=== PATIENT | female | born 1960 | race African-American/Black ===

== ENCOUNTER → 2016-12-12 | Outpatient (CLI) | payer OTHER ==
--- NOTE | 2016-12-13 07:58 | MR ---
EXAMINATION TYPE: MR lumbar spine wo con DATE OF EXAM: 12/12/2016 COMPARISON: MRI lumbar spine November 08, 2015 HISTORY: LBP x several years, no trauma/surgery per patient. Lumbago per order. TECHNIQUE: Multiplanar, multisequence imaging of the lumbar spine is performed without IV contrast. FINDINGS: We'll use same counting system as was performed on prior exam. Sagittal images of the lumba r spine show vertebral body heights to remain satisfactory. There is persistent grade 1 retrolisthesi s of L5 on L6 measured 4 mm from posterior vertebral body margin on sagittal image 8. There is disc d esiccation L4-L5 level. There is disc desiccation with mild to moderate disc space narrowing and vacu um disc phenomenon L5-L6 level. This is suspected some progression versus prior exam. The interverteb ral discs otherwise redemonstrate normal heights and hydration. Small posterior disc herniations L4-L 5 and L5 L6 level are redemonstrated sagittal images. The conus medullaris remains normal in position and signal ending at superior L1 vertebral body level. The bone marrow signal intensity is within n ormal limits. No significant spurring is seen. Axial images beginning at L1-L2 level which is felt within normal limits. Axial images at L2-L3 and L 3-L4 levels are felt to remain within normal limits. Axial images at the L4-L5 level show spondylolisthesis and moderate facet arthropathy bilaterally. Th ere is minimal effacement of anterior thecal sac as there is additional broad-based posterior disc pr otrusion on axial image 17. There is moderate to severe right and mild left sided anterior inferior n eural foraminal narrowing redemonstrated. Axial images at the L5- L6 level show moderate left greater than right facet degenerative changes. Th ere is central disc extrusion redemonstrated minimally effacing anterior thecal sac. There is mild le ft greater than right neural foraminal narrowing at this level redemonstrated. Axial images at L6-S1 level are felt to remain within normal limits. Paraspinal muscle bulk is maintained. IMPRESSION: Persistent grade 1 retrolisthesis of L5 on L6 felt stable. Some progression in degenerati ve findings on sagittal images L5- L6 level is felt present. Multilevel degenerative changes in mid t o lower lumbar spine as detailed above appear not significantly changed on axial images.
== END | disposition home or self-care (01) ==
LOC: RADMRIMAIN 15:04
PROVIDERS: ATTEND Psychiatry & Neurology Neurology
DX: M43.16 Spondylolisthesis, lumbar region (principal); M47.816 Spondylosis without myelopathy or radiculopathy, lumbar region
CPT/HCPCS: 72148

== ENCOUNTER → 2017-01-29 | Outpatient (CLI) | payer OTHER ==
--- NOTE | 2017-01-30 09:00 | MM ---
Reason for exam: screening (asymptomatic). Last mammogram was performed 5 years ago. History: Family history of breast cancer in paternal aunt. Physical Findings: A clinical breast exam by your physician is recommended on an annual basis and results should be correlated with mammographic findings. MG Screening Mammo w CAD Bilateral CC and MLO view(s) were taken. Prior study comparison: February 10, 2012, mammogram, performed at [facility]. There are scattered fibroglandular densities. There is chronic nodularity in the right breast, stable. No significant changes when compared with prior studies. ASSESSMENT: Benign, BI-RAD 2 RECOMMENDATION: Routine screening mammogram of both breasts in 1 year.
== END | disposition home or self-care (01) ==
LOC: RADMAMWWP 09:09
PROVIDERS: ATTEND Family Medicine
DX: Z12.31 Encounter for screening mammogram for malignant neoplasm of breast (principal)

== ENCOUNTER → 2017-04-04 | Outpatient (CLI) | payer OTHER ==
--- NOTE | 2017-04-04 14:09 | FL ---
EXAMINATION TYPE: FL barium swallow DATE OF EXAM: 04/04/2017 COMPARISON: NONE HISTORY: Gastroesophageal reflux, dysphasia TECHNIQUE: A single contrast UGI study is performed. FINDINGS: Esophagus dilates to normal caliber has normal contour to the gastroesophageal junction. Ga stroesophageal junction opens to normal caliber. Some secondary and tertiary contractions were briefl y visualized during this exam. Findings can be compatible with presbyesophagus. There is incomplete s tripping of the esophageal bolus the horizontal drinking position. Gastroesophageal reflux was presen t during the exam. 1.2 minutes of fluoroscopy time was provided. 20 images are obtained. IMPRESSIONS: 1. Gastroesophageal reflux. 2. No hiatal hernia identified. 3. Presbyesophagus
== END ==
LOC: RADFLWHC 08:36
PROVIDERS: ATTEND Surgery
DX: K21.9 Gastro-esophageal reflux disease without esophagitis (principal); K22.8 Other specified diseases of esophagus
CPT/HCPCS: 74220

== ENCOUNTER 2017-04-10 06:39 | Day surgery (SDC) | payer OTHER ==
[~2017-04-10 06:39] MED LIST: LACTATED RINGERS 1,000 ML IV SCH
[2017-04-10 07:06] VITALS: TEMP 98.1
[2017-04-10] MEDS ORDERED: LACTATED RINGERS 1,000 ML IV ONE ×2 (07:16)
[2017-04-10 07:18] LABS: Glucose,Whole Blood 98 mg/dL (75-99)
[2017-04-10] MEDS ORDERED: PROPOFOL 10 MG/ML 20 ML VIAL IV ONE (07:45)
[2017-04-10] MEDS ORDERED: MIDAZOLAM 2 MG/2 ML VIAL ONE (07:45)
[2017-04-10] MEDS ORDERED: fentaNYL (PF) 50 MCG/ML 2 ML AMP ONE (07:45)
--- NOTE | 2017-04-10 07:56 | P.GSHP ---
History of Present Illness H&P Date: 04/10/17 Chief Complaint: GERD, dysphagia This is a 56-year-old female who's had complaints of some epigastric pain and GERD and dysphagia. Her recent esophagram shows no evidence of hiatal hernia. She does have evidence of presbyesophagus and reflux on esophagram. She was a presents today EGD. Past Medical History Past Medical History: Asthma, COPD, Diabetes Mellitus, GERD/Reflux, Hyperlipidemia, Hypertension, Osteoarthritis (OA) Additional Past Medical History / Comment(s): Other HX: IDDM. CAROTID STENOSIS. Chronic low back pain, bilateral knees with arthritis, frequent constipation, bronchitis, migraines History of Any Multi-Drug Resistant Organisms: None Reported Past Surgical History: Hernia Repair, Hysterectomy, Orthopedic Surgery, Tubal Ligation Additional Past Surgical History / Comment(s): 08/04/15 laparoscopic fredy fundoplasty. Other surgeries: LASER FOR GLAUCOMA, TUBAL , RT ING HERNIA, LT ROTATOR CUFF REPAIR, ARTHROSCOPY SAUL KNEES, HX OF ENDOVASCULAR STENT ASSISTED COIL EMBOLIZATION OF LEFT INTERNAL CAROTID ARTERY ANEURYSM (FEB 2014). (ANGIOGRAM 08/23/14 TO CHECK STENT.) hiatal hernia repair Past Anesthesia/Blood Transfusion Reactions: Motion Sickness Past Psychological History: Anxiety, Depression Smoking Status: Current every day smoker Past Alcohol Use History: None Reported Additional Past Alcohol Use History / Comment(s): SMOKES ABOUT 8 CIG A DAY, SINCE 15 YRS. QUIT DRINKING ALCOHOL 9 YRS AGO. Past Drug Use History: None Reported Additional Drug Use History / Comment(s): STATES HX OF CRACK, MARIJUANA AND COCAINE USE, QUIT 9 YRS AGO. - Past Family History Father Family Medical History: No Reported History Medications and Allergies Home Medications Medication Instructions Recorded Confirmed Type Aspirin EC [Ecotrin] 325 mg PO DAILY 08/26/14 04/09/17 History Atorvastatin [Lipitor] 80 mg PO HS 08/26/14 04/09/17 History Cyclobenzaprine [Flexeril] 10 mg PO TID PRN 08/26/14 04/09/17 History FLUoxetine HCL [PROzac] 40 mg PO QAM 08/26/14 04/09/17 History HYDROcodone/APAP 10-325MG [[place] 1 tab PO Q6H PRN 08/26/14 04/09/17 History 10] Albuterol Inhaler [Ventolin Hfa 2 puff INHALATION RT-BID PRN 09/01/14 04/09/17 History Inhaler] Albuterol Nebulized [Ventolin 2.5 mg INHALATION RT-QID 09/01/14 04/09/17 History Nebulized] Lisinopril [Zestril] 5 mg PO QAM 04/12/15 04/09/17 History Butalb/APAP/Caff 50-325-40Mg 1 tab PO Q8HR PRN 07/28/15 04/09/17 History [Fioricet 50-325-40] Fenofibrate 160 mg PO QAM 07/28/15 04/09/17 History Gabapentin [Neurontin] 600 mg PO TID 07/28/15 04/09/17 History Insulin Glulisine [Apidra] 13 unit SQ TID-W/MEALS 07/28/15 04/09/17 History Verapamil HCl [Verapamil ER] 120 mg PO QAM 07/28/15 04/09/17 History traMADol HCl [Ultram] 50 mg PO TID PRN 07/28/15 04/09/17 History Albiglutide [Tanzeum] 50 unit SQ SA 04/09/17 04/09/17 History Ergocalciferol (Vitamin D2) 50,000 unit PO Q30D 04/09/17 04/09/17 History [Vitamin D2] Ibuprofen [Motrin] 800 mg PO Q8H PRN 04/09/17 04/09/17 History Insulin Glargine [Lantus] 100 unit SQ HS 04/09/17 04/09/17 History Isosorbide Mononitrate [Isosorbide 30 g PO QAM 04/09/17 04/09/17 History Mononitrate ER] Latanoprost [Xalatan 0.005%] 1 drop BOTH EYES 04/09/17 04/09/17 History Nitroglycerin Sl Tabs [Nitrostat] 1 tab PO DIRECTED PRN 04/09/17 04/09/17 History Pioglitazone [Actos] 15 mg PO QAM 04/09/17 04/09/17 History Verapamil [Isoptin] 40 mg PO QAM 04/09/17 04/09/17 History diphenhydrAMINE [Benadryl] 50 mg PO QID PRN 04/09/17 04/09/17 History metFORMIN HCL [Glucophage] 500 mg PO PC-SUPPER 04/09/17 04/09/17 History Allergies Allergy/AdvReac Type Severity Reaction Status Date / Time No Known Allergies Allergy Verified 04/09/17 08:14 Surgical - Exam Vital Signs Temp Pulse Resp BP Pulse Ox 98.1 F 92 20 140/79 93 L 04/10/17 07:02 04/10/17 07:02 04/10/17 07:02 04/10/17 07:02 04/10/17 07:02 - General well developed, no distress - Eyes PERRL - ENT normal pinna - Neck no masses - Respiratory normal expansion - Cardiovascular Rhythm: regular - Abdomen Abdomen: soft, non tender Assessment and Plan Plan: GERD, dysphagia. We'll perform EGD.
--- NOTE | 2017-04-10 08:05 | P.OP ---
Date of Procedure: 04/10/17 Preoperative Diagnosis: GERD Dysphagia Postoperative Diagnosis: Mild antral gastritis No evidence of hiatal hernia No evidence of esophagitis No evidence of GE stricture Procedure(s) Performed: EGD with balloon dilatation Anesthesia: MAC Surgeon: Manjit Hester Pathology: other (Antral) Condition: stable Disposition: PACU Description of Procedure: Patient's placed on the endoscopy table in the lateral position. She received IV sedation. The gastroscope placed oropharynx passed in the esophagus and stomach. Scope was then placed through the pylorus. The first and second portion of the duodenum appeared normal. The scope was then brought back the antrum. This area appeared minimally inflamed. A biopsies performed. The scope was unretroflexed and remainder of some appeared normal. There is no evidence of hiatal hernia. The GE junction was at 40 cms. The patient's symptoms of dysphagia a 20 mm balloon was placed across the GE junction there was no evidence of a stricture. The distal esophagus. Normal. The proximal esophagus normal. Scope was withdrawn for patient.
[2017-04-10 08:19] LABS: Glucose,Whole Blood 87 mg/dL (75-99)
[2017-04-10 08:28] VITALS: BP 108/69; PULSE 86; RESP 20
== END 2017-04-10 08:53 | disposition home or self-care (01) ==
LOC: ORWHC2ENDO 06:39
PROVIDERS: ATTEND Surgery
DX: K21.9 Gastro-esophageal reflux disease without esophagitis (principal); R13.10 Dysphagia, unspecified; K29.50 Unspecified chronic gastritis without bleeding; J44.9 Chronic obstructive pulmonary disease, unspecified; I65.29 Occlusion and stenosis of unspecified carotid artery; E11.42 Type 2 diabetes mellitus with diabetic polyneuropathy; Z79.4 Long term (current) use of insulin; Z79.84 Long term (current) use of oral hypoglycemic drugs; I10 Essential (primary) hypertension; F17.210 Nicotine dependence, cigarettes, uncomplicated; E78.5 Hyperlipidemia, unspecified; G89.29 Other chronic pain; M54.5 Low back pain; M19.90 Unspecified osteoarthritis, unspecified site; F32.9 Major depressive disorder, single episode, unspecified; F41.9 Anxiety disorder, unspecified; Z79.82 Long term (current) use of aspirin; Z79.899 Other long term (current) drug therapy
CPT/HCPCS: 88305; 88342; 43239; 43249; J2250; J3010; J2704; C1726

== ENCOUNTER → 2017-04-17 | Outpatient (CLI) | payer OTHER ==
[2017-04-17 09:56] LABS: Blood Urea Nitrogen 25 mg/dL (7-17); Non-African American GFR(MDRD) >60 (>60 ml/min/1.73 sqM)
--- NOTE | 2017-04-17 11:30 | CT ---
EXAMINATION TYPE: CT abdomen pelvis w con DATE OF EXAM: 04/17/2017 COMPARISON: CT abdomen pelvis dated 11/21/2014 HISTORY: Abnormal radiologic findings CT DLP: 970.30 mGycm Automated exposure control for dose reduction was used. TECHNIQUE: Helical acquisition of images from the lung bases through the pelvis have been completed. CONTRAST: Performed with Oral Contrast and with IV Contrast, patient injected with 100 ml mL of Omnipaque 300. FINDINGS: Surgical clips are present at the upper stomach, gastroesophageal junction. LUNG BASES: No significant abnormality is appreciated. Minimal dependent atelectatic changes are pres ent at the lung bases. AORTA: Atheromatous changes are present, no evident aneurysm. LIVER/GB: The liver shows low attenuation possibly due to fatty perforation, liver is enlarged. Gallb ladder is contracted. PANCREAS: No significant abnormality is seen. SPLEEN: No significant abnormality is seen. ADRENALS: No significant abnormality is seen. KIDNEYS: No significant abnormality is seen. REPRODUCTIVE ORGANS: Uterus is absent. No evident ovarian mass, ovaries not seen. BOWEL: Multiple areas of metallic density are present which may represent retained barium within sca ttered diverticula as well as appendix, streak artifact could limit sensitivity. There is no evident bowel obstruction. FREE AIR: No Free Air visible. ASCITES: None visible. PELVIC ADENOPATHY: None visualized. RETROPERITONEAL ADENOPATHY: No Retroperitoneal Adenopathy visible. URINARY BLADDER: No significant abnormality is seen. OSSEOUS STRUCTURES: Stable, degenerative disc changes are noted in the lumbar spine, disc herniation is noted at L4-5. Scattered metallic densities are present within the proximal right lower extremity, correlate for his tory of penetrating trauma. IMPRESSION: PROBABLE FATTY INFILTRATION OF THE LIVER. POSTOP CHANGES. Correlate for history of trauma to the righ t lower extremity. Diverticulosis. Disc herniation L4-5
== END | disposition home or self-care (01) ==
LOC: RADCTMAIN 09:07
PROVIDERS: ATTEND Psychiatry & Neurology Neurology
DX: K57.90 Diverticulosis of intestine, part unspecified, without perforation or abscess without bleeding (principal); R19.00 Intra-abdominal and pelvic swelling, mass and lump, unspecified site; Z98.890 Other specified postprocedural states
CPT/HCPCS: 82565; 84520; 74177; 36415; Q9967

== ENCOUNTER → 2018-04-09 | Outpatient (CLI) | payer OTHER ==
--- NOTE | 2018-04-09 14:29 | CT ---
EXAMINATION TYPE: CT angio head neck DATE OF EXAM: 04/09/2018 HISTORY: headache COMPARISON: None CT DLP: 1337 mGycm. Automated Exposure Control for Dose Reduction was Utilized. TECHNIQUE: CTA scan of the neck is performed with IV Contrast, patient injected with 65mL mL of Isov ue 370, axial images are obtained, coronal and sagittal reformatted images are reviewed. Three-D jeff nstructed images are created on an independent workstation and reviewed. FINDINGS: Carotid/Vascular Structures: Internal carotid arteries appear unremarkable. Common carotid arteries b ifurcate into internal and external carotid arteries appears normal. Minimal atheromatous plaquing is at the right carotid bifurcation. No stenosis is evident within either carotid structure. CTA [place]: Vertebral arteries appear codominant. Distal vertebral arteries may have some n arrowing. The basilar artery appears unremarkable No posterior communicating arteries are are identified. The left internal carotid artery bifurcates normally into A1 and M1 segments. A2 segments appear norm al. Right internal carotid artery bifurcates into A1 and M1 segments. Middle cerebral artery branches appear normal. There is limitation of the right A1 segment on the Three-D reconstructed images which appears normal on the 2-D MIPS imaging. Other: Lung apices within the [id number] are unremarkable. Noncontrast imaging is performed throug h the brain. A left [place] aneurysm clip is present. No abnormal hyperdensity is present to suggest an acute intracranial hemorrhage. No mass lesion is evident. No acute infarcts are evident. Ventricles and sulci are appropriate for the patient age. Paranasal sinuses and mastoid air cells within the [id number] are clear. IMPRESSION: No significant abnormality is seen in bilateral carotid bifurcations and [place] s.
== END | disposition home or self-care (01) ==
LOC: RADCTMAIN 10:39
PROVIDERS: ATTEND Psychiatry & Neurology Neurology
DX: M54.2 Cervicalgia (principal); R51 Headache
CPT/HCPCS: 70496; 70498; Q9967

== ENCOUNTER 2018-12-16 08:22 | Day surgery (SDC) | payer OTHER ==
[2018-12-14 16:25] VITALS: BMI 27.4
[2018-12-16 08:58] VITALS: TEMP 97.4
[2018-12-16 08:58] LABS: Glucose,Whole Blood 97 mg/dL (75-99)
[2018-12-16] MEDS ORDERED: GLYCOPYRROLATE 0.2 MG/ML 2 ML VIAL ONE (09:53)
[2018-12-16] MEDS ORDERED: LIDOCAINE 1% INJ 10MG/ML (20 ML MDV) ONE (09:53)
[2018-12-16] MEDS ORDERED: PROPOFOL 10 MG/ML 20 ML VIAL IV ONE (09:53)
--- NOTE | 2018-12-16 09:58 | P.GSHP ---
History of Present Illness H&P Date: 12/16/18 Chief Complaint: Dysphagia, constipation This is a 58-year-old female who presents today for EGD and colonoscopy. Patient's had complaints of dysphagia and constipation. Past Medical History Past Medical History: Asthma, COPD, Diabetes Mellitus, GERD/Reflux, Hyperlipidemia, Hypertension, Osteoarthritis (OA) Additional Past Medical History / Comment(s): Other HX: CAROTID STENOSIS. Chronic low back pain, bilateral knees with arthritis, frequent constipation, bronchitis, migraines, HEAD ANEURYSM History of Any Multi-Drug Resistant Organisms: None Reported Past Surgical History: Hernia Repair, Hysterectomy, Orthopedic Surgery, Tubal Ligation Additional Past Surgical History / Comment(s): 08/04/15 laparoscopic fredy fundoplasty. Other surgeries: LASER FOR GLAUCOMA, TUBAL - LAPAROTOMY , RT ING HERNIA, LT ROTATOR CUFF REPAIR, ARTHROSCOPY SAUL KNEES, HX OF ENDOVASCULAR STENT ASSISTED COIL EMBOLIZATION OF LEFT INTERNAL CAROTID ARTERY ANEURYSM (FEB 2014). (ANGIOGRAM 08/23/14 TO CHECK STENT.) hiatal hernia repair",HEAD ANEURYSM REPAIR " Past Anesthesia/Blood Transfusion Reactions: Motion Sickness Smoking Status: Current every day smoker - Past Family History Father Family Medical History: No Reported History Medications and Allergies Home Medications Medication Instructions Recorded Confirmed Type Aspirin EC [Ecotrin] 325 mg PO DAILY 08/26/14 12/14/18 History Atorvastatin [Lipitor] 80 mg PO HS 08/26/14 12/14/18 History Cyclobenzaprine [Flexeril] 10 mg PO TID PRN 08/26/14 12/14/18 History FLUoxetine HCL [PROzac] 40 mg PO QAM 08/26/14 12/14/18 History HYDROcodone/APAP 10-325MG [[place] 1 tab PO Q6H PRN 08/26/14 12/14/18 History 10] Albuterol Inhaler [Ventolin Hfa 2 puff INHALATION RT-BID PRN 09/01/14 12/14/18 History Inhaler] Albuterol Nebulized [Ventolin 2.5 mg INHALATION RT-QID PRN 09/01/14 12/14/18 History Nebulized] Lisinopril [Zestril] 5 mg PO QAM 04/12/15 12/14/18 History Butalb/APAP/Caff 50-325-40Mg 1 tab PO Q8HR PRN 07/28/15 12/14/18 History [Fioricet 50-325-40] Fenofibrate 160 mg PO QAM 07/28/15 12/14/18 History Gabapentin [Neurontin] 600 mg PO TID 07/28/15 12/14/18 History Insulin Glulisine [Apidra] 13 unit SQ TID-W/MEALS 07/28/15 12/14/18 History traMADol HCl [Ultram] 50 mg PO TID PRN 07/28/15 12/14/18 History Ergocalciferol (Vitamin D2) 50,000 unit PO WE 04/09/17 12/14/18 History [Vitamin D2] Isosorbide Mononitrate [Isosorbide 30 mg PO QAM 04/09/17 12/14/18 History Mononitrate ER] Latanoprost [Xalatan 0.005%] 1 drop BOTH EYES HS 04/09/17 12/14/18 History Nitroglycerin Sl Tabs [Nitrostat] 1 tab PO DIRECTED PRN 04/09/17 12/14/18 History Pioglitazone [Actos] 15 mg PO QAM 04/09/17 12/14/18 History Verapamil [Isoptin] 40 mg PO BID 04/09/17 12/14/18 History diphenhydrAMINE [Benadryl] 50 mg PO QID PRN 04/09/17 12/14/18 History metFORMIN HCL [Glucophage] 500 mg PO PC-SUPPER 04/09/17 12/14/18 History Insulin Glargine,Hum.rec.anlog 120 unit SQ HS 12/14/18 12/14/18 History [Basaglar Kwikpen U-100] Liraglutide [Victoza 3-Myron] 1.2 mg SQ DAILY 12/14/18 12/14/18 History Allergies Allergy/AdvReac Type Severity Reaction Status Date / Time No Known Allergies Allergy Verified 12/16/18 08:48 Surgical - Exam Vital Signs Temp Pulse Resp BP Pulse Ox 97.4 F L 83 17 106/84 97 12/16/18 08:58 12/16/18 08:58 12/16/18 08:58 12/16/18 08:58 12/16/18 08:58 - General well developed, well nourished, no distress - Eyes PERRL - ENT normal pinna - Neck no masses - Respiratory normal expansion - Cardiovascular Rhythm: regular - Abdomen Abdomen: soft, non tender Assessment and Plan Assessment: Dysphagia. We'll perform EGD. Constipation. We'll perform colonoscopy.
--- NOTE | 2018-12-16 10:22 | P.OP ---
Date of Procedure: 12/16/18 Preoperative Diagnosis: Dysphagia Constipation Postoperative Diagnosis: Antral gastritis Diverticulosis Hemorrhoids Procedure(s) Performed: EGD Colonoscopy Anesthesia: MAC Surgeon: Manjit Hester Pathology: other (Antrum) Condition: stable Disposition: PACU Description of Procedure: The patient's placed on the endoscopy table in the lateral position. She received IV sedation. The gastroscope was placed oropharynx and passed the esophagus and into the stomach. Scope was then placed through the pylorus. The first and second portion of the duodenum appeared normal. Scope was then brought back the antrum this appeared mildly inflamed. A biopsies performed. The scope was then retroflexed and the remainder of the stomach appeared normal. There was no significant hiatal hernia. The GE junction was at 40 cm. The distal esophagus appeared normal. The proximal esophagus appeared normal. Scope was withdrawn for patient. Next digital rectal exam was performed which revealed a few internal and external hemorrhoids. The flexible colonoscope was then placed patient anus passed throughout the entire colon. The ileocecal valve was visualized. The cecum, ascending and transverse colon appeared normal. In the descending; there is extensive diverticular changes. The scope was then brought back the rectum and this appeared normal. Scope withdrawn for patient.
[2018-12-16 10:35] VITALS: RESP 16
[2018-12-16 10:43] VITALS: BP 108/72; PULSE 90
== END 2018-12-16 11:07 | disposition home or self-care (01) ==
LOC: ORWHC2ENDO 08:22
PROVIDERS: ATTEND Surgery
DX: K29.50 Unspecified chronic gastritis without bleeding (principal); K64.8 Other hemorrhoids; K64.4 Residual hemorrhoidal skin tags; K57.30 Diverticulosis of large intestine without perforation or abscess without bleeding; I10 Essential (primary) hypertension; G89.29 Other chronic pain; F17.200 Nicotine dependence, unspecified, uncomplicated; E11.9 Type 2 diabetes mellitus without complications; E78.5 Hyperlipidemia, unspecified; J44.9 Chronic obstructive pulmonary disease, unspecified; K21.9 Gastro-esophageal reflux disease without esophagitis; K59.00 Constipation, unspecified; R13.10 Dysphagia, unspecified; Z79.4 Long term (current) use of insulin; Z79.82 Long term (current) use of aspirin; Z79.891 Long term (current) use of opiate analgesic; Z79.899 Other long term (current) drug therapy
CPT/HCPCS: 88305; 45378; 43239; J2001; J2704

== ENCOUNTER → 2018-12-22 | Outpatient (CLI) | payer OTHER ==
[2018-12-22 16:50] LABS: HCT 39.2 % (34.0-46.0); HGB 12.8 gm/dL (11.4-16.0); MCHC 32.8 g/dL (31.0-37.0); MCV 94.7 fL (80.0-100.0); Mean Platelet Volume 8.2; Platelet Count 345 k/uL (150-450); RBC 4.14 m/uL (3.80-5.40); RDW 14.3 % (11.5-15.5); WBC 11.4 k/uL (3.8-10.6)
[2018-12-22 16:54] LABS: Potassium 4.7 mmol/L (3.5-5.1)
== END | disposition home or self-care (01) ==
LOC: LABPAT 16:24
PROVIDERS: ATTEND Surgery
DX: Z01.812 Encounter for preprocedural laboratory examination (principal); K57.32 Diverticulitis of large intestine without perforation or abscess without bleeding
CPT/HCPCS: 80051; 85027; 86850; 86900; 86901

== ENCOUNTER → 2018-12-29 | Outpatient (CLI) | payer OTHER ==
[2018-12-29 12:30] LABS: African American GFR (CKD) >90 (>60 ml/min/1.73 sqM); Blood Urea Nitrogen 16 mg/dL (7-17)
== END | disposition home or self-care (01) ==
LOC: LABPAT 10:47
PROVIDERS: ATTEND Surgery
DX: Z01.818 Encounter for other preprocedural examination (principal); I10 Essential (primary) hypertension; Z79.4 Long term (current) use of insulin; E10.9 Type 1 diabetes mellitus without complications; Z79.899 Other long term (current) drug therapy; Z01.812 Encounter for preprocedural laboratory examination
CPT/HCPCS: 36415; 82565; 84520; 93005

== ENCOUNTER 2018-12-31 06:59 | Inpatient (IN) | payer OTHER ==
[2018-12-22 16:50] LABS: HCT 39.2 % (34.0-46.0); HGB 12.8 gm/dL (11.4-16.0); MCHC 32.8 g/dL (31.0-37.0); MCV 94.7 fL (80.0-100.0); Mean Platelet Volume 8.2; Platelet Count 345 k/uL (150-450); RBC 4.14 m/uL (3.80-5.40); RDW 14.3 % (11.5-15.5); WBC 11.4 k/uL (3.8-10.6)
[2018-12-22 16:54] LABS: Potassium 4.7 mmol/L (3.5-5.1)
[2018-12-28 09:27] VITALS: BMI 27.4
[~2018-12-31 06:59] MED LIST changes: +HEPARIN SODIUM,PORCINE 5,000 UNIT/ML 1 ML VIAL SQ ONE; -LACTATED RINGERS 1,000 ML IV SCH; +ceFAZolin IN SWFI 2 GM/20 ML SYRINGE IVP ONE; +metroNIDAZOLE-NS PMX 500 MG in SALINE 1 100ML.BAG IVPB ONE
[2018-12-31 08:19] LABS: Glucose,Whole Blood 239 mg/dL (75-99)
[2018-12-31] MEDS ORDERED: LIDOCAINE 1% 20 ML VIAL (10MG/ML) FOR IV START SQ ONE (08:20)
[2018-12-31] MEDS ORDERED: LACTATED RINGERS 1,000 ML IV ONE ×2 (08:30→10:30)
[2018-12-31] MEDS ORDERED: ONDANSETRON 4 MG/2 ML VIAL IVP ONE (08:34)
[2018-12-31] MEDS ORDERED: DEXAMETHASONE SOD PHOSPHATE 10 MG/ML 1 ML VIAL IV ONE (08:34)
[2018-12-31] MEDS ORDERED: MIDAZOLAM (PF) 2 MG/2 ML VIAL IV ONE (08:35)
[2018-12-31] MEDS ORDERED: fentaNYL (PF) 50 MCG/ML 2 ML AMP IV ONE (08:35)
--- NOTE | 2018-12-31 08:52 | P.GSHP ---
History of Present Illness H&P Date: 12/31/18 Chief Complaint: Diverticulitis This is a 58-year-old female who's had chronic issues with diverticulitis. Patient presents today for low anterior resection. Patient understands risks of surgery including possible colostomy. Past Medical History Past Medical History: Asthma, COPD, Diabetes Mellitus, GERD/Reflux, Hyperlipidemia, Hypertension, Osteoarthritis (OA) Additional Past Medical History / Comment(s): diverticulitis, Other HX: CAROTID STENOSIS. Chronic low back pain, bilateral knees with arthritis, frequent constipation, bronchitis, migraines, HEAD ANEURYSM History of Any Multi-Drug Resistant Organisms: None Reported Past Surgical History: Hernia Repair, Hysterectomy, Orthopedic Surgery, Tubal Ligation Additional Past Surgical History / Comment(s): 08/04/15 laparoscopic fredy fundoplasty. Other surgeries: LASER FOR GLAUCOMA, TUBAL - LAPAROTOMY , RT ING HERNIA, LT ROTATOR CUFF REPAIR, ARTHROSCOPY SAUL KNEES, HX OF ENDOVASCULAR STENT ASSISTED COIL EMBOLIZATION OF LEFT INTERNAL CAROTID ARTERY ANEURYSM (FEB 2014). (ANGIOGRAM 08/23/14 TO CHECK STENT.) hiatal hernia repair",HEAD ANEURYSM REPAIR " Past Anesthesia/Blood Transfusion Reactions: Motion Sickness Smoking Status: Current every day smoker - Past Family History Father Family Medical History: No Reported History Medications and Allergies Home Medications Medication Instructions Recorded Confirmed Type Aspirin EC [Ecotrin] 325 mg PO DAILY 08/26/14 12/28/18 History Atorvastatin [Lipitor] 80 mg PO HS 08/26/14 12/31/18 History Cyclobenzaprine [Flexeril] 10 mg PO TID PRN 08/26/14 12/31/18 History FLUoxetine HCL [PROzac] 40 mg PO QAM 08/26/14 12/31/18 History HYDROcodone/APAP 10-325MG [[place] 1 tab PO Q6H PRN 08/26/14 12/31/18 History 10] Albuterol Inhaler [Ventolin Hfa 2 puff INHALATION RT-BID PRN 09/01/14 12/31/18 History Inhaler] Albuterol Nebulized [Ventolin 2.5 mg INHALATION RT-QID PRN 09/01/14 12/31/18 History Nebulized] Lisinopril [Zestril] 5 mg PO QAM 04/12/15 12/31/18 History Butalb/APAP/Caff 50-325-40Mg 1 tab PO Q8HR PRN 07/28/15 12/31/18 History [Fioricet 50-325-40] Fenofibrate 160 mg PO QAM 07/28/15 12/31/18 History Gabapentin [Neurontin] 600 mg PO TID 07/28/15 12/31/18 History Insulin Glulisine [Apidra] 13 unit SQ TID-W/MEALS 07/28/15 12/31/18 History traMADol HCl [Ultram] 50 mg PO TID PRN 07/28/15 12/31/18 History Ergocalciferol (Vitamin D2) 50,000 unit PO WE 04/09/17 12/31/18 History [Vitamin D2] Isosorbide Mononitrate [Isosorbide 30 mg PO QAM 04/09/17 12/31/18 History Mononitrate ER] Latanoprost [Xalatan 0.005%] 1 drop BOTH EYES HS 04/09/17 12/31/18 History Nitroglycerin Sl Tabs [Nitrostat] 1 tab PO DIRECTED PRN 04/09/17 12/31/18 History Pioglitazone [Actos] 15 mg PO QAM 04/09/17 12/31/18 History Verapamil [Isoptin] 40 mg PO BID 04/09/17 12/31/18 History diphenhydrAMINE [Benadryl] 50 mg PO QID PRN 04/09/17 12/31/18 History metFORMIN HCL [Glucophage] 500 mg PO PC-SUPPER 04/09/17 12/31/18 History Insulin Glargine,Hum.rec.anlog 120 unit SQ HS 12/14/18 12/31/18 History [Basaglar Kwikpen U-100] Liraglutide [Victoza 3-Myron] 1.2 mg SQ DAILY 12/14/18 12/31/18 History Allergies Allergy/AdvReac Type Severity Reaction Status Date / Time No Known Allergies Allergy Verified 12/31/18 08:07 Surgical - Exam Vital Signs Temp Pulse Resp BP Pulse Ox 97.2 F L 97 16 130/66 93 L 12/31/18 08:11 12/31/18 08:11 12/31/18 08:11 12/31/18 08:11 12/31/18 08:11 - General well developed, well nourished, no distress - Eyes PERRL - ENT normal pinna - Neck no masses - Respiratory normal expansion - Cardiovascular Rhythm: regular - Abdomen Abdomen: soft, non tender Results - Labs 12/22/18 16:30 12/31/18 08:15 Abnormal Lab Results - Last 24 Hours (Table) 12/31/18 Range/Units 08:11 POC Glucose (mg/dL) 239 H (75-99) mg/dL Diabetes panel 12/31/18 Range/Units 08:15 Potassium 3.9 (3.5-5.1) mmol/L Pituitary panel 12/31/18 Range/Units 08:15 Potassium 3.9 (3.5-5.1) mmol/L Adrenal panel 12/31/18 Range/Units 08:15 Potassium 3.9 (3.5-5.1) mmol/L Assessment and Plan Assessment: Diverticulitis We'll perform low anterior section
[2018-12-31] MEDS ORDERED: MELOXICAM 7.5 MG TAB PO ONE (08:59)
[2018-12-31] MEDS ORDERED: ACETAMINOPHEN TAB 500 MG TAB PO ONE (08:59)
[2018-12-31] MEDS ORDERED: ALVIMOPAN 12 MG CAPSULE PO ONE (08:59)
[2018-12-31] MEDS ORDERED: NALOXONE 0.4 MG/ML 1 ML VIAL IV PRN (09:10)
[2018-12-31] MEDS ORDERED: ROPIVACAINE 400 MG, HYDROMORPHONE (PF) 3.75 MG in SODIUM CHLORIDE 0.9% 170 ML EPIDURAL PRN (09:10)
[2018-12-31 10:19] LABS: Glucose,Whole Blood 177 mg/dL (75-99)
--- NOTE | 2018-12-31 11:45 | P.OP ---
Date of Procedure: 12/31/18 Preoperative Diagnosis: Diverticulitis Postoperative Diagnosis: Diverticulitis Adhesions Incidental appendectomy Procedure(s) Performed: Lysis of adhesions Low anterior section Takedown of splenic flexure Partial omentectomy Appendectomy Anesthesia: BRYAN Surgeon: Manjit Hester Estimated Blood Loss (ml): 25 Pathology: other (Appendix, left colon, sigmoid colon, omentum) Condition: stable Disposition: PACU Description of Procedure: DESCRIPTION OF PROCEDURE: The patient was placed on the operating table in the supine position. Patient received a general anesthesia. Patient was then placed in the dorsal lithotomy position. The patients abdomen was prepped and draped in the usual sterile fashion. Through a low midline incision, the abdomen was entered. There is extensive adhesions to the anterior abdominal wall. The the quadrant retractor was placed in the wound. The stomach appeared normal. The small bowel appeared normal. The liver appeared normal. The right colon and transverse colon appeared normal. On the left colon, there was an extensive diverticulosis noted. The sigmoid colon was then mobilized by dividing the white line of Toldt with electrocautery. The splenic flexure was mobilized using blunt and sharp dissection and electrocautery. Next, a enterotomy was made in the colon just distal to the transection line. The anvil for the 29 mm EEA stapler was placed into the distal transverse colon. The enterotomy is closed with 3-0 GI silk suture. And then the colon was transected with the GI stapler. The colonic mesentery was then divided using the Enseal device. The dissection was taken down to the level proximal rectum. The rectum was then transected with the contour stapler. The spike for the anvil was then driven through the staple line. The spike was removed and the anvil. And then the EEA stapler was placed the patient's rectum. The spike was returned to the stapler. The anvil was then connected to the stapler, the stapler is then closed and then fired. Stapler was removed. There is 2 intact tissue rings found. A leak test performed by insufflating air via a rigid sigmoidoscope in the patient's rectum. There is no evidence of extravasation. At this point the abdomen was irrigated no bleeding seen. The omentum was examined. There appeared to be some ischemic omentum and this was transected with the Enseal device. The appendix was visualized. The appendix mesentery was divided with the incentivized. And then using the GI stapler the appendix was divided and sent to pathology. The abdomen. No bleeding seen. The fascia was closed with clean instruments. The fascia was closed with 0 PDS suture. Skin was closed christal. Patient top she'll well and sent to recovery in stable condition.
[2018-12-31] MEDS ORDERED: NITROGLYCERIN SL TABS 0.4 MG TAB SUBLINGUAL PRN (12:51)
[2018-12-31] MEDS ORDERED: ALBUTEROL INHALER 60 PUFF/8 GM INHALER INHALATION PRN (12:51)
[2018-12-31] MEDS ORDERED: CYCLOBENZAPRINE 10 MG TAB PO PRN (12:51)
[2018-12-31] MEDS: VERAPAMIL 40 MG TAB PO SCH ×2 (13:51→20:39)
[2018-12-31] MEDS: D5-0.45% NACL WITH KCL 20MEQ/L 1,000 ML IV SCH ×2 (13:52→20:40)
[2018-12-31] MEDS ORDERED: NALBUPHINE 10 MG/ML (1 ML AMP) IV PRN (14:25)
[2018-12-31 15:29] LABS: Basophils % (A) 0 %; Eosinophils % (A) 0 %; HCT 34.6 % (34.0-46.0); HGB 11.2 gm/dL (11.4-16.0); Lymphocytes # (A) 1.6 k/uL (1.0-4.8); Lymphocytes % (A) 15 %; MCH 31.3 pg (25.0-35.0); MCHC 32.2 g/dL (31.0-37.0); Mean Platelet Volume 8.9; Monocytes # (A) 0.5 k/uL (0-1.0); Monocytes % (A) 5 %; Neutrophils # (A) 8.5 k/uL (1.3-7.7); Neutrophils % (A) 80 %; Platelet Count 330 k/uL (150-450); RBC 3.57 m/uL (3.80-5.40); WBC 10.7 k/uL (3.8-10.6)
[2018-12-31 15:42] LABS: African American GFR (CKD) >90 (>60 ml/min/1.73 sqM); Anion Gap 9 mmol/L; Blood Urea Nitrogen 12 mg/dL (7-17); Calcium 8.7 mg/dL (8.4-10.2); Carbon Dioxide 23 mmol/L (22-30); Chloride 105 mmol/L (98-107); Glucose 204 mg/dL (74-99); Potassium 4.5 mmol/L (3.5-5.1); Sodium 137 mmol/L (137-145)
[2018-12-31] MEDS: HEPARIN SODIUM,PORCINE 5,000 UNIT/ML 1 ML VIAL SQ SCH (16:27)
[2018-12-31] MEDS: GABAPENTIN 300 MG CAP PO SCH ×2 (16:27→20:39)
[2018-12-31] MEDS: diphenhydrAMINE 50 MG/ML 1 ML VIAL IVP PRN ×2 (17:18→22:18)
[2018-12-31 20:01] LABS: Glucose,Whole Blood 187 mg/dL (75-99)
[2018-12-31] MEDS: ATORVASTATIN 80 MG TAB PO SCH (20:39)
[2018-12-31] MEDS: LATANOPROST 0.005% OPHTH DROPS 2.5 ML BTL BOTH EYES SCH (20:40)
[2018-12-31] MEDS: INSULIN DETEMIR (LEVEMIR) 100 UNIT/ML SYR SQ SCH (20:40)
--- NOTE | 2018-12-31 23:45 | P.CONS ---
History of Present Illness - Reason for Consult Consult date: 12/31/18 Medical management Requesting physician: Manjit Hester - Chief Complaint Abdominal surgery - History of Present Illness Consultation: This is a 58-year-old patient of Dr. Mckeon. Chronic stable medical conditions include COPD, diabetes, GERD, hypertension, hyperlipidemia, osteoarthritis. Patient has chronic pain including low back pain in knees. Patient has had pink symptoms from her diverticulitis. Patient underwent today surgery to include lysis of adhesions, no anterior resection, takedown of splenic flexure and partial omentectomy and appendectomy. Postprocedure patient scored a spinal. A bit drowsy but able to answer questions. Significant other by the bedside. No nausea vomiting. No chest pain. Breathing is stable. Review of systems: GEN.: Tired EYES: None HEENT: None NECK: None RESPIRATORY: Some wheezing occasionally CARDIOVASCULAR: None GASTROINTESTINAL: Abdominal pain GENITOURINARY: None MUSCULOSKELETAL: Pain in multiple joints LYMPHATICS: None HEMATOLOGICAL: None PSYCHIATRY: Anxious NEUROLOGICAL: None Family history: Reviewed, noncontributory presentation Physical examination: VITAL SIGNS: 97.6, 86, 20, 77/51, 95% on 5 L GENERAL: Average built, laying in bed, tired but arousable. EYES: Pupils equal. Conjunctiva normal. HEENT: External appearance of nose and ears normal, oral cavity grossly normal. NECK: JVD not raised; masses not palpable. HEART: First and second heart sounds are normal; no edema. LUNGS: Respiratory rate normal; decreased breath sounds. ABDOMEN: Soft, tender, liver spleen not palpable, no masses palpable. LYMPHATICS: No lymph nodes palpable in the axilla and neck. PSYCH: Lethargic tired but arousable and able to answer questionsl. NEUROLOGICAL: Cranial nerves grossly intact; no facial asymmetry, power and sensation grossly intact. Investigations: White count 10.7, hemoglobin 11.2, potassium 4.5, BUN 12, creatinine 0.62 Accu-Cheks noted Assessment: Status post lysis of adhesions, low anterior resection, takedown of splenic flexure, partial omentectomy, appendectomy for chronic diverticulitis -COPD in a current smoker -Chronic nicotine dependence patient cigarette smoker -Diabetes mellitus type II chronically on insulin -GERD -Hyperlipidemia -Essential hypertension -Primary osteoarthritis -Chronic low back pain and arthritis of the joints -Anxiety depression not otherwise specified Plan: Home medications will be resumed. Insulin will be resumed at 100 units. Accu-Cheks will be followed. Schedule short-acting insulin will be held. IV fluids. Patient has a spinal pain pump. Care was discussed with the patient. We'll use incentive spirometer. Has Venodyne boots for DVT prophylaxis. Add nicotine patch. Thank you Dr. Karli Mckoy Past Medical History Past Medical History: Asthma, COPD, Diabetes Mellitus, GERD/Reflux, Hyper lipidemia, Hypertension, Osteoarthritis (OA) Additional Past Medical History / Comment(s): diverticulitis, Other HX: CAROTID STENOSIS. Chronic low back pain, bilateral knees with arthritis, frequent constipation, bronchitis, migraines, HEAD ANEURYSM History of Any Multi-Drug Resistant Organisms: None Reported Past Surgical History: Hernia Repair, Hysterectomy, Orthopedic Surgery, Tubal Ligation Additional Past Surgical History / Comment(s): 08/04/15 laparoscopic fredy fundoplasty. Other surgeries: LASER FOR GLAUCOMA, TUBAL - LAPAROTOMY , RT ING HERNIA, LT ROTATOR CUFF REPAIR, ARTHROSCOPY SAUL KNEES, HX OF ENDOVASCULAR STENT ASSISTED COIL EMBOLIZATION OF LEFT INTERNAL CAROTID ARTERY ANEURYSM (FEB 2014). (ANGIOGRAM 08/23/14 TO CHECK STENT.) hiatal hernia repair",HEAD ANEURYSM REPAIR " Past Anesthesia/Blood Transfusion Reactions: Motion Sickness Past Psychological History: Anxiety, Depression Additional Psychological History / Comment(s): Pt has 2 children who live with her. One is age 14 and the other is 25yrs old. Pt has a lady who comes in and helps her bath, take her medications and does housework. Pt walks with a cane. Pt has had falls which she relates to her bad back and knee problems. She can drive but does not drive much. She has a glucometer. Smoking Status: Current every day smoker Past Alcohol Use History: None Reported Additional Past Alcohol Use History / Comment(s): SMOKES ABOUT 8 CIG A DAY -1 PPD, SINCE AGE 15 YRS. QUIT DRINKING ALCOHOL 2005 Past Drug Use History: None Reported Additional Drug Use History / Comment(s): STATES HX OF CRACK, MARIJUANA AND COCAINE USE, QUIT 2015 - Past Family History Father Family Medical History: No Reported History Medications and Allergies Home Medications Medication Instructions Recorded Confirmed Type Aspirin EC [Ecotrin] 325 mg PO DAILY 08/26/14 12/31/18 History Atorvastatin [Lipitor] 80 mg PO HS 08/26/14 12/31/18 History Cyclobenzaprine [Flexeril] 10 mg PO TID PRN 08/26/14 12/31/18 History FLUoxetine HCL [PROzac] 40 mg PO QAM 08/26/14 12/31/18 History HYDROcodone/APAP 10-325MG [[place] 1 tab PO Q6H PRN 08/26/14 12/31/18 History 10] Albuterol Inhaler [Ventolin Hfa 2 puff INHALATION RT-BID PRN 09/01/14 12/31/18 History Inhaler] Albuterol Nebulized [Ventolin 2.5 mg INHALATION RT-QID PRN 09/01/14 12/31/18 History Nebulized] Lisinopril [Zestril] 5 mg PO QAM 04/12/15 12/31/18 History Butalb/APAP/Caff 50-325-40Mg 1 tab PO Q8HR PRN 07/28/15 12/31/18 History [Fioricet 50-325-40] Fenofibrate 160 mg PO QAM 07/28/15 12/31/18 History Gabapentin [Neurontin] 600 mg PO TID 07/28/15 12/31/18 History Insulin Glulisine [Apidra] 13 unit SQ TID-W/MEALS 07/28/15 12/31/18 History traMADol HCl [Ultram] 50 mg PO TID PRN 07/28/15 12/31/18 History Ergocalciferol (Vitamin D2) 50,000 unit PO WE 04/09/17 12/31/18 History [Vitamin D2] Isosorbide Mononitrate [Isosorbide 30 mg PO QAM 04/09/17 12/31/18 History Mononitrate ER] Latanoprost [Xalatan 0.005%] 1 drop BOTH EYES HS 04/09/17 12/31/18 History Nitroglycerin Sl Tabs [Nitrostat] 0.4 mg PO Q5M PRN 04/09/17 12/31/18 History Pioglitazone [Actos] 15 mg PO QAM 04/09/17 12/31/18 History Verapamil [Isoptin] 40 mg PO BID 04/09/17 12/31/18 History diphenhydrAMINE [Benadryl] 50 mg PO QID PRN 04/09/17 12/31/18 History metFORMIN HCL [Glucophage] 500 mg PO PC-SUPPER 04/09/17 12/31/18 History Insulin Glargine,Hum.rec.anlog 120 unit SQ HS 12/14/18 12/31/18 History [Basaglar Kwikpen U-100] Liraglutide [Victoza 3-Myron] 1.2 mg SQ DAILY 12/14/18 12/31/18 History Allergies Allergy/AdvReac Type Severity Reaction Status Date / Time No Known Allergies Allergy Verified 12/31/18 12:20 Physical Exam Vitals: Vital Signs Temp Pulse Pulse Resp BP Pulse Ox 12/31/18 20:00 108 H 12/31/18 19:08 98.4 F 111 H 18 101/61 97 12/31/18 16:15 101 H 20 12/31/18 14:37 97.8 F 101 H 20 88/56 98 12/31/18 13:30 97.7 F 105 H 20 76/46 98 12/31/18 13:27 95 12/31/18 13:15 97.7 F 84 20 93/60 98 12/31/18 13:00 97.6 F 86 20 77/51 95 12/31/18 12:45 97.6 F 84 20 75/51 98 12/31/18 12:30 97.6 F 88 20 73/47 90 L 12/31/18 12:04 85 16 90/54 98 12/31/18 11:47 81 16 90/53 98 12/31/18 11:30 81 16 85/50 96 12/31/18 11:15 80 16 77/48 96 12/31/18 11:08 98.4 F 80 16 75/48 96 12/31/18 08:11 97.2 F L 97 16 130/66 93 L Intake and Output 12/31/18 12/31/18 01/01/19 14:59 22:59 06:59 Intake Total 2575 437.5 Output Total 250 500 Balance 2325 -62.5 Intake: IV 2100 Intake, IV Titration 225 437.5 Amount D5-0.45% NaCl with KCl 125 437.5 20Meq/l 1,000 ml @ 125 mls/hr IV .Q8H [facility] Rx#: [id number] Lactated Ringers 1,000 ml 100 @ 0 mls/hr IV .[facility] Rx#:[id number] Oral 250 Output: Urine 200 500 Estimated Blood Loss 50 Other: Voiding Method Indwelling Catheter Results CBC & Chem 7: 12/31/18 15:13 12/31/18 15:13 Labs: Abnormal Lab Results - Last 24 Hours (Table) 12/31/18 12/31/18 12/31/18 Range/Units 08:11 10:09 15:13 WBC 10.7 H (3.8-10.6) k/uL RBC 3.57 L (3.80-5.40) m/uL Hgb 11.2 L (11.4-16.0) gm/dL Neutrophils # 8.5 H (1.3-7.7) k/uL Glucose (74-99) mg/dL POC Glucose (mg/dL) 239 H 177 H (75-99) mg/dL 12/31/18 12/31/18 Range/Units 15:13 19:50 WBC (3.8-10.6) k/uL RBC (3.80-5.40) m/uL Hgb (11.4-16.0) gm/dL Neutrophils # (1.3-7.7) k/uL Glucose 204 H (74-99) mg/dL POC Glucose (mg/dL) 187 H (75-99) mg/dL
[2019-01-01] MEDS: HEPARIN SODIUM,PORCINE 5,000 UNIT/ML 1 ML VIAL SQ SCH ×3 (02:25→16:49)
[2019-01-01] MEDS: NICOTINE 14MG/24HR PATCH TRANSDERM SCH ×2 (03:12→09:38)
[2019-01-01] MEDS: diphenhydrAMINE 50 MG/ML 1 ML VIAL IVP PRN ×2 (04:27→09:38)
[2019-01-01] MEDS: D5-0.45% NACL WITH KCL 20MEQ/L 1,000 ML IV SCH ×3 (06:14→22:04)
--- NOTE | 2019-01-01 07:00 | P.PN ---
Progress Note - Text 01/01 642am 58-year-old female status post explore lap. Patient has an epidural catheter for postop pain control with a VAS of 0, patient has had complains of pruritus and was treated with Nubain and Benadryl. She is doing much better with pruritus. Epidural solution running at 4 mL an hour with no motor or sensory deficit. Plan to continue epidural infusion
[2019-01-01 07:12] LABS: Glucose,Whole Blood 86 mg/dL (75-99)
[2019-01-01] MEDS: ALBUTEROL NEBULIZED 2.5 MG/3 ML INHALATION PRN ×4 (07:57→19:44)
[2019-01-01] MEDS ORDERED: NON-FORMULARY DRUG (Liraglutide [Victoza 3-Pak] 1.2 MG) SQ SCH (09:00)
[2019-01-01] MEDS: FENOFIBRATE 160 MG TAB PO SCH (09:37)
[2019-01-01] MEDS: FLUoxetine HCL 20 MG CAP PO SCH (09:37)
[2019-01-01] MEDS: ALVIMOPAN 12 MG CAPSULE PO SCH ×2 (09:37→22:04)
[2019-01-01] MEDS: ISOSORBIDE MONONITRATE ER 30 MG TAB.ER.24H PO SCH (09:37)
[2019-01-01] MEDS: VERAPAMIL 40 MG TAB PO SCH ×2 (09:37→20:24)
[2019-01-01] MEDS: LISINOPRIL 5 MG TAB PO SCH (09:37)
[2019-01-01] MEDS: PIOGLITAZONE 15 MG TAB PO SCH (09:38)
[2019-01-01] MEDS: GABAPENTIN 300 MG CAP PO SCH ×3 (09:38→22:05)
[2019-01-01 12:19] LABS: Glucose,Whole Blood 194 mg/dL (75-99)
--- NOTE | 2019-01-01 12:48 | P.PN ---
Progress Note - Text Progress Note Date: 01/01/19 Postoperative day 1. Patient status post low anterior resection for diverticulitis. She is doing fairly well. She has had some mild incisional pain. She's had no significant bowel function. On exam her vital signs are stable. Her abdomen soft. Incision site is clean dry intact. Centimeters post low anterior section diverticular. Patient remained on clear liquid diet.
[2019-01-01 17:21] LABS: Glucose,Whole Blood 133 mg/dL (75-99)
[2019-01-01] MEDS: HYDROcodone/APAP 10-325MG 1 EACH TAB PO PRN (17:45)
[2019-01-01] MEDS: traMADol 50 MG TAB PO PRN (19:45)
[2019-01-01 20:22] LABS: Glucose,Whole Blood 192 mg/dL (75-99)
[2019-01-01] MEDS: INSULIN DETEMIR (LEVEMIR) 100 UNIT/ML SYR SQ SCH (22:04)
[2019-01-01] MEDS: ATORVASTATIN 80 MG TAB PO SCH (22:04)
[2019-01-01] MEDS: LATANOPROST 0.005% OPHTH DROPS 2.5 ML BTL BOTH EYES SCH (22:05)
--- NOTE | 2019-01-01 22:16 | P.PN ---
Progress Note - Text Progress Note Date: 01/01/19 Interval history: This is a 58-year-old patient of Dr. Mckeon. Chronic stable medical conditions include COPD, diabetes, GERD, hypertension, hyperlipidemia, osteoarthritis. Patient has chronic pain including low back pain in knees. Patient has had pink symptoms from her diverticulitis. Patient underwent surgery to include lysis of adhesions, no anterior resection, takedown of splenic flexure and partial omentectomy and appendectomy. Today-laying in bed. More awake. On clear liquids. Has not passed any flatness. Pain at the operative site. Her nausea vomiting Review of systems: Was done for constitutional, cardiovascular, GI, pulmonary. relevant finding as above Physical examination: VITAL SIGNS: 97.9, 108, 18, 122/70, 96% on 5 L L GENERAL: laying in bed, awake. EYES: Pupils equal. Conjunctiva normal. HEENT: External appearance of nose and ears normal, oral cavity grossly normal. NECK: JVD not raised; masses not palpable. HEART: First and second heart sounds are normal; no edema. LUNGS: Respiratory rate normal; decreased breath sounds. ABDOMEN: Soft, tender, liver spleen not palpable, dressing over the incision site, slightly distended PSYCH: Daily 3 mood affect a bit anxious. Investigations: Accu-Cheks 86, 194, 133, Assessment: Status post lysis of adhesions, low anterior resection, takedown of splenic flexure, partial omentectomy, appendectomy for chronic diverticulitis -COPD in a current smoker -Chronic nicotine dependence patient cigarette smoker -Diabetes mellitus type II chronically on insulin -GERD -Hyperlipidemia -Essential hypertension -Primary osteoarthritis -Chronic low back pain and arthritis of the joints -Anxiety depression not otherwise specified -Sinus tachycardia likely from pain. Plan: Continue current medication treatment plan. Patient encouraged to be out of bed. On clear liquid diet. Follow with surgery.
[2019-01-02] MEDS: ALBUTEROL NEBULIZED 2.5 MG/3 ML INHALATION PRN ×4 (00:20→19:23)
[2019-01-02] MEDS: HEPARIN SODIUM,PORCINE 5,000 UNIT/ML 1 ML VIAL SQ SCH ×3 (01:33→15:54)
[2019-01-02] MEDS: HYDROcodone/APAP 10-325MG 1 EACH TAB PO PRN ×4 (01:33→21:27)
[2019-01-02] MEDS: D5-0.45% NACL WITH KCL 20MEQ/L 1,000 ML IV SCH ×3 (01:42→21:26)
[2019-01-02] MEDS: HYDROmorphone 1 MG/ML 1 ML SYRINGE IVP PRN ×6 (03:38→22:46)
[2019-01-02 06:54] LABS: Glucose,Whole Blood 148 mg/dL (75-99)
[2019-01-02 07:48] LABS: Basophils # (A) 0.1 k/uL (0-0.2); Basophils % (A) 0 %; Eosinophils # (A) 0.1 k/uL (0-0.7); Eosinophils % (A) 0 %; HGB 10.8 gm/dL (11.4-16.0); Lymphocytes # (A) 3.4 k/uL (1.0-4.8); Lymphocytes % (A) 23 %; MCH 31.2 pg (25.0-35.0); MCHC 32.8 g/dL (31.0-37.0); MCV 95.1 fL (80.0-100.0); Mean Platelet Volume 7.9; Monocytes # (A) 0.4 k/uL (0-1.0); Monocytes % (A) 3 %; Neutrophils # (A) 10.4 k/uL (1.3-7.7); Neutrophils % (A) 72 %; Platelet Count 281 k/uL (150-450); RBC 3.47 m/uL (3.80-5.40); RDW 14.8 % (11.5-15.5); WBC 14.4 k/uL (3.8-10.6)
[2019-01-02 08:19] LABS: African American GFR (CKD) >90 (>60 ml/min/1.73 sqM); Anion Gap 8 mmol/L; Blood Urea Nitrogen 6 mg/dL (7-17); Calcium 9.8 mg/dL (8.4-10.2); Carbon Dioxide 28 mmol/L (22-30); Chloride 99 mmol/L (98-107); Glucose 129 mg/dL (74-99); Potassium 4.4 mmol/L (3.5-5.1); Sodium 135 mmol/L (137-145)
[2019-01-02] MEDS: FLUoxetine HCL 20 MG CAP PO SCH (09:57)
[2019-01-02] MEDS: NICOTINE 14MG/24HR PATCH TRANSDERM SCH (09:57)
[2019-01-02] MEDS: FENOFIBRATE 160 MG TAB PO SCH (09:58)
[2019-01-02] MEDS: ISOSORBIDE MONONITRATE ER 30 MG TAB.ER.24H PO SCH (09:58)
[2019-01-02] MEDS: LISINOPRIL 5 MG TAB PO SCH (09:58)
[2019-01-02] MEDS: PIOGLITAZONE 15 MG TAB PO SCH (09:58)
[2019-01-02] MEDS: VERAPAMIL 40 MG TAB PO SCH ×2 (09:58→21:27)
[2019-01-02] MEDS: GABAPENTIN 300 MG CAP PO SCH ×3 (09:58→21:27)
[2019-01-02] MEDS: ALVIMOPAN 12 MG CAPSULE PO SCH ×2 (09:59→21:26)
--- NOTE | 2019-01-02 10:49 | P.PN ---
Progress Note - Text Progress Note Date: 01/02/19 The patient is doing well. She has some mild complaints of incisional pain. Her epidural catheter was removed yesterday. On exam her vital signs stable. Her abdomen is soft. Incision site is clean dry tach. Status post low anterior resection for diverticulosis. Patient will remain on clear liquid diet.
[2019-01-02 11:44] LABS: Glucose,Whole Blood 146 mg/dL (75-99)
[2019-01-02] MEDS: ONDANSETRON 4 MG/2 ML VIAL IVP PRN (12:22)
[2019-01-02] MEDS: METOCLOPRAMIDE 5 MG/ML 2 ML VIAL IVP PRN (12:31)
[2019-01-02] MEDS: traMADol 50 MG TAB PO PRN (15:53)
[2019-01-02 17:12] LABS: Glucose,Whole Blood 240 mg/dL (75-99)
[2019-01-02 20:47] LABS: Glucose,Whole Blood 293 mg/dL (75-99)
[2019-01-02] MEDS: ATORVASTATIN 80 MG TAB PO SCH (21:26)
[2019-01-02] MEDS: INSULIN DETEMIR (LEVEMIR) 100 UNIT/ML SYR SQ SCH (21:27)
[2019-01-02] MEDS: LATANOPROST 0.005% OPHTH DROPS 2.5 ML BTL BOTH EYES SCH (21:27)
--- NOTE | 2019-01-02 22:33 | P.PN ---
Progress Note - Text Progress Note Date: 01/02/19 Presenting complaint: Abdominal surgery Interval history: This is a 58-year-old patient of Dr. Mckeon. Chronic stable medical conditions include COPD, diabetes, GERD, hypertension, hyperlipidemia, osteoarthritis. Patient has chronic pain including low back pain in knees. Patient has had pink symptoms from her diverticulitis. Patient underwent surgery to include lysis of adhesions, no anterior resection, takedown of splenic flexure and partial omentectomy and appendectomy. Today-laying in bed. Some abdominal pain. No nausea vomiting. On clear liquids. Did cause cough up clear phlegm. No flatness no bowel movement. Review of systems: Was done for constitutional, cardiovascular, GI, pulmonary. relevant finding as above Current medications reviewed: Patient is off the pain pump Physical examination: VITAL SIGNS: 98, 100, 16, 117/75, 95% on 3 L GENERAL: laying in bed, awake., Tired EYES: Pupils equal. Conjunctiva normal. HEENT: External appearance of nose and ears normal, oral cavity grossly normal. NECK: JVD not raised; masses not palpable. HEART: First and second heart sounds are normal; no edema. LUNGS: Respiratory rate normal; decreased breath sounds. ABDOMEN: Soft, tender, liver spleen not palpable, dressing over the incision site, slightly distended PSYCH: AAO 3, slightly anxious Investigations: -White count 14.4, hemoglobin 10.8, potassium 4.4, urine 6, creatinine 0.76 [id number], 146, 240 Assessment: Status post lysis of adhesions, low anterior resection, takedown of splenic flexure, partial omentectomy, appendectomy for chronic diverticulitis -COPD in a current smoker -Chronic nicotine dependence patient cigarette smoker -Diabetes mellitus type II chronically on insulin -GERD -Hyperlipidemia -Essential hypertension -Primary osteoarthritis -Chronic low back pain and arthritis of the joints -Anxiety depression not otherwise specified -Sinus tachycardia likely from pain. Plan: Continue with IV fluids. Patient encouraged to be out of bed. Has not had any flatus or bowel movement. No nausea vomiting. Care was discussed with the patient.
[2019-01-03] MEDS: traMADol 50 MG TAB PO PRN ×2 (00:55→10:24)
[2019-01-03] MEDS: HEPARIN SODIUM,PORCINE 5,000 UNIT/ML 1 ML VIAL SQ SCH ×3 (00:55→18:23)
[2019-01-03] MEDS: HYDROmorphone 1 MG/ML 1 ML SYRINGE IVP PRN ×3 (02:49→10:25)
[2019-01-03] MEDS: HYDROcodone/APAP 10-325MG 1 EACH TAB PO PRN ×2 (05:45→20:43)
[2019-01-03] MEDS: D5-0.45% NACL WITH KCL 20MEQ/L 1,000 ML IV SCH ×3 (05:47→20:43)
[2019-01-03] MEDS: ALBUTEROL NEBULIZED 2.5 MG/3 ML INHALATION PRN (06:15)
[2019-01-03 06:50] LABS: Basophils # (A) 0.1 k/uL (0-0.2); Basophils % (A) 0 %; Eosinophils # (A) 0.1 k/uL (0-0.7); Eosinophils % (A) 1 %; HCT 33.2 % (34.0-46.0); Lymphocytes # (A) 3.2 k/uL (1.0-4.8); Lymphocytes % (A) 19 %; MCH 34.4 pg (25.0-35.0); MCHC 36.1 g/dL (31.0-37.0); MCV 95.3 fL (80.0-100.0); Mean Platelet Volume 8.7; Monocytes # (A) 0.6 k/uL (0-1.0); Monocytes % (A) 4 %; Neutrophils # (A) 12.8 k/uL (1.3-7.7); Neutrophils % (A) 75 %; Platelet Count 343 k/uL (150-450); RBC 3.48 m/uL (3.80-5.40); WBC 17.1 k/uL (3.8-10.6)
[2019-01-03 07:10] LABS: Calcium 10.1 mg/dL (8.4-10.2); Potassium 4.5 mmol/L (3.5-5.1); Total Bilirubin 0.7 mg/dL (0.2-1.3); Total Protein 7.2 g/dL (6.3-8.2)
[2019-01-03 07:12] LABS: Glucose,Whole Blood 193 mg/dL (75-99)
--- NOTE | 2019-01-03 07:57 | XR ---
EXAMINATION TYPE: XR chest 2V DATE OF EXAM: 01/03/2019 HISTORY: shortness of breath . REFERENCE: Previous study dated 09/01/2014. FINDINGS: There is a left shoulder arthroplasty in place. There is an infiltrate at the right lung base. There is also a patchy infiltrate in the left midlung. Heart size upper limits of normal. Pleural spaces are clear. IMPRESSION: BILATERAL INFILTRATES COMPATIBLE WITH PNEUMONIA.
[2019-01-03] MEDS ORDERED: RX INFO: IV CONTRAST WAS GIVEN 1 EACH MISC MISCELLANE PRN (08:03)
--- NOTE | 2019-01-03 08:55 | CT ---
EXAMINATION TYPE: CT angio chest DATE OF EXAM: 01/03/2019 8:46 AM COMPARISON: Previous study dated 09/01/2014. HISTORY: SOB, chest pain CT DLP: 255.7 mGycm Automated exposure control for dose reduction was used. CONTRAST: CTA scan of the thorax is performed with IV Contrast, patient injected with 71 mL of Isovue 370, pulm onary embolism protocol. . FINDINGS: There is worsening of fibrosis in the upper lobes. There is groundglass opacity inferiorly. There is atelectasis or consolidation at the right lung base. There is no significant axillary adenopathy. There is some shotty internal mammary and mediastinal ad enopathy. There is a suboptimal contrast bolus with most of the bolus. Arterial. There are no large central emb barbara. There is no pleural or pericardial fluid. The heart is not enlarged. The aorta is normal in jaqui martita. The stomach is moderately distended with fluid. The liver is low in attenuation and likely fatty infiltrated. There is hypertrophic spondylosis within the spine. IMPRESSION: 1. SUBOPTIMAL EXAMINATION DEMONSTRATING NO LARGE CENTRAL PULMONARY EMBOLI. 2. PATCHY GROUNDGLASS OPACITY PRESENT BILATERALLY WITH FIBROTIC CHANGES IN THE UPPER LOBE WHICH HAVE PROGRESSED FROM PREVIOUS. THE GROUNDGLASS OPACITY MAY BE SECONDARY TO ALVEOLITIS OR PULMONARY EDEMA. 3. FATTY INFILTRATION OF THE LIVER. 4. MILD DEGENERATIVE CHANGES WITHIN THE SPINE.
[2019-01-03] MEDS: METOCLOPRAMIDE 5 MG/ML 2 ML VIAL IVP PRN (09:50)
[2019-01-03] MEDS: PIOGLITAZONE 15 MG TAB PO SCH (09:52)
[2019-01-03] MEDS: ALVIMOPAN 12 MG CAPSULE PO SCH ×2 (09:52→20:43)
[2019-01-03] MEDS: NICOTINE 14MG/24HR PATCH TRANSDERM SCH (09:52)
[2019-01-03] MEDS: VERAPAMIL 40 MG TAB PO SCH ×2 (09:52→20:43)
[2019-01-03] MEDS: LISINOPRIL 5 MG TAB PO SCH (09:53)
[2019-01-03] MEDS: GABAPENTIN 300 MG CAP PO SCH ×3 (09:53→20:46)
[2019-01-03] MEDS: FLUoxetine HCL 20 MG CAP PO SCH (09:53)
[2019-01-03] MEDS: ISOSORBIDE MONONITRATE ER 30 MG TAB.ER.24H PO SCH (09:53)
[2019-01-03] MEDS: FENOFIBRATE 160 MG TAB PO SCH (09:53)
[2019-01-03] MEDS: PIPERACILLIN-TAZOBACTAM 3.375 GM in SODIUM CHLORIDE 0.9% 100 ML IVPB SCH ×2 (09:54→18:24)
[2019-01-03] MEDS: methylPREDNISolone SOD SUCCI 40 MG/ML 1 ML VIAL IV SCH ×2 (09:55→18:23)
[2019-01-03] MEDS: ONDANSETRON 4 MG/2 ML VIAL IVP PRN (10:25)
[2019-01-03] MEDS: IPRATROPIUM-ALBUTEROL 3 ML NEB INHALATION SCH ×3 (11:12→19:49)
[2019-01-03 12:06] LABS: Glucose,Whole Blood 236 mg/dL (75-99)
--- NOTE | 2019-01-03 13:10 | P.PN ---
Subjective Progress Note Date: 01/03/19 Principal diagnosis: Diverticulitis The patient had some issues with atelectasis and hypoxia. She had coughed up some sputum and then had some hemoptysis. She had a CAT scan performed which was negative for pulmonary embolus. She does however have atelectasis and possible pneumonia. Objective - Vital Signs Vital signs: Vital Signs Temp 98.2 F 01/03/19 07:00 Pulse 108 H 01/03/19 11:27 Resp 18 01/03/19 07:00 BP 109/67 01/03/19 07:00 Pulse Ox 96 01/03/19 07:02 Intake & Output 01/02/19 01/03/19 01/03/19 18:59 06:59 18:59 Intake Total 100 Output Total 1500 500 200 Balance -1500 -500 -100 Intake: Oral 100 Output: Urine 1500 500 200 Other: Voiding Method Indwelling Catheter Toilet # Voids 1 - Gastrointestinal Gastrointestinal Comment(s): Abdomen soft. The abdomen is distended. Incision site is clean dry intact. - Labs CBC & Chem 7: 01/03/19 06:39 01/03/19 06:39 Labs: Abnormal Lab Results - Last 24 Hours (Table) 01/02/19 01/02/19 01/03/19 Range/Units 17:09 20:34 06:39 WBC (3.8-10.6) k/uL RBC (3.80-5.40) m/uL Hct (34.0-46.0) % Neutrophils # (1.3-7.7) k/uL Sodium 133 L (137-145) mmol/L Chloride 94 L (98-107) mmol/L Glucose 179 H (74-99) mg/dL POC Glucose (mg/dL) 240 H 293 H (75-99) mg/dL AST 62 H (14-36) U/L 01/03/19 01/03/19 01/03/19 Range/Units 06:39 06:57 11:55 WBC 17.1 H (3.8-10.6) k/uL RBC 3.48 L (3.80-5.40) m/uL Hct 33.2 L (34.0-46.0) % Neutrophils # 12.8 H (1.3-7.7) k/uL Sodium (137-145) mmol/L Chloride (98-107) mmol/L Glucose (74-99) mg/dL POC Glucose (mg/dL) 193 H 236 H (75-99) mg/dL AST (14-36) U/L Assessment and Plan Assessment: The patient's CAT scan was reviewed. She is evidence of gastric distention. Patient will have a nasogastric tube placed for ileus. Her white count is increased with placed her on Zosyn. She'll be observed closely.
--- NOTE | 2019-01-03 14:39 | P.CNPUL ---
History of Present Illness Consult date: 01/03/19 Reason for consult: dyspnea, pneumonia Chief complaint: Shortness of breath and low O2 saturation. History of present illness: This is a 58-year-old female with history of multiple medical problems including COPD, type 2 diabetes, hypertension, osteoarthritis, chronic back pain and history of diverticulitis. Patient underwent elective lysis of adhesions, anterior resection, takedown of splenic flexure and partial omentectomy and appendectomy. Her surgery was done on 12/31/2018, and her postoperative course has been relatively uneventful. However early this morning, the patient had a sudden desaturation in her oxygenation, she was also complaining of increased shortness of breath, and a follow-up chest x-ray showed bilateral infiltrates, consistent with pneumonia. I was asked to see the patient on consultation, patient was examined, and his CT angiogram of the chest was done. It showed mostly bilateral infiltrates consistent with pneumonia. On physical examination patient had mostly crackles or rhonchi and wheezes, hence she was bronchodilators, steroids, and antibiotics. This CT angiogram of the chest showed no evidence of pulmonary embolism. Labs this morning showed leukocytosis with WBC count of 17.1, hemoglobin of 12.0 on physical examination, patient had diffuse rhonchi and wheezes, crackles at the bases, she had mostly symptoms of productive cough with thick yellow phlegm, and at times seem to be blood-tinged. Review of Systems GEN.: Weakness fatigue, tiredness, no fever, no weight loss. EYES: No blurred vision, no diplopia, no lid gagging. HEENT: No sore throat, no earache, no dizziness, NECK: Denies neck pain, RESPIRATORY: Cough wheezing shortness of breath worse over the last 24 hours. CARDIOVASCULAR: Denies any palpitations, no chest pain, no syncope. GASTROINTESTINAL: Post surgical abdominal pain. GENITOURINARY: No dysuria and no frequency no urgency no hematuria. MUSCULOSKELETAL: Chronic joint pain secondary to degenerative joint disease LYMPHATICS: No swellings no lymphadenopathy HEMATOLOGICAL: No clotting bleeding or bruising PSYCHIATRY: Denies any symptoms of active depression NEUROLOGICAL: Denies any headache blurred vision or dizziness. Past Medical History Past Medical History: Asthma, COPD, Diabetes Mellitus, GERD/Reflux, Hyperlipidemia, Hypertension, Osteoarthritis (OA) Additional Past Medical History / Comment(s): diverticulitis, Other HX: CAROTID STENOSIS. Chronic low back pain, bilateral knees with arthritis, frequent constipation, bronchitis, migraines, HEAD ANEURYSM History of Any Multi-Drug Resistant Organisms: None Reported Past Surgical History: Hernia Repair, Hysterectomy, Orthopedic Surgery, Tubal Ligation Additional Past Surgical History / Comment(s): 08/04/15 laparoscopic fredy fundoplasty. Other surgeries: LASER FOR GLAUCOMA, TUBAL -LAPAROT ADITHYA , RT ING HERNIA, LT ROTATOR CUFF REPAIR, ARTHROSCOPY SAUL KNEES, HX OF ENDOVASCULAR STENT ASSISTED COIL EMBOLIZATION OF LEFT INTERNAL CAROTID ARTERY ANEURYSM (FEB 2014). (ANGIOGRAM 08/23/14 TO CHECK STENT.) hiatal hernia repair",HEAD ANEURYSM REPAIR " Past Anesthesia/Blood Transfusion Reactions: Motion Sickness Past Psychological History: Anxiety, Depression Additional Psychological History / Comment(s): Pt has 2 children who live with her. One is age 14 and the other is 25yrs old. Pt has a lady who comes in and helps her bath, take her medications and does housework. Pt walks with a cane. Pt has had falls which she relates to her bad back and knee problems. She can drive but does not drive much. She has a glucometer. Smoking Status: Current every day smoker Past Alcohol Use History: None Reported Additional Past Alcohol Use History / Comment(s): SMOKES ABOUT 8 CIG A DAY - 1PPD, SINCE AGE 15 YRS. QUIT DRINKING ALCOHOL 2005 Past Drug Use History: None Reported Additional Drug Use History / Comment(s): STATES HX OF CRACK, MARIJUANA AND COCAINE USE, QUIT 2015 - Past Family History Father Family Medical History: No Reported History Medications and Allergies Home Medications Medication Instructions Recorded Confirmed Type Aspirin EC [Ecotrin] 325 mg PO DAILY 08/26/14 12/31/18 History Atorvastatin [Lipitor] 80 mg PO HS 08/26/14 12/31/18 History Cyclobenzaprine [Flexeril] 10 mg PO TID PRN 08/26/14 12/31/18 History FLUoxetine HCL [PROzac] 40 mg PO QAM 08/26/14 12/31/18 History HYDROcodone/APAP 10-325MG [[place] 1 tab PO Q6H PRN 08/26/14 12/31/18 History 10] Albuterol Inhaler [Ventolin Hfa 2 puff INHALATION RT-BID PRN 09/01/14 12/31/18 History Inhaler] Albuterol Nebulized [Ventolin 2.5 mg INHALATION RT-QID PRN 09/01/14 12/31/18 History Nebulized] Lisinopril [Zestril] 5 mg PO QAM 04/12/15 12/31/18 History Butalb/APAP/Caff 50-325-40Mg 1 tab PO Q8HR PRN 07/28/15 12/31/18 History [Fioricet 50-325-40] Fenofibrate 160 mg PO QAM 07/28/15 12/31/18 History Gabapentin [Neurontin] 600 mg PO TID 07/28/15 12/31/18 History Insulin Glulisine [Apidra] 13 unit SQ TID-W/MEALS 07/28/15 12/31/18 History traMADol HCl [Ultram] 50 mg PO TID PRN 07/28/15 12/31/18 History Ergocalciferol (Vitamin D2) 50,000 unit PO WE 04/09/17 12/31/18 History [Vitamin D2] Isosorbide Mononitrate [Isosorbide 30 mg PO QAM 04/09/17 12/31/18 History Mononitrate ER] Latanoprost [Xalatan 0.005%] 1 drop BOTH EYES HS 04/09/17 12/31/18 History Nitroglycerin Sl Tabs [Nitrostat] 0.4 mg PO Q5M PRN 04/09/17 12/31/18 History Pioglitazone [Actos] 15 mg PO QAM 04/09/17 12/31/18 History Verapamil [Isoptin] 40 mg PO BID 04/09/17 12/31/18 History diphenhydrAMINE [Benadryl] 50 mg PO QID PRN 04/09/17 12/31/18 History metFORMIN HCL [Glucophage] 500 mg PO PC-SUPPER 04/09/17 12/31/18 History Insulin Glargine,Hum.rec.anlog 120 unit SQ HS 12/14/18 12/31/18 History [Basaglar Kwikpen U-100] Liraglutide [Victoza 3-Myron] 1.2 mg SQ DAILY 12/14/18 12/31/18 History Allergies Allergy/AdvReac Type Severity Reaction Status Date / Time No Known Allergies Allergy Verified 12/31/18 12:20 Physical Exam Vitals: Vital Signs Temp Pulse Pulse Pulse Resp BP Pulse Ox 01/03/19 11:27 108 H 01/03/19 11:13 104 H 01/03/19 07:02 96 01/03/19 07:00 98.2 F 125 H 18 109/67 78 L 01/03/19 06:23 115 H 01/03/19 06:15 118 H 01/03/19 02:12 98.6 F 113 H 17 96/61 90 L 01/02/19 19:39 98.8 F 121 H 19 123/75 94 L 01/02/19 19:34 118 H 01/02/19 19:24 116 H 01/02/19 18:21 126 H 18 121/82 93 L 01/02/19 15:00 100.6 F H 120 H 14 125/73 92 L Intake and Output 01/02/19 01/03/19 01/03/19 22:59 06:59 14:59 Intake Total 100 Output Total 500 200 Balance -500 -100 Intake: Oral 100 Output: Urine 500 200 Other: Voiding Method Toilet # Voids 1 Physical Exam: Revealed a 58-year-old -[place] female, in no distress. HEENT:[Neck is supple.] [No neck masses.] [No thyromegaly.] [No JVD.] Chest: [Clear throughout, no crackles, no rhonchi, no wheezes.] Cardiac Exam: [Normal S1 and S2, no S3 gallop, no murmur.] Abdomen: [Postsurgical Soft, nontender, no megaly, no rebound, no guarding, normal bowel sounds.] Surgical incision seems to be clean and dry. Extremities: [No clubbing, no edema, no cyanosis.] Neurological Exam: [No focal neurologic deficit.] Alert oriented 3. Psychiatric: Normal mood affect and mental status examination. Lymphatics no lymphadenopathy skin: No rashes. Results - Laboratory Findings CBC and BMP: 01/03/19 06:39 01/03/19 06:39 Abnormal lab findings: Abnormal Labs 12/22/18 12/31/18 12/31/18 16:30 08:11 10:09 WBC 11.4 H RBC Hgb Hct Neutrophils # Sodium Chloride BUN Glucose POC Glucose (mg/dL) 239 H 177 H AST 12/31/18 12/31/18 12/31/18 15:13 15:13 19:50 WBC 10.7 H RBC 3.57 L Hgb 11.2 L Hct Neutrophils # 8.5 H Sodium Chloride BUN Glucose 204 H POC Glucose (mg/dL) 187 H AST 01/01/19 01/01/19 01/01/19 12:07 17:08 20:10 WBC RBC Hgb Hct Neutrophils # Sodium Chloride BUN Glucose POC Glucose (mg/dL) 194 H 133 H 192 H AST 01/02/19 01/02/19 01/02/19 06:50 06:50 06:52 WBC 14.4 H RBC 3.47 L Hgb 10.8 L Hct 33.0 L Neutrophils # 10.4 H Sodium 135 L Chloride BUN 6 L Glucose 129 H POC Glucose (mg/dL) 148 H AST 01/02/19 01/02/19 01/02/19 11:43 17:09 20:34 WBC RBC Hgb Hct Neutrophils # Sodium Chloride BUN Glucose POC Glucose (mg/dL) 146 H 240 H 293 H AST 01/03/19 01/03/19 01/03/19 06:39 06:39 06:57 WBC 17.1 H RBC 3.48 L Hgb Hct 33.2 L Neutrophils # 12.8 H Sodium 133 L Chloride 94 L BUN Glucose 179 H POC Glucose (mg/dL) 193 H AST 62 H 01/03/19 11:55 WBC RBC Hgb Hct Neutrophils # Sodium Chloride BUN Glucose POC Glucose (mg/dL) 236 H AST - Diagnostic Findings Chest x-ray: image reviewed CT scan - chest: image reviewed (As noted in HPI.) Assessment and Plan Assessment: Impression: 1 acute hospital-acquired pneumonia and postoperative atelectasis, unexpected. 2 status post lysis of adhesions, low anterior resection, takedown of splenic flexure, partial omentectomy, appendectomy for colonic diverticulitis. 3 acute exacerbation of COPD 4 acute hypoxic respiratory failure secondary to pneumonia, COPD exacerbation, bilateral atelectasis, 5 benign essential hypertension 6 type 2 diabetes 7 degenerative joint disease 8 dyslipidemia 9 GERD without esophagitis Recommendation: Reviewed the CT of the chest, reviewed the chest x-ray findings, hence I have recommended that we continue Zosyn, and Levaquin, continue bronchodilators in the form of DuoNeb updrafts 4 times a day and when necessary, and added Solu-Medrol 40 mg IV push every 8 hours. Continue incentive spirometry, early ambulation, we'll continue to follow. Continue oxygen. And titrate accordingly. Time with Patient: Greater than 30
[2019-01-03] MEDS: LEVOFLOXACIN 500MG-D5W PMX 500 MG in DEXTROSE/WATER 1 100ML.BAG IVPB SCH (16:11)
[2019-01-03 17:09] LABS: Glucose,Whole Blood 330 mg/dL (75-99)
[2019-01-03] MEDS: INSULIN ASPART (NovoLOG) 100 UNIT/ML VIAL SQ SCH (18:43)
[2019-01-03] MEDS: INSULIN DETEMIR (LEVEMIR) 100 UNIT/ML SYR SQ SCH (20:43)
[2019-01-03] MEDS: ATORVASTATIN 80 MG TAB PO SCH (20:43)
[2019-01-03] MEDS: LATANOPROST 0.005% OPHTH DROPS 2.5 ML BTL BOTH EYES SCH (20:46)
[2019-01-03 20:49] LABS: Glucose,Whole Blood 189 mg/dL (75-99)
--- NOTE | 2019-01-03 22:20 | P.PN ---
Progress Note - Text Progress Note Date: 01/03/19 Presenting complaint: Abdominal surgery Interval history: This is a 58-year-old patient of Dr. Mckeon. Chronic stable medical conditions include COPD, diabetes, GERD, hypertension, hyperlipidemia, osteoarthritis. Patient has chronic pain including low back pain in knees. Patient has had pink symptoms from her diverticulitis. Patient underwent surgery to include lysis of adhesions, no anterior resection, takedown of splenic flexure and partial omentectomy and appendectomy. Today-patient became short of breath. Hypoxic. Chest x-ray was ordered. Showing gastric distention with air-fluid level and also possible bilateral pneumonia. Begin antibiotics. Pulmonary consultation was done. NG tube was placed. About 2 L of gastric contents were obtained. Patient feeling more effectively roughly the same. Sitting up in bed. Tired. Review of systems: Was done for constitutional, cardiovascular, GI, pulmonary. relevant finding as above Current medications reviewed: Started on IV Zosyn and Levaquin Physical examination: VITAL SIGNS: 98.2, 125, 18, 109/67, 78% room air GENERAL: Proper up in bed sitting up tired EYES: Pupils equal. Conjunctiva normal. HEENT: NG tube in place, nasal cannula in place, dry oral cavity. NECK: JVD not raised; masses not palpable. HEART: First and second heart sounds are normal; no edema. LUNGS: Respiratory rate increased, decreased breath sounds some crackles ABDOMEN: Soft, tender, liver spleen not palpable, dressing over the incision si te, slightly distended PSYCH: AAO 3, slightly anxious Investigations: Chest x-ray film personally reviewed by me shows gastric distention with air- fluid level large and bilateral infiltrates Computed tomography scan of the chest negative for PE White count 7.1, hemoglobin 12, potassium 4.5, creatinine 0.9. Accu-Cheks noted: 190, 236 Assessment: -Acute bilateral pneumonia, cannot rule out aspiration causing acute hypoxic respiratory failure Acute gastric distention Status post lysis of adhesions, low anterior resection, takedown of splenic flexure, partial omentectomy, appendectomy for chronic diverticulitis -COPD in a current smoker -Chronic nicotine dependence patient cigarette smoker -Diabetes mellitus type II chronically on insulin, uncontrolled with steroids -GERD -Hyperlipidemia -Essential hypertension -Primary osteoarthritis -Chronic low back pain and arthritis of the joints -Anxiety depression not otherwise specified -Sinus tachycardia likely from pain. Plan: NG tube was placed. About 2 L of gastric was obtained. Respiratory distress is better. Nasal cannula in place. Started on IV antibiotics. Pulmonary was consulted. Care was discussed with the patient.
--- NOTE | 2019-01-04 00:10 | P.CONS ---
History of Present Illness - Reason for Consult Consult date: 01/03/19 Pneumonia Requesting physician: Manjit Hester - Chief Complaint Shortness of breath and cough 1 day - History of Present Illness Patient is a 58 year old -Cyp[place] female with a past medical history of diverticulitis, patient was electively admitted to hospital on 12/31/2018 and the Patient underwent elective lysis of adhesions, anterior resection, takedown of splenic flexure and partial omentectomy and incidental appendectomy. Patient did well the next day or 2 postoperatively however last 24 hours the patient did have acute respiratory distress in this patient having increasing shortness of breath she'll also have a cough which is [id number] intensity getting a mild tinea cruris no hemoptysis no chest pain no nausea no vomiting still in [place] abdominal pain is currently controlled and denies any worsening did not have any bowel movement with the symptoms patient did have further workup including a CT angiogram that was negative for PE however did shows evidence of bilateral upper lobe infiltrate more marked on the right side with concern for possible aspiration pneumonia patient be started on Zosyn and infectious disease was consulted for further recommendation regarding antibiotic therapy Review of Systems Positive points has been mentioned in HPI rest of the systems are negative Past Medical History Past Medical History: Asthma, COPD, Diabetes Mellitus, GERD/Reflux, Hyperlipidemia, Hypertension, Osteoarthritis (OA) Additional Past Medical History / Comment(s): diverticulitis, Other HX: CAROTID STENOSIS. Chronic low back pain, bilateral knees with arthritis, frequent constipation, bronchitis, migraines, HEAD ANEURYSM History of Any Multi-Drug Resistant Organisms: None Reported Past Surgical History: Hernia Repair, Hysterectomy, Orthopedic Surgery, Tubal Ligation Additional Past Surgical History / Comment(s): 08/04/15 laparoscopic fredy fundoplasty. Other surgeries: LASER FOR GLAUCOMA, TUBAL - LAPAROTOMY , RT ING HERNIA, LT ROTATOR CUFF REPAIR, ARTHROSCOPY SAUL KNEES, HX OF ENDOVASCULAR STENT ASSISTED COIL EMBOLIZATION OF LEFT INTERNAL CAROTID ARTERY ANEURYSM (FEB 2014). (ANGIOGRAM 08/23/14 TO CHECK STENT.) hiatal hernia repair",HEAD ANEURYSM REPAIR " Past Anesthesia/Blood Transfusion Reactions: Motion Sickness Past Psychological History: Anxiety, Depression Additional Psychological History / Comment(s): Pt has 2 children who live with her. One is age 14 and the other is 25yrs old. Pt has a lady who comes in and helps her bath, take her medications and does housework. Pt walks with a cane. Pt has had falls which she relates to her bad back and knee problems. She can drive but does not drive much. She has a glucometer. Smoking Status: Current every day smoker Past Alcohol Use History: None Reported Additional Past Alcohol Use History / Comment(s): SMOKES ABOUT 8 CIG A DAY - 1PPD, SINCE AGE 15 YRS. QUIT DRINKING ALCOHOL 2005 Past Drug Use History: None Reported Additional Drug Use History / Comment(s): STATES HX OF CRACK, MARIJUANA AND COCAINE USE, QUIT 2015 - Past Family History Father Family Medical History: No Reported History Medications and Allergies Home Medications Medication Instructions Recorded Confirmed Type Aspirin EC [Ecotrin] 325 mg PO DAILY 08/26/14 12/31/18 History Atorvastatin [Lipitor] 80 mg PO HS 08/26/14 12/31/18 History Cyclobenzaprine [Flexeril] 10 mg PO TID PRN 08/26/14 12/31/18 History FLUoxetine HCL [PROzac] 40 mg PO QAM 08/26/14 12/31/18 History HYDROcodone/APAP 10-325MG [[place] 1 tab PO Q6H PRN 08/26/14 12/31/18 History 10] Albuterol Inhaler [Ventolin Hfa 2 puff INHALATION RT-BID PRN 09/01/14 12/31/18 History Inhaler] Albuterol Nebulized [Ventolin 2.5 mg INHALATION RT-QID PRN 09/01/14 12/31/18 History Nebulized] Lisinopril [Zestril] 5 mg PO QAM 04/12/15 12/31/18 History Butalb/APAP/Caff 50-325-40Mg 1 tab PO Q8HR PRN 07/28/15 12/31/18 History [Fioricet 50-325-40] Fenofibrate 160 mg PO QAM 07/28/15 12/31/18 History Gabapentin [Neurontin] 600 mg PO TID 07/28/15 12/31/18 History Insulin Glulisine [Apidra] 13 unit SQ TID-W/MEALS 07/28/15 12/31/18 History traMADol HCl [Ultram] 50 mg PO TID PRN 07/28/15 12/31/18 History Ergocalciferol (Vitamin D2) 50,000 unit PO WE 04/09/17 12/31/18 History [Vitamin D2] Isosorbide Mononitrate [Isosorbide 30 mg PO QAM 04/09/17 12/31/18 History Mononitrate ER] Latanoprost [Xalatan 0.005%] 1 drop BOTH EYES HS 04/09/17 12/31/18 History Nitroglycerin Sl Tabs [Nitrostat] 0.4 mg PO Q5M PRN 04/09/17 12/31/18 History Pioglitazone [Actos] 15 mg PO QAM 04/09/17 12/31/18 History Verapamil [Isoptin] 40 mg PO BID 04/09/17 12/31/18 History diphenhydrAMINE [Benadryl] 50 mg PO QID PRN 04/09/17 12/31/18 History metFORMIN HCL [Glucophage] 500 mg PO PC-SUPPER 04/09/17 12/31/18 History Insulin Glargine,Hum.rec.anlog 120 unit SQ HS 12/14/18 12/31/18 History [Basaglar Kwikpen U-100] Liraglutide [Victoza 3-Myron] 1.2 mg SQ DAILY 12/14/18 12/31/18 History Allergies Allergy/AdvReac Type Severity Reaction Status Date / Time No Known Allergies Allergy Verified 12/31/18 12:20 Physical Exam Vitals: Vital Signs Temp Pulse Pulse Pulse Resp BP Pulse Ox 01/03/19 11:27 108 H 01/03/19 11:13 104 H 01/03/19 07:02 96 01/03/19 07:00 98.2 F 125 H 18 109/67 78 L 01/03/19 06:23 115 H 01/03/19 06:15 118 H 01/03/19 02:12 98.6 F 113 H 17 96/61 90 L 01/02/19 19:39 98.8 F 121 H 19 123/75 94 L 01/02/19 19:34 118 H 01/02/19 19:24 116 H 01/02/19 18:21 126 H 18 121/82 93 L 01/02/19 15:00 100.6 F H 120 H 14 125/73 92 L Intake and Output 01/02/19 01/03/19 01/03/19 22:59 06:59 14:59 Intake Total 100 Output Total 500 200 Balance -500 -100 Intake: Oral 100 Output: Urine 500 200 Other: Voiding Method Toilet # Voids 1 GENERAL DESCRIPTION: Middle-aged female lying in bed, no distress. No tachypnea or accessory muscle of respiration use. HEENT: Shows Pallor , no scleral icterus. Oral mucous membrane is dry. No pharyngeal erythema or thrush NECK: Trachea central, no thyromegaly. LUNGS: Unlabored breathing. Decreased breath sound at the base. No wheeze or crackle. HEART: S1, S2, regular rate and rhythm. No loud murmur ABDOMEN: Soft, mild distention and minimal tenderness ,no guarding or rigidity, no organomegaly EXTREMITIES: No edema of feet. SKIN: No rash, no masses palpable. NEUROLOGICAL: The patient is awake, alert, oriented x3, mood and affect normal Results CBC & Chem 7: 01/03/19 06:39 01/03/19 06:39 Labs: Abnormal Lab Results - Last 24 Hours (Table) 01/02/19 01/02/19 01/03/19 Range/Units 17:09 20:34 06:39 WBC (3.8-10.6) k/uL RBC (3.80-5.40) m/uL Hct (34.0-46.0) % Neutrophils # (1.3-7.7) k/uL Sodium 133 L (137-145) mmol/L Chloride 94 L (98-107) mmol/L Glucose 179 H (74-99) mg/dL POC Glucose (mg/dL) 240 H 293 H (75-99) mg/dL AST 62 H (14-36) U/L 01/03/19 01/03/19 01/03/19 Range/Units 06:39 06:57 11:55 WBC 17.1 H (3.8-10.6) k/uL RBC 3.48 L (3.80-5.40) m/uL Hct 33.2 L (34.0-46.0) % Neutrophils # 12.8 H (1.3-7.7) k/uL Sodium (137-145) mmol/L Chloride (98-107) mmol/L Glucose (74-99) mg/dL POC Glucose (mg/dL) 193 H 236 H (75-99) mg/dL AST (14-36) U/L Assessment and Plan Assessment: 1-patient with bilateral upper lobe infiltrate more marked on the right side in this patient who did have acute shortness of breath along with a cough and sputum production with concern for possible aspiration pneumonitis likely from a gram-negative pathogen in this patient process starting the hospital need to cover for resistant gram-negative such as Pseudomonas and related pathogens Plan: 1-we will try to obtain sputum for Gram stain and cultures and obtain blood cultures 2 2-Zosyn 3.375 g every 8 hours we will follow up on clinical condition and cultures to further adjust medication if needed Thank you for this consultation will follow this patient along with you Time with Patient: Greater than 30
[2019-01-04] MEDS: HEPARIN SODIUM,PORCINE 5,000 UNIT/ML 1 ML VIAL SQ SCH ×3 (00:11→16:34)
[2019-01-04] MEDS: PIPERACILLIN-TAZOBACTAM 3.375 GM in SODIUM CHLORIDE 0.9% 100 ML IVPB SCH ×3 (00:11→16:34)
[2019-01-04] MEDS: methylPREDNISolone SOD SUCCI 40 MG/ML 1 ML VIAL IV SCH ×3 (00:11→16:34)
[2019-01-04] MEDS: HYDROmorphone 1 MG/ML 1 ML SYRINGE IVP PRN ×5 (00:12→21:58)
[2019-01-04 00:14] LABS: Glucose,Whole Blood 249 mg/dL (75-99)
[2019-01-04] MEDS: INSULIN ASPART (NovoLOG) 100 UNIT/ML VIAL SQ SCH ×4 (00:15→21:01)
[2019-01-04 05:58] LABS: Glucose,Whole Blood 239 mg/dL (75-99)
[2019-01-04] MEDS: D5-0.45% NACL WITH KCL 20MEQ/L 1,000 ML IV SCH ×3 (06:02→21:45)
[2019-01-04] MEDS: IPRATROPIUM-ALBUTEROL 3 ML NEB INHALATION SCH ×4 (08:49→20:53)
[2019-01-04 09:14] LABS: African American GFR (CKD) >90 (>60 ml/min/1.73 sqM); Anion Gap 11 mmol/L; Blood Urea Nitrogen 14 mg/dL (7-17); Calcium 9.8 mg/dL (8.4-10.2); Carbon Dioxide 29 mmol/L (22-30); Chloride 98 mmol/L (98-107); Glucose 177 mg/dL (74-99); Potassium 4.6 mmol/L (3.5-5.1); Sodium 138 mmol/L (137-145)
[2019-01-04] MEDS: GABAPENTIN 300 MG CAP PO SCH ×3 (09:50→21:44)
[2019-01-04] MEDS: ALVIMOPAN 12 MG CAPSULE PO SCH ×2 (09:50→21:44)
[2019-01-04] MEDS: ISOSORBIDE MONONITRATE ER 30 MG TAB.ER.24H PO SCH (09:50)
[2019-01-04] MEDS: FLUoxetine HCL 20 MG CAP PO SCH (09:50)
[2019-01-04] MEDS: PIOGLITAZONE 15 MG TAB PO SCH (09:50)
[2019-01-04] MEDS: VERAPAMIL 40 MG TAB PO SCH ×2 (09:50→21:44)
[2019-01-04] MEDS: FENOFIBRATE 160 MG TAB PO SCH (09:50)
[2019-01-04] MEDS: LISINOPRIL 5 MG TAB PO SCH (09:50)
--- NOTE | 2019-01-04 11:31 | P.PN ---
<Elvia Morrison Bev - Last Filed: 01/04/19 11:24> Subjective Progress Note Date: 01/04/19 CHIEF COMPLAINT: Diverticulitis HISTORY OF PRESENT ILLNESS: Patient is status post low anterior resection, lysis of adhesions, takedown of stomach flexure, partial omentectomy, and appendectomy performed on 12/31/2017. Patient examined at the bedside. NG tube was placed yesterday for gastric distention. Cannister with approximately 500 mL of light bilious output. Patient denies passing flatus or having a bowel movement. She is currently rating her pain a 5 out of 10. She denies nausea. She is using her incentive spirometer. Able to pull 1000 mL. She remains on nasal cannula at 6 L. WBC 17.1 yesterday. No repeat today. Patient is on IV steroids. She is also receiving IV antibiotics. PHYSICAL EXAM: VITAL SIGNS: Reviewed. GENERAL: Well-developed in no acute distress. HEENT: No sclera icterus. Extraocular movements grossly intact. Moist buccal mucosa. Head is atraumatic, normocephalic. ABDOMEN: Soft. Mildly distended. Hypoactive bowel sounds. Dressing intact with shadowing present. NEUROLOGIC: Alert and oriented. Cranial nerves II through XII grossly intact. ASSESSMENT: 1. Diverticulitis, status post low anterior resection 2. Postoperative ileus PLAN: 1. Continue NG to LIS. Await return of bowel function. Continue Entereg. 2. Pain control 3. Activity as tolerated 4. Incentive spirometry 5. Continue antibiotics. Monitor CBC. Nurse practitioner note has been reviewed by physician. Signing provider agrees with the documented findings, assessment, and plan of care. Objective - Vital Signs Vital signs: Vital Signs Temp 98.5 F 01/04/19 07:00 Pulse 108 H 01/04/19 09:00 Resp 18 01/04/19 07:00 BP 101/68 01/04/19 07:00 Pulse Ox 95 01/04/19 07:00 Intake & Output 01/03/19 01/04/19 01/04/19 18:59 06:59 18:59 Intake Total 600 250 Output Total 3100 800 Balance -2500 -550 Intake: Intake, IV Titration 250 Amount D5-0.45% NaCl with KCl 250 20Meq/l 1,000 ml @ 125 mls/hr IV .Q8H [facility] Rx#: [id number] Oral 600 Output: Gastric Drainage 2900 800 Urine 200 Other: Voiding Method Bedside Commode # Voids 1 - Labs CBC & Chem 7: 01/03/19 06:39 01/04/19 07:37 Labs: Abnormal Lab Results - Last 24 Hours (Table) 01/03/19 01/03/19 01/03/19 Range/Units 11:55 16:57 20:38 Glucose (74-99) mg/dL POC Glucose (mg/dL) 236 H 330 H 189 H (75-99) mg/dL 01/04/19 01/04/19 01/04/19 Range/Units 00:04 05:46 07:37 Glucose 177 H (74-99) mg/dL POC Glucose (mg/dL) 249 H 239 H (75-99) mg/dL <Mike Cortés - Last Filed: 01/04/19 17:33> Subjective As above. Patient without bowel function. Nasogastric tube placed for vomiting. Keep nothing by mouth. Recheck labs tomorrow. Objective - Vital Signs Vital signs: Vital Signs Temp 98.5 F 01/04/19 15:00 Pulse 110 H 01/04/19 16:51 Resp 19 01/04/19 15:00 BP 99/66 01/04/19 15:00 Pulse Ox 91 L 01/04/19 15:00 Intake & Output 01/03/19 01/04/19 01/04/19 18:59 06:59 18:59 Intake Total 600 250 Output Total 3100 800 Balance -2500 -550 Weight 72.575 kg Intake: Intake, IV Titration 250 Amount D5-0.45% NaCl with KCl 250 20Meq/l 1,000 ml @ 125 mls/hr IV .Q8H [facility] Rx#: [id number] Oral 600 Output: Gastric Drainage 2900 800 Urine 200 Other: Voiding Method Bedside Commode Bedside Commode # Voids 1 2 - Labs CBC & Chem 7: 01/03/19 06:39 01/04/19 07:37 Labs: Abnormal Lab Results - Last 24 Hours (Table) 01/03/19 01/04/19 01/04/19 Range/Units 20:38 00:04 05:46 Glucose (74-99) mg/dL POC Glucose (mg/dL) 189 H 249 H 239 H (75-99) mg/dL 01/04/19 01/04/19 Range/Units 07:37 11:45 Glucose 177 H (74-99) mg/dL POC Glucose (mg/dL) 187 H (75-99) mg/dL
[2019-01-04 12:06] LABS: Glucose,Whole Blood 187 mg/dL (75-99)
[2019-01-04] MEDS: NICOTINE 14MG/24HR PATCH TRANSDERM SCH (13:06)
--- NOTE | 2019-01-04 14:08 | P.PN ---
Subjective Progress Note Date: 01/04/19 Principal diagnosis: Acute hospital-acquired pneumonia and postoperative atelectasis This is a 58-year-old female with history of multiple medical problems including COPD, type 2 diabetes, hypertension, osteoarthritis, chronic back pain and history of diverticulitis. Patient underwent elective lysis of adhesions, anterior resection, takedown of splenic flexure and partial omentectomy and appendectomy. Her surgery was done on 12/31/2018, and her postoperative course has been relatively uneventful. However early this morning, the patient had a sudden desaturation in her oxygenation, she was also complaining of increased shortness of breath, and a follow-up chest x-ray showed bilateral infiltrates, consistent with pneumonia. I was asked to see the patient on consultation, patient was examined, and his CT angiogram of the chest was done. It showed mostly bilateral infiltrates consistent with pneumonia. On physical examination patient had mostly crackles or rhonchi and wheezes, hence she was bronchodilators, steroids, and antibiotics. This CT angiogram of the chest showed no evidence of pulmonary embolism. Labs this morning showed leukocytosis with WBC count of 17.1, hemoglobin of 12.0 on physical examination, patient had diffuse rhonchi and wheezes, crackles at the bases, she had mostly symptoms of productive cough with thick yellow phlegm, and at times seem to be blood-tinged. On 01/04/2019 patient seen in follow-up on medical surgical floor. She is awake and alert, in no acute distress, she sits up in the recliner, NG tube is still in place, to low intermittent suction. Bowel sounds are absent. Has not passed a bowel movement, or any flatus. Denies any shortness of breath, she is working on her incentive spirometer, she is able to achieve 750-1000 ML with encouragement today. IV coverage includes Zosyn and Levaquin, for bilateral pneumonia likely hospital-acquired. Patient has not been able to produce a sputum culture, no fever and last 24 hours. ID service is following. Objective - Vital Signs Vital signs: Vital Signs Temp 98.5 F 01/04/19 07:00 Pulse 100 01/04/19 12:41 Resp 18 01/04/19 08:25 BP 101/68 01/04/19 07:00 Pulse Ox 95 01/04/19 07:00 Intake & Output 01/03/19 01/04/1901/04/19 18:59 06:59 18:59 Intake Total 600 250 Output Total 3100 800 Balance -2500 -550 Weight 72.575 kg Intake: Intake, IV Titration 250 Amount D5-0.45% NaCl with KCl 250 20Meq/l 1,000 ml @ 125 mls/hr IV .Q8H [facility]LENE Rx#: [id number] Oral 600 Output: Gastric Drainage 2900 800 Urine 200 Other: Voiding Method Bedside Commode Bedside Commode # Voids 1 - Exam GENERAL EXAM: Alert, pleasant, 58-year-old -[place] female, on 6 L of oxygen with a pulse ox of 95% comfortable in no apparent distress. HEAD: Normocephalic/atraumatic. EYES: Normal reaction of pupils, equal size. Conjunctiva pink, sclera white. NOSE: Clear with pink turbinates. NG tube is in place, in the right nares, to low intermittent suction THROAT: No erythema or exudates. NECK: No masses, no JVD, no thyroid enlargement, no adenopathy. CHEST: No chest wall deformity. Symmetrical expansion. LUNGS: Equal air entry with no crackles, wheeze, rhonchi or dullness. CVS: Regular rate and rhythm, normal S1 and S2, no gallops, no murmurs, no rubs ABDOMEN: Soft, nontender. No hepatosplenomegaly, no guarding or rigidity.abdominal incisions clean dry and intact, covered with a surgical dressing. Absent bowel sounds, EXTREMITIES: No clubbing, no edema, no cyanosis, 2+ pulses and upper and lower extremities. MUSCULOSKELETAL: Muscle strength and tone normal. SPINE: No scoliosis or deformity SKIN: No rashes CENTRAL NERVOUS SYSTEM: Alert and oriented -3. No focal deficits, tone is normal in all 4 extremities. PSYCHIATRIC: Alert and oriented -3. Appropriate affect. Intact judgment and insight. - Labs CBC & Chem 7: 01/03/19 06:39 01/04/19 07:37 Labs: Abnormal Lab Results - Last 24 Hours (Table) 01/03/19 01/03/19 01/04/19 Range/Units 16:57 20:38 00:04 Glucose (74-99) mg/dL POC Glucose (mg/dL) 330 H 189 H 249 H (75-99) mg/dL 01/04/19 01/04/19 01/04/19 Range/Units 05:46 07:37 11:45 Glucose 177 H (74-99) mg/dL POC Glucose (mg/dL) 239 H 187 H (75-99) mg/dL Assessment and Plan Plan: 1 acute hospital-acquired pneumonia and postoperative atelectasis, unexpected. 2 status post lysis of adhesions, low anterior resection, takedown of splenic flexure, partial omentectomy, appendectomy for colonic diverticulitis. 3 acute exacerbation of COPD 4 acute hypoxic respiratory failure secondary to pneumonia, COPD exacerbation, bilateral atelectasis, 5 benign essential hypertension 6 type 2 diabetes 7 degenerative joint disease 8 dyslipidemia 9 GERD without esophagitis Plan: Continue with current antibiotic coverage, will await results of the sputum and blood cultures, no fevers in the last 24 hours, ID service is following. Continue encouraging deep breathing and coughing, and IV steroids. Wean FiO2. continue breathing treatments. We'll continue to follow I performed a history & physical examination of the patient and discussed their management with my nurse practitioner, Ritika Angulo. I reviewed the nurse practitioner's note and agree with the documented findings and plan of care. Lung sounds are positive for diminished breath sounds. The findings and the impression was discussed with the patient. I attest to the documentation by the nurse practitioner. Time with Patient: Less than 30
--- NOTE | 2019-01-04 15:55 | CDI ---
Documentation Clarification Form Date: 01/04/2019 3:31:04 PM From: Hilaria Powers RN, CCDS Admit Date: 12/31/2018 6:59:00 AM Patient Name: Vivek Bueno Visit Number: [id number] Discharge Date: ATTENTION: The Clinical Documentation Specialists (CDI) and [facility] Coding Staff appreciate your assistance in clarifying documentation. Please respond to the clarification below the line at the bottom and electronically sign. The CDI & [facility] Coding staff will review the response and follow-up if needed. Please note: Queries are made part of the Legal Health Record. If you have any questions, please contact the author of this message via ITS. Dr. Manjit Hester Postoperative ileus is documented in the progress notes on 01/04/2019 and further clarification of the postoperative condition is needed. Patients Admitting Diagnosis: Diverticulitis Post-Operative Diagnosis: Same Procedure performed: Lysis of adhesions, Low anterior resection, takedown of splenic flexture and partial omentectomy and appendectomy History/Risk Factors: COPD, Diabetes Mellitus type 2, Hypertension, Clinical Indicators: Post op day #3, patient became short of breath. CXR ordered showing gastric distention with air-fluid levels and possible bilateral pneumonia. Abdomen: soft, tender, liver and spleen not palpable. Dressing over the incision site, slightly distended. Patient denies passing flatus or having a bowel movement. She denies nausea. WBC 17.1, HGB 12, Treatment: NGT to low/intermittent suction per orders Entereg PO Reglan IVP Q6 PRN Zofran IVP PRN Incentive spirometer Continue antibiotics. Monitor CBC In order to accurately reflect this patients severity of illness, please clarify if the post-operative diagnosis is: An expected post-procedural or post-surgical condition related to the patient's underlying medical comorbidities. (Or specify other possible cause) An unexpected post-procedural or post-surgical condition, related to the patients underlying medical comorbidities. Other, please specify Unable to determine (Last Revision: October 2018) CASSID
[2019-01-04] MEDS: LEVOFLOXACIN 500MG-D5W PMX 500 MG in DEXTROSE/WATER 1 100ML.BAG IVPB SCH (16:34)
--- NOTE | 2019-01-04 16:38 | PN ---
PROGRESS NOTE DATE OF SERVICE: 01/04/2019 REASON FOR FOLLOWUP: Possible aspiration pneumonia. INTERVAL HISTORY: The patient is currently afebrile. The patient seems to be breathing more comfortably. The patient denies having any chest pain. She did have some cough but was not bringing up any sputum. No nausea, vomiting or worsening abdominal pain. PHYSICAL EXAMINATION: Blood pressure 101/68 with a pulse of 104, temperature 98.5. She is 95% on 6 L nasal cannula. General description is a middle-aged female lying in bed in no distress. RESPIRATORY SYSTEM: Unlabored breathing with decreased breath sounds at the base. No wheeze. HEART: S1, S2. Regular rate and rhythm. ABDOMEN: Soft. No tenderness. LABS: BUN 14, creatinine 0.78. DIAGNOSTIC IMPRESSION AND PLAN: Patient with a fever, difficulty in breathing and bilateral upper lobe infiltrate with concern about possible aspiration pneumonitis in this patient admitted to hospital for extensive abdominal surgery. The patient at this time is covered with Zosyn. That will be continued. Will try to obtain a sputum to narrow down her antibiotics. Continue with supportive care. MMODL / IJN: [id number] /
--- NOTE | 2019-01-04 17:58 | P.PN ---
Progress Note - Text Progress Note Date: 01/04/19 Presenting complaint: Abdominal surgery Interval history: This is a 58-year-old patient of Dr. Mckeon. Chronic stable medical conditions include COPD, diabetes, GERD, hypertension, hyperlipidemia, osteoarthritis. Patient has chronic pain including low back pain in knees. Patient has had pink symptoms from her diverticulitis. Patient underwent surgery to include lysis of adhesions, anterior resection, takedown of splenic flexure and partial omentectomy and appendectomy. Had postoperative gastric distention with possible ileus Today-NG tube remains in place. Abdomen less distended. Good output. No bowel movement. Feels better. Breathing was stable. Review of systems: Was done for constitutional, cardiovascular, GI, pulmonary. relevant finding as above Current medications reviewed: Started on IV Zosyn and Levaquin Physical examination: VITAL SIGNS: r 98.5, one-on-one, 19, 99/66, 91% on 5 L GENERAL: Sitting up, more awake less tired appearing EYES: Pupils equal. Conjunctiva normal. HEENT: NG tube in place, nasal cannula in place, dry oral cavity. NECK: JVD not raised; masses not palpable. HEART: First and second heart sounds are normal; no edema. LUNGS: Respiratory rate increased, decreased breath sounds some crackles ABDOMEN: Soft, tender, liver spleen not palpable, dressing over the incision site, less distended, pulses present PSYCH: AAO 3, slightly anxious Investigations: Potassium 4.6 Accu-Cheks 187 Assessment: -Acute bilateral pneumonia, cannot rule out aspiration causing acute hypoxic respiratory failure, slow to respond Acute gastric distention, responding to NG tube to suction Status post lysis of adhesions, low anterior resection, takedown of splenic flexure, partial omentectomy, appendectomy for chronic diverticulitis -COPD in a current smoker -Chronic nicotine dependence patient cigarette smoker -Diabetes mellitus type II chronically on insulin, uncontrolled with steroids -GERD -Hyperlipidemia -Essential hypertension -Primary osteoarthritis -Chronic low back pain and arthritis of the joints -Anxiety depression not otherwise specified -Sinus tachycardia likely from pain. Plan: Responding well to NG tube to suction. On IV fluids. Care was discussed with the patient. Continued antibiotics.) Because encouraged to use respiratory spirometry. We'll repeat abdominal x-ray in the morning. Also a chest x-ray.
[2019-01-04 18:25] LABS: Glucose,Whole Blood 205 mg/dL (75-99)
[2019-01-04 20:11] LABS: Glucose,Whole Blood 221 mg/dL (75-99)
[2019-01-04 20:34] LABS: Hemoglobin A1C 8.1 % (4.0-6.0)
[2019-01-04] MEDS: ATORVASTATIN 80 MG TAB PO SCH (21:44)
[2019-01-04] MEDS: INSULIN DETEMIR (LEVEMIR) 100 UNIT/ML SYR SQ SCH (21:45)
[2019-01-04] MEDS: LATANOPROST 0.005% OPHTH DROPS 2.5 ML BTL BOTH EYES SCH (21:45)
[2019-01-05] MEDS: HEPARIN SODIUM,PORCINE 5,000 UNIT/ML 1 ML VIAL SQ SCH ×4 (00:05→22:55)
[2019-01-05] MEDS: methylPREDNISolone SOD SUCCI 40 MG/ML 1 ML VIAL IV SCH ×4 (00:12→22:55)
[2019-01-05] MEDS: PIPERACILLIN-TAZOBACTAM 3.375 GM in SODIUM CHLORIDE 0.9% 100 ML IVPB SCH ×4 (00:14→22:55)
[2019-01-05 00:34] LABS: Glucose,Whole Blood 223 mg/dL (75-99)
[2019-01-05] MEDS: INSULIN ASPART (NovoLOG) 100 UNIT/ML VIAL SQ SCH ×5 (00:53→22:58)
[2019-01-05] MEDS: HYDROmorphone 1 MG/ML 1 ML SYRINGE IVP PRN ×3 (03:39→20:52)
[2019-01-05] MEDS: D5-0.45% NACL WITH KCL 20MEQ/L 1,000 ML IV SCH ×3 (05:50→20:40)
[2019-01-05 06:22] LABS: Glucose,Whole Blood 78 mg/dL (75-99)
[2019-01-05] MEDS: IPRATROPIUM-ALBUTEROL 3 ML NEB INHALATION SCH ×5 (07:20→19:59)
[2019-01-05] MEDS: FLUoxetine HCL 20 MG CAP PO SCH (08:07)
[2019-01-05] MEDS: FENOFIBRATE 160 MG TAB PO SCH (08:07)
[2019-01-05] MEDS: ISOSORBIDE MONONITRATE ER 30 MG TAB.ER.24H PO SCH (08:07)
[2019-01-05] MEDS: ALVIMOPAN 12 MG CAPSULE PO SCH ×2 (08:07→20:38)
[2019-01-05] MEDS: PIOGLITAZONE 15 MG TAB PO SCH (08:08)
[2019-01-05] MEDS: LISINOPRIL 5 MG TAB PO SCH (08:08)
[2019-01-05] MEDS: NICOTINE 14MG/24HR PATCH TRANSDERM SCH (08:08)
[2019-01-05] MEDS: GABAPENTIN 300 MG CAP PO SCH ×3 (08:08→20:38)
[2019-01-05] MEDS: VERAPAMIL 40 MG TAB PO SCH ×2 (08:08→20:38)
[2019-01-05 08:27] LABS: Basophils # (A) 0.1 k/uL (0-0.2); Basophils % (A) 0 %; Eosinophils % (A) 0 %; HCT 34.3 % (34.0-46.0); HGB 10.9 gm/dL (11.4-16.0); Lymphocytes # (A) 3.5 k/uL (1.0-4.8); Lymphocytes % (A) 19 %; MCH 30.5 pg (25.0-35.0); MCHC 31.7 g/dL (31.0-37.0); Mean Platelet Volume 7.1; Monocytes # (A) 1.4 k/uL (0-1.0); Monocytes % (A) 7 %; Neutrophils % (A) 71 %; Platelet Count 520 k/uL (150-450); RBC 3.58 m/uL (3.80-5.40); RDW 13.7 % (11.5-15.5); WBC 18.3 k/uL (3.8-10.6)
[2019-01-05 08:47] LABS: Calcium 10.2 mg/dL (8.4-10.2); Potassium 4.2 mmol/L (3.5-5.1)
--- NOTE | 2019-01-05 11:23 | P.PN ---
Subjective Progress Note Date: 01/05/19 Principal diagnosis: Acute hospital-acquired pneumonia and postoperative atelectasis This is a 58-year-old female with history of multiple medical problems including COPD, type 2 diabetes, hypertension, osteoarthritis, chronic back pain and history of diverticulitis. Patient underwent elective lysis of adhesions, anterior resection, takedown of splenic flexure and partial omentectomy and appendectomy. Her surgery was done on 12/31/2018, and her postoperative course has been relatively uneventful. However early this morning, the patient had a sudden desaturation in her oxygenation, she was also complaining of increased shortness of breath, and a follow-up chest x-ray showed bilateral infiltrates, consistent with pneumonia. I was asked to see the patient on consultation, patient was examined, and his CT angiogram of the chest was done. It showed mostly bilateral infiltrates consistent with pneumonia. On physical examination patient had mostly crackles or rhonchi and wheezes, hence she was bronchodilators, steroids, and antibiotics. This CT angiogram of the chest showed no evidence of pulmonary embolism. Labs this morning showed leukocytosis with WBC count of 17.1, hemoglobin of 12.0 on physical examination, patient had diffuse rhonchi and wheezes, crackles at the bases, she had mostly symptoms of productive cough with thick yellow phlegm, and at times seem to be blood-tinged. On 01/04/2019 patient seen in follow-up on medical surgical floor. She is awake and alert, in no acute distress, she sits up in the recliner, NG tube is still in place, to low intermittent suction. Bowel sounds are absent. Has not passed a bowel movement, or any flatus. Denies any shortness of breath, she is working on her incentive spirometer, she is able to achieve 750-1000 ML with encouragement today. IV coverage includes Zosyn and Levaquin, for bilateral pneumonia likely hospital-acquired. Patient has not been able to produce a sputum culture, no fever and last 24 hours. ID service is following. The patient is seen today 01/05/2019 in follow-up on the regular medical floor. She is awake and alert in no acute distress. Still sitting up in a chair at the bedside. Denies any worsening shortness of breath. She has a loose nonproductive productive cough. Needs increased encouragement regarding the use the incentive spirometer and cough and deep breathing exercises. Maintaining O2 saturations in the mid 90s on 2 L/m per nasal cannula. She's been afebrile. Hemodynamically stable. Nasogastric tube remains in place to low intermittent suction. Blood cultures reveal no growth. White count 18.3. Hemoglobin 10.9. Creatinine 0.90. Objective - Vital Signs Vital signs: Vital Signs Temp 96.7 F L 01/05/19 10:02 Pulse 105 H 01/05/19 10:02 Resp 20 01/05/19 10:02 BP 120/83 01/05/19 10:02 Pulse Ox 95 01/05/19 10:02 Intake & Output 01/04/19 01/05/19 01/05/19 18:59 06:59 18:59 Intake Total 1225 2000 Output Total 925 950 Balance 300 1050 Weight 72.575 kg Intake: Intake, IV Titration 1175 2000 Amount D5-0.45% NaCl with KCl 875 2000 20Meq/l 1,000 ml @ 125 mls/hr IV .Q8H [facility]LENE Rx#: [id number] Levofloxacin 500Mg-D5w 100 Pmx 500 mg In Dextrose/ Water 1 100ml.bag @ 100 mls/hr IVPB Q24H [facility]LENE Rx#: [id number] Piperacillin-Tazobactam 3 200 .375 gm In Sodium Chloride 0.9% 100 ml @ 25 mls/hr IVPB Q8HR [facility]LENE Rx# :[id number] Oral 50 Output: Gastric Drainage 925 950 Other: Voiding Method Bedside Commode Bedside Commode # Voids 1 - Exam GENERAL EXAM: Alert, pleasant, 58-year-old female, on 2 L of oxygen with a pulse ox of 95% comfortable in no apparent distress. HEAD: Normocephalic/atraumatic. EYES: Normal reaction of pupils, equal size. Conjunctiva pink, sclera white. NOSE: Clear with pink turbinates. NG tube is in place, in the right nares, to lo w intermittent suction THROAT: No erythema or exudates. NECK: No masses, no JVD, no thyroid enlargement, no adenopathy. CHEST: No chest wall deformity. Symmetrical expansion. LUNGS: Equal air entry with no crackles, wheeze, rhonchi or dullness. CVS: Regular rate and rhythm, normal S1 and S2, no gallops, no murmurs, no rubs ABDOMEN: Soft, nontender. No hepatosplenomegaly, no guarding or rigidity .abdominal incisions clean dry and intact, covered with a surgical dressing. Absent bowel sounds, EXTREMITIES: No clubbing, no edema, no cyanosis, 2+ pulses and upper and lower extremities. MUSCULOSKELETAL: Muscle strength and tone normal. SPINE: No scoliosis or deformity SKIN: No rashes CENTRAL NERVOUS SYSTEM: No focal deficits, tone is normal in all 4 extremities. PSYCHIATRIC: Alert and oriented -3. Appropriate affect. Intact judgment and insight. - Labs CBC & Chem 7: 01/05/19 07:31 01/05/19 07:31 Labs: Abnormal Lab Results - Last 24 Hours (Table) 01/04/19 01/04/19 01/04/19 Range/Units 07:37 11:45 18:13 WBC (3.8-10.6) k/uL RBC (3.80-5.40) m/uL Hgb (11.4-16.0) gm/dL Plt Count (150-450) k/uL Neutrophils # (1.3-7.7) k/uL Monocytes # (0-1.0) k/uL Carbon Dioxide (22-30) mmol/L BUN (7-17) mg/dL POC Glucose (mg/dL) 187 H 205 H (75-99) mg/dL Hemoglobin A1c 8.1 H (4.0-6.0) % 01/04/19 01/05/19 01/05/19 Range/Units 20:10 00:22 07:31 WBC (3.8-10.6) k/uL RBC (3.80-5.40) m/uL Hgb (11.4-16.0) gm/dL Plt Count (150-450) k/uL Neutrophils # (1.3-7.7) k/uL Monocytes # (0-1.0) k/uL Carbon Dioxide 33 H (22-30) mmol/L BUN 20 H (7-17) mg/dL POC Glucose (mg/dL) 221 H 223 H (75-99) mg/dL Hemoglobin A1c (4.0-6.0) % 01/05/19 Range/Units 07:31 WBC 18.3 H (3.8-10.6) k/uL RBC 3.58 L (3.80-5.40) m/uL Hgb 10.9 L (11.4-16.0) gm/dL Plt Count 520 H (150-450) k/uL Neutrophils # 13.0 H (1.3-7.7) k/uL Monocytes # 1.4 H (0-1.0) k/uL Carbon Dioxide (22-30) mmol/L BUN (7-17) mg/dL POC Glucose (mg/dL) (75-99) mg/dL Hemoglobin A1c (4.0-6.0) % Microbiology - Last 24 Hours (Table) 01/04/19 07:37 Blood Culture - Preliminary Blood No Growth after 24 hours 01/04/19 08:09 Blood Culture - Preliminary Blood No Growth after 24 hours Assessment and Plan Assessment: Impression: 1 acute hospital-acquired pneumonia and postoperative atelectasis, unexpected. 2 status post lysis of adhesions, low anterior resection, takedown of splenic f lexure, partial omentectomy, appendectomy for colonic diverticulitis. 3 acute exacerbation of COPD 4 acute hypoxic respiratory failure secondary to pneumonia, COPD exacerbation, bilateral atelectasis, 5 benign essential hypertension 6 type 2 diabetes 7 degenerative joint disease 8 dyslipidemia 9 GERD without esophagitis Plan: The patient was seen and evaluated by Dr. Valente. She is again encouraged regarding the increased use the incentive spirometer and cough and deep breathing exercises. Continue to titrate down the FiO2 as tolerated. Continue with bronchodilators. Continued on steroids and antibiotics. We will see the patient on as-needed basis. I, the cosigning physician, performed a history & physical examination of the patient. Lungs sounds with bilateral scattered rhonchi. Maintaining good O2 saturations in the 90s on 2 L/m per nasal cannula. I discussed the assessment and plan of care with my nurse practitioner, Mandy Bashir. I attest to the above note as dictated by her.
[2019-01-05 11:37] LABS: Glucose,Whole Blood 116 mg/dL (75-99)
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
--- NOTE | 2019-01-05 12:17 | P.PN ---
<Elvia Morrison Bev - Last Filed: 01/05/19 12:09> Subjective Progress Note Date: 01/05/19 CHIEF COMPLAINT: Diverticulitis HISTORY OF PRESENT ILLNESS: Patient is status post low anterior resection, lysis of adhesions, takedown of stomach flexure, partial omentectomy, and appendectomy performed on 12/31/2017. Patient examined at the bedside. She denies abdominal pain.. NG with less than 200cc thus far in shift. She denies nausea. She states she is passing a lot of flatus this morning. No BM. She is using her incentive spirometer. Able to pull 1000 mL. W BC 18.3 today. She remains on IV steroids. She is also receiving IV antibiotics. She is afebrile. Slightly tachycardic this morning. X-ray obtained this morning reveals some air fluid levels present without bowel distention. Bowel gas pattern may be indicative of ileus. PHYSICAL EXAM: VITAL SIGNS: Reviewed. GENERAL: Well-developed in no acute distress. HEENT: No sclera icterus. Extraocular movements grossly intact. Moist buccal mucosa. Head is atraumatic, normocephalic. ABDOMEN: Soft. Minimal distention. Positive bowel sounds. Dressing intact with shadowing present. NEUROLOGIC: Alert and oriented. Cranial nerves II through XII grossly intact. ASSESSMENT: 1. Diverticulitis, status post low anterior resection 2. Postoperative ileus, an unexpected but potential outcome of surgery PLAN: 1. Patient extremely anxious to have NG tube removed. Will DC NG tube and begin ice chips and popsicles. Continue Entereg. 2. Pain control 3. Activity as tolerated 4. Incentive spirometry 5. Continue antibiotics. Monitor CBC. Nurse practitioner note has been reviewed by physician. Signing provider agrees with the documented findings, assessment, and plan of care. Objective - Vital Signs Vital signs: Vital Signs Temp 96.7 F L 01/05/19 10:02 Pulse 104 H 01/05/19 11:36 Resp 20 01/05/19 10:02 BP 120/83 01/05/19 10:02 Pulse Ox 95 01/05/19 10:02 Intake & Output 01/04/19 01/05/19 01/05/19 18:59 06:59 18:59 Intake Total 1225 2000 Output Total 925 950 Balance 300 1050 Weight 72.575 kg Intake: Intake, IV Titration 1175 2000 Amount D5-0.45% NaCl with KCl 875 2000 20Meq/l 1,000 ml @ 125 mls/hr IV .Q8H [facility] Rx#: [id number] Levofloxacin 500Mg-D5w 100 Pmx 500 mg In Dextrose/ Water 1 100ml.bag @ 100 mls/hr IVPB Q24H [facility] Rx#: [id number] Piperacillin-Tazobactam 3 200 .375 gm In Sodium Chloride 0.9% 100 ml @ 25 mls/hr IVPB Q8HR [facility] Rx# :[id number] Oral 50 Output: Gastric Drainage 925 950 Other: Voiding Method Bedside Commode Bedside Commode # Voids 1 - Labs CBC & Chem 7: 01/05/19 07:31 01/05/19 07:31 Labs: Abnormal Lab Results - Last 24 Hours (Table) 01/04/19 01/04/19 01/04/19 Range/Units 07:37 18:13 20:10 WBC (3.8-10.6) k/uL RBC (3.80-5.40) m/uL Hgb (11.4-16.0) gm/dL Plt Count (150-450) k/uL Neutrophils # (1.3-7.7) k/uL Monocytes # (0-1.0) k/uL Carbon Dioxide (22-30) mmol/L BUN (7-17) mg/dL POC Glucose (mg/dL) 205 H 221 H (75-99) mg/dL Hemoglobin A1c 8.1 H (4.0-6.0) % 01/05/19 01/05/19 01/05/19 Range/Units 00:22 07:31 07:31 WBC 18.3 H (3.8-10.6) k/uL RBC 3.58 L (3.80-5.40) m/uL Hgb 10.9 L (11.4-16.0) gm/dL Plt Count 520 H (150-450) k/uL Neutrophils # 13.0 H (1.3-7.7) k/uL Monocytes # 1.4 H (0-1.0) k/uL Carbon Dioxide 33 H (22-30) mmol/L BUN 20 H (7-17) mg/dL POC Glucose (mg/dL) 223 H (75-99) mg/dL Hemoglobin A1c (4.0-6.0) % 01/05/19 Range/Units 11:25 WBC (3.8-10.6) k/uL RBC (3.80-5.40) m/uL Hgb (11.4-16.0) gm/dL Plt Count (150-450) k/uL Neutrophils # (1.3-7.7) k/uL Monocytes # (0-1.0) k/uL Carbon Dioxide (22-30) mmol/L BUN (7-17) mg/dL POC Glucose (mg/dL) 116 H (75-99) mg/dL Hemoglobin A1c (4.0-6.0) % Microbiology - Last 24 Hours (Table) 01/04/19 07:37 Blood Culture - Preliminary Blood No Growth after 24 hours 01/04/19 08:09 Blood Culture - Preliminary Blood No Growth after 24 hours <Mike Cortés - Last Filed: 01/05/19 17:12> Subjective As above. Patient having flatus. Small bowel movement as well. Pain is improved. Feels less bloated. Start clear liquids. Ambulate. Objective - Vital Signs Vital signs: Vital Signs Temp 98.2 F 01/05/19 14:54 Pulse 100 01/05/19 16:00 Resp 20 01/05/19 14:54 BP 145/87 01/05/19 14:54 Pulse Ox 88 L 01/05/19 14:54 Intake & Output 01/04/19 01/05/19 01/05/19 18:59 06:59 18:59 Intake Total 1225 2000 1300 Output Total 925 950 350 Balance 300 1050 950 Weight 72.575 kg Intake: Intake, IV Titration 1175 2000 1000 Amount D5-0.45% NaCl with KCl 875 2000 1000 20Meq/l 1,000 ml @ 125 mls/hr IV .Q8H [facility] Rx#: [id number] Levofloxacin 500Mg-D5w 100 Pmx 500 mg In Dextrose/ Water 1 100ml.bag @ 100 mls/hr IVPB Q24H [facility] Rx#: [id number] Piperacillin-Tazobactam 3 200 .375 gm In Sodium Chloride 0.9% 100 ml @ 25 mls/hr IVPB Q8HR [facility] Rx# :[id number] Oral 50 300 Output: Gastric Drainage 925 950 350 Other: Voiding Method Bedside Commode Bedside Commode # Voids 1 - Labs CBC & Chem 7: 01/05/19 07:31 01/05/19 07:31 Labs: Abnormal Lab Results - Last 24 Hours (Table) 01/04/19 01/04/19 01/04/19 Range/Units 07:37 18:13 20:10 WBC (3.8-10.6) k/uL RBC (3.80-5.40) m/uL Hgb (11.4-16.0) gm/dL Plt Count (150-450) k/uL Neutrophils # (1.3-7.7) k/uL Monocytes # (0-1.0) k/uL Carbon Dioxide (22-30) mmol/L BUN (7-17) mg/dL POC Glucose (mg/dL) 205 H 221 H (75-99) mg/dL Hemoglobin A1c 8.1 H (4.0-6.0) % 01/05/19 01/05/19 01/05/19 Range/Units 00:22 07:31 07:31 WBC 18.3 H (3.8-10.6) k/uL RBC 3.58 L (3.80-5.40) m/uL Hgb 10.9 L (11.4-16.0) gm/dL Plt Count 520 H (150-450) k/uL Neutrophils # 13.0 H (1.3-7.7) k/uL Monocytes # 1.4 H (0-1.0) k/uL Carbon Dioxide 33 H (22-30) mmol/L BUN 20 H (7-17) mg/dL POC Glucose (mg/dL) 223 H (75-99) mg/dL Hemoglobin A1c (4.0-6.0) % 01/05/19 Range/Units 11:25 WBC (3.8-10.6) k/uL RBC (3.80-5.40) m/uL Hgb (11.4-16.0) gm/dL Plt Count (150-450) k/uL Neutrophils # (1.3-7.7) k/uL Monocytes # (0-1.0) k/uL Carbon Dioxide (22-30) mmol/L BUN (7-17) mg/dL POC Glucose (mg/dL) 116 H (75-99) mg/dL Hemoglobin A1c (4.0-6.0) % Microbiology - Last 24 Hours (Table) 01/04/19 07:37 Blood Culture - Preliminary Blood No Growth after 24 hours 01/04/19 08:09 Blood Culture - Preliminary Blood No Growth after 24 hours
--- NOTE | 2019-01-05 14:09 | PN ---
PROGRESS NOTE DATE OF SERVICE: 01/05/2019 REASON FOR FOLLOWUP: Possible aspiration pneumonia. INTERVAL HISTORY: The patient is currently afebrile. The patient has been breathing more comfortably, very minimal cough, not bringing up any sputum. The patient has been and has been wanting to start eating. PHYSICAL EXAMINATION: Blood pressure 120/83 with a pulse of temperature 96.7, she is 95% on 2 L nasal cannula. General description is middle-aged female, lying in bed in no distress. RESPIRATORY SYSTEM: Unlabored breathing with decreased breath sounds at the base, no wheeze. HEART: S1, S2. Regular rate and rhythm. ABDOMEN: Soft, no tenderness. LABS: Hemoglobin is 10.1, white count of 8.3, BUN of 20, creatinine 0.90. Blood culture has been negative, no sputum could be collected. DIAGNOSTIC IMPRESSION AND PLAN: Patient with difficulty breathing, hypoxemia and a fever elevated white count with concern for possible aspiration pneumonitis. The patient at this time seemed to be clinically improving as her breathing more comfortably and cough is improved. White count is elevated, more likely because of steroid effect. Will continue to monitor her clinical course closely [QAMARKER] surgery. Continue supportive care. MMODL / IJN: [id number] /
[2019-01-05] MEDS: LEVOFLOXACIN 500MG-D5W PMX 500 MG in DEXTROSE/WATER 1 100ML.BAG IVPB SCH (17:06)
[2019-01-05 18:10] LABS: Glucose,Whole Blood 169 mg/dL (75-99)
[2019-01-05 20:19] LABS: Glucose,Whole Blood 231 mg/dL (75-99)
[2019-01-05] MEDS: ATORVASTATIN 80 MG TAB PO SCH (20:38)
[2019-01-05] MEDS: INSULIN DETEMIR (LEVEMIR) 100 UNIT/ML SYR SQ SCH (20:39)
[2019-01-05] MEDS: LATANOPROST 0.005% OPHTH DROPS 2.5 ML BTL BOTH EYES SCH (20:40)
--- NOTE | 2019-01-05 23:01 | P.PN ---
Progress Note - Text Progress Note Date: 01/05/19 Presenting complaint: Abdominal surgery Interval history: This is a 58-year-old patient of Dr. Mckeon. Chronic stable medical conditions include COPD, diabetes, GERD, hypertension, hyperlipidemia, osteoarthritis. Patient has chronic pain including low back pain in knees. Patient has had pink symptoms from her diverticulitis. Patient underwent surgery to include lysis of adhesions, anterior resection, takedown of splenic flexure and partial omentectomy and appendectomy. Had postoperative gastric distention with possible ileus Today-NG tube has been out. Has started on clear liquids. Did pass flatus. No abdominal pain. Abdominal distention improved. No nausea vomiting.. Review of systems: Was done for constitutional, cardiovascular, GI, pulmonary. relevant finding as above Current medications reviewed: On IV Zosyn and Levaquin Physical examination: VITAL SIGNS: 96.7, 105, 20, 120/83, 95% on 2 L GENERAL: Sitting up, more awake less tired appearing EYES: Pupils equal. Conjunctiva normal. HEENT: NG tube in place, nasal cannula in place, dry oral cavity. NECK: JVD not raised; masses not palpable. HEART: First and second heart sounds are normal; no edema. LUNGS: Respiratory rate increased, decreased breath sounds throughout it entry ABDOMEN: Soft, less distended and less tender, liver spleen not palpable, dressing over the incision site, PSYCH: AAO 3, slightly anxious Investigations: White count 18.3, hemoglobin 10.9, platelets 520, potassium 4.2, BUN 20, creatinine 0.90 Accu-Cheks 106, 169 Acute abdominal series-film personally reviewed by me is suggestive of some air fluid levels suggestive of ileus Assessment: -Acute bilateral pneumonia, cannot rule out aspiration causing acute hypoxic respiratory failure, currently improving Acute gastric distention, with ileus, responding to NG tube to suction, improving Status post lysis of adhesions, low anterior resection, takedown of splenic flexure, partial omentectomy, appendectomy for chronic diverticulitis -COPD in a current smoker -Chronic nicotine dependence patient cigarette smoker -Diabetes mellitus type II chronically on insulin, uncontrolled with steroids -GERD -Hyperlipidemia -Essential hypertension -Primary osteoarthritis -Chronic low back pain and arthritis of the joints -Anxiety depression not otherwise specified -Sinus tachycardia likely from pain. Plan: Patient: Clear liquids. Encouraged to be out of bed and ambulate. Clinically is getting better. ESSENCE Levaquin. Keep on IV Zosyn.
[2019-01-06] MEDS ORDERED: HYDROmorphone 1 MG/ML 1 ML SYRINGE ONE (02:40)
[2019-01-06 03:47] LABS: Glucose,Whole Blood 189 mg/dL (75-99)
[2019-01-06] MEDS: INSULIN ASPART (NovoLOG) 100 UNIT/ML VIAL SQ SCH ×5 (06:05→21:09)
[2019-01-06] MEDS: D5-0.45% NACL WITH KCL 20MEQ/L 1,000 ML IV SCH ×3 (06:05→21:14)
[2019-01-06 06:07] LABS: Glucose,Whole Blood 94 mg/dL (75-99)
[2019-01-06] MEDS: IPRATROPIUM-ALBUTEROL 3 ML NEB INHALATION SCH ×4 (08:36→19:25)
[2019-01-06] MEDS: NICOTINE 14MG/24HR PATCH TRANSDERM SCH (09:24)
[2019-01-06] MEDS: methylPREDNISolone SOD SUCCI 40 MG/ML 1 ML VIAL IV SCH (09:24)
[2019-01-06] MEDS: PIPERACILLIN-TAZOBACTAM 3.375 GM in SODIUM CHLORIDE 0.9% 100 ML IVPB SCH ×3 (09:24→23:55)
[2019-01-06] MEDS: FENOFIBRATE 160 MG TAB PO SCH (09:25)
[2019-01-06] MEDS: VERAPAMIL 40 MG TAB PO SCH ×2 (09:25→21:08)
[2019-01-06] MEDS: GABAPENTIN 300 MG CAP PO SCH ×3 (09:25→21:10)
[2019-01-06] MEDS: FLUoxetine HCL 20 MG CAP PO SCH (09:25)
[2019-01-06] MEDS: ISOSORBIDE MONONITRATE ER 30 MG TAB.ER.24H PO SCH (09:25)
[2019-01-06] MEDS: PIOGLITAZONE 15 MG TAB PO SCH (09:25)
[2019-01-06] MEDS: LISINOPRIL 5 MG TAB PO SCH (09:25)
[2019-01-06] MEDS: HEPARIN SODIUM,PORCINE 5,000 UNIT/ML 1 ML VIAL SQ SCH ×3 (09:25→23:55)
[2019-01-06 09:33] LABS: Basophils # (A) 0.2 k/uL (0-0.2); Basophils % (A) 1 %; Eosinophils # (A) 0.1 k/uL (0-0.7); Eosinophils % (A) 0 %; HCT 36.4 % (34.0-46.0); HGB 11.7 gm/dL (11.4-16.0); Lymphocytes % (A) 23 %; MCHC 32.2 g/dL (31.0-37.0); MCV 96.4 fL (80.0-100.0); Mean Platelet Volume 7.7; Monocytes # (A) 1.4 k/uL (0-1.0); Monocytes % (A) 6 %; Neutrophils % (A) 68 %; Platelet Count 572 k/uL (150-450); RBC 3.77 m/uL (3.80-5.40); RDW 14.3 % (11.5-15.5)
[2019-01-06 09:50] LABS: African American GFR (CKD) >90 (>60 ml/min/1.73 sqM); Anion Gap 13 mmol/L; Blood Urea Nitrogen 19 mg/dL (7-17); Calcium 10.2 mg/dL (8.4-10.2); Carbon Dioxide 25 mmol/L (22-30); Chloride 102 mmol/L (98-107); Glucose 98 mg/dL (74-99); Potassium 4.6 mmol/L (3.5-5.1); Sodium 140 mmol/L (137-145)
[2019-01-06 11:19] LABS: Glucose,Whole Blood 79 mg/dL (75-99)
--- NOTE | 2019-01-06 11:52 | P.PN ---
<Elvia Morrison Bev - Last Filed: 01/06/19 14:48> Subjective Progress Note Date: 01/06/19 CHIEF COMPLAINT: Diverticulitis HISTORY OF PRESENT ILLNESS: Patient is status post low anterior resection, lysis of adhesions, takedown of stomach flexure, partial omentectomy, and appendectomy performed on 12/31/2017. Patient examined at the bedside. She denies abdominal pain. NG tube was removed yesterday. Patient is tolerating clear liquid diet. Denies nausea or vomiting. Passing flatus and having loose BMs this morning. WBC increased to 22.0. She remains on IV steroids. She is also receiving IV antibiotics. She is afebrile. Remains slightly tachycardic. PHYSICAL EXAM: VITAL SIGNS: Reviewed. GENERAL: Well-developed in no acute distress. HEENT: No sclera icterus. Extraocular movements grossly intact. Moist buccal mucosa. Head is atraumatic, normocephalic. ABDOMEN: Soft. No distention. Positive bowel sounds. Dressing intact. NEUROLOGIC: Alert and oriented. Cranial nerves II through XII grossly intact. ASSESSMENT: 1. Diverticulitis, status post low anterior resection 2. Postoperative ileus, an unexpected but potential outcome of surgery, resolved PLAN: 1. Advance diet to full liquid 2. Pain control 3. Activity as tolerated 4. Incentive spirometry 5. WBC continues to increase. Likely secondary to IV steroids. Patient clinically looks great without signs of infection. Would recommend DC IV steroids. Will repeat CBC in AM. If WBC continues to increase, will obtain CT tomorrow. Otherwise, patient may be able to be discharged home if she remains stable tomorrow Nurse practitioner note has been reviewed by physician. Signing provider agrees with the documented findings, assessment, and plan of care. Objective - Vital Signs Vital signs: Vital Signs Temp 98.3 F 01/06/19 08:57 Pulse 108 H 01/06/19 08:49 Resp 22 01/06/19 08:44 BP 139/94 01/06/19 08:44 Pulse Ox 99 01/06/19 05:06 Intake & Output 01/05/19 01/06/19 01/06/19 18:59 06:59 18:59 Intake Total 1665 1525 Output Total 350 200 Balance 1315 1325 Weight 72.575 kg Intake: Intake, IV Titration 1000 1375 Amount D5-0.45% NaCl with KCl 1000 1375 20Meq/l 1,000 ml @ 125 mls/hr IV .Q8H [facility] Rx#: [id number] Oral 665 150 Output: Gastric Drainage 350 Urine 200 Other: Voiding Method Bedside Commode Toilet # Voids 1 # Bowel Movements 2 - Labs CBC & Chem 7: 01/06/19 08:26 01/06/19 08:26 Labs: Abnormal Lab Results - Last 24 Hours (Table) 01/05/19 01/05/19 01/05/19 Range/Units 18:06 20:16 22:56 WBC (3.8-10.6) k/uL RBC (3.80-5.40) m/uL Plt Count (150-450) k/uL Neutrophils # (1.3-7.7) k/uL Lymphocytes # (1.0-4.8) k/uL Monocytes # (0-1.0) k/uL BUN (7-17) mg/dL POC Glucose (mg/dL) 169 H 231 H 189 H (75-99) mg/dL 01/06/19 01/06/19 Range/Units 08:26 08:26 WBC 22.0 H (3.8-10.6) k/uL RBC 3.77 L (3.80-5.40) m/uL Plt Count 572 H (150-450) k/uL Neutrophils # 15.0 H (1.3-7.7) k/uL Lymphocytes # 5.0 H (1.0-4.8) k/uL Monocytes # 1.4 H (0-1.0) k/uL BUN 19 H (7-17) mg/dL POC Glucose (mg/dL) (75-99) mg/dL Microbiology - Last 24 Hours (Table) 01/04/19 07:37 Blood Culture - Preliminary Blood No Growth after 48 hours 01/04/19 08:09 Blood Culture - Preliminary Blood No Growth after 48 hours <Mike Cortés - Last Filed: 01/06/19 20:47> Subjective As above. Patient feels well. Denies pain. She is having loose stools. Incision without erythema. White blood cell count remains elevated. Steroid switched to oral. Reevaluate in a.m. Objective - Vital Signs Vital signs: Vital Signs Temp 98.5 F 01/06/19 13:19 Pulse 104 H 01/06/19 19:33 Resp 16 01/06/19 13:19 BP 139/71 01/06/19 13:19 Pulse Ox 98 01/06/19 13:19 Intake & Output 01/06/19 01/06/19 01/07/19 06:59 18:59 06:59 Intake Total 1525 300 Output Total 200 Balance 1325 300 Weight 72.575 kg Intake: Intake, IV Titration 1375 Amount D5-0.45% NaCl with KCl 1375 20Meq/l 1,000 ml @ 125 mls/hr IV .Q8H [facility] Rx#: [id number] Oral 150 300 Output: Urine 200 Other: Voiding Method Toilet Bedside Commode # Voids 1 2 # Bowel Movements 2 3 - Labs CBC & Chem 7: 01/06/19 08:26 01/06/19 08:26 Labs: Abnormal Lab Results - Last 24 Hours (Table) 01/05/19 01/06/19 01/06/19 Range/Units 22:56 08:26 08:26 WBC 22.0 H (3.8-10.6) k/uL RBC 3.77 L (3.80-5.40) m/uL Plt Count 572 H (150-450) k/uL Neutrophils # 15.0 H (1.3-7.7) k/uL Lymphocytes # 5.0 H (1.0-4.8) k/uL Monocytes # 1.4 H (0-1.0) k/uL BUN 19 H (7-17) mg/dL POC Glucose (mg/dL) 189 H (75-99) mg/dL 01/06/19 01/06/19 Range/Units 16:41 20:44 WBC (3.8-10.6) k/uL RBC (3.80-5.40) m/uL Plt Count (150-450) k/uL Neutrophils # (1.3-7.7) k/uL Lymphocytes # (1.0-4.8) k/uL Monocytes # (0-1.0) k/uL BUN (7-17) mg/dL POC Glucose (mg/dL) 285 H 243 H (75-99) mg/dL Microbiology - Last 24 Hours (Table) 01/04/19 07:37 Blood Culture - Preliminary Blood No Growth after 48 hours 01/04/19 08:09 Blood Culture - Preliminary Blood No Growth after 48 hours
[2019-01-06] MEDS: ALVIMOPAN 12 MG CAPSULE PO SCH ×2 (12:25→21:07)
[2019-01-06] MEDS: HYDROmorphone 1 MG/ML 1 ML SYRINGE IVP PRN ×3 (13:04→21:10)
[2019-01-06 16:55] LABS: Glucose,Whole Blood 285 mg/dL (75-99)
[2019-01-06 20:45] LABS: Glucose,Whole Blood 243 mg/dL (75-99)
[2019-01-06] MEDS: ATORVASTATIN 80 MG TAB PO SCH (21:07)
[2019-01-06] MEDS: INSULIN DETEMIR (LEVEMIR) 100 UNIT/ML SYR SQ SCH (21:09)
[2019-01-06] MEDS: LATANOPROST 0.005% OPHTH DROPS 2.5 ML BTL BOTH EYES SCH (21:10)
--- NOTE | 2019-01-06 23:26 | P.PN ---
Progress Note - Text Progress Note Date: 01/06/19 Presenting complaint: Abdominal surgery Interval history: This is a 58-year-old patient of Dr. Mckeon. Chronic stable medical conditions include COPD, diabetes, GERD, hypertension, hyperlipidemia, osteoarthritis. Patient has chronic pain including low back pain in knees. Patient has had pink symptoms from her diverticulitis. Patient underwent surgery to include lysis of adhesions, anterior resection, takedown of splenic flexure and partial omentectomy and appendectomy. Had postoperative gastric distention with possible ileus Today-had a fair size bowel movement. Abdomen less distended. Out of bed. Breathing much better. Patient has been tolerating a clear liquid diet Review of systems: Was done for constitutional, cardiovascular, GI, pulmonary. relevant finding as above Current medications reviewed: On IV Zosyn Physical examination: VITAL SIGNS: 98.5, 95, 18, 118/76, and 99% room air GENERAL: Sitting up, appears to cough and EYES: Pupils equal. Conjunctiva normal. HEENT: NG tube in place, nasal cannula in place, dry oral cavity. NECK: JVD not raised; masses not palpable. HEART: First and second heart sounds are normal; no edema. LUNGS: Respiratory rate increased, decreased breath sounds throughout it entry ABDOMEN: Soft, non-tender, liver spleen not palpable, dressing over the incision site, pulse was present PSYCH: AAO 3, slightly anxious Investigations: White count 22, hemoglobin 11.7, potassium 4.6, creatinine 0.81 [id number], 285, 243 Assessment: -Acute bilateral pneumonia, cannot rule out aspiration causing acute hypoxic respiratory failure, improving Acute gastric distention, with ileus, responded well to NG tube. Improved Status post lysis of adhesions, low anterior resection, takedown of splenic flexure, partial omentectomy, appendectomy for chronic diverticulitis -COPD in a current smoker -Chronic nicotine dependence patient cigarette smoker -Diabetes mellitus type II chronically on insulin, uncontrolled with steroids -GERD -Hyperlipidemia -Essential hypertension -Primary osteoarthritis -Chronic low back pain and arthritis of the joints -Anxiety depression not otherwise specified -Sinus tachycardia likely from pain. Plan: Overall doing much better. Did tolerate clear liquids. Hopefully can be advanced to full liquid diet. Encourage family. Note white count is going up. Though clinically patient doing much better.. Follow closely
[2019-01-07] MEDS: D5-0.45% NACL WITH KCL 20MEQ/L 1,000 ML IV SCH (04:52)
[2019-01-07] MEDS: HYDROmorphone 1 MG/ML 1 ML SYRINGE IVP PRN ×2 (04:52→16:27)
[2019-01-07 07:43] LABS: Glucose,Whole Blood 61 mg/dL (75-99)
[2019-01-07 08:03] LABS: Glucose,Whole Blood 59 mg/dL (75-99)
[2019-01-07 08:17] LABS: Glucose,Whole Blood 55 mg/dL (75-99)
[2019-01-07 08:24] LABS: Glucose,Whole Blood 82 mg/dL (75-99)
[2019-01-07 08:42] VITALS: RESP 18
[2019-01-07] MEDS ORDERED: predniSONE 20 MG TAB PO SCH (09:00)
[2019-01-07 09:11] LABS: Basophils # (A) 0.2 k/uL (0-0.2); Basophils % (A) 1 %; Eosinophils # (A) 0.3 k/uL (0-0.7); Eosinophils % (A) 2 %; Lymphocytes # (A) 6.5 k/uL (1.0-4.8); Lymphocytes % (A) 33 %; MCH 30.6 pg (25.0-35.0); MCHC 31.6 g/dL (31.0-37.0); MCV 97.1 fL (80.0-100.0); Mean Platelet Volume 7.4; Monocytes # (A) 0.9 k/uL (0-1.0); Monocytes % (A) 5 %; Neutrophils # (A) 11.2 k/uL (1.3-7.7); Neutrophils % (A) 57 %; Platelet Count 551 k/uL (150-450); RBC 3.92 m/uL (3.80-5.40); RDW 14.6 % (11.5-15.5); WBC 19.5 k/uL (3.8-10.6)
[2019-01-07] MEDS: IPRATROPIUM-ALBUTEROL 3 ML NEB INHALATION SCH ×4 (09:15→19:32)
[2019-01-07 09:16] LABS: Glucose,Whole Blood 102 mg/dL (75-99)
[2019-01-07] MEDS: IOPAMIDOL-300 CONTRAST 30 ML VIAL (ORAL USE) PO PRN ×2 (10:35→11:45)
[2019-01-07] MEDS: INSULIN ASPART (NovoLOG) 100 UNIT/ML VIAL SQ SCH ×3 (10:48→17:19)
[2019-01-07] MEDS: HEPARIN SODIUM,PORCINE 5,000 UNIT/ML 1 ML VIAL SQ SCH ×2 (10:49→16:36)
[2019-01-07] MEDS: ALVIMOPAN 12 MG CAPSULE PO SCH (10:49)
[2019-01-07] MEDS: GABAPENTIN 300 MG CAP PO SCH ×2 (10:49→16:36)
[2019-01-07] MEDS: VERAPAMIL 40 MG TAB PO SCH (10:49)
[2019-01-07] MEDS: FENOFIBRATE 160 MG TAB PO SCH (10:50)
[2019-01-07] MEDS: ISOSORBIDE MONONITRATE ER 30 MG TAB.ER.24H PO SCH (10:50)
[2019-01-07] MEDS: PIOGLITAZONE 15 MG TAB PO SCH (10:50)
[2019-01-07] MEDS: LISINOPRIL 5 MG TAB PO SCH (10:50)
[2019-01-07] MEDS: NICOTINE 14MG/24HR PATCH TRANSDERM SCH (10:50)
[2019-01-07] MEDS: FLUoxetine HCL 20 MG CAP PO SCH (10:51)
[2019-01-07] MEDS: PIPERACILLIN-TAZOBACTAM 3.375 GM in SODIUM CHLORIDE 0.9% 100 ML IVPB SCH ×2 (10:51→16:36)
[2019-01-07] MEDS ORDERED: DEXTROSE 10% IN WATER 500 ML in EMPTY BAG 1 BAG IV SCH (11:15)
--- NOTE | 2019-01-07 11:23 | PN ---
PROGRESS NOTE DATE OF SERVICE: 01/07/2019 REASON FOR FOLLOWUP: Possible aspiration pneumonia. INTERVAL HISTORY: The patient is currently afebrile. Patient has been breathing comfortably, very minimal cough. No chest pain. No abdominal pain. No nausea, vomiting had already had . PHYSICAL EXAMINATION: Blood pressure 139/98 with a pulse of 90, temperature 98.4, she is 99% on room air. General description is a middle aged female, lying in bed in no distress. RESPIRATORY SYSTEM: Unlabored breathing with decreased breath sounds at the bases, no wheeze. HEART: S1, S2. Regular rate and rhythm. ABDOMEN: Soft, no tenderness. LABS: White count is 19, less than 2000 was yesterday. DIAGNOSTIC IMPRESSION AND PLAN: Patient with difficulty breathing, cough, would seem likely aspiration pneumonitis. Patient has found clinical improvement on Zosyn. White count is elevated more likely because of the steroid, also discontinued yesterday and white count showing a downward trend. If the patient continued to improve, insert a short course of oral Avelox daily for about 5-7 days. Continue supportive care. MMODL / IJN: [id number] /
--- NOTE | 2019-01-07 11:51 | P.PN ---
<Elvia Morrison Bev - Last Filed: 01/07/19 11:48> Subjective Progress Note Date: 01/07/19 CHIEF COMPLAINT: Diverticulitis HISTORY OF PRESENT ILLNESS: Patient is status post low anterior resection, lysis of adhesions, takedown of stomach flexure, partial omentectomy, and appendectomy performed on 12/31/2017. Patient examined at the bedside. She denies abdominal pain. Tolerating full liquid diet. Patient is passing flatus and having multiple loose stools. No signs of an stable. She is afebrile. IV steroids were transitioned to oral. WBC this morning 19.5. PHYSICAL EXAM: VITAL SIGNS: Reviewed. GENERAL: Well-developed in no acute distress. HEENT: No sclera icterus. Extraocular movements grossly intact. Moist buccal mucosa. Head is atraumatic, normocephalic. ABDOMEN: Soft. No distention. Positive bowel sounds. Dressing intact. NEUROLOGIC: Alert and oriented. Cranial nerves II through XII grossly intact. ASSESSMENT: 1. Diverticulitis, status post low anterior resection 2. Postoperative ileus, an unexpected but potential outcome of surgery, resolved PLAN: 1. Advance diet to low fiber diet 2. Pain control 3. Activity as tolerated 4. Incentive spirometry 5. WBC remains elevated but trending downward today. Likely secondary to IV steroids. Patient clinically looks great without signs of infection. Will obtain CT abdomen/pelvis to rule out infectious etiology. If CT negative, discharge home this afternoon Nurse practitioner note has been reviewed by physician. Signing provider agrees with the documented findings, assessment, and plan of care. Objective - Vital Signs Vital signs: Vital Signs Temp 98.4 F 01/07/19 07:23 Pulse 106 H 01/07/19 11:35 Resp 18 01/07/19 07:23 BP 139/99 01/07/19 07:23 Pulse Ox 94 L 01/07/19 11:26 Intake & Output 01/06/19 01/07/19 01/07/19 18:59 06:59 18:59 Intake Total 300 850 Output Total 400 Balance 300 450 Weight 72.575 kg Intake: Intake, IV Titration 850 Amount D5-0.45% NaCl with KCl 750 20Meq/l 1,000 ml @ 125 mls/hr IV .Q8H [facility] Rx#: [id number] Piperacillin-Tazobactam 3 100 .375 gm In Sodium Chloride 0.9% 100 ml @ 25 mls/hr IVPB Q8HR [facility] Rx# :[id number] Oral 300 Output: Urine 400 Other: Voiding Method Toilet Toilet Bedside Commode Bedside Commode # Voids 2 4 # Bowel Movements 3 1 - Labs CBC & Chem 7: 01/07/19 08:37 01/06/19 08:26 Labs: Abnormal Lab Results - Last 24 Hours (Table) 01/06/19 01/06/19 01/07/19 Range/Units 16:41 20:44 07:24 WBC (3.8-10.6) k/uL Plt Count (150-450) k/uL Neutrophils # (1.3-7.7) k/uL Lymphocytes # (1.0-4.8) k/uL POC Glucose (mg/dL) 285 H 243 H 61 L (75-99) mg/dL 01/07/19 01/07/19 01/07/19 Range/Units 07:44 08:04 08:37 WBC 19.5 H (3.8-10.6) k/uL Plt Count 551 H (150-450) k/uL Neutrophils # 11.2 H (1.3-7.7) k/uL Lymphocytes # 6.5 H (1.0-4.8) k/uL POC Glucose (mg/dL) 59 L 55 L (75-99) mg/dL 01/07/19 Range/Units 09:13 WBC (3.8-10.6) k/uL Plt Count (150-450) k/uL Neutrophils # (1.3-7.7) k/uL Lymphocytes # (1.0-4.8) k/uL POC Glucose (mg/dL) 102 H (75-99) mg/dL Microbiology - Last 24 Hours (Table) 01/04/19 07:37 Blood Culture - Preliminary Blood No Growth after 72 hours 01/04/19 08:09 Blood Culture - Preliminary Blood No Growth after 72 hours <Mike Cortés - Last Filed: 01/07/19 15:40> Subjective As above. White blood cell count is improving. CAT scan shows no evidence of leak or abscess. Subcutaneous tissues show no evidence of infection. She is q uite anxious to go home today. I think that is reasonable. We'll follow-up in [address] Hester. Objective - Vital Signs Vital signs: Vital Signs Temp 98.2 F 01/07/19 13:20 Pulse 104 H 01/07/19 15:36 Resp 18 01/07/19 13:20 BP 170/94 01/07/19 13:20 Pulse Ox 100 01/07/19 15:28 Intake & Output 01/06/19 01/07/19 01/07/19 18:59 06:59 18:59 Intake Total 300 850 Output Total 400 Balance 300 450 Weight 72.575 kg Intake: Intake, IV Titration 850 Amount D5-0.45% NaCl with KCl 750 20Meq/l 1,000 ml @ 125 mls/hr IV .Q8H [facility] Rx#: [id number] Piperacillin-Tazobactam 3 100 .375 gm In Sodium Chloride 0.9% 100 ml @ 25 mls/hr IVPB Q8HR [facility] Rx# :[id number] Oral 300 Output: Urine 400 Other: Voiding Method Toilet Toilet Bedside Commode Bedside Commode # Voids 2 4 1 # Bowel Movements 3 1 2 - Labs CBC & Chem 7: 01/07/19 08:37 01/06/19 08:26 Labs: Abnormal Lab Results - Last 24 Hours (Table) 01/06/19 01/06/19 01/07/19 Range/Units 16:41 20:44 07:24 WBC (3.8-10.6) k/uL Plt Count (150-450) k/uL Neutrophils # (1.3-7.7) k/uL Lymphocytes # (1.0-4.8) k/uL POC Glucose (mg/dL) 285 H 243 H 61 L (75-99) mg/dL 01/07/19 01/07/19 01/07/19 Range/Units 07:44 08:04 08:37 WBC 19.5 H (3.8-10.6) k/uL Plt Count 551 H (150-450) k/uL Neutrophils # 11.2 H (1.3-7.7) k/uL Lymphocytes # 6.5 H (1.0-4.8) k/uL POC Glucose (mg/dL) 59 L 55 L (75-99) mg/dL 06/27/19 06/27/19 Range/Units 09:13 12:17 WBC (3.8-10.6) k/uL Plt Count (150-450) k/uL Neutrophils # (1.3-7.7) k/uL Lymphocytes # (1.0-4.8) k/uL POC Glucose (mg/dL) 102 H 124 H (75-99) mg/dL Microbiology - Last 24 Hours (Table) 01/04/19 07:37 Blood Culture - Preliminary Blood No Growth after 72 hours 01/04/19 08:09 Blood Culture - Preliminary Blood No Growth after 72 hours
[2019-01-07 12:29] LABS: Glucose,Whole Blood 124 mg/dL (75-99)
--- NOTE | 2019-01-07 13:25 | CT ---
EXAMINATION TYPE: CT abdomen pelvis w con DATE OF EXAM: 01/07/2019 COMPARISON: Prior CT abdomen pelvis 04/17/2017, abdomen films 01/05/2019 HISTORY: Recent bowel surgery. Increased WBCs. CT DLP: 939.5 mGycm Automated exposure control for dose reduction was used. TECHNIQUE: Helical acquisition of images from the lung bases through the pelvis have been completed. CONTRAST: Performed with Oral Contrast and with IV Contrast, patient injected with 100 mL of Isovue 300. FINDINGS: Patient shows a midline incision with surgical christal present along the anterior abdominal skin. Multiple metallic densities are present in the proximal right lower extremity soft tissues. Li arleth there is mitral annular calcification. LUNG BASES: No significant abnormality is appreciated. AORTA: No significant abnormality is appreciated. LIVER/GB: Liver shows low attenuation possibly due to hepatic steatosis. Gallbladder is normal. PANCREAS: No significant abnormality is seen. SPLEEN: No significant abnormality is seen. ADRENALS: No significant abnormality is seen. KIDNEYS: No significant abnormality is seen. REPRODUCTIVE ORGANS: Not seen BOWEL: Postop changes are noted to the sigmoid colon level. Oral contrast is present within the smal l bowel. There are dilated loops of jejunum the left upper quadrant. Duodenum shows questionable wall thickening. Postop change noted at the gastroesophageal junction level. Scattered diverticula presen t in the colon in the left lower quadrant, there are some air-fluid levels present within the bowel, contrast is coursing to the level of the distal ileum, suspect prior appendectomy. FREE AIR: No Free Air visible. ASCITES: Small amount of fluid is present along the liver and also along the small bowel in the righ t lower quadrant, minimal fluid in the pelvis PELVIC ADENOPATHY: None visualized. RETROPERITONEAL ADENOPATHY: No Retroperitoneal Adenopathy visible. URINARY BLADDER: No significant abnormality is seen. OSSEOUS STRUCTURES: Degenerative disc changes are seen in the lumbar spine. IMPRESSION: THERE MAY BE AN UNDERLYING ENTERITIS, COLITIS, ILEUS, ORAL CONTRAST MATERIAL IS SEEN TO THE LEVEL OF THE DISTAL ILEUM. POSTOP CHANGES, ADDITIONAL FINDINGS ABOVE.
--- NOTE | 2019-01-07 16:09 | P.DS ---
Providers Date of admission: 12/31/18 06:59 Expected date of discharge: 01/07/19 Attending physician: Manjit Hester Consults: 12/31/18 11:35 Consult Physician Routine Consulting Provider: Prince Biswas Consult Reason/Comments: Medical management Do you want consulting provider notified?: Yes 01/03/19 07:46 Consult Physician Stat Consulting Provider: Katie Flor Consult Reason/Comments: hemoptysis/sob/COPD Do you want consulting provider notified?: Yes 01/03/19 13:14 Consult Physician Routine Consulting Provider: Tim Perez Consult Reason/Comments: Pneumonia Do you want consulting provider notified?: Yes Primary care physician: Seng Mckeon [facility] Course: 58-year-old female who underwent low anterior resection, lysis of adhesions, diana [place] of stomach flexure, partial omentectomy, and appendectomy on 12/31/2017. Patient developed postoperative ileus requiring NG tube for decompression. Ileus has since resolved and NG tube removed. Patient developed acute hospital- acquired pneumonia and was evaluated by pulmonary during hospitalization. She was on IV steroids which have since been transitioned to oral. W BC was elevated likely secondary to steroid effect. WBC decreasing down since steroids changed to oral. Computed tomography scan performed on 01/07/2019 negative for leak or abscess. Patient is tolerating diet without nausea or vomiting. Having bowel movements. Pain is controlled on oral medications. Patient is stable for discharge home today per Dr. Cortés. She is to follow up on an outpatient basis. Patient is to resume her home dose of [place] at the time of discharge. Patient provided with paper prescription for antibiotics per Dr. Cortés. Please see EMR for further hospital course details. Discharge Diagnosis: 1. Diverticulitis, status post low anterior resection 2. Postoperative ileus, an unexpected but potential outcome of surgery, resolved 3. Hospital-acquired pneumonia Nurse practitioner note has been reviewed by physician. Signing provider agrees with the documented findings, assessment, and plan of care. Patient Condition at Discharge: Stable Plan - Discharge Summary Discharge Rx Participant: No New Discharge Prescriptions: New predniSONE 10 mg PO DAILY 9 Days #18 tab No Action FLUoxetine HCL [PROzac] 40 mg PO QAM Cyclobenzaprine [Flexeril] 10 mg PO TID PRN PRN Reason: Pain Aspirin EC [Ecotrin] 325 mg PO DAILY HYDROcodone/APAP 10-325MG [[place] 10] 1 tab PO Q6H PRN PRN Reason: Pain Atorvastatin [Lipitor] 80 mg PO HS Albuterol Nebulized [Ventolin Nebulized] 2.5 mg INHALATION RT-QID PRN PRN Reason: Shortness Of Breath Albuterol Inhaler [Ventolin Hfa Inhaler] 2 puff INHALATION RT-BID PRN PRN Reason: Shortness Of Breath Lisinopril [Zestril] 5 mg PO QAM Fenofibrate 160 mg PO QAM Gabapentin [Neurontin] 600 mg PO TID Insulin Glulisine [Apidra] 13 unit SQ TID-W/MEALS traMADol HCl [Ultram] 50 mg PO TID PRN PRN Reason: Pain Butalb/APAP/Caff 50-325-40Mg [Fioricet 50-325-40] 1 tab PO Q8HR PRN PRN Reason: Headache Isosorbide Mononitrate [Isosorbide Mononitrate ER] 30 mg PO QAM Pioglitazone [Actos] 15 mg PO QAM Nitroglycerin Sl Tabs [Nitrostat] 0.4 mg PO Q5M PRN PRN Reason: Chest Pain Latanoprost [Xalatan 0.005%] 1 drop BOTH EYES HS metFORMIN HCL [Glucophage] 500 mg PO PC-SUPPER Ergocalciferol (Vitamin D2) [Vitamin D2] 50,000 unit PO WE Verapamil [Isoptin] 40 mg PO BID diphenhydrAMINE [Benadryl] 50 mg PO QID PRN PRN Reason: Itching Liraglutide [Victoza 3-Myron] 1.2 mg SQ DAILY Insulin Glargine,Hum.rec.anlog [Basaglar Kwikpen U-100] 120 unit SQ HS Discharge Medication List Aspirin EC [Ecotrin] 325 mg PO DAILY 08/26/14 [History] Atorvastatin [Lipitor] 80 mg PO HS 08/26/14 [History] Cyclobenzaprine [Flexeril] 10 mg PO TID PRN 08/26/14 [History] FLUoxetine HCL [PROzac] 40 mg PO QAM 08/26/14 [History] HYDROcodone/APAP 10-325MG [[place] 10] 1 tab PO Q6H PRN 08/26/14 [History] Albuterol Inhaler [Ventolin Hfa Inhaler] 2 puff INHALATION RT-BID PRN 09/01/14 [History] Albuterol Nebulized [Ventolin Nebulized] 2.5 mg INHALATION RT-QID PRN 09/01/14 [History] Lisinopril [Zestril] 5 mg PO QAM 04/12/15 [History] Butalb/APAP/Caff 50-325-40Mg [Fioricet 50-325-40] 1 tab PO Q8HR PRN 07/28/15 [History] Fenofibrate 160 mg PO QAM 07/28/15 [History] Gabapentin [Neurontin] 600 mg PO TID 07/28/15 [History] Insulin Glulisine [Apidra] 13 unit SQ TID-W/MEALS 07/28/15 [History] traMADol HCl [Ultram] 50 mg PO TID PRN 07/28/15 [History] Ergocalciferol (Vitamin D2) [Vitamin D2] 50,000 unit PO WE 04/09/17 [History] Isosorbide Mononitrate [Isosorbide Mononitrate ER] 30 mg PO QAM 04/09/17 [History] Latanoprost [Xalatan 0.005%] 1 drop BOTH EYES HS 04/09/17 [History] Nitroglycerin Sl Tabs [Nitrostat] 0.4 mg PO Q5M PRN 04/09/17 [History] Pioglitazone [Actos] 15 mg PO QAM 04/09/17 [History] Verapamil [Isoptin] 40 mg PO BID 04/09/17 [History] diphenhydrAMINE [Benadryl] 50 mg PO QID PRN 04/09/17 [History] metFORMIN HCL [Glucophage] 500 mg PO PC-SUPPER 04/09/17 [History] Insulin Glargine,Hum.rec.anlog [Basaglar Kwikpen U-100] 120 unit SQ HS 12/14/18 [History] Liraglutide [Victoza 3-Myron] 1.2 mg SQ DAILY 12/14/18 [History] predniSONE 10 mg PO DAILY 9 Days #18 tab 01/07/19 [Rx] Follow up Appointment(s)/Referral(s): Олег Valente DO [Doctor of Osteopathic Medicine] - 01/19/19 8:45 am Ulysses Morrison PAC [REFERRING] - 01/12/19 1:30 pm (Dr. Omar SAHU) Manjit Hester MD [STAFF PHYSICIAN] - 1 Week (Please call office upon discharge to set up follow up appointment, staff unable to reach office at time of discharge) Activity/Diet/Wound Care/Special Instructions: Paper prescription for antibiotics given to patient Continue previously prescribed [place] for pain No driving while taking [place] No lifting over 10 pounds You may shower. No soaking or tub baths Very light activity until you are reevaluated at your follow up appointment with your surgeon
[2019-01-07 17:08] LABS: Glucose,Whole Blood 355 mg/dL (75-99)
[2019-01-07 19:09] LABS: Glucose,Whole Blood 365 mg/dL (75-99)
[2019-01-07 20:09] VITALS: BP 158/89; PULSE 100; TEMP 98.7
--- NOTE | 2019-01-08 22:58 | P.PN ---
Progress Note - Text Progress Note Date: 01/07/19 Presenting complaint: Abdominal surgery Interval history: This is a 58-year-old patient of Dr. Mckeon. Chronic stable medical conditions include COPD, diabetes, GERD, hypertension, hyperlipidemia, osteoarthritis. Patient has chronic pain including low back pain in knees. Patient has had pink symptoms from her diverticulitis. Patient underwent surgery to include lysis of adhesions, anterior resection, takedown of splenic flexure and partial omentectomy and appendectomy. Had postoperative gastric distention with possible ileus Today-doing much better. Up and about. Breathing is much improved. Sugars have been running low. Had to be given glucose supplements. Review of systems: Was done for constitutional, cardiovascular, GI, pulmonary. relevant finding as above Current medications reviewed: Physical examination: VITAL SIGNS: 98.2, 108, 18, 1 7194, 98% room air GENERAL: sitting at edge of bed, more comfortable EYES: Pupils equal. Conjunctiva normal. HEENT: NG tube in place, nasal cannula in place, dry oral cavity. NECK: JVD not raised; masses not palpable. HEART: First and second heart sounds are normal; no edema. LUNGS: Respiratory rate increased, decreased breath sounds throughout it entry ABDOMEN: Soft, non-tender, liver spleen not palpable, dressing over the incision site, pulse was present PSYCH: AAO 3, slightly anxious Investigations: white count 20.5 hemoglobin 12 Accu-Cheks 102, 124 355 Assessment: -Acute bilateral pneumonia, cannot rule out aspiration causing acute hypoxic respiratory failure, much improved Acute gastric distention, with ileus, responded well to NG tube. resolved Status post lysis of adhesions, low anterior resection, takedown of splenic flexure, partial omentectomy, appendectomy for chronic diverticulitis -COPD in a current smoker -Chronic nicotine dependence patient cigarette smoker -Diabetes mellitus type II chronically on insulin, uncontrolled with steroids -GERD -Hyperlipidemia -Essential hypertension -Primary osteoarthritis -Chronic low back pain and arthritis of the joints -Anxiety depression not otherwise specified -Sinus tachycardia likely from pain. Plan: patient will call the course of day had to be given glucose supplements to bring her sugar up. I did want her to stay overnight and go tomorrow so that her sugars can be better controlled. Patient does not want to stay back apersistent aboutngoing home . Even her sugars had gone up to 300s. sliding scale insulin was given. patient was told 2 take her insulin when she gets home.
== END 2019-01-07 20:00 | disposition home or self-care (01) | DRG 329 ==
LOC: 2ORMAIN 06:59 → 4SSUR 11:38
PROVIDERS: ADMIT Surgery; ATTEND Surgery
PROC: 0DBU0ZZ Excision of Omentum, Open Approach (ICD-10-PCS; principal; 2018-12-31 09:00)
PROC: 0DTN0ZZ Resection of Sigmoid Colon, Open Approach (ICD-10-PCS; principal; 2018-12-31 09:00)
PROC: 0DTJ0ZZ Resection of Appendix, Open Approach (ICD-10-PCS; principal; 2018-12-31 09:00)
PROC: 0DNW0ZZ Release Peritoneum, Open Approach (ICD-10-PCS; principal; 2018-12-31 09:00)
PROC: 3E0M05Z Introduction of Adhesion Barrier into Peritoneal Cavity, Open Approach (ICD-10-PCS; principal; 2018-12-31 09:00)
PROC: 0D9670Z Drainage of Stomach with Drainage Device, Via Natural or Artificial Opening (ICD-10-PCS; 2019-01-03)
DX: K57.32 Diverticulitis of large intestine without perforation or abscess without bleeding (principal); J18.9 Pneumonia, unspecified organism; J96.01 Acute respiratory failure with hypoxia; R04.2 Hemoptysis; K56.7 Ileus, unspecified; J98.11 Atelectasis; J44.1 Chronic obstructive pulmonary disease with (acute) exacerbation; R00.0 Tachycardia, unspecified; T38.0X5A Adverse effect of glucocorticoids and synthetic analogues, initial encounter; D72.829 Elevated white blood cell count, unspecified; K21.9 Gastro-esophageal reflux disease without esophagitis; E11.9 Type 2 diabetes mellitus without complications; F17.200 Nicotine dependence, unspecified, uncomplicated; I10 Essential (primary) hypertension; G89.29 Other chronic pain; M54.5 Low back pain; Y95 Nosocomial condition; G43.909 Migraine, unspecified, not intractable, without status migrainosus; E78.5 Hyperlipidemia, unspecified; F17.210 Nicotine dependence, cigarettes, uncomplicated; F41.8 Other specified anxiety disorders; M19.91 Primary osteoarthritis, unspecified site; Z79.82 Long term (current) use of aspirin; Z79.899 Other long term (current) drug therapy; Z91.81 History of falling; Z90.710 Acquired absence of both cervix and uterus; Z98.890 Other specified postprocedural states; Z95.828 Presence of other vascular implants and grafts; Z79.4 Long term (current) use of insulin; Z86.79 Personal history of other diseases of the circulatory system; Z87.09 Personal history of other diseases of the respiratory system
CPT/HCPCS: 71046; 71275; 74022; 74177; 80048; 80051; 80053; 83036; 84132; 85025; 85027; 86850; 86900; 86901; 87040; 87070; 87205; 88302; 88304; 88305; 88307; 93005; 94640; 94760

== ENCOUNTER → 2020-01-05 | Outpatient (CLI) | payer OTHER ==
--- NOTE | 2020-01-05 15:58 | XR ---
EXAMINATION TYPE: XR abdomen 2V DATE OF EXAM: 01/05/2020 HISTORY: Pain. Technique: 2 views of the abdomen are submitted. Comparison: None. Findings: There is no convincing evidence of pneumoperitoneum. The Bowel gas pattern is nonspecific and nonobstructive. No sizable air-fluid levels are seen. No mass effects are noted. No renal calcifications are identified. IMPRESSION: 1. Nonspecific nonobstructive bowel gas pattern
== END | disposition home or self-care (01) ==
LOC: RADXRMAIN 15:31
PROVIDERS: ATTEND Family Medicine
DX: Z09 Encounter for follow-up examination after completed treatment for conditions other than malignant neoplasm (principal); Z87.19 Personal history of other diseases of the digestive system
CPT/HCPCS: 74019

== ENCOUNTER → 2020-01-18 | Outpatient (CLI) | payer OTHER ==
--- NOTE | 2020-01-18 11:41 | FL ---
EXAMINATION TYPE: FL barium swallow DATE OF EXAM: 01/18/2020 CLINICAL INDICATION: 59 year-old female K21.9, GERD COMPARISON: 12/13/2015 Total Fluoroscopy Time: 2 minutes 2 seconds Total images: 39 FINDINGS: The swallowing mechanism is normal and hypopharyngeal anatomy is preserved. There is some moderate spondylotic changes along the mid and lower cervical spine causing mild impres sions onto the back side of the upper cervical esophagus. Partially visualized reverse left shoulder arthroplasty. The cervical and thoracic portions have a normal course and caliber. The mucosa is normal and no pers istent filling defect is encountered. However, there are significantly blunted primary and secondary stripping waves resulting in prolonged pooling of contrast when the patient is supine/prone with bouts of intraesophageal reflux. A hiatal hernia is not identified. Positional and Valsalva maneuvers could not elicit gastroesophagea l reflux IMPRESSION: 1. Esophageal dysmotility with blunted primary and secondary stripping waves resulting in prolonged p ooling of contrast in the esophagus especially when the patient is supine/prone. There are recurrent episodes of intraesophageal reflux. 2. No hiatal hernia or gastroesophageal reflux seen.
== END | disposition home or self-care (01) ==
LOC: RADFLMAIN 09:14
PROVIDERS: ATTEND Surgery
DX: K21.9 Gastro-esophageal reflux disease without esophagitis (principal); K22.4 Dyskinesia of esophagus
CPT/HCPCS: 74220

== ENCOUNTER 2020-11-20 07:57 | Inpatient (IN) | payer OTHER ==
[~2020-11-20 07:57] MED LIST changes: +ACETAMINOPHEN TAB 500 MG TAB PO PRN; +DEXAMETHASONE SOD PHOSPHATE 4 MG/ML 1 ML VIAL IV ONE; -HEPARIN SODIUM,PORCINE 5,000 UNIT/ML 1 ML VIAL SQ ONE; +HEPARIN SODIUM,PORCINE/PF 5,000 UNIT/0.5 ML SYRINGE SQ PRN; +MIDAZOLAM 2 MG/2 ML VIAL IV PRN; +ONDANSETRON 4 MG/2 ML VIAL IVP ONE; -ceFAZolin IN SWFI 2 GM/20 ML SYRINGE IVP ONE; -metroNIDAZOLE-NS PMX 500 MG in SALINE 1 100ML.BAG IVPB ONE
[2020-11-20] MEDS ORDERED: LIDOCAINE 1% (10MG/ML) FOR IV START INTRADERMA ONE (08:30)
[2020-11-20] MEDS: LACTATED RINGERS 1,000 ML IV SCH (08:30)
[2020-11-20 08:41] LABS: Glucose,Whole Blood 88 mg/dL (75-99)
[2020-11-20] MEDS ORDERED: MIDAZOLAM 2 MG/2 ML VIAL IVP ONE (09:41)
[2020-11-20] MEDS ORDERED: fentaNYL (PF) 50 MCG/ML 2 ML AMP IVP ONE (09:41)
--- NOTE | 2020-11-20 10:12 | P.GSHP ---
History of Present Illness H&P Date: 11/20/20 Chief Complaint: Incisional hernia This a 60-year-old female who presents today for open repair of incisional hernia. Patient has previous exploratory laparotomy and has developed a incisional hernia located in the supraumbilical position. Past Medical History Past Medical History: COPD, Diabetes Mellitus, GERD/Reflux, Hyperlipidemia, Hypertension, Osteoarthritis (OA) Additional Past Medical History / Comment(s): incisional hernia, diverticulitis, CAROTID STENOSIS. Chronic low back pain, migraines, "HEAD ANEURYSM" History of Any Multi-Drug Resistant Organisms: None Reported Past Surgical History: Bowel Resection, Hernia Repair, Hysterectomy, Orthopedic Surgery, Tubal Ligation Additional Past Surgical History / Comment(s): laparoscopic fredy fundoplasty. 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 (ANGIOGRAM 08/23/14 TO CHECK STENT.) "HEAD ANEURYSM REPAIR " Past Anesthesia/Blood Transfusion Reactions: No Reported Reaction Smoking Status: Current every day smoker - Past Family History Father Family Medical History: No Reported History Medications and Allergies Home Medications Medication Instructions Recorded Confirmed Type Aspirin EC [Ecotrin] 325 mg PO DAILY 08/26/14 11/16/20 History Cyclobenzaprine [Flexeril] 10 mg PO TID PRN 08/26/14 11/16/20 History FLUoxetine HCL [PROzac] 40 mg PO QAM 08/26/14 11/16/20 History Albuterol Inhaler (Mhu) [Ventolin 2 puff INHALATION RT-BID PRN 09/01/14 11/16/20 History Hfa Inhaler (Mhu)] Albuterol Nebulized [Ventolin 2.5 mg INHALATION RT-QID PRN 09/01/14 11/16/20 History Nebulized] lisinopriL [Zestril] 5 mg PO QAM 04/12/15 11/16/20 History Fenofibrate 160 mg PO QAM 07/28/15 11/16/20 History Gabapentin [Neurontin] 600 mg PO TID 07/28/15 11/16/20 History Ergocalciferol (Vitamin D2) 50,000 unit PO WE 04/09/17 11/16/20 History [Vitamin D2] Isosorbide Mononitrate [Isosorbide 30 mg PO QAM 04/09/17 11/16/20 History Mononitrate ER] Latanoprost [Xalatan 0.005%] 1 drop BOTH EYES HS 04/09/17 11/16/20 History Nitroglycerin Sl Tabs [Nitrostat] 0.4 mg PO Q5M PRN 04/09/17 11/16/20 History Pioglitazone [Actos] 15 mg PO QAM 04/09/17 11/16/20 History Verapamil [Isoptin] 40 mg PO BID 04/09/17 11/16/20 History metFORMIN HCL [Glucophage] 500 mg PO PC-SUPPER 04/09/17 11/16/20 History Liraglutide [Victoza 3-Myron] 1.2 mg SQ DAILY 12/14/18 11/16/20 History Allopurinol [Zyloprim] 100 mg PO DAILY 11/16/20 11/16/20 History HYDROcodone/APAP 7.5-325MG [[place] 1 tab PO Q6HR PRN 11/16/20 11/16/20 History 7.5-325] Insulin Glargine [Lantus] 120 unit SQ HS 11/16/20 11/16/20 History Insulin Lispro [humaLOG Kwikpen] 10 unit SQ AC-SUPPER 11/16/20 11/16/20 History busPIRone HCL [Buspar] 7.5 mg PO BID 11/16/20 11/16/20 History ondansetron HCL [Zofran] 8 mg PO Q8HR PRN 11/16/20 11/16/20 History Allergies Allergy/AdvReac Type Severity Reaction Status Date / Time No Known Allergies Allergy Verified 11/20/20 08:23 Surgical - Exam Vital Signs Temp Pulse Resp BP Pulse Ox 97.8 F 73 16 135/81 99 11/20/20 08:30 11/20/20 08:30 11/20/20 08:30 11/20/20 08:30 11/20/20 08:30 - General well developed, well nourished, no distress - Eyes PERRL - ENT normal pinna - Neck no masses - Respiratory normal expansion - Cardiovascular Rhythm: regular - Abdomen Abdomen: soft, non tender Hernia: incisional (5 cm) Assessment and Plan Assessment: Incisional hernia. We'll perform open repair.
--- NOTE | 2020-11-20 10:12 | P.ANPRN ---
Procedure Note - Anesthesia - Nerve Block Performed Bilateral Erector Spinae Single Time Out Performed: Yes ([id number]) Date of Procedure: 11/20/20 Procedure Start Time: 09:41 Procedure Stop Time: 09:53 Location of Patient: PreOp Indication: Acute Post-Operative Pain, Requested by Surgeon Specifically requested for management of pain by DrLam: Manjit Hester Sedation Type: Sedate with meaningful contact maintained Preparation: Sterile Prep Position: Prone Catheter: None Needle Types: [place] Needle Gauge: 21 Ultrasound used to visualize needle placement: Yes Ultrasound used to observe medication spread: Yes Injectate: 0.5% Ropivacaine (see comment for volume) ((Ropi 0.5% 15cc + NACL PF 15cc) each side) Blood Aspirated: No Pain Paresthesia on Injection Noted: No Resistance on Injection: Normal Image Stored and Saved: Yes Events: Uneventful and Well Tolerated
[2020-11-20] MEDS ORDERED: LIDOCAINE 1% INJ 10MG/ML (20 ML MDV) ONE (10:30)
[2020-11-20] MEDS ORDERED: ROPIVACAINE 5 MG/ML 30 ML VIAL ONE (10:30)
[2020-11-20] MEDS ORDERED: SODIUM CHLORIDE 0.9% (PF) 10 ML VIAL ONE (10:30)
[2020-11-20] MEDS ORDERED: GLYCOPYRROLATE 0.2 MG/ML 2 ML VIAL ONE (10:30)
[2020-11-20] MEDS ORDERED: ROCURONIUM 10 MG/ML (5 ML VIAL) IV ONE (10:30)
[2020-11-20] MEDS ORDERED: MIDAZOLAM 2 MG/2 ML VIAL ONE (10:30)
[2020-11-20] MEDS ORDERED: ePHEDrine SULFATE/0.9% NACL/PF 50 MG/5 ML SYRINGE IV ONE (10:30)
[2020-11-20] MEDS ORDERED: PROPOFOL 10 MG/ML 20 ML VIAL IV ONE (10:30)
[2020-11-20] MEDS ORDERED: KETAMINE 10 MG/ML 20 ML VIAL ONE (10:30)
[2020-11-20] MEDS ORDERED: WATER FOR INJECTION, STERILE 10 ML VIAL IV ONE (10:30)
[2020-11-20] MEDS ORDERED: SUCCINYLCHOLINE CHLORIDE 100 MG/5 ML SYR IV ONE (10:30)
[2020-11-20] MEDS ORDERED: NEOSTIGMINE 1 MG/ML 10 ML VIAL ONE (10:30)
[2020-11-20] MEDS ORDERED: fentaNYL (PF) 50 MCG/ML 2 ML AMP ONE (10:30)
[2020-11-20] MEDS ORDERED: BUPIVACAINE (PF) 0.25% 30 ML VIAL SQ ONE ×2 (10:40→11:01)
[2020-11-20] MEDS ORDERED: LACTATED RINGERS 1,000 ML IV ONE ×2 (11:48→12:01)
[2020-11-20] MEDS ORDERED: NALOXONE 0.4 MG/ML 1 ML VIAL IV PRN (12:01)
--- NOTE | 2020-11-20 12:11 | P.OP ---
Date of Procedure: 11/20/20 Preoperative Diagnosis: Incisional hernia Postoperative Diagnosis: Incisional hernia Procedure(s) Performed: Operative repair of incisional hernia with mesh, Partial omentectomy Anesthesia: BRYAN Surgeon: Manjit Hester Estimated Blood Loss (ml): 25 Pathology: other (Omentum) Condition: stable Disposition: PACU Operative Findings: Incisional hernia size was 15 x 5 cm The mesh used was Bard Prolene mesh measuring 6 x 6" Mesh was fixated to the fascia using secured strap tacker Description of Procedure: The patient's placed on the operative table in the supine position. She received general endotracheal tube anesthesia. She received general end otracheal tube anesthesia. Her abdomen was prepped and draped usual fashion. The patient had a hernia located above the umbilicus in the midline. The scar was incised in the midline. Using cautery and subcutaneous tissue divided. The fascia was exposed by using left cautery. The hernia measured roughly 15 x 5 cm. Using #1 status fixed suture the hernia was repaired. After the hernia was repaired. A 6 x 6" Prolene mesh was placed on top the fascia and secured with a secure strap tacker. A JOSE drains placed over top the repair brought through separate stab incision Nic's fascia close [place]. Skin was closed with chirstal. Patient top she will was sent to recovery in stable condition
[2020-11-20] MEDS ORDERED: hydrALAZINE HCL 20 MG/ML 1 ML VIAL IVP ONE (12:22)
[2020-11-20] MEDS: HYDROmorphone 0.5 MG/0.5 ML SYRINGE IVP PRN ×6 (12:36→22:12)
[2020-11-20 12:45] LABS: Glucose,Whole Blood 154 mg/dL (75-99)
[2020-11-20] MEDS ORDERED: METOPROLOL TARTRATE 5 MG/5 ML VIAL IVP ONE (13:10)
[2020-11-20] MEDS: HYDROcodone/APAP 5-325MG 1 EACH TAB PO PRN ×2 (14:28→20:59)
[2020-11-20] MEDS ORDERED: NITROGLYCERIN SL TABS 0.4 MG TAB SUBLINGUAL PRN (14:51)
[2020-11-20] MEDS ORDERED: ISOSORBIDE MONONITRATE ER 30 MG TAB.ER.24H PO STA (15:31)
[2020-11-20] MEDS ORDERED: lisinopriL 5 MG TAB PO STA (15:32)
[2020-11-20] MEDS ORDERED: VERAPAMIL 40 MG TAB PO STA (15:32)
--- NOTE | 2020-11-20 15:52 | P.CONS ---
History of Present Illness - Reason for Consult Consult date: 11/20/20 Medical management - History of Present Illness History of presenting illness: Patient is a 60-year-old female with a past medical history of CAD with carotid stenosis, hypertension, hyperlipidemia, insulin-dependent diabetes mellitus type II, glaucoma, and COPD with long-standing history of and current use of tobacco products reportedly smoking one pack of cigarettes per day 44 years. Patient admitted to hospital for repair of her incisional hernia and is currently admitted under Gen. surgery team and is status post operative repair of incisional hernia with mesh and partial omenectomy completed by Dr. Hester earlier today. We have been consulted for continued medical management. Upon assessment, patient resting in bed visiting with her daughter at bedside. She r eports having significant gas pain, but denies incisional pain, nausea, vomiting, chest pain, palpitations, shortness of breath, or experiencing any numbness/pain/tingling in extremities. She is tolerating a clear liquid diet at this time. Review of systems: Pertinent positives and negatives as discussed in HPI, a complete review of systems was performed and all other systems are negative. Physical exam: General: Non toxic, no distress, appears at stated age Derm: Warm, dry. Abdominal incision with postsurgical dressing in place along with abdominal binder, no signs of bleeding or leakage noted. Head: Atraumatic, normocephalic, symmetric. Eyes: No lid lag, anicteric sclera Mouth: No lip lesion, mucus membranes moist. Missing teeth. Cardiovascular: S1S2 normal with regular rate and rhythm. Murmur present, positive posterior tibial pulses bilaterally, cap refill less than 2 seconds. Lungs: Respirations even, regular, and unlabored. Lungs clear to auscultation bilaterally. No wheezes, rhonchi, or rales present. No accessory muscle usage. Abdominal: Soft, slightly distended. Postsurgical dressing in place with no signs of bleeding noted. JOSE drain in place with serosanguineous fluids in collection chamber. Abdominal binder in place Ext: No gross muscle atrophy, no edema, no contractures, right index finger amputation Neuro: GCS 15. Speech clear. CN II-XI grossly intact, no focal neuro deficits Psych: Alert, oriented, appropriate affect Plan of care: Status post operative repair of incisional hernia with mesh and partial omenectomy -Patient is status post operative repair of incisional hernia with mesh and partial omenectomy completed by Dr. Hester on 11/20/20. -Pain management and DVT prophylaxis per primary admitting general surgery team. -Patient currently on Lovenox for DVT prophylaxis. Insulin-dependent diabetes mellitus type 2 -Hold Glucophage, resume nightly Levemir 120 units along with glycemic protocol and NovoLog sliding scale. -Heart healthy carb consistent diet. COPD -Provide oxygen as needed to maintain SpO2 equal to or greater than 92%. -DuoNeb as needed for shortness of breath and/or wheezing. -Encourage use of incentive spirometer 10-15 times hourly while awake. -Nicotine patch along with can T needed encouragement and education on benefits of smoking cessation and risks of continued use. Hypertension -Monitor vital signs and continue daily medication management with Imdur, lisinopril, and verapamil. Hyperlipidemia -Continue daily medication management. -Heart healthy carb consistent diet. History of CAD with carotid stenosis -Patient to continue home meds with the exception of aspirin, may resume once cleared by primary general surgery team. Nicotine dependence on cigarettes -NicoDerm patch -Patient to receive continued education and importance on the benefits of smoking cessation and risks of continued use up to and including . Thank you for allowing us to participate in the care of this pleasant patient. Do not hesitate to contact us with questions. We will follow along with general surgery team. Someone can be reached from the [facility] hospitalist group all hours of the day at [phone] or via [employer]. Past Medical History Past Medical History: COPD, Diabetes Mellitus, GERD/Reflux, Hyperlipidemia, Hypertension, Osteoarthritis (OA) Additional Past Medical History / Comment(s): incisional hernia, diverticulitis, CAROTID STENOSIS. Chronic low back pain, migraines, "HEAD ANEURYSM" History of Any Multi-Drug Resistant Organisms: None Reported Past Surgical History: Bowel Resection, Hernia Repair, Hysterectomy, Orthopedic Surgery, Tubal Ligation Additional Past Surgical History / Comment(s): laparoscopic fredy fundoplasty. pain clinic procedures with Dr Mo, LASER FOR GLAUCOMA, TUBAL - LAPAROTOMY, RT ING HERNIA, LT ROTATOR CUFF REPAIR, ARTHROSCOPY SAUL KNEES, HX OF ENDOVASCULAR STENT ASSISTED COIL EMBOLIZATION OF LEFT INTERNAL CAROTID ARTERY AN EURYSM (FEB 2014). (ANGIOGRAM 08/23/14 TO CHECK STENT.) "HEAD ANEURYSM REPAIR " Past Anesthesia/Blood Transfusion Reactions: No Reported Reaction Past Psychological History: Anxiety, Depression Smoking Status: Current every day smoker Past Alcohol Use History: None Reported Additional Past Alcohol Use History / Comment(s): SMOKES 1PPD, SINCE AGE 15 YRS. QUIT DRINKING ALCOHOL 2005 Past Drug Use History: Marijuana Additional Drug Use History / Comment(s): uses marijuana pen pain daily, instructed to hold 24 hrs prior to procedure, STATES HX OF CRACK, COCAINE USE, QUIT 2015 - Past Family History Father Family Medical History: No Reported History Mother Family Medical History: Coronary Artery Disease (CAD), Diabetes Mellitus Medications and Allergies Home Medications Medication Instructions Recorded Confirmed Type Aspirin EC [Ecotrin] 325 mg PO DAILY 08/26/14 11/16/20 History Cyclobenzaprine [Flexeril] 10 mg PO TID PRN 08/26/14 11/16/20 History FLUoxetine HCL [PROzac] 40 mg PO QAM 08/26/14 11/16/20 History Albuterol Inhaler (Mhu) [Ventolin 2 puff INHALATION RT-BID PRN 09/01/14 11/16/20 History Hfa Inhaler (Mhu)] Albuterol Nebulized [Ventolin 2.5 mg INHALATION RT-QID PRN 09/01/14 11/16/20 History Nebulized] lisinopriL [Zestril] 5 mg PO QAM 04/12/15 11/16/20 History Fenofibrate 160 mg PO QAM 07/28/15 11/16/20 History Gabapentin [Neurontin] 600 mg PO TID 07/28/15 11/16/20 History Ergocalciferol (Vitamin D2) 50,000 unit PO WE 04/09/17 11/16/20 History [Vitamin D2] Isosorbide Mononitrate [Isosorbide 30 mg PO QAM 04/09/17 11/16/20 History Mononitrate ER] Latanoprost [Xalatan 0.005%] 1 drop BOTH EYES HS 04/09/17 11/16/20 History Nitroglycerin Sl Tabs [Nitrostat] 0.4 mg PO Q5M PRN 04/09/17 11/16/20 History Pioglitazone [Actos] 15 mg PO QAM 04/09/17 11/16/20 History Verapamil [Isoptin] 40 mg PO BID 04/09/17 11/16/20 History metFORMIN HCL [Glucophage] 500 mg PO PC-SUPPER 04/09/17 11/16/20 History Liraglutide [Victoza 3-Myron] 1.2 mg SQ DAILY 12/14/18 11/16/20 History Allopurinol [Zyloprim] 100 mg PO DAILY 11/16/20 11/16/20 History HYDROcodone/APAP 7.5-325MG [Kamuela 1 tab PO Q6HR PRN 11/16/20 11/16/20 History 7.5-325] Insulin Glargine [Lantus] 120 unit SQ HS 11/16/20 11/16/20 History Insulin Lispro [humaLOG Kwikpen] 10 unit SQ AC-SUPPER 11/16/20 11/16/20 History busPIRone HCL [Buspar] 7.5 mg PO BID 11/16/20 11/16/20 History ondansetron HCL [Zofran] 8 mg PO Q8HR PRN 11/16/20 11/16/20 History Allergies Allergy/AdvReac Type Severity Reaction Status Date / Time No Known Allergies Allergy Verified 11/20/20 08:23 Physical Exam Vitals: Vital Signs Temp Pulse Pulse Resp BP BP BP 11/20/20 14:35 90 16 171/69 11/20/20 14:20 98.4 F 63 16 164/97 11/20/20 13:35 87 16 148/74 11/20/20 13:20 98 18 144/74 11/20/20 13:05 96 18 167/86 11/20/20 12:50 97 18 183/90 11/20/20 12:35 96 20 180/82 11/20/20 12:20 92 16 194/92 11/20/20 12:05 97.4 F L 92 16 180/114 11/20/20 10:00 70 16 145/84 11/20/20 08:30 97.8 F 73 16 135/81 Pulse Ox 11/20/20 14:35 94 L 11/20/20 14:20 94 L 11/20/20 13:35 95 11/20/20 13:20 95 11/20/20 13:05 95 11/20/20 12:50 95 11/20/20 12:35 95 11/20/20 12:20 95 11/20/20 12:05 94 L 11/20/20 10:00 97 11/20/20 08:30 99 Intake and Output 11/19/20 11/20/20 11/20/20 22:59 06:59 14:59 Intake Total 1750 Output Total 10 Balance 1740 Intake: IV 1650 Oral 100 Output: Estimated Blood Loss 10 Other: Weight 66.1 kg Results Labs: Abnormal Lab Results - Last 24 Hours (Table) 11/20/20 Range/Units 12:43 POC Glucose (mg/dL) 154 H (75-99) mg/dL
[2020-11-20] MEDS: NICOTINE 21MG/24HR PATCH TRANSDERM SCH (15:57)
[2020-11-20] MEDS: GABAPENTIN 300 MG CAP PO SCH ×2 (15:57→21:00)
[2020-11-20 16:58] LABS: Glucose,Whole Blood 207 mg/dL (75-99)
[2020-11-20] MEDS: INSULIN ASPART (NovoLOG) 100 UNIT/ML VIAL SQ SCH ×3 (17:23→21:07)
[2020-11-20 20:03] LABS: Glucose,Whole Blood 211 mg/dL (75-99)
[2020-11-20] MEDS: busPIRone HCl 5 MG TAB PO SCH (21:00)
[2020-11-20] MEDS: INSULIN DETEMIR (LEVEMIR) 100 UNIT/ML SYR SQ SCH ×2 (21:00→21:04)
[2020-11-20] MEDS: DOCUSATE 100 MG CAP PO SCH (21:00)
[2020-11-20] MEDS: VERAPAMIL 40 MG TAB PO SCH (21:01)
[2020-11-20] MEDS: LATANOPROST 0.005% OPHTH DROPS 2.5 ML BTL BOTH EYES SCH (21:01)
[2020-11-20] MEDS: guaiFENesin 600 MG TABLET.ER PO SCH (21:01)
[2020-11-21 01:34] LABS: Glucose,Whole Blood 138 mg/dL (75-99)
[2020-11-21] MEDS: HYDROcodone/APAP 5-325MG 1 EACH TAB PO PRN ×4 (01:39→21:11)
[2020-11-21] MEDS: LACTATED RINGERS 1,000 ML IV SCH (02:41)
[2020-11-21] MEDS: HYDROmorphone 0.5 MG/0.5 ML SYRINGE IVP PRN ×2 (04:17→08:05)
[2020-11-21 06:11] LABS: HCT 30.9 % (34.0-46.0); HGB 10.7 gm/dL (11.4-16.0); MCH 32.7 pg (25.0-35.0); MCHC 34.6 g/dL (31.0-37.0); MCV 94.5 fL (80.0-100.0); Mean Platelet Volume 7.3; Platelet Count 234 k/uL (150-450); RBC 3.27 m/uL (3.80-5.40); RDW 13.9 % (11.5-15.5)
[2020-11-21 06:26] LABS: African American GFR (CKD) >90 (>60 ml/min/1.73 sqM); Anion Gap 6 mmol/L; Blood Urea Nitrogen 13 mg/dL (7-17); Calcium 9.2 mg/dL (8.4-10.2); Carbon Dioxide 29 mmol/L (22-30); Chloride 99 mmol/L (98-107); Glucose 95 mg/dL (74-99); Magnesium 1.3 mg/dL (1.6-2.3); Non-African American GFR(CKD) >90 (>60 ml/min/1.73 sqM); Potassium 4.5 mmol/L (3.5-5.1); Sodium 134 mmol/L (137-145)
[2020-11-21 06:27] LABS: Glucose,Whole Blood 90 mg/dL (75-99)
[2020-11-21] MEDS: INSULIN ASPART (NovoLOG) 100 UNIT/ML VIAL SQ SCH ×4 (07:35→21:32)
[2020-11-21] MEDS: ENOXAPARIN 40 MG/0.4 ML SYRINGE SQ SCH (08:04)
[2020-11-21] MEDS: busPIRone HCl 5 MG TAB PO SCH ×2 (08:05→21:10)
[2020-11-21] MEDS: ISOSORBIDE MONONITRATE ER 30 MG TAB.ER.24H PO SCH (08:05)
[2020-11-21] MEDS: NICOTINE 21MG/24HR PATCH TRANSDERM SCH (08:05)
[2020-11-21] MEDS: DOCUSATE 100 MG CAP PO SCH ×2 (08:05→21:11)
[2020-11-21] MEDS: lisinopriL 5 MG TAB PO SCH (08:05)
[2020-11-21] MEDS: GABAPENTIN 300 MG CAP PO SCH ×3 (08:05→21:12)
[2020-11-21] MEDS: PIOGLITAZONE 15 MG TAB PO SCH (08:06)
[2020-11-21] MEDS: FENOFIBRATE 160 MG TAB PO SCH (08:06)
[2020-11-21] MEDS: FLUoxetine HCL 20 MG CAP PO SCH (08:06)
[2020-11-21] MEDS: guaiFENesin 600 MG TABLET.ER PO SCH ×2 (08:06→21:12)
[2020-11-21] MEDS: VERAPAMIL 40 MG TAB PO SCH ×2 (08:06→21:07)
[2020-11-21] MEDS: ALBUTEROL NEBULIZED 2.5 MG/3 ML INHALATION PRN ×2 (08:24→20:38)
[2020-11-21] MEDS: diphenhydrAMINE 25 MG CAP PO PRN (09:10)
[2020-11-21] MEDS: MAGNESIUM SULFATE-D5W PMX 1 GM in DEXTROSE/WATER 1 100ML.BAG IVPB SCH ×2 (09:10→10:14)
[2020-11-21] MEDS ORDERED: MAGNESIUM SULFATE-D5W PMX 1 GM in DEXTROSE/WATER 1 100ML.BAG IVPB SCH (10:45)
[2020-11-21] MEDS: HYDROmorphone 1 MG/ML 1 ML SYRINGE IVP PRN ×2 (11:32→21:28)
[2020-11-21] MEDS: ONDANSETRON 4 MG/2 ML VIAL IVP PRN (11:34)
[2020-11-21 12:33] LABS: Glucose,Whole Blood 351 mg/dL (75-99)
--- NOTE | 2020-11-21 13:16 | XR ---
EXAMINATION TYPE: XR chest 1V portable DATE OF EXAM: 11/21/2020 COMPARISON: 01/03/2019 HISTORY: Shortness TECHNIQUE: Single frontal view of the chest is obtained. FINDINGS: Postsurgical change left shoulder with bilateral lower lobe infiltrate and small effusion. Limited inspiration. Heart size stable. Diffuse interstitial pattern again noted. No pneumothorax. IMPRESSION: Diffuse pleural-parenchymal changes correlate for CHF versus pneumonia.
--- NOTE | 2020-11-21 13:39 | P.PN ---
Subjective Progress Note Date: 11/21/20 CHIEF COMPLAINT: Incisional hernia HISTORY OF PRESENT ILLNESS: Patient is postop day #1 status post repair of incisional hernia with mesh and partial omentectomy. Patient is complaining of abdominal pain and some distention. She's also having nausea. Denies any bowel movement or passing gas. Afebrile. WBC is 14 patient did receive Decadron which could possibly increase white count. hemoglobin 10.7 magnesium is 1.3 and being replaced. PHYSICAL EXAM: VITAL SIGNS: Reviewed. GENERAL: Well-developed in no acute distress. HEENT: No sclera icterus. Extraocular movements grossly intact. Moist buccal mucosa. Head is atraumatic, normocephalic. ABDOMEN: Soft. Mildly distended. NEUROLOGIC: Alert and oriented. Cranial nerves II through XII grossly intact. ASSESSMENT: 1. Incisional hernia status post repair with mesh and partial omentectomy PLAN: -Continue regular diet -Encourage patient to ambulate -Encourage patient to use incentive spirometer -Continue pain medications -DVT prophylaxis Lovenox and GI prophylaxis Protonix Physician School Lunch Monitor note has been reviewed by physician. Signing provider agrees with the documented findings, assessment, and plan of care. Objective - Vital Signs Vital signs: Vital Signs Temp 98.3 F 11/21/20 11:37 Pulse 95 11/21/20 11:37 Resp 18 11/21/20 08:05 BP 116/76 11/21/20 11:37 Pulse Ox 93 L 11/21/20 11:37 Intake & Output 11/20/20 11/21/20 11/21/20 18:59 06:59 18:59 Intake Total 1750 950 Output Total 115 150 120 Balance 1635 800 -120 Weight 66.1 kg Intake: IV 1650 Intake, IV Titration 950 Amount Lactated Ringers 1,000 ml 950 @ 100 mls/hr IV .Q10H ONE Rx#:[id number] Oral 100 Output: Drainage 105 150 90 Right Upper Abdomen 105 150 90 Emesis 30 Estimated Blood Loss 10 Other: # Voids 1 3 1 - Labs CBC & Chem 7: 11/21/20 04:53 11/21/20 04:53 Labs: Abnormal Lab Results - Last 24 Hours (Table) 11/20/20 11/20/20 11/21/20 Range/Units 16:56 20:01 01:32 WBC (3.8-10.6) k/uL RBC (3.80-5.40) m/uL Hgb (11.4-16.0) gm/dL Hct (34.0-46.0) % Sodium (137-145) mmol/L POC Glucose (mg/dL) 207 H 211 H 138 H (75-99) mg/dL Magnesium (1.6-2.3) mg/dL 11/21/20 11/21/20 11/21/20 Range/Units 04:53 04:53 12:32 WBC 14.0 H (3.8-10.6) k/uL RBC 3.27 L (3.80-5.40) m/uL Hgb 10.7 L (11.4-16.0) gm/dL Hct 30.9 L (34.0-46.0) % Sodium 134 L (137-145) mmol/L POC Glucose (mg/dL) 351 H (75-99) mg/dL Magnesium 1.3 L (1.6-2.3) mg/dL
[2020-11-21] MEDS ORDERED: FUROSEMIDE 10 MG/ML 2 ML VIAL IV ONE (13:45)
--- NOTE | 2020-11-21 13:46 | P.PN ---
Subjective Progress Note Date: 11/21/20 Principal diagnosis: Hernia repair When patient got up this morning she started having severe shortness of breath and according to her nurse her O2 saturations dropped to 70s. No chest pain. She is currently with severe abdominal pain due to the ambulation. No fevers or chills. Objective - Vital Signs Vital signs: Vital Signs Temp 98.3 F 11/21/20 11:37 Pulse 95 11/21/20 11:37 Resp 18 11/21/20 08:05 BP 116/76 11/21/20 11:37 Pulse Ox 93 L 11/21/20 11:37 Intake & Output 11/20/20 11/21/20 11/21/20 18:59 06:59 18:59 Intake Total 1750 950 Output Total 115 150 120 Balance 1635 800 -120 Weight 66.1 kg Intake: IV 1650 Intake, IV Titration 950 Amount Lactated Ringers 1,000 ml 950 @ 100 mls/hr IV .Q10H ONE Rx#:[id number] Oral 100 Output: Drainage 105 150 90 Right Upper Abdomen 105 150 90 Emesis 30 Estimated Blood Loss 10 Other: # Voids 1 3 1 - Labs CBC & Chem 7: 11/21/20 04:53 11/21/20 04:53 Labs: Abnormal Lab Results - Last 24 Hours (Table) 11/20/20 11/20/20 11/21/20 Range/Units 16:56 20:01 01:32 WBC (3.8-10.6) k/uL RBC (3.80-5.40) m/uL Hgb (11.4-16.0) gm/dL Hct (34.0-46.0) % Sodium (137-145) mmol/L POC Glucose (mg/dL) 207 H 211 H 138 H (75-99) mg/dL Magnesium (1.6-2.3) mg/dL 11/21/20 11/21/20 11/21/20 Range/Units 04:53 04:53 12:32 WBC 14.0 H (3.8-10.6) k/uL RBC 3.27 L (3.80-5.40) m/uL Hgb 10.7 L (11.4-16.0) gm/dL Hct 30.9 L (34.0-46.0) % Sodium 134 L (137-145) mmol/L POC Glucose (mg/dL) 351 H (75-99) mg/dL Magnesium 1.3 L (1.6-2.3) mg/dL Assessment and Plan Plan: Status post operative repair of incisional hernia with mesh and partial omenectomy -Patient is status post operative repair of incisional hernia with mesh and partial omenectomy completed by Dr. Hester on 11/20/20. -Pain control per surgery -Patient currently on Lovenox for DVT prophylaxis. Acute respiratory failure with hypoxia -O2 supplements -CXR ordered showing fluid overload vs infiltrates. Likely more of CHF as she is not having signs of infection -Check bnp and troponin -Check EKG -lasix 20mg IV times one. Insulin-dependent diabetes mellitus type 2 -Hold Glucophage, continue nightly Levemir 120 units along with glycemic pro tocol and NovoLog sliding scale. -Heart healthy carb consistent diet. Hypomagnesemia -Replace and follow in am COPD -Provide oxygen as needed to maintain SpO2 equal to or greater than 92%. -DuoNeb as needed for shortness of breath and/or wheezing. -Encourage use of incentive spirometer 10-15 times hourly while awake. -Nicotine patch along with can T needed encouragement and education on benefits of smoking cessation and risks of continued use. Hypertension -Monitor vital signs and continue daily medication management with Imdur, lisinopril, and verapamil. Hyperlipidemia -Continue daily medication management. -Heart healthy carb consistent diet. History of CAD with carotid stenosis -Patient to continue home meds with the exception of aspirin, may resume once cleared by primary general surgery team. Nicotine dependence on cigarettes -NicoDerm patch -Patient to receive continued education and importance on the benefits of smoking cessation and risks of continued use up to and including .
[2020-11-21] MEDS: PANTOPRAZOLE 40 MG TABLET PO SCH (13:49)
[2020-11-21 14:39] LABS: Glucose,Whole Blood 353 mg/dL (75-99)
[2020-11-21] MEDS ORDERED: SODIUM CHLORIDE 0.9% 1,000 ML IV ONE (15:34)
[2020-11-21 16:55] LABS: Glucose,Whole Blood 293 mg/dL (75-99)
[2020-11-21 20:21] LABS: Glucose,Whole Blood 247 mg/dL (75-99)
[2020-11-21] MEDS: INSULIN DETEMIR (LEVEMIR) 100 UNIT/ML SYR SQ SCH (21:12)
[2020-11-21] MEDS: LATANOPROST 0.005% OPHTH DROPS 2.5 ML BTL BOTH EYES SCH (21:32)
[2020-11-22] MEDS: HYDROmorphone 1 MG/ML 1 ML SYRINGE IVP PRN ×4 (00:47→21:56)
[2020-11-22 00:59] LABS: Glucose,Whole Blood 200 mg/dL (75-99)
[2020-11-22] MEDS ORDERED: SODIUM CHLORIDE 0.9% 1,000 ML IV ONE (05:55)
[2020-11-22 06:15] LABS: Glucose,Whole Blood 115 mg/dL (75-99)
[2020-11-22] MEDS: ALBUTEROL NEBULIZED 2.5 MG/3 ML INHALATION PRN (06:19)
[2020-11-22] MEDS: INSULIN ASPART (NovoLOG) 100 UNIT/ML VIAL SQ SCH ×4 (06:20→22:05)
[2020-11-22] MEDS: PANTOPRAZOLE 40 MG TABLET PO SCH (06:34)
[2020-11-22] MEDS: LACTATED RINGERS 1,000 ML IV SCH (06:57)
[2020-11-22] MEDS ORDERED: FUROSEMIDE 10 MG/ML 2 ML VIAL IV ONE (08:15)
[2020-11-22] MEDS ORDERED: methylPREDNISolone SOD SUCCI 125 MG/2 ML VIAL IV STA (08:24)
[2020-11-22] MEDS ORDERED: FUROSEMIDE 10 MG/ML 4 ML VIAL IV STA (08:24)
[2020-11-22] MEDS: HYDROcodone/APAP 5-325MG 1 EACH TAB PO PRN (08:34)
[2020-11-22] MEDS: NICOTINE 21MG/24HR PATCH TRANSDERM SCH (08:34)
[2020-11-22] MEDS: DOCUSATE 100 MG CAP PO SCH ×2 (08:34→21:51)
[2020-11-22] MEDS: GABAPENTIN 300 MG CAP PO SCH ×3 (08:34→21:49)
[2020-11-22] MEDS: busPIRone HCl 5 MG TAB PO SCH ×2 (08:35→21:50)
[2020-11-22] MEDS: guaiFENesin 600 MG TABLET.ER PO SCH ×2 (08:35→21:51)
[2020-11-22] MEDS: FLUoxetine HCL 20 MG CAP PO SCH (08:35)
[2020-11-22] MEDS: FENOFIBRATE 160 MG TAB PO SCH (08:35)
[2020-11-22] MEDS: ISOSORBIDE MONONITRATE ER 30 MG TAB.ER.24H PO SCH (08:35)
[2020-11-22] MEDS: lisinopriL 5 MG TAB PO SCH (08:35)
[2020-11-22] MEDS: ENOXAPARIN 40 MG/0.4 ML SYRINGE SQ SCH (08:36)
[2020-11-22] MEDS: VERAPAMIL 40 MG TAB PO SCH ×2 (08:37→21:51)
[2020-11-22] MEDS: PIOGLITAZONE 15 MG TAB PO SCH (08:37)
[2020-11-22] MEDS: ERGOCALCIFEROL 1,250 MCG (50,000 IU) CAPSULE PO SCH (08:38)
[2020-11-22 08:41] LABS: Albumin 3.1 g/dL (3.5-5.0); Calcium 8.8 mg/dL (8.4-10.2); Phosphorus 6.1 mg/dL (2.5-4.5); Potassium 4.8 mmol/L (3.5-5.1); Total Bilirubin 0.4 mg/dL (0.2-1.3); Total Protein 5.4 g/dL (6.3-8.2)
[2020-11-22 08:48] LABS: Basophils % (A) 0 %; Eosinophils % (A) 0 %; Lymphocytes # (A) 2.5 k/uL (1.0-4.8); Lymphocytes % (A) 16 %; MCH 31.1 pg (25.0-35.0); MCHC 31.9 g/dL (31.0-37.0); MCV 97.5 fL (80.0-100.0); Mean Platelet Volume 7.8; Monocytes # (A) 0.7 k/uL (0-1.0); Monocytes % (A) 5 %; Neutrophils # (A) 11.7 k/uL (1.3-7.7); Neutrophils % (A) 78 %; Platelet Count 236 k/uL (150-450); RBC 2.25 m/uL (3.80-5.40); RDW 14.4 % (11.5-15.5)
--- NOTE | 2020-11-22 09:20 | XR ---
EXAMINATION TYPE: XR chest 1V portable DATE OF EXAM: 11/22/2020 HISTORY: Shortness of breath. COMPARISON: 11/21/20 TECHNIQUE: Single view of the chest is submitted. FINDINGS: Demonstrated are scattered senescent parenchymal change. Worsening perihilar and basilar infiltrates compatible with Covid 19 pneumonia. The heart is stable. Hilar and mediastinal structures are within normal limits. Degenerative changes are seen of the dorsal spine. IMPRESSION: 1. Worsening perihilar and basilar infiltrates compatible with Covid 19 pneumonia.
[2020-11-22] MEDS: IPRATROPIUM-ALBUTEROL 3 ML NEB INHALATION SCH ×4 (09:53→21:34)
[2020-11-22 09:58] LABS: ABG Base Excess -1.4 mmol/L; ABG HCO3 25 mmol/L (21-25); ABG Oxygen Saturation 79.8 % (94-97); ABG PCO2 48 mmHg (35-45); ABG PH 7.32 (7.35-7.45); ABG TCO2 26 mmol/L (19-24)
[2020-11-22 09:59] LABS: ABG PO2 49 mmHg (83-108)
[2020-11-22] MEDS ORDERED: VANCOMYCIN IV PER PHARMACY 1 EACH MISC MISCELLANE PRN (11:54)
[2020-11-22 12:13] LABS: Glucose,Whole Blood 223 mg/dL (75-99)
[2020-11-22] MEDS: VANCOMYCIN 1,250 MG in SODIUM CHLORIDE 0.9% 250 ML IVPB SCH (12:34)
[2020-11-22] MEDS: CEFEPIME 1 GM in SODIUM CHLORIDE 0.9% 50 ML IVPB SCH ×2 (12:35→22:07)
[2020-11-22 13:33] LABS: HCT 22.4 % (34.0-46.0); HGB 7.5 gm/dL (11.4-16.0); MCH 32.6 pg (25.0-35.0); MCHC 33.6 g/dL (31.0-37.0); MCV 97.1 fL (80.0-100.0); Mean Platelet Volume 7.9; Platelet Count 218 k/uL (150-450); RDW 14.1 % (11.5-15.5); WBC 15.8 k/uL (3.8-10.6)
[2020-11-22 13:40] LABS: Potassium 4.6 mmol/L (3.5-5.1)
[2020-11-22 13:41] LABS: Calcium 9.2 mg/dL (8.4-10.2); Magnesium 1.6 mg/dL (1.6-2.3)
--- NOTE | 2020-11-22 14:41 | P.PN ---
Subjective Progress Note Date: 11/22/20 CHIEF COMPLAINT: Incisional hernia HISTORY OF PRESENT ILLNESS: Patient is postop day #2 status post repair of incisional hernia with mesh and partial omentectomy. Patient required a transfer to the selective floor due to hypotension. Patient received IV fluid boluses. She's also had a decline in her respiratory status. She's currently on 15 L nonrebreather. Chest x-ray from yesterday had shown diffuse pleural parenchymal changes correlate for CHF versus pneumonia. She's received a few doses of IV Lasix. Medicine service has ordered nebulizer treatments and IV steroids. And ordered a repeat chest x-ray which shows worsening of perihilar and basilar infiltrates compatible with COVID-19 pneumonia. Patient does complain of shortness of breath and has had productive cough. Covid PCR testing was ordered. She denies any nausea or vomiting. Decreased appetite. No bowel movement or gas reported. Afebrile. She is tachycardic with heart rate into the 120s. WBC 15 hemoglobin 7.0 platelets 236 sodium 132 potassium 4.8 creatinine 1.63 BUN 27 magnesium 2.0 AST 44 ALT 20 BNP 462 and troponin is negative. Patient seen and examined with Dr. mustafa PHYSICAL EXAM: VITAL SIGNS: Reviewed. GENERAL: Well-developed in no acute distress. HEENT: No sclera icterus. Extraocular movements grossly intact. Moist buccal mucosa. Head is atraumatic, normocephalic. ABDOMEN: Soft. Nondistended. Incision clean dry and intact. JOSE drain with sanguinous fluid NEUROLOGIC: Alert and oriented. Cranial nerves II through XII grossly intact. ASSESSMENT: 1. Incisional hernia status post repair with mesh and partial omentectomy 2. Acute hypoxic respiratory failure with possible pneumonia. followed by medicine service and they have started antibiotics PLAN: -Continue regular diet -Encourage patient to use incentive spirometer -Continue pain medications -DVT prophylaxis Lovenox and GI prophylaxis Protonix Physician Drill Sergeant note has been reviewed by physician. Signing provider agrees with the documented findings, assessment, and plan of care. Objective - Vital Signs Vital signs: Vital Signs Temp 98.7 F 11/22/20 03:12 Pulse 122 H 11/22/20 10:03 Resp 22 11/22/20 10:03 BP 122/67 11/22/20 08:00 Pulse Ox 87 L 11/22/20 08:00 Intake & Output 11/21/20 11/22/20 11/22/20 18:59 06:59 18:59 Intake Total 1440 300 Output Total 575 280 0 Balance 865 20 0 Weight 65.5 kg Intake: Intake, IV Titration 1200 200 Amount Magnesium Sulfate-D5w Pmx 200 1 gm In Dextrose/Water 1 100ml.bag @ 100 mls/hr IVPB Q1H MARLENE Rx#: [id number] Sodium Chloride 0.9% 1, 1000 200 000 ml @ 999 mls/hr IV . Q1H1M ONE Rx#:[id number] Oral 240 100 Output: Drainage 120 55 Right Upper Abdomen 120 55 Urine 425 225 0 Uretheral (Schuster) 425 Emesis 30 Other: Voiding Method Indwelling Catheter Indwelling Catheter Indwelling Catheter # Voids 1 - Labs CBC & Chem 7: 11/22/20 13:01 11/22/20 13:01 Labs: Abnormal Lab Results - Last 24 Hours (Table) 11/21/20 11/21/20 11/21/20 Range/Units 12:32 14:38 16:40 WBC (3.8-10.6) k/uL RBC (3.80-5.40) m/uL Hgb (11.4-16.0) gm/dL Hct (34.0-46.0) % Neutrophils # (1.3-7.7) k/uL ABG pH (7.35-7.45) ABG pCO2 (35-45) mmHg ABG pO2 (83-108) mmHg ABG Total CO2 (19-24) mmol/L ABG O2 Saturation (94-97) % Sodium (137-145) mmol/L BUN (7-17) mg/dL Creatinine (0.52-1.04) mg/dL POC Glucose (mg/dL) 351 H 353 H 293 H (75-99) mg/dL Phosphorus (2.5-4.5) mg/dL AST (14-36) U/L Total Protein (6.3-8.2) g/dL Albumin (3.5-5.0) g/dL 11/21/20 11/22/20 11/22/20 Range/Units 20:20 00:57 06:13 WBC (3.8-10.6) k/uL RBC (3.80-5.40) m/uL Hgb (11.4-16.0) gm/dL Hct (34.0-46.0) % Neutrophils # (1.3-7.7) k/uL ABG pH (7.35-7.45) ABG pCO2 (35-45) mmHg ABG pO2 (83-108) mmHg ABG Total CO2 (19-24) mmol/L ABG O2 Saturation (94-97) % Sodium (137-145) mmol/L BUN (7-17) mg/dL Creatinine (0.52-1.04) mg/dL POC Glucose (mg/dL) 247 H 200 H 115 H (75-99) mg/dL Phosphorus (2.5-4.5) mg/dL AST (14-36) U/L Total Protein (6.3-8.2) g/dL Albumin (3.5-5.0) g/dL 11/22/20 11/22/20 11/22/20 Range/Units 07:02 07:02 09:53 WBC 15.0 H (3.8-10.6) k/uL RBC 2.25 L (3.80-5.40) m/uL Hgb 7.0 L D (11.4-16.0) gm/dL Hct 22.0 L (34.0-46.0) % Neutrophils # 11.7 H (1.3-7.7) k/uL ABG pH 7.32 L (7.35-7.45) ABG pCO2 48 H (35-45) mmHg ABG pO2 49 L* (83-108) mmHg ABG Total CO2 26 H (19-24) mmol/L ABG O2 Saturation 79.8 L (94-97) % Sodium 132 L (137-145) mmol/L BUN 27 H (7-17) mg/dL Creatinine 1.63 H (0.52-1.04) mg/dL POC Glucose (mg/dL) (75-99) mg/dL Phosphorus 6.1 H (2.5-4.5) mg/dL AST 44 H (14-36) U/L Total Protein 5.4 L (6.3-8.2) g/dL Albumin 3.1 L (3.5-5.0) g/dL 11/22/20 Range/Units 12:10 WBC (3.8-10.6) k/uL RBC (3.80-5.40) m/uL Hgb (11.4-16.0) gm/dL Hct (34.0-46.0) % Neutrophils # (1.3-7.7) k/uL ABG pH (7.35-7.45) ABG pCO2 (35-45) mmHg ABG pO2 (83-108) mmHg ABG Total CO2 (19-24) mmol/L ABG O2 Saturation (94-97) % Sodium (137-145) mmol/L BUN (7-17) mg/dL Creatinine (0.52-1.04) mg/dL POC Glucose (mg/dL) 223 H (75-99) mg/dL Phosphorus (2.5-4.5) mg/dL AST (14-36) U/L Total Protein (6.3-8.2) g/dL Albumin (3.5-5.0) g/dL
--- NOTE | 2020-11-22 15:20 | P.PN ---
Subjective Progress Note Date: 11/22/20 Principal diagnosis: Hernia repair Patient was found hypoxic this morning. Her oxygen saturations are in the upper 80s on 100% nonrebreather mask. She states that she cannot breathe. She denied having any chest pain. No dizziness, no fevers or chills.. Objective - Vital Signs Vital signs: Vital Signs Temp 98.7 F 11/22/20 03:12 Pulse 122 H 11/22/20 12:41 Resp 22 11/22/20 14:00 BP 107/55 11/22/20 12:00 Pulse Ox 93 L 11/22/20 12:00 Intake & Output 11/21/20 11/22/20 11/22/20 18:59 06:59 18:59 Intake Total 1440 300 Output Total 575 280 940 Balance 865 20 -940 Weight 65.5 kg Intake: Intake, IV Titration 1200 200 Amount Magnesium Sulfate-D5w Pmx 200 1 gm In Dextrose/Water 1 100ml.bag @ 100 mls/hr IVPB Q1H [facility] Rx#: [id number] Sodium Chloride 0.9% 1, 1000 200 000 ml @ 999 mls/hr IV . Q1H1M ONE Rx#:[id number] Oral 240 100 Output: Drainage 120 55 65 Right Upper Abdomen 120 55 65 Urine 425 225 875 Uretheral (Schuster) 425 Emesis 30 Other: Voiding Method Indwelling Catheter Indwelling Catheter Indwelling Catheter # Voids 1 - Exam Constitutional: In moderate respiratory distress, able to finish sentences Eyes:Anicteric sclerae, moist conjunctiva, no lid-lag, PERRLA, ENMT: Oropharynx clear, no erythema, exudates Neck: Supple, FROM, no masses, or JVD, No carotid bruits, No thyromegaly Lungs: Clear to auscultation, Clear to percussion, Normal respiratory effort, no accessory muscle use Cardiovascular: Heart regular in rate and rhythm, No murmurs, gallops, or rubs, No peripheral edema Abdominal: Surgical scar, Soft, Nontender, no guarding, rebound or rigidity, Normoactive bowel sounds, No hepatomegaly, No splenomegaly, No palpable mass Skin: Normal temperature, tone, texture, turgor, no induration, No subcutaneous nodules, No rash, lesions, No ulcers Extremities: No digital cyanosis, No clubbing, Pedal pulses intact and symmetrical, Radial pulses intact and symmetrical, No calf tenderness Psychiatric: Alert and oriented to person, place and time, appropriate affect, intact judgement Neuro: Muscles Strength 5/5 in all 4 extremities, Sensation to light touch grossly present throughout, Cranial nerves II-XII grossly intact, no focal sensory deficits - Labs CBC & Chem 7: 11/22/20 13:01 11/22/20 13:01 Labs: Abnormal Lab Results - Last 24 Hours (Table) 11/21/20 11/21/20 11/22/20 Range/Units 16:40 20:20 00:57 WBC (3.8-10.6) k/uL RBC (3.80-5.40) m/uL Hgb (11.4-16.0) gm/dL Hct (34.0-46.0) % Neutrophils # (1.3-7.7) k/uL ABG pH (7.35-7.45) ABG pCO2 (35-45) mmHg ABG pO2 (83-108) mmHg ABG Total CO2 (19-24) mmol/L ABG O2 Saturation (94-97) % Sodium (137-145) mmol/L Chloride (98-107) mmol/L BUN (7-17) mg/dL Creatinine (0.52-1.04) mg/dL Glucose (74-99) mg/dL POC Glucose (mg/dL) 293 H 247 H 200 H (75-99) mg/dL Phosphorus (2.5-4.5) mg/dL AST (14-36) U/L Total Protein (6.3-8.2) g/dL Albumin (3.5-5.0) g/dL 11/22/20 11/22/20 11/22/20 Range/Units 06:13 07:02 07:02 WBC 15.0 H (3.8-10.6) k/uL RBC 2.25 L (3.80-5.40) m/uL Hgb 7.0 L D (11.4-16.0) gm/dL Hct 22.0 L (34.0-46.0) % Neutrophils # 11.7 H (1.3-7.7) k/uL ABG pH (7.35-7.45) ABG pCO2 (35-45) mmHg ABG pO2 (83-108) mmHg ABG Total CO2 (19-24) mmol/L ABG O2 Saturation (94-97) % Sodium 132 L (137-145) mmol/L Chloride (98-107) mmol/L BUN 27 H (7-17) mg/dL Creatinine 1.63 H (0.52-1.04) mg/dL Glucose (74-99) mg/dL POC Glucose (mg/dL) 115 H (75-99) mg/dL Phosphorus 6.1 H (2.5-4.5) mg/dL AST 44 H (14-36) U/L Total Protein 5.4 L (6.3-8.2) g/dL Albumin 3.1 L (3.5-5.0) g/dL 11/22/20 11/22/20 11/22/20 Range/Units 09:53 12:10 13:01 WBC 15.8 H (3.8-10.6) k/uL RBC 2.30 L (3.80-5.40) m/uL Hgb 7.5 L (11.4-16.0) gm/dL Hct 22.4 L (34.0-46.0) % Neutrophils # (1.3-7.7) k/uL ABG pH 7.32 L (7.35-7.45) ABG pCO2 48 H (35-45) mmHg ABG pO2 49 L* (83-108) mmHg ABG Total CO2 26 H (19-24) mmol/L ABG O2 Saturation 79.8 L (94-97) % Sodium (137-145) mmol/L Chloride (98-107) mmol/L BUN (7-17) mg/dL Creatinine (0.52-1.04) mg/dL Glucose (74-99) mg/dL POC Glucose (mg/dL) 223 H (75-99) mg/dL Phosphorus (2.5-4.5) mg/dL AST (14-36) U/L Total Protein (6.3-8.2) g/dL Albumin (3.5-5.0) g/dL 11/22/20 Range/Units 13:01 WBC (3.8-10.6) k/uL RBC (3.80-5.40) m/uL Hgb (11.4-16.0) gm/dL Hct (34.0-46.0) % Neutrophils # (1.3-7.7) k/uL ABG pH (7.35-7.45) ABG pCO2 (35-45) mmHg ABG pO2 (83-108) mmHg ABG Total CO2 (19-24) mmol/L ABG O2 Saturation (94-97) % Sodium 129 L (137-145) mmol/L Chloride 96 L (98-107) mmol/L BUN 25 H (7-17) mg/dL Creatinine 1.18 H (0.52-1.04) mg/dL Glucose 183 H (74-99) mg/dL POC Glucose (mg/dL) (75-99) mg/dL Phosphorus (2.5-4.5) mg/dL AST (14-36) U/L Total Protein (6.3-8.2) g/dL Albumin (3.5-5.0) g/dL Assessment and Plan Plan: Status post operative repair of incisional hernia with mesh and partial omenectomy -Patient is status post operative repair of incisional hernia with mesh and partial omenectomy completed by Dr. Hester on 11/20/20. -Pain control per surgery -Patient currently on Lovenox for DVT prophylaxis. Acute respiratory failure with hypoxia -O2 supplements -CXR ordered showing fluid overload vs infiltrates. We'll start empiric treatment for pneumonia, send blood cultures. Check pro calcitonin. -BiPAP, consult pulmonary -Bnp and troponin both okay, hold lasix -Check EKG -lasix 20mg IV times one. Acute blood loss anemia -Continue to monitor hemoglobin KOBY -Discontinue all nephrotoxic medications including Lasix -Follow creatinine in am Insulin-dependent diabetes mellitus type 2 -Hold Glucophage, continue nightly Levemir 120 units along with glycemic protocol and NovoLog sliding scale. -Heart healthy carb consistent diet. Hypomagnesemia -Replace and follow in am COPD -Provide oxygen as needed to maintain SpO2 equal to or greater than 92%. -DuoNeb as needed for shortness of breath and/or wheezing. -Encourage use of incentive spirometer 10-15 times hourly while awake. -Nicotine patch along with can T needed encouragement and education on benefits of smoking cessation and risks of continued use. Hypertension -Monitor vital signs and continue daily medication management with Imdur, lisino pril, and verapamil. Hyperlipidemia -Continue daily medication management. -Heart healthy carb consistent diet. History of CAD with carotid stenosis -Patient to continue home meds with the exception of aspirin, may resume once cleared by primary general surgery team. Nicotine dependence on cigarettes -NicoDerm patch -Patient to receive continued education and importance on the benefits of smoking cessation and risks of continued use up to and including .
[2020-11-22 17:05] LABS: Glucose,Whole Blood 178 mg/dL (75-99)
[2020-11-22] MEDS: methylPREDNISolone SOD SUCCI 40 MG/ML 1 ML VIAL IV SCH ×2 (17:51→23:26)
[2020-11-22 20:43] LABS: Glucose,Whole Blood 220 mg/dL (75-99)
[2020-11-22] MEDS: INSULIN DETEMIR (LEVEMIR) 100 UNIT/ML SYR SQ SCH (22:01)
[2020-11-22] MEDS: LATANOPROST 0.005% OPHTH DROPS 2.5 ML BTL BOTH EYES SCH (22:22)
[2020-11-23 01:48] LABS: Glucose,Whole Blood 192 mg/dL (75-99)
[2020-11-23] MEDS: IPRATROPIUM-ALBUTEROL 3 ML NEB INHALATION SCH ×6 (01:59→20:21)
[2020-11-23] MEDS: HYDROmorphone 1 MG/ML 1 ML SYRINGE IVP PRN ×5 (02:34→20:57)
[2020-11-23 06:03] LABS: Glucose,Whole Blood 154 mg/dL (75-99)
[2020-11-23] MEDS: PANTOPRAZOLE 40 MG TABLET PO SCH (06:14)
[2020-11-23] MEDS: INSULIN ASPART (NovoLOG) 100 UNIT/ML VIAL SQ SCH ×4 (06:14→20:56)
[2020-11-23] MEDS: diphenhydrAMINE 25 MG CAP PO PRN ×2 (06:19→17:52)
[2020-11-23] MEDS: LACTATED RINGERS 1,000 ML IV SCH (06:52)
[2020-11-23 08:51] LABS: Basophils % (A) 0 %; Eosinophils % (A) 0 %; HGB 7.2 gm/dL (11.4-16.0); Lymphocytes # (A) 1.2 k/uL (1.0-4.8); Lymphocytes % (A) 9 %; MCH 32.8 pg (25.0-35.0); MCHC 34.3 g/dL (31.0-37.0); MCV 95.8 fL (80.0-100.0); Mean Platelet Volume 7.8; Monocytes # (A) 0.6 k/uL (0-1.0); Monocytes % (A) 4 %; Neutrophils # (A) 12.7 k/uL (1.3-7.7); Neutrophils % (A) 87 %; Platelet Count 232 k/uL (150-450); RBC 2.19 m/uL (3.80-5.40); RDW 14.3 % (11.5-15.5); WBC 14.7 k/uL (3.8-10.6)
[2020-11-23 09:01] LABS: African American GFR (CKD) >90 (>60 ml/min/1.73 sqM); Anion Gap 6 mmol/L; Blood Urea Nitrogen 16 mg/dL (7-17); Calcium 9.7 mg/dL (8.4-10.2); Carbon Dioxide 31 mmol/L (22-30); Chloride 99 mmol/L (98-107); Glucose 98 mg/dL (74-99); Magnesium 1.9 mg/dL (1.6-2.3); Non-African American GFR(CKD) >90 (>60 ml/min/1.73 sqM); Potassium 5.3 mmol/L (3.5-5.1); Sodium 136 mmol/L (137-145)
[2020-11-23] MEDS: GABAPENTIN 300 MG CAP PO SCH ×3 (09:04→20:54)
[2020-11-23] MEDS: busPIRone HCl 5 MG TAB PO SCH ×2 (09:04→21:27)
[2020-11-23] MEDS: methylPREDNISolone SOD SUCCI 40 MG/ML 1 ML VIAL IV SCH ×2 (09:05→16:53)
[2020-11-23] MEDS: DOCUSATE 100 MG CAP PO SCH ×2 (09:05→20:55)
[2020-11-23] MEDS: lisinopriL 5 MG TAB PO SCH (09:05)
[2020-11-23] MEDS: ISOSORBIDE MONONITRATE ER 30 MG TAB.ER.24H PO SCH (09:05)
[2020-11-23] MEDS: FENOFIBRATE 160 MG TAB PO SCH (09:05)
[2020-11-23] MEDS: NICOTINE 21MG/24HR PATCH TRANSDERM SCH (09:05)
[2020-11-23] MEDS: FLUoxetine HCL 20 MG CAP PO SCH (09:05)
[2020-11-23] MEDS: VANCOMYCIN 1,250 MG in SODIUM CHLORIDE 0.9% 250 ML IVPB SCH (09:06)
[2020-11-23] MEDS: CEFEPIME 1 GM in SODIUM CHLORIDE 0.9% 50 ML IVPB SCH ×2 (09:06→20:55)
[2020-11-23] MEDS: ENOXAPARIN 40 MG/0.4 ML SYRINGE SQ SCH (09:06)
[2020-11-23] MEDS: guaiFENesin 600 MG TABLET.ER PO SCH ×2 (09:08→20:53)
[2020-11-23] MEDS: VERAPAMIL 40 MG TAB PO SCH ×2 (09:09→21:27)
--- NOTE | 2020-11-23 09:35 | XR ---
EXAMINATION TYPE: XR chest 1V portable DATE OF EXAM: 11/23/2020 HISTORY: Shortness of breath. COMPARISON: 11/22/2020 TECHNIQUE: Single view of the chest is submitted. FINDINGS: Demonstrated are scattered senescent parenchymal change. Interstitial infiltrates throughout both lung dowling persist although appear to be improving. The heart is stable. Hilar and mediastinal structures are within normal limits. Degenerative changes are seen of the dorsal spine. IMPRESSION: 1. Interstitial infiltrates throughout both lung dowling persist although appear to be improving.
[2020-11-23] MEDS: PIOGLITAZONE 15 MG TAB PO SCH (11:28)
--- NOTE | 2020-11-23 12:38 | ECHOF ---
Referral Reason:dyspnea MEASUREMENTS -------- HEIGHT: 162.6 cm WEIGHT: 71.2 kg BP: RVIDd: 3.4 cm (< 3.3) IVSd: 1.9 cm (0.6 - 1.1) LVIDd: 3.8 cm (3.9 - 5.3) LVPWd: 1.5 cm (0.6 - 1.1) IVSs: 2.0 cm LVIDs: 2.4 cm LVPWs: 1.7 cm Ao Diam: 2.6 cm (2.0 - 3.7) AV Cusp: 1.3 cm (1.5 - 2.6) LA Diam: 4.0 cm (2.7 - 3.8) MV EXCURSION: 13.536 mm (> 18.000) MV EF SLOPE: 142 mm/s (70 - 150) EPSS: 0.8 cm MV E Sage: 1.15 m/s MV DecT: 139 ms MV A Sage: 1.40 m/s MV E/A Ratio: 0.83 AV maxP.27 mmHg AV meanP.38 mmHg RAP: 5.00 mmHg RVSP: 64.92 mmHg FINDINGS -------- This was a technically adequate study. The left ventricular size is normal. There is mild concentric left ventricular hypertrophy. Overa ll left ventricular systolic function is normal with, an EF between 55 - 60 %. The right ventricle is mildly enlarged. The left atrial size is normal. The right atrial size is normal. Aortic valve is trileaflet and is mildly thickened. There is mild aortic stenosis present. Peak/m starla gradient across the Aortic Valve is 27.27mmHg / 17.38mmHg. The mitral valve is normal. The mitral valve leaflets are mildly thickened. Mild mitral annular c alcification present. Mild mitral regurgitation is present. The tricuspid valve appears structurally normal. Mild tricuspid regurgitation present. There is m oderate pulmonary hypertension. The right ventricular systolic pressure, as measured by Doppler, is 64.92mmHg. There is no pulmonic regurgitation present. The aortic root size is normal. IVC Not well visulized. There is no pericardial effusion. CONCLUSIONS -------- 1. The left ventricular size is normal. 2. There is mild concentric left ventricular hypertrophy. 3. Overall left ventricular systolic function is normal with, an EF between 55 - 60 %. 4. Aortic valve is trileaflet and is mildly thickened. 5. There is mild aortic stenosis present. 6. Peak/mean gradient across the Aortic Valve is 27.27mmHg / 17.38mmHg. 7. The mitral valve leaflets are mildly thickened. 8. Mild mitral annular calcification present. 9. Mild mitral regurgitation is present. 10. Mild tricuspid regurgitation present. 11. There is moderate pulmonary hypertension. 12. The right ventricular systolic pressure, as measured by Doppler, is 64.92mmHg. 13. There is no pericardial effusion. CHECK TOTALER: Ana Ware RDCS
--- NOTE | 2020-11-23 13:05 | P.PN ---
Subjective Progress Note Date: 11/23/20 Principal diagnosis: Hernia repair Patient has been requiring BiPAP for increased work of breathing for the past 24 hours. Currently transferred to the intensive care unit for further treatment. She denied having any chest pain. Still with abdominal pain. No fevers or chills. Objective - Vital Signs Vital signs: Vital Signs Temp 97.9 F 11/23/20 08:00 Pulse 112 H 11/23/20 11:56 Resp 26 H 11/23/20 11:56 BP 145/81 11/23/20 08:00 Pulse Ox 99 11/23/20 08:00 Intake & Output 11/22/20 11/23/20 11/23/20 18:59 06:59 18:59 Intake Total 0 420 Output Total 1005 2470 Balance -1004 Weight 71.5 kg Intake: Intake, IV Titration 100 Amount Cefepime 1 gm In Sodium 100 Chloride 0.9% 50 ml @ 12. 5 mls/hr IVPB Q12HR [facility] Rx#:[id number] Oral 0 320 Output: Drainage 130 120 Right Upper Abdomen 130 120 Urine 875 2350 Other: Voiding Method Indwelling Catheter Indwelling Catheter Indwelling Catheter - Exam Constitutional: In moderate respiratory distress, able to finish sentences Eyes:Anicteric sclerae, moist conjunctiva, no lid-lag, PERRLA, ENMT: Oropharynx clear, no erythema, exudates Neck: Supple, FROM, no masses, or JVD, No carotid bruits, No thyromegaly Lungs: Clear to auscultation, Clear to percussion, Normal respiratory effort, no accessory muscle use Cardiovascular: Heart regular in rate and rhythm, No murmurs, gallops, or rubs, No peripheral edema Abdominal: Surgical scar, Soft, Nontender, no guarding, rebound or rigidity, Normoactive bowel sounds, No hepatomegaly, No splenomegaly, No palpable mass Skin: Normal temperature, tone, texture, turgor, no induration, No subcutaneous nodules, No rash, lesions, No ulcers Extremities: No digital cyanosis, No clubbing, Pedal pulses intact and symmetrical, Radial pulses intact and symmetrical, No calf tenderness Psychiatric: Alert and oriented to person, place and time, appropriate affect, intact judgement Neuro: Muscles Strength 5/5 in all 4 extremities, Sensation to light touch gr ossly present throughout, Cranial nerves II-XII grossly intact, no focal sensory deficits - Labs CBC & Chem 7: 11/23/20 06:49 11/23/20 06:49 Labs: Abnormal Lab Results - Last 24 Hours (Table) 11/22/20 11/22/20 11/22/20 Range/Units 13:01 13:01 13:01 WBC 15.8 H (3.8-10.6) k/uL RBC 2.30 L (3.80-5.40) m/uL Hgb 7.5 L (11.4-16.0) gm/dL Hct 22.4 L (34.0-46.0) % Neutrophils # (1.3-7.7) k/uL Sodium 129 L (137-145) mmol/L Potassium (3.5-5.1) mmol/L Chloride 96 L (98-107) mmol/L Carbon Dioxide (22-30) mmol/L BUN 25 H (7-17) mg/dL Creatinine 1.18 H (0.52-1.04) mg/dL Glucose 183 H (74-99) mg/dL POC Glucose (mg/dL) (75-99) mg/dL Procalcitonin 0.74 H (0.02-0.09) ng/mL Crossmatch 11/22/20 11/22/20 11/23/20 Range/Units 16:44 20:23 01:47 WBC (3.8-10.6) k/uL RBC (3.80-5.40) m/uL Hgb (11.4-16.0) gm/dL Hct (34.0-46.0) % Neutrophils # (1.3-7.7) k/uL Sodium (137-145) mmol/L Potassium (3.5-5.1) mmol/L Chloride (98-107) mmol/L Carbon Dioxide (22-30) mmol/L BUN (7-17) mg/dL Creatinine (0.52-1.04) mg/dL Glucose (74-99) mg/dL POC Glucose (mg/dL) 178 H 220 H 192 H (75-99) mg/dL Procalcitonin (0.02-0.09) ng/mL Crossmatch 11/23/20 11/23/20 11/23/20 Range/Units 05:59 06:49 06:49 WBC 14.7 H (3.8-10.6) k/uL RBC 2.19 L (3.80-5.40) m/uL Hgb 7.2 L (11.4-16.0) gm/dL Hct 21.0 L (34.0-46.0) % Neutrophils # 12.7 H (1.3-7.7) k/uL Sodium 136 L (137-145) mmol/L Potassium 5.3 H (3.5-5.1) mmol/L Chloride (98-107) mmol/L Carbon Dioxide 31 H (22-30) mmol/L BUN (7-17) mg/dL Creatinine (0.52-1.04) mg/dL Glucose (74-99) mg/dL POC Glucose (mg/dL) 154 H (75-99) mg/dL Procalcitonin (0.02-0.09) ng/mL Crossmatch 11/23/20 Range/Units 10:33 WBC (3.8-10.6) k/uL RBC (3.80-5.40) m/uL Hgb (11.4-16.0) gm/dL Hct (34.0-46.0) % Neutrophils # (1.3-7.7) k/uL Sodium (137-145) mmol/L Potassium (3.5-5.1) mmol/L Chloride (98-107) mmol/L Carbon Dioxide (22-30) mmol/L BUN (7-17) mg/dL Creatinine (0.52-1.04) mg/dL Glucose (74-99) mg/dL POC Glucose (mg/dL) (75-99) mg/dL Procalcitonin (0.02-0.09) ng/mL Crossmatch See Detail Assessment and Plan Plan: Status post operative repair of incisional hernia with mesh and partial omenectomy 11/20/20. -CT abd/pelvis repeated per surgery, result pending. -Pain control per surgery -Patient currently on Lovenox for DVT prophylaxis. Acute respiratory failure with hypoxia possibly sec to HCAP -O2 supplements and bipap. Pulm following -Broad spectrum abx started. -Procal elevated, blood cx pending. -CXR ordered showing fluid overload vs infiltrates. -Bnp and troponin both okay\ -Check EKG Acute blood loss anemia -Continue to monitor hemoglobin -Decision to transfuse according to intensive care team KOBY -Resolved. Insulin-dependent diabetes mellitus type 2 -Hold Glucophage, continue nightly Levemir 120 units along with glycemic protocol and NovoLog sliding scale. -Heart healthy carb consistent diet. Hypomagnesemia -Replace and follow in am COPD exacerbation -DuoNeb and steroids -Encourage use of incentive spirometer 10-15 times hourly while awake. Hypertension -Monitor vital signs and continue daily medication management with Imdur, lisinopril, and verapamil. Hyperlipidemia -Continue daily medication management. -Heart healthy carb consistent diet. History of CAD with carotid stenosis -Patient to continue home meds with the exception of aspirin, may resume once cleared by primary general surgery team. Nicotine dependence on cigarettes -NicoDerm patch -Patient to receive continued education and importance on the benefits of smoking cessation and risks of continued use up to and including .
--- NOTE | 2020-11-23 13:14 | P.CNPUL ---
History of Present Illness Consult date: 11/23/20 Requesting physician: Manjit Hester Reason for consult: dyspnea, hypoxemia, other Chief complaint: Status post operative repair of incisional hernia with mesh History of present illness: This is a 60-year-old -[place] female, with history of chronic incisional hernia, patient underwent operative repair of the incisional hernia with mesh on 11/20/2020. Her surgery was basically uneventful. However over the last 3 days, the patient has been developing worsening shortness of breath and worsening chest x-ray showing bilateral interstitial infiltrates were in the differential diagnoses could be aspiration pneumonia, ARDS, or acute diastolic congestive heart failure. Her oxygen requirement has increased significantly since admission, and when I saw the patient this morning she was on BiPAP on the percent, O2 saturation was marginal, patient was noted to be quite tachypneic and tachycardic, and as soon as I laid eyes on the patient, I recommended immediate transfer to the ICU. In the meantime I reviewed her labs, patient dropped about 4 g of hemoglobin since admission chest x-ray has been steadily getting worse, patient is noted to have leukocytosis with WBC count of 14.7, hemoglobin is down to 7.2 with significant symptoms of shortness of breath, baseline hemoglobin was 10.7. Echocardiogram showed good LV function. Her a BNP level is normal. CT of the abdomen and pelvis was repeated this morning, and results of which are pending. Considering the worsening chest x-ray and considering the worsening clinical status, I did recommend immediate transfer of the patient to the ICU. Patient is already on bronchodilators, she is also empirically on antibiotics, she is also on methylprednisolone at 40 mg IV push every 8 hours, and she is also on vancomycin as well as on Protonix. He shouldn't is receiving updrafts in the form of DuoNeb 4 times a day and when nec essary. ABG done yesterday showed a pO2 of 49 pCO2 of 40 H and pH of 7.3, and this was done on 100% FiO2. Review of Systems Constitutional: No fever no chills, no weight loss. HEENT: Negative Pulmonary: Shortness of breath no wheezing minimal cough. Cardiac: No chest pain no orthopnea no PND no palpitations GI: No nausea, no vomiting, patient is status post incisional hernia repair. And this was an elective procedure. Genitourinary: Negative Musculoskeletal: Negative Psychiatric: Negative Neurologic: Negative Hematologic: No history of clotting bleeding or bruising Endocrine: Negative, patient is known to have history of diabetes fairly Skin: Negative Past Medical History Past Medical History: COPD, Diabetes Mellitus, GERD/Reflux, Hyperlipidemia, Hypertension, Osteoarthritis (OA) Additional Past Medical History / Comment(s): incisional hernia, diverticulitis, CAROTID STENOSIS. Chronic low back pain, migraines, "HEAD ANEURYSM" History of Any Multi-Drug Resistant Organisms: None Reported Past Surgical History: Bowel Resection, Hernia Repair, Hysterectomy, Orthopedic Surgery, Tubal Ligation Additional Past Surgical History / Comment(s): laparoscopic ozzy fundoplasty. 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 (ANGIOGRAM 08/23/14 TO CHECK STENT.) "HEAD ANEURYSM REPAIR " Past Anesthesia/Blood Transfusion Reactions: No Reported Reaction Past Psychological History: Anxiety, Depression Smoking Status: Current every day smoker Past Alcohol Use History: None Reported Additional Past Alcohol Use History / Comment(s): SMOKES 1PPD, SINCE AGE 15 YRS. QUIT DRINKING ALCOHOL 2005 Past Drug Use History: Marijuana Additional Drug Use History / Comment(s): uses marijuana pen pain daily, instructed to hold 24 hrs prior to procedure, STATES HX OF CRACK, COCAINE USE, QUIT 2015 - Past Family History Father Family Medical History: No Reported History Mother Family Medical History: Coronary Artery Disease (CAD), Diabetes Mellitus Medications and Allergies Home Medications Medication Instructions Recorded Confirmed Type Aspirin EC [Ecotrin] 325 mg PO DAILY 08/26/14 11/16/20 History Cyclobenzaprine [Flexeril] 10 mg PO TID PRN 08/26/14 11/16/20 History FLUoxetine HCL [PROzac] 40 mg PO QAM 08/26/14 11/16/20 History Albuterol Inhaler (Mhu) [Ventolin 2 puff INHALATION RT-BID PRN 09/01/14 11/16/20 History Hfa Inhaler (Mhu)] Albuterol Nebulized [Ventolin 2.5 mg INHALATION RT-QID PRN 09/01/14 11/16/20 History Nebulized] lisinopriL [Zestril] 5 mg PO QAM 04/12/15 11/16/20 History Fenofibrate 160 mg PO QAM 07/28/15 11/16/20 History Gabapentin [Neurontin] 600 mg PO TID 07/28/15 11/16/20 History Ergocalciferol (Vitamin D2) 50,000 unit PO WE 04/09/17 11/16/20 History [Vitamin D2] Isosorbide Mononitrate [Isosorbide 30 mg PO QAM 04/09/17 11/16/20 History Mononitrate ER] Latanoprost [Xalatan 0.005%] 1 drop BOTH EYES HS 04/09/17 11/16/20 History Nitroglycerin Sl Tabs [Nitrostat] 0.4 mg PO Q5M PRN 04/09/17 11/16/20 History Pioglitazone [Actos] 15 mg PO QAM 04/09/17 11/16/20 History Verapamil [Isoptin] 40 mg PO BID 04/09/17 11/16/20 History metFORMIN HCL [Glucophage] 500 mg PO PC-SUPPER 04/09/17 11/16/20 History Liraglutide [Victoza 3-Myron] 1.2 mg SQ DAILY 12/14/18 11/16/20 History Allopurinol [Zyloprim] 100 mg PO DAILY 11/16/20 11/16/20 History HYDROcodone/APAP 7.5-325MG [[place] 1 tab PO Q6HR PRN 11/16/20 11/16/20 History 7.5-325] Insulin Glargine [Lantus] 120 unit SQ HS 11/16/20 11/16/20 History Insulin Lispro [humaLOG Kwikpen] 10 unit SQ AC-SUPPER 11/16/20 11/16/20 History busPIRone HCL [Buspar] 7.5 mg PO BID 11/16/20 11/16/20 History ondansetron HCL [Zofran] 8 mg PO Q8HR PRN 11/16/20 11/16/20 History Allergies Allergy/AdvReac Type Severity Reaction Status Date / Time No Known Allergies Allergy Verified 11/20/20 08:23 Physical Exam Vitals: Vital Signs Temp Pulse Pulse Resp BP Pulse Ox 11/23/20 11:56 112 H 26 H 11/23/20 08:03 122 H 26 H 11/23/20 08:00 97.9 F 111 H 38 H 145/81 99 11/23/20 07:53 121 H 26 H 11/23/20 05:57 113 H 11/23/20 05:30 113 H 11/23/20 03:18 97.8 F 120 H 34 H 161/71 97 11/23/20 02:11 124 H 11/23/20 01:59 117 H 11/23/20 01:25 121 H 28 H 11/23/20 00:00 121 H 28 H 92 L 11/22/20 23:52 126 H 46 H 88 L 11/22/20 23:15 97.8 F 126 H 40 H 116/62 95 11/22/20 21:52 130 H 11/22/20 21:34 121 H 94 L 11/22/20 20:00 125 H 46 H 11/22/20 19:44 125 H 46 H 148/81 97 11/22/20 17:01 133 H 33 H 11/22/20 16:46 117 H 18 11/22/20 16:00 99.1 F 127 H 35 H 123/66 93 L 11/22/20 14:00 22 Intake and Output 11/22/20 11/23/20 11/23/20 22:59 06:59 14:59 Intake Total 50 370 Output Total 1205 1330 Balance -1155 -960 Intake: Intake, IV Titration 50 50 Amount Cefepime 1 gm In Sodium 50 50 Chloride 0.9% 50 ml @ 12. 5 mls/hr IVPB Q12HR [facility] Rx#:[id number] Oral 0 320 Output: Drainage 105 80 Right Upper Abdomen 105 80 Urine 1100 1250 Other: Voiding Method Indwelling Catheter Indwelling Catheter Indwelling Catheter Weight 71.5 kg Physical Exam: Revealed 60-year-old female in moderate severe respiratory d istress on BiPAP. Head: Atraumatic, normocephalic. HEENT:[Neck is supple.] [No neck masses.] [No thyromegaly.] [No JVD.] Chest: Crackles and rhonchi at the bases. Symmetrical chest expansion. Cardiac Exam: [Normal S1 and S2, no S3 gallop, no murmur.] Abdomen: [Postsurgical, Soft, nontender, no megaly, no rebound, no guarding, normal bowel sounds.] Patient has a binder in place. Extremities: [No clubbing, no edema, no cyanosis.] Neurological Exam: Alert and oriented 3. [No focal neurologic deficit.] Psychiatric: Normal mood, affect and normal mental status examination. Skin: No rashes. Results - Laboratory Findings CBC and BMP: 11/23/20 06:49 11/23/20 06:49 ABG ABG pH 7.32 (7.35-7.45) L 11/22/20 09:53 ABG pCO2 48 mmHg (35-45) H 11/22/20 09:53 ABG pO2 49 mmHg (83-108) L* 11/22/20 09:53 ABG O2 Saturation 79.8 % (94-97) L 11/22/20 09:53 Abnormal lab findings: Abnormal Labs 11/20/20 11/20/20 11/20/20 12:43 16:56 20:01 WBC RBC Hgb Hct Neutrophils # ABG pH ABG pCO2 ABG pO2 ABG Total CO2 ABG O2 Saturation Sodium Potassium Chloride Carbon Dioxide BUN Creatinine Glucose POC Glucose (mg/dL) 154 H 207 H 211 H Phosphorus Magnesium AST Total Protein Albumin Procalcitonin Crossmatch 11/21/20 11/21/20 11/21/20 01:32 04:53 04:53 WBC 14.0 H RBC 3.27 L Hgb 10.7 L Hct 30.9 L Neutrophils # ABG pH ABG pCO2 ABG pO2 ABG Total CO2 ABG O2 Saturation Sodium 134 L Potassium Chloride Carbon Dioxide BUN Creatinine Glucose POC Glucose (mg/dL) 138 H Phosphorus Magnesium 1.3 L AST Total Protein Albumin Procalcitonin Crossmatch 11/21/20 11/21/20 11/21/20 12:32 14:38 16:40 WBC RBC Hgb Hct Neutrophils # ABG pH ABG pCO2 ABG pO2 ABG Total CO2 ABG O2 Saturation Sodium Potassium Chloride Carbon Dioxide BUN Creatinine Glucose POC Glucose (mg/dL) 351 H 353 H 293 H Phosphorus Magnesium AST Total Protein Albumin Procalcitonin Crossmatch 11/21/20 11/22/20 11/22/20 20:20 00:57 06:13 WBC RBC Hgb Hct Neutrophils # ABG pH ABG pCO2 ABG pO2 ABG Total CO2 ABG O2 Saturation Sodium Potassium Chloride Carbon Dioxide BUN Creatinine Glucose POC Glucose (mg/dL) 247 H 200 H 115 H Phosphorus Magnesium AST Total Protein Albumin Procalcitonin Crossmatch 11/22/20 11/22/20 11/22/20 07:02 07:02 09:53 WBC 15.0 H RBC 2.25 L Hgb 7.0 L D Hct 22.0 L Neutrophils # 11.7 H ABG pH 7.32 L ABG pCO2 48 H ABG pO2 49 L* ABG Total CO2 26 H ABG O2 Saturation 79.8 L Sodium 132 L Potassium Chloride Carbon Dioxide BUN 27 H Creatinine 1.63 H Glucose POC Glucose (mg/dL) Phosphorus 6.1 H Magnesium AST 44 H Total Protein 5.4 L Albumin 3.1 L Procalcitonin Crossmatch 11/22/20 11/22/20 11/22/20 12:10 13:01 13:01 WBC 15.8 H RBC 2.30 L Hgb 7.5 L Hct 22.4 L Neutrophils # ABG pH ABG pCO2 ABG pO2 ABG Total CO2 ABG O2 Saturation Sodium 129 L Potassium Chloride 96 L Carbon Dioxide BUN 25 H Creatinine 1.18 H Glucose 183 H POC Glucose (mg/dL) 223 H Phosphorus Magnesium AST Total Protein Albumin Procalcitonin Crossmatch 11/22/20 11/22/20 11/22/20 13:01 16:44 20:23 WBC RBC Hgb Hct Neutrophils # ABG pH ABG pCO2 ABG pO2 ABG Total CO2 ABG O2 Saturation Sodium Potassium Chloride Carbon Dioxide BUN Creatinine Glucose POC Glucose (mg/dL) 178 H 220 H Phosphorus Magnesium AST Total Protein Albumin Procalcitonin 0.74 H Crossmatch 11/23/20 11/23/20 11/23/20 01:47 05:59 06:49 WBC RBC Hgb Hct Neutrophils # ABG pH ABG pCO2 ABG pO2 ABG Total CO2 ABG O2 Saturation Sodium 136 L Potassium 5.3 H Chloride Carbon Dioxide 31 H BUN Creatinine Glucose POC Glucose (mg/dL) 192 H 154 H Phosphorus Magnesium AST Total Protein Albumin Procalcitonin Crossmatch 11/23/20 11/23/20 06:49 10:33 WBC 14.7 H RBC 2.19 L Hgb 7.2 L Hct 21.0 L Neutrophils # 12.7 H ABG pH ABG pCO2 ABG pO2 ABG Total CO2 ABG O2 Saturation Sodium Potassium Chloride Carbon Dioxide BUN Creatinine Glucose POC Glucose (mg/dL) Phosphorus Magnesium AST Total Protein Albumin Procalcitonin Crossmatch See Detail - Diagnostic Findings Chest x-ray: image reviewed (Diffuse bilateral interstitial infiltrates noted.) Assessment and Plan Assessment: Impression: Acute hypoxic respiratory failure Acute bilateral pneumonia, differential diagnoses includes aspiration pneumonia, it also includes ARDS/noncardiogenic pulmonary edema or possibly cardiogenic pulmonary edema which is felt to be less likely. Status post repair of incisional hernia with mesh placement. History of underlying COPD History of type 2 diabetes History of GERD Benign essential hypertension Degenerative joint disease Remote history of bowel resection History of tubal ligation History of laparoscopic Ozzy fundoplasty Acute blood loss anemia with a drop of almost 4 g since surgery. Moderate severe pulmonary hypertension Recommendation: Will transfer the patient to the ICU. Stat. Continue BiPAP for now. Arrange for stat CT of the abdomen and pelvis. Continue empiric antibiotics. Continue bronchodilators. Continue steroids. Transfuse patient with 2 units of packed RBCs since she has symptomatic anemia Diurese posttransfusion. Echocardiogram was reviewed. Good LV function is noted. Continue GI and DVT prophylaxis. Titrate FiO2 accordingly and if the patient requires to be intubated this will be done in the ICU. We'll continue to follow closely. Prognosis is guarded. Time with Patient: Greater than 30
--- NOTE | 2020-11-23 13:33 | P.PN ---
Subjective Progress Note Date: 11/23/20 CHIEF COMPLAINT: Incisional hernia HISTORY OF PRESENT ILLNESS: Patient is postop day #3 status post repair of incisional hernia with mesh and partial omentectomy. Patient has acute respiratory failure and is currently on BiPAP. She was evaluated by critical care service and they have transferred her to the ICU. Patient does complain of shortness of breath and cough. She complains of abdominal pain with coughing. Denies any nausea or vomiting. Has has not been able to really eat since she is on the BiPAP. She's afebrile. Heart rate 111 blood pressure has improved 145/81. Her Covid screen was negative. She is on antibiotics for possible pneumonia. Patient's WBC is 14.7 hemoglobin 7.2 platelets 232 sodium 136 potassium 5.3 creatinine 0.73. She is receiving 2 units of blood for hemoglobin of 7.2 Echo shows EF of 55-60% and moderate pulmonary hypertension. Mild mitral and tricuspid regurgitation Patient seen and examined with Dr. mustafa PHYSICAL EXAM: VITAL SIGNS: Reviewed. GENERAL: Well-developed in no acute distress. HEENT: No sclera icterus. Extraocular movements grossly intact. Moist buccal mucosa. Head is atraumatic, normocephalic. ABDOMEN: Soft. Nondistended. Incision site clean dry and intact. JOSE drain sanguinous fluid present NEUROLOGIC: Alert and oriented. Cranial nerves II through XII grossly intact. ASSESSMENT: 1. Incisional hernia status post repair with mesh and partial omentectomy 2. Acute hypoxic respiratory failure with pneumonia PLAN: -Continue ICU management -Continue supportive care -Patient scheduled for 2 units of PRBCs -Follow up on computed tomography scan of the abdomen and pelvis ordered by critical care service -Abdominal dressing changed today -Continue regular diet -Continue pain medications -DVT prophylaxis Lovenox and GI prophylaxis Protonix Physician Student Support Advisor note has been reviewed by physician. Signing provider agrees with the documented findings, assessment, and plan of care. Objective - Vital Signs Vital signs: Vital Signs Temp 97.9 F 11/23/20 08:00 Pulse 112 H 11/23/20 11:56 Resp 26 H 11/23/20 11:56 BP 145/81 11/23/20 08:00 Pulse Ox 99 11/23/20 08:00 Intake & Output 11/22/20 11/23/20 11/23/20 18:59 06:59 18:59 Intake Total 0 420 Output Total 1009 5412 Balance -1004 -2049 Weight 71.5 kg Intake: Intake, IV Titration 100 Amount Cefepime 1 gm In Sodium 100 Chloride 0.9% 50 ml @ 12. 5 mls/hr IVPB Q12HR [facility] Rx#:[id number] Oral 0 320 Output: Drainage 130 120 Right Upper Abdomen 130 120 Urine 875 2350 Other: Voiding Method Indwelling Catheter Indwelling Catheter Indwelling Catheter - Labs CBC & Chem 7: 11/23/20 06:49 11/23/20 06:49 Labs: Abnormal Lab Results - Last 24 Hours (Table) 11/22/20 11/22/20 11/22/20 Range/Units 13:01 13:01 13:01 WBC 15.8 H (3.8-10.6) k/uL RBC 2.30 L (3.80-5.40) m/uL Hgb 7.5 L (11.4-16.0) gm/dL Hct 22.4 L (34.0-46.0) % Neutrophils # (1.3-7.7) k/uL Sodium 129 L (137-145) mmol/L Potassium (3.5-5.1) mmol/L Chloride 96 L (98-107) mmol/L Carbon Dioxide (22-30) mmol/L BUN 25 H (7-17) mg/dL Creatinine 1.18 H (0.52-1.04) mg/dL Glucose 183 H (74-99) mg/dL POC Glucose (mg/dL) (75-99) mg/dL Procalcitonin 0.74 H (0.02-0.09) ng/mL Crossmatch 11/22/20 11/22/20 11/23/20 Range/Units 16:44 20:23 01:47 WBC (3.8-10.6) k/uL RBC (3.80-5.40) m/uL Hgb (11.4-16.0) gm/dL Hct (34.0-46.0) % Neutrophils # (1.3-7.7) k/uL Sodium (137-145) mmol/L Potassium (3.5-5.1) mmol/L Chloride (98-107) mmol/L Carbon Dioxide (22-30) mmol/L BUN (7-17) mg/dL Creatinine (0.52-1.04) mg/dL Glucose (74-99) mg/dL POC Glucose (mg/dL) 178 H 220 H 192 H (75-99) mg/dL Procalcitonin (0.02-0.09) ng/mL Crossmatch 11/23/20 11/23/20 11/23/20 Range/Units 05:59 06:49 06:49 WBC 14.7 H (3.8-10.6) k/uL RBC 2.19 L (3.80-5.40) m/uL Hgb 7.2 L (11.4-16.0) gm/dL Hct 21.0 L (34.0-46.0) % Neutrophils # 12.7 H (1.3-7.7) k/uL Sodium 136 L (137-145) mmol/L Potassium 5.3 H (3.5-5.1) mmol/L Chloride (98-107) mmol/L Carbon Dioxide 31 H (22-30) mmol/L BUN (7-17) mg/dL Creatinine (0.52-1.04) mg/dL Glucose (74-99) mg/dL POC Glucose (mg/dL) 154 H (75-99) mg/dL Procalcitonin (0.02-0.09) ng/mL Crossmatch 11/23/20 Range/Units 10:33 WBC (3.8-10.6) k/uL RBC (3.80-5.40) m/uL Hgb (11.4-16.0) gm/dL Hct (34.0-46.0) % Neutrophils # (1.3-7.7) k/uL Sodium (137-145) mmol/L Potassium (3.5-5.1) mmol/L Chloride (98-107) mmol/L Carbon Dioxide (22-30) mmol/L BUN (7-17) mg/dL Creatinine (0.52-1.04) mg/dL Glucose (74-99) mg/dL POC Glucose (mg/dL) (75-99) mg/dL Procalcitonin (0.02-0.09) ng/mL Crossmatch See Detail
--- NOTE | 2020-11-23 14:56 | CT ---
EXAMINATION TYPE: CT abdomen pelvis w con DATE OF EXAM: 11/23/2020 COMPARISON: 01/07/2019 HISTORY: Anemia. CT DLP: 939.3 mGycm Automated exposure control for dose reduction was used. CONTRAST: Performed with IV Contrast, patient injected with 100ml mL of Isovue 300. Images obtained from the diaphragm to the floor the pelvis with IV contrast. There is some patchy airspace consolidation in both lower lobes. There is no pericardial effusion. Liver and spleen appear intact. The bile ducts are not dilated. Gallbladder is intact. Stomach is int act. There is no evidence of pancreatic mass. There is epigastric increased density in the omental fat over the anterior upper abdomen which is pro bably due to hernia surgery. There is some drainage tubing in the subcutaneous fat over the anterior abdominal wall. There is no adrenal mass. Kidneys show satisfactory contrast opacification. There is no hydronephrosi s. Ureters are not dilated. Delayed images show normal renal excretion. There is no retroperitoneal a denopathy. There is some intermediate density fluid in the pelvis with density of 42 which is suggest vinay of hemorrhage. There is Schuster catheter in the urinary bladder. There is no inguinal hernia. There is no evidence of a bowel obstruction. I see no evidence of pneumoperitoneum. The lumbar vertebra have normal alignment. There is narrowing of the L5-S1 disc space with spur forma tion. There is some facet arthropathy in the lower lumbar spine. There is no compression fracture. Th e bony pelvis appears intact. The hip joints appear intact. IMPRESSION: Intermediate density fluid in the pelvis consistent with intraperitoneal hemorrhage. Increased curvilinear and nodular density in the omental fat in the upper abdomen along the abdominal wall probably due to hernia surgery with hemorrhage. No bowel obstruction. Bilateral lower lobe pneumonia.
[2020-11-23 16:52] LABS: Glucose,Whole Blood 87 mg/dL (75-99)
[2020-11-23 20:52] LABS: Glucose,Whole Blood 142 mg/dL (75-99)
[2020-11-23] MEDS: INSULIN DETEMIR (LEVEMIR) 100 UNIT/ML SYR SQ SCH (20:54)
[2020-11-23] MEDS: LATANOPROST 0.005% OPHTH DROPS 2.5 ML BTL BOTH EYES SCH (21:29)
[2020-11-24] MEDS: IPRATROPIUM-ALBUTEROL 3 ML NEB INHALATION SCH ×6 (00:16→19:59)
[2020-11-24] MEDS ORDERED: VANCOMYCIN 1,250 MG in SODIUM CHLORIDE 0.9% 250 ML IVPB SCH (01:00)
[2020-11-24] MEDS: methylPREDNISolone SOD SUCCI 40 MG/ML 1 ML VIAL IV SCH ×4 (01:08→23:30)
[2020-11-24] MEDS: HYDROmorphone 1 MG/ML 1 ML SYRINGE IVP PRN ×4 (02:49→22:06)
[2020-11-24] MEDS: diphenhydrAMINE 25 MG CAP PO PRN ×4 (02:49→22:06)
[2020-11-24 03:47] LABS: Glucose,Whole Blood 95 mg/dL (75-99)
[2020-11-24 04:16] LABS: MCH 33.6 pg (25.0-35.0); MCHC 35.9 g/dL (31.0-37.0); MCV 93.5 fL (80.0-100.0); Mean Platelet Volume 7.4; Platelet Count 274 k/uL (150-450); RBC 2.02 m/uL (3.80-5.40); RDW 14.3 % (11.5-15.5); WBC 14.2 k/uL (3.8-10.6)
[2020-11-24 04:24] LABS: HCT 18.9 % (34.0-46.0); HGB 6.8 gm/dL (11.4-16.0)
[2020-11-24 04:31] LABS: African American GFR (CKD) >90 (>60 ml/min/1.73 sqM); Anion Gap 5 mmol/L; Blood Urea Nitrogen 20 mg/dL (7-17); Carbon Dioxide 31 mmol/L (22-30); Chloride 100 mmol/L (98-107); Glucose 70 mg/dL (74-99); Non-African American GFR(CKD) >90 (>60 ml/min/1.73 sqM); Potassium 4.5 mmol/L (3.5-5.1); Sodium 136 mmol/L (137-145)
[2020-11-24 07:28] LABS: Glucose,Whole Blood 68 mg/dL (75-99)
[2020-11-24 07:46] LABS: Glucose,Whole Blood 60 mg/dL (75-99)
[2020-11-24] MEDS: LACTATED RINGERS 1,000 ML IV SCH (07:51)
[2020-11-24] MEDS: CEFEPIME 1 GM in SODIUM CHLORIDE 0.9% 50 ML IVPB SCH (07:52)
[2020-11-24] MEDS: PANTOPRAZOLE 40 MG TABLET PO SCH (07:52)
[2020-11-24] MEDS: busPIRone HCl 5 MG TAB PO SCH ×2 (07:52→20:31)
[2020-11-24] MEDS: DOCUSATE 100 MG CAP PO SCH ×2 (07:53→20:31)
[2020-11-24] MEDS: FLUoxetine HCL 20 MG CAP PO SCH (07:54)
[2020-11-24] MEDS: guaiFENesin 600 MG TABLET.ER PO SCH ×2 (07:54→20:31)
[2020-11-24] MEDS: GABAPENTIN 300 MG CAP PO SCH ×3 (07:54→23:42)
[2020-11-24] MEDS: INSULIN ASPART (NovoLOG) 100 UNIT/ML VIAL SQ SCH ×4 (07:55→20:27)
[2020-11-24] MEDS: PIOGLITAZONE 15 MG TAB PO SCH (07:55)
[2020-11-24] MEDS: ISOSORBIDE MONONITRATE ER 30 MG TAB.ER.24H PO SCH (07:55)
[2020-11-24] MEDS: lisinopriL 5 MG TAB PO SCH (07:55)
[2020-11-24] MEDS: FENOFIBRATE 160 MG TAB PO SCH (07:55)
[2020-11-24] MEDS: NICOTINE 21MG/24HR PATCH TRANSDERM SCH (07:56)
[2020-11-24] MEDS: VERAPAMIL 40 MG TAB PO SCH ×2 (07:56→20:31)
[2020-11-24 08:05] LABS: Glucose,Whole Blood 81 mg/dL (75-99)
[2020-11-24 09:05] LABS: ABG Base Excess 5.7 mmol/L; ABG HCO3 30 mmol/L (21-25); ABG Oxygen Saturation 97.8 % (94-97); ABG PCO2 46 mmHg (35-45); ABG PH 7.43 (7.35-7.45); ABG PO2 99 mmHg (83-108); ABG TCO2 32 mmol/L (19-24); Allen Test Performed? Yes
--- NOTE | 2020-11-24 09:11 | XR ---
EXAMINATION TYPE: XR chest 1V portable DATE OF EXAM: 11/24/2020 HISTORY: Shortness of breath. COMPARISON: 11/23/2020 TECHNIQUE: Single view of the chest is submitted. FINDINGS: Demonstrated are scattered senescent parenchymal change. Worsening interstitial infiltrates throughout both lung dowling. The heart is stable. Hilar and mediastinal structures are within normal limits. Degenerative changes are seen of the dorsal spine. IMPRESSION: 1. Worsening interstitial infiltrates throughout both lung dowling.
[2020-11-24] MEDS: ENOXAPARIN 40 MG/0.4 ML SYRINGE SQ SCH (09:14)
[2020-11-24] MEDS: ALPRAZolam 0.5 MG TAB PO PRN ×2 (11:27→20:31)
--- NOTE | 2020-11-24 11:40 | P.PN ---
Subjective Progress Note Date: 11/24/20 CHIEF COMPLAINT: Incisional hernia HISTORY OF PRESENT ILLNESS: Patient is postop day #4 status post repair of incisional hernia with mesh and partial omentectomy. Patient was transferred to the ICU yesterday for acute respiratory failure. She is still requiring BiPAP. She had a computed tomography scan of the abdomen and pelvis that showed intermediate density fluid in the pelvis consistent with intraperitoneal hemorrhage. Increase curvilinear and nodular density in the omental fat in the upper abdomen along the abdominal wall probably due to hernia surgery with hemorrhage. No bowel obstruction. Bilateral lower lobe pneumonia. Patient does have abdominal pain. The she reports the pain is not increasing. Her hemoglobin has dropped to 6.8 and she is scheduled for 2 units of blood. Her L ovenox is on hold She's afebrile. Tachycardic heart rate 111 BP 144/79. She is currently nothing by mouth. JOSE drain with 50 mL of sanguinous output. She denies passing gas or having bowel movement. She does have some nausea. Critical care service did add Xanax for her anxiety. Chest x-ray showing worsening interstitial infiltrates throughout both lung dowling. Patient seen and examined with Dr. mustafa PHYSICAL EXAM: VITAL SIGNS: Reviewed. GENERAL: Well-developed in no acute distress. HEENT: No sclera icterus. Extraocular movements grossly intact. Moist buccal mucosa. Head is atraumatic, normocephalic. ABDOMEN: Soft. Nondistended. Incision site clean dry and intact. JOSE drain sanguinous fluid present NEUROLOGIC: Alert and oriented. Cranial nerves II through XII grossly intact. ASSESSMENT: 1. Incisional hernia status post repair with mesh and partial omentectomy 2. Intraperitoneal hemorrhage and increase curvilinear and nodular density in the omental fat in the upper abdomen along the abdominal wall probably due to hernia surgery with hemorrhage noted on CAT scan 3. Acute blood loss anemia secondary to peritoneal hemorrhage and hemorrhage in the omental fat in the upper abdomen 4. Acute hypoxic respiratory failure with pneumonia PLAN: -Continue ICU management -Continue supportive care -Patient scheduled for 2 units of PRBCs -Discontinue Lovenox due to anemia and intraperitoneal -Continue pain medications -GI prophylaxis Protonix and DVT prophylaxis and SCDs Physician Floorhand note has been reviewed by physician. Signing provider agrees with the documented findings, assessment, and plan of care. Objective - Vital Signs Vital signs: Vital Signs Temp 98.7 F 11/24/20 10:30 Pulse 106 H 11/24/20 11:25 Resp 28 H 11/24/20 11:00 BP 144/79 11/24/20 11:00 Pulse Ox 96 11/24/20 11:00 Intake & Output 11/23/20 11/24/20 11/24/20 18:59 06:59 18:59 Intake Total 170 830 470 Output Total 1495 795 285 Balance -1325 35 185 Weight 66.5 kg Intake: IV 70 50 70 .9 KVO 70 50 20 Cefepime 1 gm In Sodium 50 Chloride 0.9% 50 ml @ 12. 5 mls/hr IVPB Q12HR [facility] Rx#:[id number] Intake, IV Titration 300 Amount Cefepime 1 gm In Sodium 50 Chloride 0.9% 50 ml @ 12. 5 mls/hr IVPB Q12HR [facility] Rx#:[id number] Vancomycin 1,250 mg In 250 Sodium Chloride 0.9% 250 ml @ 125 mls/hr IVPB Q16H [facility] Rx#:[id number] Oral 100 480 400 Blood Product 0 Rc As-1 Unit 0 [id number] Output: Drainage 120 50 Right Upper Abdomen 120 50 Urine 1375 745 285 Other: Voiding Method Indwelling Catheter Indwelling Catheter - Labs CBC & Chem 7: 11/24/20 03:31 11/24/20 03:31 Labs: Abnormal Lab Results - Last 24 Hours (Table) 11/23/20 11/23/20 11/24/20 Range/Units 10:33 20:50 03:31 WBC 14.2 H (3.8-10.6) k/uL RBC 2.02 L (3.80-5.40) m/uL Hgb 6.8 L* (11.4-16.0) gm/dL Hct 18.9 L* (34.0-46.0) % ABG pCO2 (35-45) mmHg ABG HCO3 (21-25) mmol/L ABG Total CO2 (19-24) mmol/L ABG O2 Saturation (94-97) % Sodium (137-145) mmol/L Carbon Dioxide (22-30) mmol/L BUN (7-17) mg/dL Glucose (74-99) mg/dL POC Glucose (mg/dL) 142 H (75-99) mg/dL Crossmatch See Detail 11/24/20 11/24/20 11/24/20 Range/Units 03:31 07:27 07:45 WBC (3.8-10.6) k/uL RBC (3.80-5.40) m/uL Hgb (11.4-16.0) gm/dL Hct (34.0-46.0) % ABG pCO2 (35-45) mmHg ABG HCO3 (21-25) mmol/L ABG Total CO2 (19-24) mmol/L ABG O2 Saturation (94-97) % Sodium 136 L (137-145) mmol/L Carbon Dioxide 31 H (22-30) mmol/L BUN 20 H (7-17) mg/dL Glucose 70 L (74-99) mg/dL POC Glucose (mg/dL) 68 L 60 L (75-99) mg/dL Crossmatch 11/24/20 Range/Units 09:02 WBC (3.8-10.6) k/uL RBC (3.80-5.40) m/uL Hgb (11.4-16.0) gm/dL Hct (34.0-46.0) % ABG pCO2 46 H (35-45) mmHg ABG HCO3 30 H (21-25) mmol/L ABG Total CO2 32 H (19-24) mmol/L ABG O2 Saturation 97.8 H (94-97) % Sodium (137-145) mmol/L Carbon Dioxide (22-30) mmol/L BUN (7-17) mg/dL Glucose (74-99) mg/dL POC Glucose (mg/dL) (75-99) mg/dL Crossmatch Microbiology - Last 24 Hours (Table) 11/22/20 13:01 Blood Culture - Preliminary Blood No Growth after 24 hours 11/22/20 13:13 Blood Culture - Preliminary Blood No Growth after 24 hours
[2020-11-24 12:12] LABS: Glucose,Whole Blood 79 mg/dL (75-99)
[2020-11-24] MEDS: VANCOMYCIN 1,250 MG in SODIUM CHLORIDE 0.9% 250 ML IVPB SCH ×2 (12:56→23:43)
--- NOTE | 2020-11-24 14:31 | P.PN ---
Subjective Progress Note Date: 11/24/20 Principal diagnosis: Acute hypoxic respiratory failure secondary to bilateral pneumonia, possible aspiration pneumonia and possible ARDS. This is a 60-year-old -[place] female, with history of chronic incisional hernia, patient underwent operative repair of the incisional hernia with mesh on 11/20/2020. Her surgery was basically uneventful. However over the last 3 days, the patient has been developing worsening shortness of breath and worsening chest x-ray showing bilateral interstitial infiltrates were in the differential diagnoses could be aspiration pneumonia, ARDS, or acute diastolic congestive heart failure. Her oxygen requirement has increased significantly since admission, and when I saw the patient this morning she was on BiPAP on the percent, O2 saturation was marginal, patient was noted to be quite tachypneic and tachycardic, and as soon as I laid eyes on the patient, I recommended immediate transfer to the ICU. In the meantime I reviewed her labs, patient dropped about 4 g of hemoglobin since admission chest x-ray has been steadily getting worse, patient is noted to have leukocytosis with WBC count of 14.7, hemoglobin is down to 7.2 with significant symptoms of shortness of breath, baseline hemoglobin was 10.7. Echocardiogram showed good LV function. Her a BNP level is normal. CT of the abdomen and pelvis was repeated this morning, and results of which are pending. Considering the worsening chest x-ray and considering the worsening clinical status, I did recommend immediate transfer of the patient to the ICU. Patient is already on bronchodilators, she is also empirically on antibiotics, she is also on methylprednisolone at 40 mg IV push every 8 hours, and she is also on vancomycin as well as on Protonix. He shouldn't is receiving updrafts in the form of DuoNeb 4 times a day and when necessary. ABG done yesterday showed a pO2 of 49 pCO2 of 40 H and pH of 7.3, and this was done on 100% FiO2. Patient was reevaluated today on 11/24/2020, remains in the intensive care unit, remains on BiPAP with IPAP of 14 EPAP of 6 and on the percent FiO2. IV fluids at KVO, chest x-ray continues to show bilateral interstitial infiltrates. Patient is yet to receive 2 units of packed RBCs which I have ordered last night. Patient remains quite short of breath especially when she removes her BiPAP, and I have recommended that we continue antibiotics empirically as well as steroids, I'm suspecting that the patient may have aspirated and she may be developing an ARDS picture. Strongly doubt congestive heart failure since she has good echocardiogram and good LV function, and she had normal BNP level. Her pro calcitonin level was elevated at 0.74. Testing for COVID-19 PCR was negative, will go ahead and order ab titer. ABG today on BiPAP showed a pO2 of 99 pCO2 of 46 pH of 7.43. Tried the patient on high flow oxygen, did not seem to help, patient desaturated, hence I kept her back on BiPAP. Objective - Vital Signs Vital signs: Vital Signs Temp 98.6 F 11/24/20 13:18 Pulse 100 11/24/20 13:18 Resp 23 11/24/20 13:18 BP 122/73 11/24/20 13:18 Pulse Ox 95 11/24/20 13:18 Intake & Output 11/23/20 11/24/20 11/24/20 18:59 06:59 18:59 Intake Total 170 830 780 Output Total 1495 795 285 Balance -1325 35 495 Weight 66.5 kg Intake: IV 70 50 70 .9 KVO 70 50 20 Cefepime 1 gm In Sodium 50 Chloride 0.9% 50 ml @ 12. 5 mls/hr IVPB Q12HR [facility] Rx#:[id number] Intake, IV Titration 300 Amount Cefepime 1 gm In Sodium 50 Chloride 0.9% 50 ml @ 12. 5 mls/hr IVPB Q12HR [facility] Rx#:[id number] Vancomycin 1,250 mg In 250 Sodium Chloride 0.9% 250 ml @ 125 mls/hr IVPB Q16H [facility] Rx#:[id number] Oral 100 480 400 Blood Product 310 Rc As-1 Unit 310 [id number] Output: Drainage 120 50 Right Upper Abdomen 120 50 Urine 1375 745 285 Other: Voiding Method Indwelling Catheter Indwelling Catheter - Exam Physical Exam: Revealed 60-year-old female in moderate severe respiratory distress on BiPAP. Could not tolerate coming off BiPAP. Head: Atraumatic, normocephalic. HEENT:[Neck is supple.] [No neck masses.] [No thyromegaly.] [No JVD.] Chest: Crackles and rhonchi at the bases. Symmetrical chest expansion. Cardiac Exam: [Normal S1 and S2, no S3 gallop, no murmur.] Abdomen: [Postsurgical, Soft, nontender, no megaly, no rebound, no guarding, normal bowel sounds.] Patient has a binder in place. Extremities: [No clubbing, no edema, no cyanosis.] Neurological Exam: Alert and oriented 3. [No focal neurologic deficit.] Psychiatric: Normal mood, affect and normal mental status examination. Skin: No rashes. - Labs CBC & Chem 7: 11/24/20 03:31 11/24/20 03:31 Labs: Abnormal Lab Results - Last 24 Hours (Table) 11/23/20 11/23/20 11/24/20 Range/Units 10:33 20:50 03:31 WBC 14.2 H (3.8-10.6) k/uL RBC 2.02 L (3.80-5.40) m/uL Hgb 6.8 L* (11.4-16.0) gm/dL Hct 18.9 L* (34.0-46.0) % ABG pCO2 (35-45) mmHg ABG HCO3 (21-25) mmol/L ABG Total CO2 (19-24) mmol/L ABG O2 Saturation (94-97) % Sodium (137-145) mmol/L Carbon Dioxide (22-30) mmol/L BUN (7-17) mg/dL Glucose (74-99) mg/dL POC Glucose (mg/dL) 142 H (75-99) mg/dL Crossmatch See Detail 11/24/20 11/24/20 11/24/20 Range/Units 03:31 07:27 07:45 WBC (3.8-10.6) k/uL RBC (3.80-5.40) m/uL Hgb (11.4-16.0) gm/dL Hct (34.0-46.0) % ABG pCO2 (35-45) mmHg ABG HCO3 (21-25) mmol/L ABG Total CO2 (19-24) mmol/L ABG O2 Saturation (94-97) % Sodium 136 L (137-145) mmol/L Carbon Dioxide 31 H (22-30) mmol/L BUN 20 H (7-17) mg/dL Glucose 70 L (74-99) mg/dL POC Glucose (mg/dL) 68 L 60 L (75-99) mg/dL Crossmatch 11/24/20 Range/Units 09:02 WBC (3.8-10.6) k/uL RBC (3.80-5.40) m/uL Hgb (11.4-16.0) gm/dL Hct (34.0-46.0) % ABG pCO2 46 H (35-45) mmHg ABG HCO3 30 H (21-25) mmol/L ABG Total CO2 32 H (19-24) mmol/L ABG O2 Saturation 97.8 H (94-97) % Sodium (137-145) mmol/L Carbon Dioxide (22-30) mmol/L BUN (7-17) mg/dL Glucose (74-99) mg/dL POC Glucose (mg/dL) (75-99) mg/dL Crossmatch Microbiology - Last 24 Hours (Table) 11/22/20 13:01 Blood Culture - Preliminary Blood No Growth after 24 hours 11/22/20 13:13 Blood Culture - Preliminary Blood No Growth after 24 hours Assessment and Plan Assessment: Impression: Acute hypoxic respiratory failure Acute bilateral pneumonia, differential diagnoses includes aspiration pneumonia, it also includes ARDS/noncardiogenic pulmonary edema or possibly cardiogenic pulmonary edema which is felt to be less likely. Status post repair of incisional hernia with mesh placement. History of underlying COPD History of type 2 diabetes History of GERD Benign essential hypertension Degenerative joint disease Remote history of bowel resection History of tubal ligation History of laparoscopic Ozzy fundoplasty Acute blood loss anemia with a drop of almost 4 g since surgery. This is again related to intraperitoneal hemorrhage as noted on the CT of the abdomen and pelvis. Patient will receive 2 units of packed RBCs today Moderate severe pulmonary hypertension Recommendation: Continue to monitor the patient in the ICU as she is at very high risk of worsening respiratory status and requiring intubation and mechanical ventilation. Continue BiPAP for now. Transfuse patient with 2 units of packed RBCs. Continue empiric antibiotics. Continue bronchodilators. Continue steroids. Diurese posttransfusion. Echocardiogram failed to show LV dysfunction. Continue GI and DVT prophylaxis. Titrate FiO2 accordingly , did not tolerate transitioning to high flow oxygen We'll continue to follow closely. Prognosis remains extremely guarded Critical care time is over 30 minutes Time with Patient: Greater than 30
--- NOTE | 2020-11-24 15:45 | CDI ---
Documentation Clarification Form Date: 11/24/2020 03:32:26 PM From: Tammi Soriano CCS, CCDS Admit Date: 11/21/2020 11:30:00 PM Patient Name: Vivek Bueno Visit Number: [id number] Discharge Date: ATTENTION: The Clinical Documentation Specialists (CDI) and [facility] Coding Staff appreciate your assistance in clarifying documentation. Please respond to the clarification below the line at the bottom and electronically sign. The CDI & [facility] Coding staff will review the response and follow-up if needed. Please note: Queries are made part of the Legal Health Record. If you have any questions, please contact the author of this message via ITS. Dr. Manjit Hester: Per the 11/24 General Surgery Progress Note the following is documented: Incisional hernia status post repair with mesh and partial omentectomy. Intraperitoneal hemorrhage and increase curvilinear and nodular density in the omental fat in the upper abdomen along the abdominal wall probably due to hernia surgery with hemorrhage noted on CAT scan. Acute blood loss anemia secondary to peritoneal hemorrhage and hemorrhage in the omental fat in the upper abdomen. Additional clarification is requested regarding the relationship, if any, that exists between the diagnosis and the procedure. Patients Admitting Diagnosis 11/20 Procedure Note: Incisional hernia Post-Operative Diagnosis 11/20 Postop Procedure Note: Incisional Hernia Procedure performed 11/20: Operative repair of incisional hernia with mesh, Partial Omentectomy History/Risk Factors per the 11/20 General Surgery H/P: DM II, Hypertension, Hyperlipidemia, COPD, GERD, OA, Nicotine Dependence. Clinical Indicators: Presented for an elective repair of incisional hernia. Hgb 11/21: 10.7, 11/22: 7.0 - 7.5, 11/23: 7.2, 11/24: 6.8 Hct 11/21: 30.9, 11/22 22.0 - 22.4, 11/23: 21.0, 11/24: 18.9 11/23 CT Abdomen/Pelvis: Intermediate density fluid in the pelvis consistent with intraperitoneal hemorrhage. Increased curvilinear and nodular density in the omental fat in the upper abdomen along the abdominal wall probably due to hernia surgery with hemorrhage. No bowel obstruction. Bilateral lower lobe pneumonia. Treatment: 11/23 Patient was transferred to ICU for worsening respiratory condtion, now on BiPAP. 11/24 2 units PRBCs ordered. Lovenox dc'd due to Anemia & Intraperitoneal Bleed. Pain medications. IV Vancomycin, IV Solumedrol, IV Cefepime. What relationship, if any, exists between the diagnosis of ABLA and Intraperitoneal hemorrhage and the procedure: [ ] ABLA and Intraperitoneal hemorrhage is a complication of surgical procedure [ ] ABLA and Intraperitoneal hemorrhage is an expected outcome of the surgical procedure [ ] ABLA and Intraperitoneal hemorrhage is related to the patients following co-morbid condition(s), please specify: & is/are not a complication(s) of the procedure [ ] Other please specify: [ ] Unable to determine (Template Last Revised: September 2020) MTDD
[2020-11-24] MEDS: CEFEPIME 2 GM in SODIUM CHLORIDE 0.9% 100 ML IVPB SCH ×2 (17:43→23:43)
[2020-11-24 17:50] LABS: Glucose,Whole Blood 148 mg/dL (75-99)
--- NOTE | 2020-11-24 17:51 | P.PN ---
Subjective Progress Note Date: 11/24/20 Principal diagnosis: Hernia repair Shortness of breath has improved today according to patient. Patient still having abdominal pain also is feeling better today. No fevers or chills. Objective - Vital Signs Vital signs: Vital Signs Temp 98.5 F 11/24/20 15:08 Pulse 115 H 11/24/20 15:23 Resp 32 H 11/24/20 15:08 BP 175/94 11/24/20 15:08 Pulse Ox 96 11/24/20 15:08 Intake & Output 11/23/20 11/24/20 11/24/20 18:59 06:59 18:59 Intake Total 170 830 780 Output Total 1495 795 285 Balance -1325 35 495 Weight 66.5 kg Intake: IV 70 50 70 .9 KVO 70 50 20 Cefepime 1 gm In Sodium 50 Chloride 0.9% 50 ml @ 12. 5 mls/hr IVPB Q12HR [facility] Rx#:[id number] Intake, IV Titration 300 Amount Cefepime 1 gm In Sodium 50 Chloride 0.9% 50 ml @ 12. 5 mls/hr IVPB Q12HR [facility] Rx#:[id number] Vancomycin 1,250 mg In 250 Sodium Chloride 0.9% 250 ml @ 125 mls/hr IVPB Q16H [facility] Rx#:[id number] Oral 100 480 400 Blood Product 310 As-1 Unit 0 [id number] Rc As-1 Unit 310 [id number] Output: Drainage 120 50 Right Upper Abdomen 120 50 Urine 1375 745 285 Other: Voiding Method Indwelling Catheter Indwelling Catheter - Exam Constitutional: In moderate respiratory distress, able to finish sentences Eyes:Anicteric sclerae, moist conjunctiva, no lid-lag, PERRLA, ENMT: Oropharynx clear, no erythema, exudates Neck: Supple, FROM, no masses, or JVD, No carotid bruits, No thyromegaly Lungs: Clear to auscultation, Clear to percussion, Normal respiratory effort, no accessory muscle use Cardiovascular: Heart regular in rate and rhythm, No murmurs, gallops, or rubs, No peripheral edema Abdominal: Surgical scar, Soft, Nontender, no guarding, rebound or rigidity, Normoactive bowel sounds, No hepatomegaly, No splenomegaly, No palpable mass Skin: Normal temperature, tone, texture, turgor, no induration, No subcutaneous nodules, No rash, lesions, No ulcers Extremities: No digital cyanosis, No clubbing, Pedal pulses intact and symmetrical, Radial pulses intact and symmetrical, No calf tenderness Psychiatric: Alert and oriented to person, place and time, appropriate affect, intact judgement Neuro: Muscles Strength 5/5 in all 4 extremities, Sensation to light touch grossly present throughout, Cranial nerves II-XII grossly intact, no focal sensory deficits - Labs CBC & Chem 7: 11/24/20 03:31 11/24/20 03:31 Labs: Abnormal Lab Results - Last 24 Hours (Table) 11/23/20 11/23/20 11/24/20 Range/Units 10:33 20:50 03:31 WBC 14.2 H (3.8-10.6) k/uL RBC 2.02 L (3.80-5.40) m/uL Hgb 6.8 L* (11.4-16.0) gm/dL Hct 18.9 L* (34.0-46.0) % ABG pCO2 (35-45) mmHg ABG HCO3 (21-25) mmol/L ABG Total CO2 (19-24) mmol/L ABG O2 Saturation (94-97) % Sodium (137-145) mmol/L Carbon Dioxide (22-30) mmol/L BUN (7-17) mg/dL Glucose (74-99) mg/dL POC Glucose (mg/dL) 142 H (75-99) mg/dL Crossmatch See Detail 11/24/20 11/24/20 11/24/20 Range/Units 03:31 07:27 07:45 WBC (3.8-10.6) k/uL RBC (3.80-5.40) m/uL Hgb (11.4-16.0) gm/dL Hct (34.0-46.0) % ABG pCO2 (35-45) mmHg ABG HCO3 (21-25) mmol/L ABG Total CO2 (19-24) mmol/L ABG O2 Saturation (94-97) % Sodium 136 L (137-145) mmol/L Carbon Dioxide 31 H (22-30) mmol/L BUN 20 H (7-17) mg/dL Glucose 70 L (74-99) mg/dL POC Glucose (mg/dL) 68 L 60 L (75-99) mg/dL Crossmatch 11/24/20 Range/Units 09:02 WBC (3.8-10.6) k/uL RBC (3.80-5.40) m/uL Hgb (11.4-16.0) gm/dL Hct (34.0-46.0) % ABG pCO2 46 H (35-45) mmHg ABG HCO3 30 H (21-25) mmol/L ABG Total CO2 32 H (19-24) mmol/L ABG O2 Saturation 97.8 H (94-97) % Sodium (137-145) mmol/L Carbon Dioxide (22-30) mmol/L BUN (7-17) mg/dL Glucose (74-99) mg/dL POC Glucose (mg/dL) (75-99) mg/dL Crossmatch Microbiology - Last 24 Hours (Table) 11/22/20 13:13 Blood Culture - Preliminary Blood No Growth after 48 hours 11/22/20 13:01 Blood Culture - Preliminary Blood No Growth after 48 hours Assessment and Plan Plan: Status post operative repair of incisional hernia with mesh and partial omenectomy 11/20/20. -CT abd/pelvis repeated showing intra peritoneal hemorrhage -Pain control per surgery Acute respiratory failure with hypoxia possibly sec to HCAP -O2 supplements and bipap. Pulm following -Broad spectrum abx started. -Procal elevated, blood cx no growth to date. -CXR ordered showing fluid overload vs infiltrates, more likely to be infiltrates. -Bnp and troponin both okay -EKG showing sinus tachycardia Acute blood loss anemia secondary to intraperitoneal hemorrhage found on computed tomography scan -Continue to monitor hemoglobin -hold Lovenox -patient is status post 2 units of packed red blood cell transfusion KOBY -Resolved. Insulin-dependent diabetes mellitus type 2 with hypoglycemia -Hold levemir -Hold Glucophage, continue NovoLog sliding scale. -Heart healthy carb consistent diet. Hypomagnesemia -Replace and follow in am COPD exacerbation -DuoNeb and steroids -Encourage use of incentive spirometer 10-15 times hourly while awake. Hypertension -Monitor vital signs and continue daily medication management with Imdur, lisinopril, and verapamil. Hyperlipidemia -Continue daily medication management. -Heart healthy carb consistent diet. History of CAD with carotid stenosis -Patient to continue home meds with the exception of aspirin, may resume once cleared by primary general surgery team. Nicotine dependence on cigarettes -NicoDerm patch -Patient to receive continued education and importance on the benefits of smoking cessation and risks of continued use up to and including .
[2020-11-24 20:28] LABS: Glucose,Whole Blood 77 mg/dL (75-99)
[2020-11-24] MEDS ORDERED: INSULIN DETEMIR (LEVEMIR) 100 UNIT/ML SYR SQ SCH (21:00)
[2020-11-24] MEDS ORDERED: FUROSEMIDE 10 MG/ML 4 ML VIAL IV STA (21:19)
[2020-11-24 21:29] LABS: HCT 30.5 % (34.0-46.0); MCH 30.5 pg (25.0-35.0); MCHC 32.6 g/dL (31.0-37.0); MCV 93.3 fL (80.0-100.0); Mean Platelet Volume 7.3; Platelet Count 296 k/uL (150-450); RBC 3.27 m/uL (3.80-5.40); RDW 15.5 % (11.5-15.5); WBC 15.4 k/uL (3.8-10.6)
[2020-11-25 02:19] LABS: Glucose,Whole Blood 154 mg/dL (75-99)
[2020-11-25] MEDS: IPRATROPIUM-ALBUTEROL 3 ML NEB INHALATION SCH ×5 (02:29→20:30)
[2020-11-25] MEDS ORDERED: IPRATROPIUM-ALBUTEROL 3 ML NEB INHALATION PRN (02:31)
[2020-11-25 04:06] LABS: HCT 28.9 % (34.0-46.0); HGB 10.1 gm/dL (11.4-16.0); MCH 31.8 pg (25.0-35.0); MCHC 34.9 g/dL (31.0-37.0); MCV 91.1 fL (80.0-100.0); Mean Platelet Volume 7.1; Platelet Count 291 k/uL (150-450); RBC 3.18 m/uL (3.80-5.40); WBC 17.3 k/uL (3.8-10.6)
[2020-11-25] MEDS: diphenhydrAMINE 25 MG CAP PO PRN ×2 (04:06→18:43)
[2020-11-25] MEDS: HYDROmorphone 1 MG/ML 1 ML SYRINGE IVP PRN ×2 (04:08→18:43)
[2020-11-25 04:37] LABS: African American GFR (CKD) >90 (>60 ml/min/1.73 sqM); Anion Gap 5 mmol/L; Blood Urea Nitrogen 24 mg/dL (7-17); Carbon Dioxide 33 mmol/L (22-30); Chloride 96 mmol/L (98-107); Glucose 159 mg/dL (74-99); Non-African American GFR(CKD) >90 (>60 ml/min/1.73 sqM); Potassium 4.9 mmol/L (3.5-5.1); Sodium 134 mmol/L (137-145)
[2020-11-25] MEDS: LATANOPROST 0.005% OPHTH DROPS 2.5 ML BTL BOTH EYES SCH (06:58)
[2020-11-25 07:00] LABS: Glucose,Whole Blood 200 mg/dL (75-99)
[2020-11-25] MEDS: INSULIN ASPART (NovoLOG) 100 UNIT/ML VIAL SQ SCH ×4 (07:04→21:54)
[2020-11-25] MEDS: LACTATED RINGERS 1,000 ML IV SCH (07:05)
--- NOTE | 2020-11-25 07:14 | XR ---
EXAMINATION TYPE: XR chest 1V portable DATE OF EXAM: 11/25/2020 COMPARISON: 11/24/2020 HISTORY: Shortness of breath TECHNIQUE: Single frontal view of the chest is obtained. FINDINGS: A diffuse interstitial pattern. Postsurgical change left shoulder. Atherosclerotic change aorta. Heart size mildly enlarged. Tiny bilateral pleural effusions. IMPRESSION: Stable diffuse interstitial infiltrates.
[2020-11-25] MEDS ORDERED: FUROSEMIDE 10 MG/ML 4 ML VIAL IV STA (08:32)
[2020-11-25] MEDS: NICOTINE 21MG/24HR PATCH TRANSDERM SCH (09:06)
[2020-11-25] MEDS: CEFEPIME 2 GM in SODIUM CHLORIDE 0.9% 100 ML IVPB SCH ×2 (09:06→17:53)
[2020-11-25] MEDS: busPIRone HCl 5 MG TAB PO SCH ×2 (09:06→21:53)
[2020-11-25] MEDS: ALPRAZolam 0.5 MG TAB PO PRN ×2 (09:06→21:53)
[2020-11-25] MEDS: VERAPAMIL 40 MG TAB PO SCH ×2 (09:06→21:53)
[2020-11-25] MEDS: methylPREDNISolone SOD SUCCI 40 MG/ML 1 ML VIAL IV SCH ×2 (09:06→17:53)
[2020-11-25] MEDS: ISOSORBIDE MONONITRATE ER 30 MG TAB.ER.24H PO SCH (09:07)
[2020-11-25] MEDS: FENOFIBRATE 160 MG TAB PO SCH (09:07)
[2020-11-25] MEDS: DOCUSATE 100 MG CAP PO SCH ×2 (09:07→21:53)
[2020-11-25] MEDS: lisinopriL 5 MG TAB PO SCH (09:07)
[2020-11-25] MEDS: GABAPENTIN 300 MG CAP PO SCH ×3 (09:07→21:54)
[2020-11-25] MEDS: PANTOPRAZOLE 40 MG TABLET PO SCH (09:07)
[2020-11-25] MEDS: FLUoxetine HCL 20 MG CAP PO SCH (09:07)
[2020-11-25] MEDS: guaiFENesin 600 MG TABLET.ER PO SCH ×2 (09:07→21:58)
--- NOTE | 2020-11-25 10:18 | P.PN ---
Subjective Progress Note Date: 11/25/20 Principal diagnosis: Incisional hernia Patient remains on BiPAP. Mild discomfort. White blood cell count increased slightly to 17.3. Patient tachycardic. Hemoglobin better at 10.1. Objective - Vital Signs Vital signs: Vital Signs Temp 98.3 F 11/25/20 08:00 Pulse 100 11/25/20 10:00 Resp 24 11/25/20 10:00 BP 129/90 11/25/20 10:00 Pulse Ox 97 11/25/20 10:00 Intake & Output 11/24/20 11/25/20 11/25/20 18:59 06:59 18:59 Intake Total 1745 1190 570 Output Total 914 4182 598 Balance 690 -4211 -49 Weight 67.2 kg Intake: IV 325 950 450 .9 KVO 100 Cefepime 1 gm In Sodium 100 100 50 Chloride 0.9% 50 ml @ 12. 5 mls/hr IVPB Q12HR [facility] Rx#:[id number] Lactated Ringers 1,000 ml 600 400 @ 100 mls/hr IV .Q10H [facility] Rx#:[id number] Vancomycin 1,250 mg In 125 Sodium Chloride 0.9% 250 ml @ 125 mls/hr IVPB Q12H [facility] Rx#:[id number] Vancomycin 1,250 mg In 250 Sodium Chloride 0.9% 250 ml @ 125 mls/hr IVPB Q16H [facility] Rx#:[id number] Oral 800 240 120 Blood Product 620 Rc As-1 Unit 310 [id number] Rc As-1 Unit 310 [id number] Output: Drainage 40 12 Right Upper Abdomen 40 12 Urine 875 2830 598 Other: Voiding Method Indwelling Catheter Indwelling Catheter Indwelling Catheter - Exam Abdomen: Soft, mild distention, resting clean and dry, JOSE serosanguineous, mild tenderness - Labs CBC & Chem 7: 11/25/20 03:55 11/25/20 03:55 Labs: Abnormal Lab Results - Last 24 Hours (Table) 11/23/20 11/24/20 11/24/20 Range/Units 10:33 17:48 20:03 WBC 15.4 H (3.8-10.6) k/uL RBC 3.27 L (3.80-5.40) m/uL Hgb 10.0 L D (11.4-16.0) gm/dL Hct 30.5 L (34.0-46.0) % Sodium (137-145) mmol/L Chloride (98-107) mmol/L Carbon Dioxide (22-30) mmol/L BUN (7-17) mg/dL Glucose (74-99) mg/dL POC Glucose (mg/dL) 148 H (75-99) mg/dL Crossmatch See Detail 11/25/20 11/25/20 11/25/20 Range/Units 02:17 03:55 03:55 WBC 17.3 H (3.8-10.6) k/uL RBC 3.18 L (3.80-5.40) m/uL Hgb 10.1 L (11.4-16.0) gm/dL Hct 28.9 L (34.0-46.0) % Sodium 134 L (137-145) mmol/L Chloride 96 L (98-107) mmol/L Carbon Dioxide 33 H (22-30) mmol/L BUN 24 H (7-17) mg/dL Glucose 159 H (74-99) mg/dL POC Glucose (mg/dL) 154 H (75-99) mg/dL Crossmatch 11/25/20 Range/Units 06:58 WBC (3.8-10.6) k/uL RBC (3.80-5.40) m/uL Hgb (11.4-16.0) gm/dL Hct (34.0-46.0) % Sodium (137-145) mmol/L Chloride (98-107) mmol/L Carbon Dioxide (22-30) mmol/L BUN (7-17) mg/dL Glucose (74-99) mg/dL POC Glucose (mg/dL) 200 H (75-99) mg/dL Crossmatch Microbiology - Last 24 Hours (Table) 11/22/20 13:13 Blood Culture - Preliminary Blood No Growth after 48 hours 11/22/20 13:01 Blood Culture - Preliminary Blood No Growth after 48 hours Assessment and Plan (1) Incisional hernia Narrative/Plan: Patient's respiratory status stable and may be slightly improving. Labs noted. Keep nothing by mouth for now. Hopefully can start increasing activity soon. Current Visit: Yes Status: Acute Code(s): K43.2 - INCISIONAL HERNIA WITHOUT OBSTRUCTION OR GANGRENE SNOMED Code(s): 861129132
[2020-11-25] MEDS ORDERED: VANCOMYCIN TROUGH DUE 1 EACH MISC MISCELLANE ONE (11:00)
--- NOTE | 2020-11-25 11:26 | P.PN ---
Subjective Progress Note Date: 11/25/20 Principal diagnosis: Acute hypoxic respiratory failure secondary to bilateral pneumonia, possible aspiration pneumonia and possible ARDS. This is a 60-year-old -[place] female, with history of chronic incisional hernia, patient underwent operative repair of the incisional hernia with mesh on 11/20/2020. Her surgery was basically uneventful. However over the last 3 days, the patient has been developing worsening shortness of breath and worsening chest x-ray showing bilateral interstitial infiltrates were in the differential diagnoses could be aspiration pneumonia, ARDS, or acute diastolic congestive heart failure. Her oxygen requirement has increased significantly since admission, and when I saw the patient this morning she was on BiPAP on the percent, O2 saturation was marginal, patient was noted to be quite tachypneic and tachycardic, and as soon as I laid eyes on the patient, I recommended immediate transfer to the ICU. In the meantime I reviewed her labs, patient dropped about 4 g of hemoglobin since admission chest x-ray has been steadily getting worse, patient is noted to have leukocytosis with WBC count of 14.7, hemoglobin is down to 7.2 with significant symptoms of shortness of breath, baseline hemoglobin was 10.7. Echocardiogram showed good LV function. Her a BNP level is normal. CT of the abdomen and pelvis was repeated this morning, and results of which are pending. Considering the worsening chest x-ray and considering the worsening clinical status, I did recommend immediate transfer of the patient to the ICU. Patient is already on bronchodilators, she is also empirically on antibiotics, she is also on methylprednisolone at 40 mg IV push every 8 hours, and she is also on vancomycin as well as on Protonix. He shouldn't is receiving updrafts in the form of DuoNeb 4 times a day and when necessary. ABG done yesterday showed a pO2 of 49 pCO2 of 40 H and pH of 7.3, and this was done on 100% FiO2. Patient was reevaluated today on 11/24/2020, remains in the intensive care unit, remains on BiPAP with IPAP of 14 EPAP of 6 and on the percent FiO2. IV fluids at KVO, chest x-ray continues to show bilateral interstitial infiltrates. Patient is yet to receive 2 units of packed RBCs which I have ordered last night. Patient remains quite short of breath especially when she removes her BiPAP, and I have recommended that we continue antibiotics empirically as well as steroids, I'm suspecting that the patient may have aspirated and she may be developing an ARDS picture. Strongly doubt congestive heart failure since she has good echocardiogram and good LV function, and she had normal BNP level. Her pro calcitonin level was elevated at 0.74. Testing for COVID-19 PCR was negative, will go ahead and order ab titer. ABG today on BiPAP showed a pO2 of 99 pCO2 of 46 pH of 7.43. Tried the patient on high flow oxygen, did not seem to help, patient desaturated, hence I kept her back on BiPAP. Patient was reevaluated today on 11/25/20, patient remains in the ICU, remains on BiPAP, she is on 25/12 on 100% FiO2. Patient received Lasix yesterday after her blood transfusion, and she diuresed about 2 L. Slight improvement was noted in her O2 saturations, and her chest x-ray is showing slight improvement, hence I would recommend Lasix to be given again today at 40 mg IV push times one. Chest x-ray was reviewed. WBC count of 17.3 hemoglobin is 10.1. Electrolytes abnormal. Renal profile is normal. Bicarb is 33. Blood cultures have been negative so far. Hemoglobin is holding at 10 today. Objective - Vital Signs Vital signs: Vital Signs Temp 98.3 F 11/25/20 08:00 Pulse 100 11/25/20 10:00 Resp 24 11/25/20 10:00 BP 129/90 11/25/20 10:00 Pulse Ox 97 11/25/20 10:00 Intake & Output 11/24/20 11/25/20 11/25/20 18:59 06:59 18:59 Intake Total 1745 1190 670 Output Total 919 8552 1808 Balance 295 -7657 -2265 Weight 67.2 kg Intake: IV 325 950 550 .9 KVO 100 Cefepime 1 gm In Sodium 100 100 50 Chloride 0.9% 50 ml @ 12. 5 mls/hr IVPB Q12HR [facility] Rx#:[id number] Lactated Ringers 1,000 ml 600 500 @ 100 mls/hr IV .Q10H [facility] Rx#:[id number] Vancomycin 1,250 mg In 125 Sodium Chloride 0.9% 250 ml @ 125 mls/hr IVPB Q12H [facility] Rx#:[id number] Vancomycin 1,250 mg In 250 Sodium Chloride 0.9% 250 ml @ 125 mls/hr IVPB Q16H [facility] Rx#:[id number] Oral 800 240 120 Blood Product 620 Rc As-1 Unit 310 [id number] Rc As-1 Unit 310 [id number] Output: Drainage 40 12 10 Right Upper Abdomen 40 12 10 Urine 875 2830 1798 Other: Voiding Method Indwelling Catheter Indwelling Catheter Indwelling Catheter - Exam Physical Exam: Revealed 60-year-old female in moderate severe respiratory distress on BiPAP. 100%, IPAP of 14 and EPAP of 6. Head: Atraumatic, normocephalic. HEENT:[Neck is supple.] [No neck masses.] [No thyromegaly.] [No JVD.] Chest: Symmetrical expansion, continues to have crackles at the bases bilaterally. Cardiac Exam: [Normal S1 and S2, no S3 gallop, no murmur.] Abdomen: [Postsurgical, Soft, nontender, no megaly, no rebound, no guarding, normal bowel sounds.] Patient has a binder in place. Extremities: [No clubbing, no edema, no cyanosis.] Neurological Exam: Alert and oriented 3. [No focal neurologic deficit.] Psychiatric: Normal mood, affect and normal mental status examination. Skin: No rashes. - Labs CBC & Chem 7: 11/25/20 03:55 11/25/20 03:55 Labs: Abnormal Lab Results - Last 24 Hours (Table) 11/23/20 11/24/20 11/24/20 Range/Units 10:33 17:48 20:03 WBC 15.4 H (3.8-10.6) k/uL RBC 3.27 L (3.80-5.40) m/uL Hgb 10.0 L D (11.4-16.0) gm/dL Hct 30.5 L (34.0-46.0) % Sodium (137-145) mmol/L Chloride (98-107) mmol/L Carbon Dioxide (22-30) mmol/L BUN (7-17) mg/dL Glucose (74-99) mg/dL POC Glucose (mg/dL) 148 H (75-99) mg/dL Crossmatch See Detail 11/25/20 11/25/20 11/25/20 Range/Units 02:17 03:55 03:55 WBC 17.3 H (3.8-10.6) k/uL RBC 3.18 L (3.80-5.40) m/uL Hgb 10.1 L (11.4-16.0) gm/dL Hct 28.9 L (34.0-46.0) % Sodium 134 L (137-145) mmol/L Chloride 96 L (98-107) mmol/L Carbon Dioxide 33 H (22-30) mmol/L BUN 24 H (7-17) mg/dL Glucose 159 H (74-99) mg/dL POC Glucose (mg/dL) 154 H (75-99) mg/dL Crossmatch 11/25/20 Range/Units 06:58 WBC (3.8-10.6) k/uL RBC (3.80-5.40) m/uL Hgb (11.4-16.0) gm/dL Hct (34.0-46.0) % Sodium (137-145) mmol/L Chloride (98-107) mmol/L Carbon Dioxide (22-30) mmol/L BUN (7-17) mg/dL Glucose (74-99) mg/dL POC Glucose (mg/dL) 200 H (75-99) mg/dL Crossmatch Microbiology - Last 24 Hours (Table) 11/22/20 13:13 Blood Culture - Preliminary Blood No Growth after 48 hours 11/22/20 13:01 Blood Culture - Preliminary Blood No Growth after 48 hours Assessment and Plan Assessment: Impression: Acute hypoxic respiratory failure Acute bilateral pneumonia, differential diagnoses includes aspiration pneumonia, it also includes ARDS/noncardiogenic pulmonary edema or possibly cardiogenic pulmonary edema which is felt to be less likely. Status post repair of incisional hernia with mesh placement. History of underlying COPD History of type 2 diabetes History of GERD Benign essential hypertension Degenerative joint disease Remote history of bowel resection History of tubal ligation History of laparoscopic Ozzy fundoplasty Acute blood loss anemia with a drop of almost 4 g since surgery. This is again related to intraperitoneal hemorrhage as noted on the CT of the abdomen and pelvis. Patient received 2 units of packed RBCs, hemoglobin is holding around 10 today. Moderate severe pulmonary hypertension Recommendation: Continue to monitor the patient in the ICU Continue BiPAP for now. Another dose of Lasix will be ordered to be given today. Continue empiric antibiotics. Continue bronchodilators. Continue steroids. Echocardiogram failed to show LV dysfunction. Continue GI and DVT prophylaxis. Titrate FiO2 accordingly We'll continue to follow closely. Prognosis remains extremely guarded We will keep the patient in the ICU today. Time with Patient: Less than 30
[2020-11-25 12:14] LABS: Glucose,Whole Blood 209 mg/dL (75-99)
[2020-11-25] MEDS: VANCOMYCIN 1,500 MG in SODIUM CHLORIDE 0.9% 250 ML IVPB SCH (13:17)
[2020-11-25] MEDS: VANCOMYCIN 1,250 MG in SODIUM CHLORIDE 0.9% 250 ML IVPB SCH (13:21)
--- NOTE | 2020-11-25 14:04 | P.PN ---
Subjective Progress Note Date: 11/25/20 Principal diagnosis: Hernia repair Patient remains on BiPAP, she is on 25/12 on 100% FiO2. Still with sob. No pain. No fevers. Patient received Lasix yesterday after her blood transfusion, and she diuresed about 2 L. Objective - Vital Signs Vital signs: Vital Signs Temp 99.2 F 11/25/20 12:00 Pulse 105 H 11/25/20 13:00 Resp 39 H 11/25/20 13:00 BP 138/87 11/25/20 13:00 Pulse Ox 97 11/25/20 13:00 Intake & Output 11/24/20 11/25/20 11/25/20 18:59 06:59 18:59 Intake Total 1745 1190 770 Output Total 914 0242 2308 Balance 690 -3803 -8682 Weight 67.2 kg 67.2 kg Intake: IV 325 950 650 .9 KVO 100 Cefepime 1 gm In Sodium 100 100 50 Chloride 0.9% 50 ml @ 12. 5 mls/hr IVPB Q12HR [facility] Rx#:[id number] Lactated Ringers 1,000 ml 600 600 @ 100 mls/hr IV .Q10H [facility] Rx#:[id number] Vancomycin 1,250 mg In 125 Sodium Chloride 0.9% 250 ml @ 125 mls/hr IVPB Q12H [facility] Rx#:[id number] Vancomycin 1,250 mg In 250 Sodium Chloride 0.9% 250 ml @ 125 mls/hr IVPB Q16H [facility] Rx#:[id number] Oral 800 240 120 Blood Product 620 As-1 Unit 310 [id number] As-1 Unit 310 [id number] Output: Drainage 40 12 10 Right Upper Abdomen 40 12 10 Urine 875 2830 2298 Other: Voiding Method Indwelling Catheter Indwelling Catheter Indwelling Catheter - Exam Constitutional: In moderate respiratory distress, able to finish sentences Eyes:Anicteric sclerae, moist conjunctiva, no lid-lag, PERRLA, ENMT: Oropharynx clear, no erythema, exudates Neck: Supple, FROM, no masses, or JVD, No carotid bruits, No thyromegaly Lungs: Clear to auscultation, Clear to percussion, Normal respiratory effort, no accessory muscle use Cardiovascular: Heart regular in rate and rhythm, No murmurs, gallops, or rubs, No peripheral edema Abdominal: Surgical scar, Soft, Nontender, no guarding, rebound or rigidity, Normoactive bowel sounds, No hepatomegaly, No splenomegaly, No palpable mass Skin: Normal temperature, tone, texture, turgor, no induration, No subcutaneous nodules, No rash, lesions, No ulcers Extremities: No digital cyanosis, No clubbing, Pedal pulses intact and symmetr ical, Radial pulses intact and symmetrical, No calf tenderness Psychiatric: Alert and oriented to person, place and time, appropriate affect, intact judgement Neuro: Muscles Strength 5/5 in all 4 extremities, Sensation to light touch grossly present throughout, Cranial nerves II-XII grossly intact, no focal sensory deficits - Labs CBC & Chem 7: 11/25/20 03:55 11/25/20 03:55 Labs: Abnormal Lab Results - Last 24 Hours (Table) 11/23/20 11/24/20 11/24/20 Range/Units 10:33 17:48 20:03 WBC 15.4 H (3.8-10.6) k/uL RBC 3.27 L (3.80-5.40) m/uL Hgb 10.0 L D (11.4-16.0) gm/dL Hct 30.5 L (34.0-46.0) % Sodium (137-145) mmol/L Chloride (98-107) mmol/L Carbon Dioxide (22-30) mmol/L BUN (7-17) mg/dL Glucose (74-99) mg/dL POC Glucose (mg/dL) 148 H (75-99) mg/dL Crossmatch See Detail 11/25/20 11/25/20 11/25/20 Range/Units 02:17 03:55 03:55 WBC 17.3 H (3.8-10.6) k/uL RBC 3.18 L (3.80-5.40) m/uL Hgb 10.1 L (11.4-16.0) gm/dL Hct 28.9 L (34.0-46.0) % Sodium 134 L (137-145) mmol/L Chloride 96 L (98-107) mmol/L Carbon Dioxide 33 H (22-30) mmol/L BUN 24 H (7-17) mg/dL Glucose 159 H (74-99) mg/dL POC Glucose (mg/dL) 154 H (75-99) mg/dL Crossmatch 11/25/20 11/25/20 Range/Units 06:58 12:13 WBC (3.8-10.6) k/uL RBC (3.80-5.40) m/uL Hgb (11.4-16.0) gm/dL Hct (34.0-46.0) % Sodium (137-145) mmol/L Chloride (98-107) mmol/L Carbon Dioxide (22-30) mmol/L BUN (7-17) mg/dL Glucose (74-99) mg/dL POC Glucose (mg/dL) 200 H 209 H (75-99) mg/dL Crossmatch Microbiology - Last 24 Hours (Table) 11/22/20 13:13 Blood Culture - Preliminary Blood No Growth after 48 hours 11/22/20 13:01 Blood Culture - Preliminary Blood No Growth after 48 hours Assessment and Plan Plan: Status post operative repair of incisional hernia with mesh and partial omenectomy 11/20/20. -CT abd/pelvis repeated showing intra peritoneal hemorrhage -Pain control per surgery Acute respiratory failure with hypoxia possibly sec to HCAP, CHF exacerbation less likely but possible -O2 supplements and bipap. Pulm following -Broad spectrum abx started. Screen for MRSA. -Getting bolus lasix doses. -Procal elevated, blood cx no growth to date. -CXR ordered showing fluid overload vs infiltrates, more likely to be infiltrates. -Bnp and troponin both okay -EKG showing sinus tachycardia Acute blood loss anemia secondary to intraperitoneal hemorrhage found on computed tomography scan being managed conservatively by surgery -Currenlty hemoglobin stable -hold Lovenox -patient is status post 2 units of packed red blood cell transfusion KOBY -Resolved. Insulin-dependent diabetes mellitus type 2 with hypoglycemia -Hold levemir -Hold Glucophage, continue NovoLog sliding scale. -Heart healthy carb consistent diet. COPD exacerbation -DuoNeb and steroids -Encourage use of incentive spirometer 10-15 times hourly while awake. Hypertension -Monitor vital signs and continue daily medication management with Imdur, lisinopril, and verapamil. Hyperlipidemia -Continue daily medication management. -Heart healthy carb consistent diet. History of CAD with carotid stenosis -Patient to continue home meds with the exception of aspirin due to bleeding Nicotine dependence on cigarettes -NicoDerm patch -Patient to receive continued education and importance on the benefits of smoking cessation and risks of continued use up to and including .
[2020-11-25 16:40] LABS: Glucose,Whole Blood 187 mg/dL (75-99)
[2020-11-25 21:45] LABS: Glucose,Whole Blood 173 mg/dL (75-99)
[2020-11-26] MEDS: VANCOMYCIN 1,500 MG in SODIUM CHLORIDE 0.9% 250 ML IVPB SCH ×2 (00:21→13:29)
[2020-11-26] MEDS: CEFEPIME 2 GM in SODIUM CHLORIDE 0.9% 100 ML IVPB SCH ×3 (00:23→17:48)
[2020-11-26] MEDS: methylPREDNISolone SOD SUCCI 40 MG/ML 1 ML VIAL IV SCH ×3 (00:23→17:48)
[2020-11-26] MEDS: diphenhydrAMINE 25 MG CAP PO PRN ×3 (01:17→21:05)
[2020-11-26] MEDS: HYDROmorphone 1 MG/ML 1 ML SYRINGE IVP PRN ×3 (01:17→21:06)
[2020-11-26 03:54] LABS: HCT 31.6 % (34.0-46.0); HGB 10.9 gm/dL (11.4-16.0); MCHC 34.6 g/dL (31.0-37.0); MCV 92.4 fL (80.0-100.0); Mean Platelet Volume 7.1; Platelet Count 312 k/uL (150-450); RBC 3.42 m/uL (3.80-5.40); RDW 14.5 % (11.5-15.5)
[2020-11-26 04:17] LABS: African American GFR (CKD) >90 (>60 ml/min/1.73 sqM); Anion Gap 7 mmol/L; Blood Urea Nitrogen 26 mg/dL (7-17); Calcium 10.2 mg/dL (8.4-10.2); Carbon Dioxide 32 mmol/L (22-30); Chloride 93 mmol/L (98-107); Glucose 207 mg/dL (74-99); Non-African American GFR(CKD) >90 (>60 ml/min/1.73 sqM); Sodium 132 mmol/L (137-145)
[2020-11-26 06:21] LABS: Glucose,Whole Blood 245 mg/dL (75-99)
[2020-11-26] MEDS: LATANOPROST 0.005% OPHTH DROPS 2.5 ML BTL BOTH EYES SCH (06:22)
[2020-11-26] MEDS: LACTATED RINGERS 1,000 ML IV SCH (06:26)
[2020-11-26] MEDS: PANTOPRAZOLE 40 MG TABLET PO SCH (06:27)
[2020-11-26] MEDS: INSULIN ASPART (NovoLOG) 100 UNIT/ML VIAL SQ SCH ×4 (06:28→20:42)
--- NOTE | 2020-11-26 07:08 | XR ---
EXAMINATION TYPE: XR chest 1V portable DATE OF EXAM: 11/26/2020 COMPARISON: 11/25/2020 HISTORY: Shortness of breath FINDINGS: There are bilateral pleural effusions with cardiomegaly and bibasilar infiltrate. There is a diffuse interstitial pattern. Postsurgical change left shoulder. Atherosclerotic change aorta. IMPRESSION: 1. Stable diffuse interstitial infiltrates basilar consolidation and small effusion.
[2020-11-26] MEDS: IPRATROPIUM-ALBUTEROL 3 ML NEB INHALATION SCH ×4 (07:28→19:25)
[2020-11-26] MEDS: guaiFENesin 600 MG TABLET.ER PO SCH ×2 (07:54→21:05)
[2020-11-26] MEDS: VERAPAMIL 40 MG TAB PO SCH ×2 (07:55→21:05)
[2020-11-26] MEDS: FENOFIBRATE 160 MG TAB PO SCH (07:55)
[2020-11-26] MEDS: busPIRone HCl 5 MG TAB PO SCH ×2 (07:55→21:05)
[2020-11-26] MEDS: GABAPENTIN 300 MG CAP PO SCH ×3 (07:55→21:05)
[2020-11-26] MEDS: NICOTINE 21MG/24HR PATCH TRANSDERM SCH (07:55)
[2020-11-26] MEDS: lisinopriL 5 MG TAB PO SCH (07:55)
[2020-11-26] MEDS: FLUoxetine HCL 20 MG CAP PO SCH (07:55)
[2020-11-26] MEDS: ISOSORBIDE MONONITRATE ER 30 MG TAB.ER.24H PO SCH (07:55)
[2020-11-26] MEDS: DOCUSATE 100 MG CAP PO SCH ×2 (07:55→21:05)
[2020-11-26] MEDS ORDERED: FUROSEMIDE 10 MG/ML 4 ML VIAL IV STA (08:25)
--- NOTE | 2020-11-26 10:11 | P.PN ---
Subjective Progress Note Date: 11/26/20 Principal diagnosis: Incisional hernia Patient remains on BiPAP. They are changing her to airvo today. Says her pain is improving. White blood cell count is improved. Remains tachycardic. Hemoglobin stable at 10.9. Objective - Vital Signs Vital signs: Vital Signs Temp 98.6 F 11/26/20 08:00 Pulse 108 H 11/26/20 08:00 Resp 39 H 11/26/20 08:00 BP 147/81 11/26/20 08:00 Pulse Ox 97 11/26/20 08:00 Intake & Output 11/25/20 11/26/20 11/26/20 18:59 06:59 18:59 Intake Total 1820 1050 300 Output Total 3084 2075 225 Balance -1264 -1025 75 Weight 67.2 kg 65 kg Intake: IV 1250 1050 300 Cefepime 1 gm In Sodium 50 Chloride 0.9% 50 ml @ 12. 5 mls/hr IVPB Q12HR [facility] Rx#:[id number] Cefepime 2 gm In Sodium 100 100 Chloride 0.9% 100 ml @ 25 mls/hr IVPB Q8HR [facility] Rx# :[id number] Lactated Ringers 1,000 ml 1200 700 200 @ 100 mls/hr IV .Q10H [facility] Rx#:[id number] Vancomycin 1,500 mg In 250 Sodium Chloride 0.9% 250 ml @ 125 mls/hr IVPB Q12H [facility] Rx#:[id number] Intake, IV Titration 450 Amount Cefepime 2 gm In Sodium 200 Chloride 0.9% 100 ml @ 25 mls/hr IVPB Q8HR [facility] Rx# :[id number] Vancomycin 1,500 mg In 250 Sodium Chloride 0.9% 250 ml @ 125 mls/hr IVPB Q12H [facility] Rx#:[id number] Oral 120 Output: Drainage 10 Right Upper Abdomen 10 Urine 3074 2075 225 Other: Voiding Method Indwelling Catheter Indwelling Catheter Indwelling Catheter - Exam Abdomen: Soft, nondistended, mild tenderness, dressing clean and dry - Labs CBC & Chem 7: 11/26/20 03:18 11/26/20 03:18 Labs: Abnormal Lab Results - Last 24 Hours (Table) 11/25/20 11/25/20 11/25/20 Range/Units 12:13 16:38 21:44 WBC (3.8-10.6) k/uL RBC (3.80-5.40) m/uL Hgb (11.4-16.0) gm/dL Hct (34.0-46.0) % Sodium (137-145) mmol/L Chloride (98-107) mmol/L Carbon Dioxide (22-30) mmol/L BUN (7-17) mg/dL Glucose (74-99) mg/dL POC Glucose (mg/dL) 209 H 187 H 173 H (75-99) mg/dL 11/26/20 11/26/20 11/26/20 Range/Units 03:18 03:18 06:20 WBC 15.0 H (3.8-10.6) k/uL RBC 3.42 L (3.80-5.40) m/uL Hgb 10.9 L (11.4-16.0) gm/dL Hct 31.6 L (34.0-46.0) % Sodium 132 L (137-145) mmol/L Chloride 93 L (98-107) mmol/L Carbon Dioxide 32 H (22-30) mmol/L BUN 26 H (7-17) mg/dL Glucose 207 H (74-99) mg/dL POC Glucose (mg/dL) 245 H (75-99) mg/dL Microbiology - Last 24 Hours (Table) 11/22/20 13:01 Blood Culture - Preliminary Blood No Growth after 72 hours 11/22/20 13:13 Blood Culture - Preliminary Blood No Growth after 72 hours Assessment and Plan (1) Incisional hernia Narrative/Plan: Continue weaning from BiPAP. Begin diet once BiPAP is off. Continue ICU monitoring Current Visit: Yes Status: Acute Code(s): K43.2 - INCISIONAL HERNIA WITHOUT OBSTRUCTION OR GANGRENE SNOMED Code(s): 228274139
[2020-11-26 11:43] LABS: Glucose,Whole Blood 174 mg/dL (75-99)
--- NOTE | 2020-11-26 13:54 | P.PN ---
Subjective Progress Note Date: 11/26/20 Principal diagnosis: Acute hypoxic respiratory failure secondary to bilateral pneumonia, possible aspiration pneumonia and possible ARDS. This is a 60-year-old -[place]namese female, with history of chronic incisional hernia, patient underwent operative repair of the incisional hernia with mesh on 11/20/2020. Her surgery was basically uneventful. However over the last 3 days, the patient has been developing worsening shortness of breath and worsening chest x-ray showing bilateral interstitial infiltrates were in the differential diagnoses could be aspiration pneumonia, ARDS, or acute diastolic congestive heart failure. Her oxygen requirement has increased significantly since admission, and when I saw the patient this morning she was on BiPAP on the percent, O2 saturation was marginal, patient was noted to be quite tachypneic and tachycardic, and as soon as I laid eyes on the patient, I recommended immediate transfer to the ICU. In the meantime I reviewed her labs, patient dropped about 4 g of hemoglobin since admission chest x-ray has been steadily getting worse, patient is noted to have leukocytosis with WBC count of 14.7, hemoglobin is down to 7.2 with significant symptoms of shortness of breath, baseline hemoglobin was 10.7. Echocardiogram showed good LV function. Her a BNP level is normal. CT of the abdomen and pelvis was repeated this morning, and results of which are pending. Considering the worsening chest x-ray and considering the worsening clinical status, I did recommend immediate transfer of the patient to the ICU. Patient is already on bronchodilators, she is also empirically on antibiotics, she is also on methylprednisolone at 40 mg IV push every 8 hours, and she is also on vancomycin as well as on Protonix. He shouldn't is receiving updrafts in the form of DuoNeb 4 times a day and when necessary. ABG done yesterday showed a pO2 of 49 pCO2 of 40 H and pH of 7.3, and this was done on 100% FiO2. Patient was reevaluated today on 11/24/2020, remains in the intensive care unit, remains on BiPAP with IPAP of 14 EPAP of 6 and on the percent FiO2. IV fluids at KVO, chest x-ray continues to show bilateral interstitial infiltrates. Patient is yet to receive 2 units of packed RBCs which I have ordered last night. Patient remains quite short of breath especially when she removes her BiPAP, and I have recommended that we continue antibiotics empirically as well as steroids, I'm suspecting that the patient may have aspirated and she may be developing an ARDS picture. Strongly doubt congestive heart failure since she has good echocardiogram and good LV function, and she had normal BNP level. Her pro calcitonin level was elevated at 0.74. Testing for COVID-19 PCR was negative, will go ahead and order ab titer. ABG today on BiPAP showed a pO2 of 99 pCO2 of 46 pH of 7.43. Tried the patient on high flow oxygen, did not seem to help, patient desaturated, hence I kept her back on BiPAP. Patient was reevaluated today on 11/25/20, patient remains in the ICU, remains on BiPAP, she is on 25/12 on 100% FiO2. Patient received Lasix yesterday after her blood transfusion, and she diuresed about 2 L. Slight improvement was noted in her O2 saturations, and her chest x-ray is showing slight improvement, hence I would recommend Lasix to be given again today at 40 mg IV push times one. Chest x-ray was reviewed. WBC count of 17.3 hemoglobin is 10.1. Electrolytes abnormal. Renal profile is normal. Bicarb is 33. Blood cultures have been negative so far. Hemoglobin is holding at 10 today. Patient was reevaluated today on 11/26/2020, patient is on BiPAP, /, 70%, FiO2 however her O2 saturation is in the high 90s. And I cut it down to 50%, and later on recommended high flow nasal cannula. And this will be accomplished today. Chest x-ray is showing improvement in her interstitial infiltrates. Patient remains on broad-spectrum antibiotics, remains on Lasix intermittently on a daily basis. Patient is breathing easier, feeling better today. Remains on steroids as well as antibiotics, and diuretics intermittently. Pro calcitonin level was 0.74, hence antibiotics will be continued, I had a feeling that the patient may have aspirated and developed ARDS from aspiration pneumonia. Objective - Vital Signs Vital signs: Vital Signs Temp 98.6 F 11/26/20 08:00 Pulse 102 H 11/26/20 11:37 Resp 12 11/26/20 11:00 BP 124/81 11/26/20 11:00 Pulse Ox 95 11/26/20 11:00 Intake & Output 11/25/20 11/26/20 11/26/20 18:59 06:59 18:59 Intake Total 1820 1050 700 Output Total 6193 9725 1555 Balance -1264 -1025 -855 Weight 67.2 kg 65 kg Intake: IV 1250 1050 700 Cefepime 1 gm In Sodium 50 Chloride 0.9% 50 ml @ 12. 5 mls/hr IVPB Q12HR [facility] Rx#:[id number] Cefepime 2 gm In Sodium 100 100 Chloride 0.9% 100 ml @ 25 mls/hr IVPB Q8HR [facility] Rx# :[id number] Lactated Ringers 1,000 ml 1200 700 600 @ 100 mls/hr IV .Q10H [facility] Rx#:[id number] Vancomycin 1,500 mg In 250 Sodium Chloride 0.9% 250 ml @ 125 mls/hr IVPB Q12H [facility] Rx#:[id number] Intake, IV Titration 450 Amount Cefepime 2 gm In Sodium 200 Chloride 0.9% 100 ml @ 25 mls/hr IVPB Q8HR [facility] Rx# :[id number] Vancomycin 1,500 mg In 250 Sodium Chloride 0.9% 250 ml @ 125 mls/hr IVPB Q12H [facility] Rx#:[id number] Oral 120 Output: Drainage 10 30 Right Upper Abdomen 10 30 Urine 3074 2075 1525 Other: Voiding Method Indwelling Catheter Indwelling Catheter Indwelling Catheter - Exam Physical Exam: Revealed 60-year-old female in moderate severe respiratory distress on BiPAP. FiO2 50%, IPAP of 14 and EPAP of 6. Head: Atraumatic, normocephalic. HEENT:[Neck is supple.] [No neck masses.] [No thyromegaly.] [No JVD.] Chest: Symmetrical expansion, improved crackles at the bases bilaterally. Cardiac Exam: [Normal S1 and S2, no S3 gallop, no murmur.] Abdomen: [Postsurgical, Soft, nontender, no megaly, no rebound, no guarding, normal bowel sounds.] Patient has a binder in place. Extremities: [No clubbing, no edema, no cyanosis.] Neurological Exam: Alert and oriented 3. [No focal neurologic deficit.] Psychiatric: Normal mood, affect and normal mental status examination. Skin: No rashes. - Labs CBC & Chem 7: 11/26/20 03:18 11/26/20 03:18 Labs: Abnormal Lab Results - Last 24 Hours (Table) 11/25/20 11/25/20 11/26/20 Range/Units 16:38 21:44 03:18 WBC 15.0 H (3.8-10.6) k/uL RBC 3.42 L (3.80-5.40) m/uL Hgb 10.9 L (11.4-16.0) gm/dL Hct 31.6 L (34.0-46.0) % Sodium (137-145) mmol/L Chloride (98-107) mmol/L Carbon Dioxide (22-30) mmol/L BUN (7-17) mg/dL Glucose (74-99) mg/dL POC Glucose (mg/dL) 187 H 173 H (75-99) mg/dL 11/26/20 11/26/20 11/26/20 Range/Units 03:18 06:20 11:42 WBC (3.8-10.6) k/uL RBC (3.80-5.40) m/uL Hgb (11.4-16.0) gm/dL Hct (34.0-46.0) % Sodium 132 L (137-145) mmol/L Chloride 93 L (98-107) mmol/L Carbon Dioxide 32 H (22-30) mmol/L BUN 26 H (7-17) mg/dL Glucose 207 H (74-99) mg/dL POC Glucose (mg/dL) 245 H 174 H (75-99) mg/dL Microbiology - Last 24 Hours (Table) 11/22/20 13:01 Blood Culture - Preliminary Blood No Growth after 72 hours 11/22/20 13:13 Blood Culture - Preliminary Blood No Growth after 72 hours Assessment and Plan Assessment: Impression: Acute hypoxic respiratory failure Acute bilateral pneumonia, differential diagnoses includes aspiration pneumonia, it also includes ARDS/noncardiogenic pulmonary edema or possibly cardiogenic pulmonary edema which is felt to be less likely. Status post repair of incisional hernia with mesh placement. History of underlying COPD History of type 2 diabetes History of GERD Benign essential hypertension Degenerative joint disease Remote history of bowel resection History of tubal ligation History of laparoscopic Ozzy fundoplasty Acute blood loss anemia with a drop of almost 4 g since surgery. This is again related to intraperitoneal hemorrhage as noted on the CT of the abdomen and pelvis. Patient received 2 units of packed RBCs, hemoglobin is holding around 10 today. Moderate severe pulmonary hypertension Recommendation: Continue to monitor the patient in the ICU Transition BiPAP to high flow cannula 40 mg of Lasix were given earlier today. Patient is responding quite well to diuretics and urine output is noted to be significant. Continue empiric antibiotics. Continue bronchodilators. Continue steroids. Echocardiogram failed to show LV dysfunction. Continue GI and DVT prophylaxis. Titrate FiO2 accordingly , we'll transition patient to high flow cannula We'll continue to follow closely. Prognosis remains extremely guarded Patient will remain in the ICU for the next 24 hours Time with Patient: Less than 30
--- NOTE | 2020-11-26 14:06 | P.PN ---
Subjective Progress Note Date: 11/26/20 Principal diagnosis: hernia Patient is a 60-year-old -[place]ese female with a carotid arterial disease with repair of carotid artery aneurysm, hypertension, dyslipidemia, ongoing tobacco abuse, diabetes controlled with oral medications and insulin who presented for incisional hernia repair. Postoperatively she developed worsening shortness of breath and interstitial infiltrate, pulmonary was consulted on 11/23 the patient was transferred to the ICU. She was given 2 units of packed red blood cells and started on Lasix with some improvement in her oxygenation. She continued to require BiPap. Covid testing for antigen and antibody negative CT abdomen and pelvis: ntermediate density fluid in the pelvis consistent with intraperitoneal hemorrhage, increased curvilinear and nodular density in the mental fat of the upper abdomen along the abdominal wall probably due to hernia surgery with hemorrhage, no bowel ejection, bilateral lower lobe pneumonia Echocardiogram: Ejection fraction 55-60%, mild aortic stenosis, moderate pulmonary hypertension Patient seen and examined at bedside. On Bipap and states that her breathing is better, no cough, feeling hungry and wants to eat, mouth is dry, pain is controlled at this time. General: ill appearing, no distress, appears at stated age Derm: warm, dry Head: atraumatic, normocephalic, symmetric Eyes: EOMI, no lid lag, anicteric sclera Mouth: no lip lesion, mucus membranes dry Cardiovascular: S1S2 reg, no murmur, positive posterior tibial pulse bilateral, Lungs: Ronchi bilateral bases , no accessory muscle use Abdominal: soft, nontender to palpation, no guarding, no appreciable organomegaly Ext: no gross muscle atrophy, no edema, no contractures Neuro: CN II-XI grossly intact, no focal neuro deficits Psych: Alert, oriented, appropriate affect Patient is a 60-year-old female status post Incisional hernia repair with mesh and partial omentectomy Acute hypoxic respiratory failure, ARDS/noncardiogenic pulmonary edema, acute bilateral pneumonia possible aspiration with gram-negative - Cefepime, vancomycin -Mucinex -Pulmonary recommendations -Solu-Medrol started 11/22 Hyponatremia -Mild and likely secondary to poor solute intake with needed diuresis - repeat in AM - Clear liquids if able to come off bipap Acute blood loss anemia - S/P 2 units of pRBC - HgB stable Diabetes mellitus type 2 -Glucophage, Actos, fixed toes a on hold -Siding scale insulin -Levemir started COPD without exacerbatio- bornchodilators Hypertension -Lisinopril -Verapamil Dyslipidemia -Fenofibrate Coronary artery disease/carotid arterial disease -Imdur Tobacco abuse - cessation - nicotine replacement DVT: SCDS, consider starting chemical prophysalix in AM if HgB stable and surgery is in agreement. Objective - Vital Signs Vital signs: Vital Signs Temp 98.2 F 11/26/20 04:00 Pulse 96 11/26/20 07:40 Resp 20 11/26/20 07:00 BP 170/98 11/26/20 07:00 Pulse Ox 93 L 11/26/20 07:00 Intake & Output 11/25/20 11/26/20 11/26/20 18:59 06:59 18:59 Intake Total 1820 1050 Output Total 3084 2075 Balance -1264 -1025 Weight 67.2 kg 65 kg Intake: IV 1250 1050 Cefepime 1 gm In Sodium 50 Chloride 0.9% 50 ml @ 12. 5 mls/hr IVPB Q12HR [facility] Rx#:[id number] Cefepime 2 gm In Sodium 100 Chloride 0.9% 100 ml @ 25 mls/hr IVPB Q8HR [facility] Rx# :[id number] Lactated Ringers 1,000 ml 1200 700 @ 100 mls/hr IV .Q10H [facility] Rx#:[id number] Vancomycin 1,500 mg In 250 Sodium Chloride 0.9% 250 ml @ 125 mls/hr IVPB Q12H [facility] Rx#:[id number] Intake, IV Titration 450 Amount Cefepime 2 gm In Sodium 200 Chloride 0.9% 100 ml @ 25 mls/hr IVPB Q8HR [facility] Rx# :[id number] Vancomycin 1,500 mg In 250 Sodium Chloride 0.9% 250 ml @ 125 mls/hr IVPB Q12H [facility] Rx#:[id number] Oral 120 Output: Drainage 10 Right Upper Abdomen 10 Urine 3074 2075 Other: Voiding Method Indwelling Catheter Indwelling Catheter - Labs CBC & Chem 7: 11/26/20 03:18 11/26/20 03:18 Labs: Abnormal Lab Results - Last 24 Hours (Table) 11/25/20 11/25/20 11/25/20 Range/Units 12:13 16:38 21:44 WBC (3.8-10.6) k/uL RBC (3.80-5.40) m/uL Hgb (11.4-16.0) gm/dL Hct (34.0-46.0) % Sodium (137-145) mmol/L Chloride (98-107) mmol/L Carbon Dioxide (22-30) mmol/L BUN (7-17) mg/dL Glucose (74-99) mg/dL POC Glucose (mg/dL) 209 H 187 H 173 H (75-99) mg/dL 11/26/20 11/26/20 11/26/20 Range/Units 03:18 03:18 06:20 WBC 15.0 H (3.8-10.6) k/uL RBC 3.42 L (3.80-5.40) m/uL Hgb 10.9 L (11.4-16.0) gm/dL Hct 31.6 L (34.0-46.0) % Sodium 132 L (137-145) mmol/L Chloride 93 L (98-107) mmol/L Carbon Dioxide 32 H (22-30) mmol/L BUN 26 H (7-17) mg/dL Glucose 207 H (74-99) mg/dL POC Glucose (mg/dL) 245 H (75-99) mg/dL Microbiology - Last 24 Hours (Table) 11/22/20 13:01 Blood Culture - Preliminary Blood No Growth after 72 hours 11/22/20 13:13 Blood Culture - Preliminary Blood No Growth after 72 hours
[2020-11-26 16:40] LABS: Glucose,Whole Blood 215 mg/dL (75-99)
[2020-11-26 20:11] LABS: Glucose,Whole Blood 151 mg/dL (75-99)
[2020-11-26] MEDS ORDERED: INSULIN DETEMIR (LEVEMIR) 100 UNIT/ML SYR SQ SCH ×2 (21:00)
[2020-11-27] MEDS: VANCOMYCIN 1,500 MG in SODIUM CHLORIDE 0.9% 250 ML IVPB SCH (00:22)
[2020-11-27] MEDS: methylPREDNISolone SOD SUCCI 40 MG/ML 1 ML VIAL IV SCH ×2 (00:23→09:29)
[2020-11-27] MEDS: CEFEPIME 2 GM in SODIUM CHLORIDE 0.9% 100 ML IVPB SCH ×4 (00:23→23:14)
[2020-11-27] MEDS: ALPRAZolam 0.5 MG TAB PO PRN (00:29)
[2020-11-27 02:19] LABS: Glucose,Whole Blood 244 mg/dL (75-99)
[2020-11-27 04:10] LABS: Basophils # (A) 0.1 k/uL (0-0.2); Basophils % (A) 0 %; Eosinophils # (A) 0.2 k/uL (0-0.7); Eosinophils % (A) 1 %; HCT 38.1 % (34.0-46.0); HGB 12.5 gm/dL (11.4-16.0); Lymphocytes # (A) 1.5 k/uL (1.0-4.8); Lymphocytes % (A) 9 %; MCH 30.1 pg (25.0-35.0); MCHC 32.8 g/dL (31.0-37.0); Mean Platelet Volume 7.1; Monocytes # (A) 0.8 k/uL (0-1.0); Monocytes % (A) 5 %; Neutrophils % (A) 83 %; Platelet Count 323 k/uL (150-450); RBC 4.14 m/uL (3.80-5.40); RDW 14.2 % (11.5-15.5); WBC 16.8 k/uL (3.8-10.6)
[2020-11-27 04:32] LABS: ALT 19 U/L (4-34); AST 28 U/L (14-36); African American GFR (CKD) >90 (>60 ml/min/1.73 sqM); Albumin 3.8 g/dL (3.5-5.0); Alkaline Phosphatase 111 U/L (38-126); Anion Gap 7 mmol/L; Blood Urea Nitrogen 29 mg/dL (7-17); Calcium 10.6 mg/dL (8.4-10.2); Carbon Dioxide 33 mmol/L (22-30); Chloride 92 mmol/L (98-107); Glucose 213 mg/dL (74-99); Magnesium 1.8 mg/dL (1.6-2.3); Non-African American GFR(CKD) >90 (>60 ml/min/1.73 sqM); Potassium 4.7 mmol/L (3.5-5.1); Sodium 132 mmol/L (137-145); Total Protein 6.7 g/dL (6.3-8.2)
[2020-11-27] MEDS: LATANOPROST 0.005% OPHTH DROPS 2.5 ML BTL BOTH EYES SCH ×2 (06:56→21:05)
[2020-11-27] MEDS: LACTATED RINGERS 1,000 ML IV SCH (06:57)
[2020-11-27 06:59] LABS: Glucose,Whole Blood 200 mg/dL (75-99)
[2020-11-27] MEDS: PANTOPRAZOLE 40 MG TABLET PO SCH (07:02)
[2020-11-27] MEDS: INSULIN ASPART (NovoLOG) 100 UNIT/ML VIAL SQ SCH ×4 (07:02→21:07)
[2020-11-27] MEDS: diphenhydrAMINE 25 MG CAP PO PRN ×2 (07:10→20:04)
[2020-11-27] MEDS: HYDROmorphone 1 MG/ML 1 ML SYRINGE IVP PRN ×4 (07:11→23:19)
[2020-11-27] MEDS: IPRATROPIUM-ALBUTEROL 3 ML NEB INHALATION SCH ×4 (07:33→19:41)
--- NOTE | 2020-11-27 08:23 | XR ---
EXAMINATION TYPE: XR chest 1V portable DATE OF EXAM: 11/27/2020 CLINICAL HISTORY: Difficulty breathing progress study. TECHNIQUE: Single AP portable semiupright view of the chest is obtained. COMPARISON: Chest x-ray from one day earlier and older studies. FINDINGS: Heart size stable and upper limits of normal with upper sclerotic change in the aortic kno b. Chronic parenchymal changes with left greater than right bibasilar opacities. Partial visualizatio n of surgical change left shoulder level. Surgical clips epigastric region. IMPRESSION: Persistent left greater than right bibasilar acute infiltrate and/or atelectasis slightly worsened from one day earlier.
[2020-11-27] MEDS: FLUoxetine HCL 20 MG CAP PO SCH (09:28)
[2020-11-27] MEDS: guaiFENesin 600 MG TABLET.ER PO SCH ×2 (09:28→21:08)
[2020-11-27] MEDS: FENOFIBRATE 160 MG TAB PO SCH (09:28)
[2020-11-27] MEDS: ISOSORBIDE MONONITRATE ER 30 MG TAB.ER.24H PO SCH (09:28)
[2020-11-27] MEDS: GABAPENTIN 300 MG CAP PO SCH ×3 (09:28→21:07)
[2020-11-27] MEDS: DOCUSATE 100 MG CAP PO SCH ×2 (09:28→21:08)
[2020-11-27] MEDS: lisinopriL 5 MG TAB PO SCH (09:29)
[2020-11-27] MEDS: NICOTINE 21MG/24HR PATCH TRANSDERM SCH (09:29)
[2020-11-27] MEDS: VERAPAMIL 40 MG TAB PO SCH ×2 (09:29→21:07)
[2020-11-27] MEDS: busPIRone HCl 5 MG TAB PO SCH ×2 (09:29→21:07)
[2020-11-27] MEDS: INSULIN DETEMIR (LEVEMIR) 100 UNIT/ML SYR SQ SCH ×2 (09:30→21:07)
[2020-11-27] MEDS: CALCIUM CARBONATE 500 MG CHEWABLE PO PRN ×2 (09:54→23:14)
--- NOTE | 2020-11-27 11:20 | P.PN ---
Subjective Progress Note Date: 11/27/20 Principal diagnosis: Status post incisional hernia repair. This is a 60-year-old -Thai female, with history of chronic incisional hernia, patient underwent operative repair of the incisional hernia with mesh on 11/20/2020. Her surgery was basically uneventful. However over the last 3 days, the patient has been developing worsening shortness of breath and worsening chest x-ray showing bilateral interstitial infiltrates were in the differential diagnoses could be aspiration pneumonia, ARDS, or acute diastolic congestive heart failure. Her oxygen requirement has increased significantly since admission, and when I saw the patient this morning she was on BiPAP on the percent, O2 saturation was marginal, patient was noted to be quite tachypneic and tachycardic, and as soon as I laid eyes on the patient, I recommended immediate transfer to the ICU. In the meantime I reviewed her labs, patient dropped about 4 g of hemoglobin since admission chest x-ray has been steadily getting worse, patient is noted to have leukocytosis with WBC count of 14.7, hemoglobin is down to 7.2 with significant symptoms of shortness of breath, baseline hemoglobin was 10.7. Echocardiogram showed good LV function. Her a BNP level is normal. CT of the abdomen and pelvis was repeated this morning, and results of which are pending. Considering the worsening chest x-ray and co nsidering the worsening clinical status, I did recommend immediate transfer of the patient to the ICU. Patient is already on bronchodilators, she is also empirically on antibiotics, she is also on methylprednisolone at 40 mg IV push every 8 hours, and she is also on vancomycin as well as on Protonix. He shouldn't is receiving updrafts in the form of DuoNeb 4 times a day and when necessary. ABG done yesterday showed a pO2 of 49 pCO2 of 40 H and pH of 7.3, and this was done on 100% FiO2. Patient was reevaluated today on 11/24/2020, remains in the intensive care unit, remains on BiPAP with IPAP of 14 EPAP of 6 and on the percent FiO2. IV fluids at KVO, chest x-ray continues to show bilateral interstitial infiltrates. Patient is yet to receive 2 units of packed RBCs which I have ordered last night. Patient remains quite short of breath especially when she removes her BiPAP, and I have recommended that we continue antibiotics empirically as well as steroids, I'm suspecting that the patient may have aspirated and she may be developing an ARDS picture. Strongly doubt congestive heart failure since she has good echocardiogram and good LV function, and she had normal BNP level. Her pro calcitonin level was elevated at 0.74. Testing for COVID-19 PCR was negative, will go ahead and order ab titer. ABG today on BiPAP showed a pO2 of 99 pCO2 of 46 pH of 7.43. Tried the patient on high flow oxygen, did not seem to help, patient desaturated, hence I kept her back on BiPAP. Patient was reevaluated today on 11/25/20, patient remains in the ICU, remains on BiPAP, she is on 14/6 on 100% FiO2. Patient received Lasix yesterday after her blood transfusion, and she diuresed about 2 L. Slight improvement was noted in her O2 saturations, and her chest x-ray is showing slight improvement, hence I would recommend Lasix to be given again today at 40 mg IV push times one. Chest x-ray was reviewed. WBC count of 17.3 hemoglobin is 10.1. Electrolytes abnormal. Renal profile is normal. Bicarb is 33. Blood cultures have been negative so far. Hemoglobin is holding at 10 today. Patient was reevaluated today on 11/26/2020, patient is on BiPAP, 14/6, 70%, FiO2 however her O2 saturation is in the high 90s. And I cut it down to 50%, and later on recommended high flow nasal cannula. And this will be accomplished today. Chest x-ray is showing improvement in her interstitial infiltrates. Patient remains on broad-spectrum antibiotics, remains on Lasix intermittently on a daily basis. Patient is breathing easier, feeling better today. Remains on steroids as well as antibiotics, and diuretics intermittently. Pro calcitonin level was 0.74, hence antibiotics will be continued, I had a feeling that the patient may have aspirated and developed ARDS from aspiration pneumoni a. Progress note dated 11/27/2020. This is a 60-year-old black female, postop day #7, status post incisional hernia repair. The patient came to the intensive care unit on November 22. Initially, she was on BiPAP, and is now on AIRVO, with settings of 15 L/m, and 60% FiO2. The patient is not receiving any IV fluids. She feels better. She was a heavy smoker in the past. White count 16.8, he will 12.5, hematocrit 38.1, platelet count 323,000. Sodium 132, potassium 4.7, chlorides 92, CO2 33, anion gap 7, BUN 29, creatinine 0.51. Chest x-ray shows persistent left greater than right bibasilar atelectasis and/or infiltrate. Objective - Vital Signs Vital signs: Vital Signs Temp 98.4 F 11/27/20 08:00 Pulse 85 11/27/20 10:00 Resp 23 11/27/20 10:00 BP 141/83 11/27/20 10:00 Pulse Ox 100 11/27/20 10:00 Intake & Output 11/26/20 11/27/20 11/27/20 18:59 06:59 18:59 Intake Total 1120 890 460 Output Total 2303 2600 310 Balance -1183 -1710 150 Weight 65.6 kg Intake: IV 1120 410 100 Cefepime 2 gm In Sodium 200 100 100 Chloride 0.9% 100 ml @ 25 mls/hr IVPB Q8HR [facility] Rx# :[id number] Lactated Ringers 1,000 ml 670 60 @ 10 mls/hr IV .Q24H [facility] Rx#:[id number] Vancomycin 1,500 mg In 250 250 Sodium Chloride 0.9% 250 ml @ 125 mls/hr IVPB Q12H [facility] Rx#:[id number] Oral 480 360 Output: Drainage 30 35 Right Upper Abdomen 30 35 Urine 2273 2600 275 Other: Voiding Method Indwelling Catheter Indwelling Catheter Indwelling Catheter - Exam No acute distress, oriented 3. AIRVO cannula noted. No respiratory distress, audible wheezing, conversational dyspnea, or use of accessory muscles. HEENT examination is grossly unremarkable. Neck supple. Full range of motion. No adenopathy thyromegaly or neck vein distention. Cardiovascular examination reveals regular rhythm rate. S1-S2 normal. No S3 or S4. No discernible murmur noted. Heart rate 85 bpm. Heart sounds are distant. Lungs reveal scattered rhonchi and crackles at the bases. Breath sounds equal bilaterally. No wheezes. Saturations are 100%. Abdomen soft bowel sounds are heard. No masses or tenderness. Binder in place. Extremities are intact. No cyanosis clubbing or edema. Skin is without rash or lesion. Neurologic examination is brief but nonfocal. - Labs CBC & Chem 7: 11/27/20 03:35 11/27/20 03:35 Labs: Abnormal Lab Results - Last 24 Hours (Table) 11/26/20 11/26/20 11/26/20 Range/Units 11:42 16:39 20:10 WBC (3.8-10.6) k/uL Neutrophils # (1.3-7.7) k/uL Sodium (137-145) mmol/L Chloride (98-107) mmol/L Carbon Dioxide (22-30) mmol/L BUN (7-17) mg/dL Creatinine (0.52-1.04) mg/dL Glucose (74-99) mg/dL POC Glucose (mg/dL) 174 H 215 H 151 H (75-99) mg/dL Calcium (8.4-10.2) mg/dL 11/27/20 11/27/20 11/27/20 Range/Units 02:18 03:35 03:35 WBC 16.8 H (3.8-10.6) k/uL Neutrophils # 14.0 H (1.3-7.7) k/uL Sodium 132 L (137-145) mmol/L Chloride 92 L (98-107) mmol/L Carbon Dioxide 33 H (22-30) mmol/L BUN 29 H (7-17) mg/dL Creatinine 0.51 L (0.52-1.04) mg/dL Glucose 213 H (74-99) mg/dL POC Glucose (mg/dL) 244 H (75-99) mg/dL Calcium 10.6 H (8.4-10.2) mg/dL 11/27/20 Range/Units 06:58 WBC (3.8-10.6) k/uL Neutrophils # (1.3-7.7) k/uL Sodium (137-145) mmol/L Chloride (98-107) mmol/L Carbon Dioxide (22-30) mmol/L BUN (7-17) mg/dL Creatinine (0.52-1.04) mg/dL Glucose (74-99) mg/dL POC Glucose (mg/dL) 200 H (75-99) mg/dL Calcium (8.4-10.2) mg/dL Microbiology - Last 24 Hours (Table) 11/22/20 13:01 Blood Culture - Preliminary Blood No Growth after 96 hours 11/22/20 13:13 Blood Culture - Preliminary Blood No Growth after 96 hours Assessment and Plan Assessment: Postop day #7, status post incisional hernia repair. Acute hypoxemic respiratory failure, initially requiring BiPAP, now AIRVO. Possible aspiration pneumonia versus noncardiogenic pulmonary edema. History of underlying COPD from previous heavy tobacco use. History of type 2 diabetes mellitus. History of GERD. Benign essential hypertension. Degenerative joint disease. Remote history of bowel resection. History of tubal ligation. History of laparoscopic Ozzy fundoplication. Acute blood loss anemia. Moderately severe pulmonary hypertension. Plan: Plan dated 11/27/2020. Currently, the patient continues to do well. She feels better today. She was transitioned from BiPAP to AIRVO area clinically, she tells me that her breathing is improved. The patient will continue with current medications. This includes bronchodilators and corticosteroids. We will continue with GI and DVT prophylaxis. Labs and x-rays and medications are all reviewed. Prognosis is guarded. No additional recommendations are made. The patient could likely move out of the intensive care unit. Time with Patient: Greater than 30
[2020-11-27] MEDS ORDERED: VANCOMYCIN TROUGH DUE 1 EACH MISC MISCELLANE ONE (11:30)
[2020-11-27 11:43] LABS: Glucose,Whole Blood 161 mg/dL (75-99)
[2020-11-27 11:53] LABS: African American GFR (CKD) >90 (>60 ml/min/1.73 sqM); Non-African American GFR(CKD) >90 (>60 ml/min/1.73 sqM)
--- NOTE | 2020-11-27 12:49 | P.PN ---
Subjective Progress Note Date: 11/27/20 (Delayed charting seen at 0930) Principal diagnosis: hernia Patient is a 60-year-old -[place] female with a carotid arterial disease with repair of carotid artery aneurysm, hypertension, dyslipidemia, ongoing tobacco abuse, diabetes controlled with oral medications and insulin who presented for incisional hernia repair. Postoperatively she developed worsening shortness of breath and interstitial infiltrate, pulmonary was consulted on 11/23 the patient was transferred to the ICU. She was given 2 units of packed red blood cells and started on Lasix with some improvement in her oxygenation. She continued to require BiPap. On 11/26 she was transitioned to AIRVO Covid testing for antigen and antibody negative CT abdomen and pelvis: ntermediate density fluid in the pelvis consistent with intraperitoneal hemorrhage, increased curvilinear and nodular density in the mental fat of the upper abdomen along the abdominal wall probably due to hernia surgery with hemorrhage, no bowel ejection, bilateral lower lobe pneumonia Echocardiogram: Ejection fraction 55-60%, mild aortic stenosis, moderate pulmonary hypertension Patient seen and examined at bedside. Still with pain when moving, tolerating her diet with no nausea or increased pain after eating. General: ill appearing, no distress, appears at stated age Derm: warm, dry Head: atraumatic, normocephalic, symmetric Eyes: EOMI, no lid lag, anicteric sclera Mouth: no lip lesion, mucus membranes dry Cardiovascular: S1S2 reg, no murmur, positive posterior tibial pulse bilateral, Lungs: Ronchi bilateral bases , no accessory muscle use Abdominal: soft, nontender to palpation, no guarding, no appreciable orga nomegaly Ext: no gross muscle atrophy, no edema, no contractures Neuro: CN II-XI grossly intact, no focal neuro deficits Psych: Alert, oriented, appropriate affect Patient is a 60-year-old female status post Incisional hernia repair with mesh and partial omentectomy Acute hypoxic respiratory failure, ARDS/noncardiogenic pulmonary edema, acute bilateral pneumonia possible aspiration with gram-negative -Cefepime D# 4 -Mucinex -Pulmonary recommendations -Solu-Medrol discontinued Hyponatremia -Mild and likely secondary to poor solute intake with diuresis - repeat in AM - Clear liquids if able to come off bipap Acute blood loss anemia - S/P 2 units of pRBC - HgB stable Diabetes mellitus type 2 -Glucophage, Actos, victoza on hold -Siding scale insulin -Levemir incrased COPD without exacerbation - bornchodilators Hypertension -Lisinopril -Verapamil Dyslipidemia -Fenofibrate Coronary artery disease/carotid arterial disease -Imdur Tobacco abuse - cessation - nicotine replacement DVT: SCDS, consider starting chemical prophysalix in AM if HgB stable and surgery is in agreement. Objective - Vital Signs Vital signs: Vital Signs Temp 98.4 F 11/27/20 08:00 Pulse 86 11/27/20 11:32 Resp 23 11/27/20 10:00 BP 141/83 11/27/20 10:00 Pulse Ox 100 11/27/20 10:00 Intake & Output 11/26/20 11/27/20 11/27/20 18:59 06:59 18:59 Intake Total 1120 890 460 Output Total 2303 2600 310 Balance -1183 -1710 150 Weight 65.6 kg Intake: IV 1120 410 100 Cefepime 2 gm In Sodium 200 100 100 Chloride 0.9% 100 ml @ 25 mls/hr IVPB Q8HR [facility] Rx# :[id number] Lactated Ringers 1,000 ml 670 60 @ 10 mls/hr IV .Q24H [facility] Rx#:[id number] Vancomycin 1,500 mg In 250 250 Sodium Chloride 0.9% 250 ml @ 125 mls/hr IVPB Q12H [facility] Rx#:[id number] Oral 480 360 Output: Drainage 30 35 Right Upper Abdomen 30 35 Urine 2273 2600 275 Other: Voiding Method Indwelling Catheter Indwelling Catheter Indwelling Catheter - Labs CBC & Chem 7: 11/27/20 03:35 11/27/20 11:27 Labs: Abnormal Lab Results - Last 24 Hours (Table) 11/26/20 11/26/20 11/27/20 Range/Units 16:39 20:10 02:18 WBC (3.8-10.6) k/uL Neutrophils # (1.3-7.7) k/uL Sodium (137-145) mmol/L Chloride (98-107) mmol/L Carbon Dioxide (22-30) mmol/L BUN (7-17) mg/dL Creatinine (0.52-1.04) mg/dL Glucose (74-99) mg/dL POC Glucose (mg/dL) 215 H 151 H 244 H (75-99) mg/dL Calcium (8.4-10.2) mg/dL 11/27/20 11/27/20 11/27/20 Range/Units 03:35 03:35 06:58 WBC 16.8 H (3.8-10.6) k/uL Neutrophils # 14.0 H (1.3-7.7) k/uL Sodium 132 L (137-145) mmol/L Chloride 92 L (98-107) mmol/L Carbon Dioxide 33 H (22-30) mmol/L BUN 29 H (7-17) mg/dL Creatinine 0.51 L (0.52-1.04) mg/dL Glucose 213 H (74-99) mg/dL POC Glucose (mg/dL) 200 H (75-99) mg/dL Calcium 10.6 H (8.4-10.2) mg/dL 11/27/20 Range/Units 11:41 WBC (3.8-10.6) k/uL Neutrophils # (1.3-7.7) k/uL Sodium (137-145) mmol/L Chloride (98-107) mmol/L Carbon Dioxide (22-30) mmol/L BUN (7-17) mg/dL Creatinine (0.52-1.04) mg/dL Glucose (74-99) mg/dL POC Glucose (mg/dL) 161 H (75-99) mg/dL Calcium (8.4-10.2) mg/dL Microbiology - Last 24 Hours (Table) 11/22/20 13:01 Blood Culture - Preliminary Blood No Growth after 96 hours 11/22/20 13:13 Blood Culture - Preliminary Blood No Growth after 96 hours
[2020-11-27] MEDS: ENOXAPARIN 40 MG/0.4 ML SYRINGE SQ SCH (12:55)
--- NOTE | 2020-11-27 13:17 | P.PN ---
Subjective Progress Note Date: 11/27/20 CHIEF COMPLAINT: Incisional hernia HISTORY OF PRESENT ILLNESS: Patient is postop day #7 status post repair of incisional hernia with mesh and partial omentectomy. Patient remains in the ICU. She's currently on AIRVO 50%. Patient reports that her abdominal pain is controlled. She denies any nausea or vomiting. She is currently on a clear liquid diet. Afebrile. WBC count is 16.8 hemoglobin is up to 12.5. Patient seen and examined with Dr. mustafa PHYSICAL EXAM: VITAL SIGNS: Reviewed. GENERAL: Well-developed in no acute distress. HEENT: No sclera icterus. Extraocular movements grossly intact. Moist buccal mucosa. Head is atraumatic, normocephalic. ABDOMEN: Soft. Nondistended. Incision site clean dry and intact. JOSE drain sanguinous fluid present NEUROLOGIC: Alert and oriented. Cranial nerves II through XII grossly intact. ASSESSMENT: 1. Incisional hernia status post repair with mesh and partial omentectomy 2. Intraperitoneal hemorrhage and increase curvilinear and nodular density in the omental fat in the upper abdomen along the abdominal wall probably due to hernia surgery with hemorrhage noted on CAT scan. Hemoglobin stable 3. Acute blood loss anemia secondary to peritoneal hemorrhage and hemorrhage in the omental fat in the upper abdomen 4. Acute hypoxic respiratory failure with possible aspiration pneumonia versus noncardiogenic pulmonary edema. Followed by pulmonary service PLAN: -Continue ICU management -Continue supportive care -Continue pain medications -Restart patient's home aspirin -GI prophylaxis Protonix and DVT prophylaxis restart Lovenox Physician Water Pump Installer note has been reviewed by physician. Signing provider agrees with the documented findings, assessment, and plan of care. Objective - Vital Signs Vital signs: Vital Signs Temp 98.4 F 11/27/20 08:00 Pulse 100 11/27/20 13:00 Resp 20 11/27/20 13:00 BP 119/91 11/27/20 13:00 Pulse Ox 95 11/27/20 13:00 Intake & Output 11/26/20 11/27/20 11/27/20 18:59 06:59 18:59 Intake Total 1120 890 460 Output Total 2303 2600 310 Balance -1183 -1710 150 Weight 65.6 kg Intake: IV 1120 410 100 Cefepime 2 gm In Sodium 200 100 100 Chloride 0.9% 100 ml @ 25 mls/hr IVPB Q8HR [facility] Rx# :[id number] Lactated Ringers 1,000 ml 670 60 @ 10 mls/hr IV .Q24H [facility] Rx#:[id number] Vancomycin 1,500 mg In 250 250 Sodium Chloride 0.9% 250 ml @ 125 mls/hr IVPB Q12H [facility] Rx#:[id number] Oral 480 360 Output: Drainage 30 35 Right Upper Abdomen 30 35 Urine 2273 2600 275 Other: Voiding Method Indwelling Catheter Indwelling Catheter Indwelling Catheter - Labs CBC & Chem 7: 11/27/20 03:35 11/27/20 11:27 Labs: Abnormal Lab Results - Last 24 Hours (Table) 11/26/20 11/26/20 11/27/20 Range/Units 16:39 20:10 02:18 WBC (3.8-10.6) k/uL Neutrophils # (1.3-7.7) k/uL Sodium (137-145) mmol/L Chloride (98-107) mmol/L Carbon Dioxide (22-30) mmol/L BUN (7-17) mg/dL Creatinine (0.52-1.04) mg/dL Glucose (74-99) mg/dL POC Glucose (mg/dL) 215 H 151 H 244 H (75-99) mg/dL Calcium (8.4-10.2) mg/dL 11/27/20 11/27/20 11/27/20 Range/Units 03:35 03:35 06:58 WBC 16.8 H (3.8-10.6) k/uL Neutrophils # 14.0 H (1.3-7.7) k/uL Sodium 132 L (137-145) mmol/L Chloride 92 L (98-107) mmol/L Carbon Dioxide 33 H (22-30) mmol/L BUN 29 H (7-17) mg/dL Creatinine 0.51 L (0.52-1.04) mg/dL Glucose 213 H (74-99) mg/dL POC Glucose (mg/dL) 200 H (75-99) mg/dL Calcium 10.6 H (8.4-10.2) mg/dL 11/27/20 Range/Units 11:41 WBC (3.8-10.6) k/uL Neutrophils # (1.3-7.7) k/uL Sodium (137-145) mmol/L Chloride (98-107) mmol/L Carbon Dioxide (22-30) mmol/L BUN (7-17) mg/dL Creatinine (0.52-1.04) mg/dL Glucose (74-99) mg/dL POC Glucose (mg/dL) 161 H (75-99) mg/dL Calcium (8.4-10.2) mg/dL Microbiology - Last 24 Hours (Table) 11/22/20 13:01 Blood Culture - Preliminary Blood No Growth after 96 hours 11/22/20 13:13 Blood Culture - Preliminary Blood No Growth after 96 hours
[2020-11-27 17:56] LABS: Glucose,Whole Blood 217 mg/dL (75-99)
[2020-11-27 20:31] LABS: Glucose,Whole Blood 231 mg/dL (75-99)
[2020-11-28 01:25] LABS: Glucose,Whole Blood 77 mg/dL (75-99)
[2020-11-28 01:57] LABS: Glucose,Whole Blood 89 mg/dL (75-99)
[2020-11-28] MEDS: HYDROmorphone 1 MG/ML 1 ML SYRINGE IVP PRN ×2 (04:19→08:35)
[2020-11-28 04:40] LABS: Basophils # (A) 0.3 k/uL (0-0.2); Basophils % (A) 1 %; Eosinophils # (A) 0.6 k/uL (0-0.7); Eosinophils % (A) 3 %; HGB 13.3 gm/dL (11.4-16.0); Lymphocytes # (A) 4.2 k/uL (1.0-4.8); Lymphocytes % (A) 21 %; MCH 31.1 pg (25.0-35.0); MCHC 34.1 g/dL (31.0-37.0); MCV 91.4 fL (80.0-100.0); Monocytes # (A) 0.9 k/uL (0-1.0); Monocytes % (A) 4 %; Neutrophils # (A) 14.2 k/uL (1.3-7.7); Neutrophils % (A) 70 %; Platelet Count 342 k/uL (150-450); RBC 4.27 m/uL (3.80-5.40); RDW 14.2 % (11.5-15.5); WBC 20.3 k/uL (3.8-10.6)
[2020-11-28 04:58] LABS: ALT 18 U/L (4-34); AST 31 U/L (14-36); African American GFR (CKD) >90 (>60 ml/min/1.73 sqM); Albumin 3.5 g/dL (3.5-5.0); Alkaline Phosphatase 90 U/L (38-126); Anion Gap 5 mmol/L; Blood Urea Nitrogen 22 mg/dL (7-17); Calcium 10.6 mg/dL (8.4-10.2); Carbon Dioxide 34 mmol/L (22-30); Chloride 93 mmol/L (98-107); Glucose 112 mg/dL (74-99); Non-African American GFR(CKD) >90 (>60 ml/min/1.73 sqM); Potassium 4.2 mmol/L (3.5-5.1); Sodium 132 mmol/L (137-145); Total Bilirubin 0.9 mg/dL (0.2-1.3); Total Protein 6.4 g/dL (6.3-8.2)
[2020-11-28] MEDS: LACTATED RINGERS 1,000 ML IV SCH (06:21)
[2020-11-28 06:41] LABS: Glucose,Whole Blood 88 mg/dL (75-99)
[2020-11-28] MEDS: INSULIN ASPART (NovoLOG) 100 UNIT/ML VIAL SQ SCH ×4 (06:43→21:55)
[2020-11-28] MEDS: IPRATROPIUM-ALBUTEROL 3 ML NEB INHALATION SCH ×4 (06:57→20:10)
[2020-11-28] MEDS: PANTOPRAZOLE 40 MG TABLET PO SCH (07:08)
[2020-11-28] MEDS: INSULIN DETEMIR (LEVEMIR) 100 UNIT/ML SYR SQ SCH ×2 (08:19→21:56)
[2020-11-28] MEDS: ASPIRIN 325 MG TAB PO SCH (08:38)
[2020-11-28] MEDS: FLUoxetine HCL 20 MG CAP PO SCH (08:38)
[2020-11-28] MEDS: methylPREDNISolone SOD SUCCI 125 MG/2 ML VIAL IV SCH ×3 (08:38→17:09)
[2020-11-28] MEDS: lisinopriL 5 MG TAB PO SCH (08:38)
[2020-11-28] MEDS: ISOSORBIDE MONONITRATE ER 30 MG TAB.ER.24H PO SCH (08:38)
[2020-11-28] MEDS: CEFEPIME 2 GM in SODIUM CHLORIDE 0.9% 100 ML IVPB SCH ×2 (08:38→17:09)
[2020-11-28] MEDS: NICOTINE 21MG/24HR PATCH TRANSDERM SCH (08:38)
[2020-11-28] MEDS: DOCUSATE 100 MG CAP PO SCH ×2 (08:39→21:18)
[2020-11-28] MEDS: FENOFIBRATE 160 MG TAB PO SCH (08:39)
[2020-11-28] MEDS: busPIRone HCl 5 MG TAB PO SCH ×2 (08:39→21:18)
[2020-11-28] MEDS: GABAPENTIN 300 MG CAP PO SCH ×3 (08:39→21:18)
[2020-11-28] MEDS: guaiFENesin 600 MG TABLET.ER PO SCH ×2 (08:39→21:18)
[2020-11-28] MEDS: VERAPAMIL 40 MG TAB PO SCH ×2 (08:39→21:20)
[2020-11-28] MEDS: ENOXAPARIN 40 MG/0.4 ML SYRINGE SQ SCH (08:40)
--- NOTE | 2020-11-28 10:10 | XR ---
EXAMINATION TYPE: XR chest 1V portable DATE OF EXAM: 11/28/2020 COMPARISON: NONE HISTORY: Pneumonia TECHNIQUE: Single frontal view of the chest is obtained. FINDINGS: Low lung volumes. Heart size stable and upper limits of normal with atherosclerotic change in the aortic knob. Bibasilar airspace opacities are visualized, slightly increased at the right lung base. No pneumothorax . Partial visualization of surgical change left shoulder level. IMPRESSION: Persistent bibasilar airspace opacities suggestive of atelectasis or developing pneumonia , slightly increased at the right lung base.
--- NOTE | 2020-11-28 10:36 | P.PN ---
Subjective Progress Note Date: 11/28/20 Principal diagnosis: Status post incisional hernia repair. This is a 60-year-old -[place] female, with history of chronic incisional hernia, patient underwent operative repair of the incisional hernia with mesh on 11/20/2020. Her surgery was basically uneventful. However over the last 3 days, the patient has been developing worsening shortness of breath and worsening chest x-ray showing bilateral interstitial infiltrates were in the differential diagnoses could be aspiration pneumonia, ARDS, or acute diastolic congestive heart failure. Her oxygen requirement has increased significantly since admission, and when I saw the patient this morning she was on BiPAP on the percent, O2 saturation was marginal, patient was noted to be quite tachypneic and tachycardic, and as soon as I laid eyes on the patient, I recommended immediate transfer to the ICU. In the meantime I reviewed her labs, patient dropped about 4 g of hemoglobin since admission chest x-ray has been steadily getting worse, patient is noted to have leukocytosis with WBC count of 14.7, hemoglobin is down to 7.2 with significant symptoms of shortness of breath, baseline hemoglobin was 10.7. Echocardiogram showed good LV function. Her a BNP level is normal. CT of the abdomen and pelvis was repeated this morning, and results of which are pending. Considering the worsening chest x-ray and co nsidering the worsening clinical status, I did recommend immediate transfer of the patient to the ICU. Patient is already on bronchodilators, she is also empirically on antibiotics, she is also on methylprednisolone at 40 mg IV push every 8 hours, and she is also on vancomycin as well as on Protonix. He shouldn't is receiving updrafts in the form of DuoNeb 4 times a day and when necessary. ABG done yesterday showed a pO2 of 49 pCO2 of 40 H and pH of 7.3, and this was done on 100% FiO2. Patient was reevaluated today on 11/24/2020, remains in the intensive care unit, remains on BiPAP with IPAP of 14 EPAP of 6 and on the percent FiO2. IV fluids at KVO, chest x-ray continues to show bilateral interstitial infiltrates. Patient is yet to receive 2 units of packed RBCs which I have ordered last night. Patient remains quite short of breath especially when she removes her BiPAP, and I have recommended that we continue antibiotics empirically as well as steroids, I'm suspecting that the patient may have aspirated and she may be developing an ARDS picture. Strongly doubt congestive heart failure since she has good echocardiogram and good LV function, and she had normal BNP level. Her pro calcitonin level was elevated at 0.74. Testing for COVID-19 PCR was negative, will go ahead and order ab titer. ABG today on BiPAP showed a pO2 of 99 pCO2 of 46 pH of 7.43. Tried the patient on high flow oxygen, did not seem to help, patient desaturated, hence I kept her back on BiPAP. Patient was reevaluated today on 11/25/20, patient remains in the ICU, remains on BiPAP, she is on 14/6 on 100% FiO2. Patient received Lasix yesterday after her blood transfusion, and she diuresed about 2 L. Slight improvement was noted in her O2 saturations, and her chest x-ray is showing slight improvement, hence I would recommend Lasix to be given again today at 40 mg IV push times one. Chest x-ray was reviewed. WBC count of 17.3 hemoglobin is 10.1. Electrolytes abnormal. Renal profile is normal. Bicarb is 33. Blood cultures have been negative so far. Hemoglobin is holding at 10 today. Patient was reevaluated today on 11/26/2020, patient is on BiPAP, 14/6, 70%, FiO2 however her O2 saturation is in the high 90s. And I cut it down to 50%, and later on recommended high flow nasal cannula. And this will be accomplished today. Chest x-ray is showing improvement in her interstitial infiltrates. Patient remains on broad-spectrum antibiotics, remains on Lasix intermittently on a daily basis. Patient is breathing easier, feeling better today. Remains on steroids as well as antibiotics, and diuretics intermittently. Pro calcitonin level was 0.74, hence antibiotics will be continued, I had a feeling that the patient may have aspirated and developed ARDS from aspiration pneumoni a. Progress note dated 11/27/2020. This is a 60-year-old black female, postop day #7, status post incisional hernia repair. The patient came to the intensive care unit on November 22. Initially, she was on BiPAP, and is now on AIRVO, with settings of 15 L/m, and 60% FiO2. The patient is not receiving any IV fluids. She feels better. She was a heavy smoker in the past. White count 16.8, he will 12.5, hematocrit 38.1, platelet count 323,000. Sodium 132, potassium 4.7, chlorides 92, CO2 33, anion gap 7, BUN 29, creatinine 0.51. Chest x-ray shows persistent left greater than right bibasilar atelectasis and/or infiltrate. Progress note dated 11/28/2020. This is a 60-year-old black female, postop day #8, status post incisional hernia repair. The patient came to the intensive care unit on November 22. Initially she was on BiPAP, yesterday, she was on AIRVO, and today she is on high flow nasal cannula at 15 L/m. The patient is not receiving any IV fluids. Because of suspected underlying active COPD, the patient will be given updrafts with albuterol sulfate and ipratropium Marty right, Pulmicort 1 mg mixed with formoterol 20 g, and IV Solu-Medrol. The patient is feeling better. From our perspective, the patient could be transferred out of the intensive care unit. White count 20.3, hemoglobin hematocrit and platelet count all stable. Sodium 132, potassium 4.2, chlorides 93, CO2 34, anion gap is 5, BUN 22, and creatinine 0.49. Calcium is 10.6. Chest x-ray continues to show persistent bibasilar airspace opacities, which could be pneumonia and/or atelectasis. Atelectasis, i n my opinion is favored. Objective - Vital Signs Vital signs: Vital Signs Temp 98.6 F 11/28/20 04:00 Pulse 96 11/28/20 09:00 Resp 12 11/28/20 09:00 BP 120/92 11/28/20 09:00 Pulse Ox 92 L 11/28/20 09:00 Intake & Output 11/27/20 11/28/20 11/28/20 18:59 06:59 18:59 Intake Total 1280 1350 Output Total 1065 1600 150 Balance 215 -250 -150 Weight 66.7 kg Intake: IV 100 100 Cefepime 2 gm In Sodium 100 100 Chloride 0.9% 100 ml @ 25 mls/hr IVPB Q8HR [facility] Rx# :[id number] Intake, IV Titration 100 Amount Cefepime 2 gm In Sodium 100 Chloride 0.9% 100 ml @ 25 mls/hr IVPB Q8HR [facility] Rx# :[id number] Oral 1080 1250 Output: Drainage 35 Right Upper Abdomen 35 Urine 1030 1600 150 Other: Voiding Method Indwelling Catheter Indwelling Catheter Indwelling Catheter # Bowel Movements 1 - Exam No acute distress, oriented 3. High flow nasal cannula noted. No respiratory distress, audible wheezing, conversational dyspnea, or use of accessory muscles. HEENT examination is grossly unremarkable. Neck supple. Full range of motion. No adenopathy thyromegaly or neck vein distention. Cardiovascular examination reveals regular rhythm rate. S1-S2 normal. No S3 or S4. No discernible murmur noted. Heart rate 96 bpm. Heart sounds are distant. Lungs reveal scattered rhonchi and crackles at the bases. Breath sounds equal bilaterally. No wheezes. Saturations are 92%, on high flow nasal cannula at 9 L/m.. Abdomen soft bowel sounds are heard. No masses or tenderness. Binder in place. Extremities are intact. No cyanosis clubbing or edema. Skin is without rash or lesion. Neurologic examination is brief but nonfocal. - Labs CBC & Chem 7: 11/28/20 04:00 11/28/20 04:00 Labs: Abnormal Lab Results - Last 24 Hours (Table) 11/27/20 11/27/20 11/27/20 Range/Units 11:41 17:54 20:29 WBC (3.8-10.6) k/uL Neutrophils # (1.3-7.7) k/uL Basophils # (0-0.2) k/uL Sodium (137-145) mmol/L Chloride (98-107) mmol/L Carbon Dioxide (22-30) mmol/L BUN (7-17) mg/dL Creatinine (0.52-1.04) mg/dL Glucose (74-99) mg/dL POC Glucose (mg/dL) 161 H 217 H 231 H (75-99) mg/dL Calcium (8.4-10.2) mg/dL 11/28/20 11/28/20 Range/Units 04:00 04:00 WBC 20.3 H (3.8-10.6) k/uL Neutrophils # 14.2 H (1.3-7.7) k/uL Basophils # 0.3 H (0-0.2) k/uL Sodium 132 L (137-145) mmol/L Chloride 93 L (98-107) mmol/L Carbon Dioxide 34 H (22-30) mmol/L BUN 22 H (7-17) mg/dL Creatinine 0.49 L (0.52-1.04) mg/dL Glucose 112 H (74-99) mg/dL POC Glucose (mg/dL) (75-99) mg/dL Calcium 10.6 H (8.4-10.2) mg/dL Microbiology - Last 24 Hours (Table) 11/22/20 13:13 Blood Culture - Preliminary Blood No Growth after 120 hours 11/22/20 13:01 Blood Culture - Preliminary Blood No Growth after 120 hours Assessment and Plan Assessment: Postop day #8, status post incisional hernia repair. Acute hypoxemic respiratory failure, initially requiring BiPAP, AIRVO, and now high flow nasal cannula. Possible aspiration pneumonia versus noncardiogenic pulmonary edema. History of underlying COPD from previous heavy tobacco use. History of type 2 diabetes mellitus. History of GERD. Benign essential hypertension. Degenerative joint disease. Remote history of bowel resection. History of tubal ligation. History of laparoscopic Ozzy fundoplication. Acute blood loss anemia. Moderately severe pulmonary hypertension. Plan: Plan dated 11/27/2020. Currently, the patient continues to do well. She feels better today. She was transitioned from BiPAP to AIRVO area clinically, she tells me that her breath ing is improved. The patient will continue with current medications. This includes bronchodilators and corticosteroids. We will continue with GI and DVT prophylaxis. Labs and x-rays and medications are all reviewed. Prognosis is guarded. No additional recommendations are made. The patient could likely move out of the intensive care unit. Plan dated 11/28/2020. The patient continues to do well. She is currently on high flow nasal cannula which have been weaned down from 15 L/m, down to 9 L/m. Saturations are in the low to mid 90s. The patient will continue with her other breathing medications including albuterol sulfate, ipratropium bromide, Pulmicort, formoterol, and IV Solu-Medrol. We encouraged hourly use of incentive spirometer, as well as the breathing, coughing, clearing secretions. The patient could be transferred out of the intensive care unit if another bed is made available. Time with Patient: Less than 30
[2020-11-28 11:39] LABS: Glucose,Whole Blood 268 mg/dL (75-99)
--- NOTE | 2020-11-28 12:46 | P.PN ---
Subjective Progress Note Date: 11/28/20 Principal diagnosis: hernia Patient is a 60-year-old -[place] female with a carotid arterial disease with repair of carotid artery aneurysm, hypertension, dyslipidemia, ongoing tobacco abuse, diabetes controlled with oral medications and insulin who presented for incisional hernia repair. Postoperatively she developed worsening shortness of breath and interstitial infiltrate, pulmonary was consulted on 11/23 the patient was transferred to the ICU. She was given 2 units of packed red blood cells and started on Lasix with some improvement in her oxygenation. She continued to require BiPap. On 11/26 she was transitioned to AIRVO and was able to be transitioned to NC by 11/28 at 10L Covid testing for antigen and antibody negative CT abdomen and pelvis: ntermediate density fluid in the pelvis consistent with intraperitoneal hemorrhage, increased curvilinear and nodular density in the mental fat of the upper abdomen along the abdominal wall probably due to hernia surgery with hemorrhage, no bowel ejection, bilateral lower lobe pneumonia Echocardiogram: Ejection fraction 55-60%, mild aortic stenosis, moderate pulmonary hypertension Patient seen and examined at bedside. Still with pain when moving, tolerating her diet with no nausea or increased pain after eating. General: ill appearing, no distress, appears at stated age Derm: warm, dry Head: atraumatic, normocephalic, symmetric Eyes: EOMI, no lid lag, anicteric sclera Mouth: no lip lesion, mucus membranes dry Cardiovascular: S1S2 reg, no murmur, positive posterior tibial pulse bilateral, Lungs: Ronchi bilateral bases , no accessory muscle use Abdominal: soft, nontender to palpation, no guarding, no appreciable organomegaly Ext: no gross muscle atrophy, no edema, no contractures Neuro: CN II-XI grossly intact, no focal neuro deficits Psych: Alert, oriented, appropriate affect Patient is a 60-year-old female status post Incisional hernia repair with mesh and partial omentectomy Acute hypoxic respiratory failure, ARDS/noncardiogenic pulmonary edema, acute bilateral pneumonia possible aspiration with gram-negative -Cefepime D#5 - Increasing WBC continue to monitor closely -Mucinex -Pulmonary recommendations -Solu-Medrol discontinued 11/27 Hyponatremia, stable -Mild and likely secondary to poor solute intake with diuresis - repeat in AM - Clear liquids if able to come off bipap Acute blood loss anemia - S/P 2 units of pRBC - HgB stable Diabetes mellitus type 2 -Glucophage, Actos, victoza on hold -Siding scale insulin -Levemir COPD without exacerbation - bronchodilators Hypertension -Lisinopril -Verapamil Dyslipidemia -Fenofibrate Coronary artery disease/carotid arterial disease -Imdur Tobacco abuse - cessation - nicotine replacement DVT: SCDS, consider starting chemical prophysalix in AM if HgB stable and surgery is in agreement. Objective - Vital Signs Vital signs: Vital Signs Temp 98.6 F 11/28/20 04:00 Pulse 84 11/28/20 11:22 Resp 12 11/28/20 09:00 BP 120/92 11/28/20 09:00 Pulse Ox 92 L 11/28/20 09:00 Intake & Output 11/27/20 11/28/20 11/28/20 18:59 06:59 18:59 Intake Total 1280 1350 Output Total 1065 1600 150 Balance 215 -250 -150 Weight 66.7 kg Intake: IV 100 100 Cefepime 2 gm In Sodium 100 100 Chloride 0.9% 100 ml @ 25 mls/hr IVPB Q8HR [facility] Rx# :[id number] Intake, IV Titration 100 Amount Cefepime 2 gm In Sodium 100 Chloride 0.9% 100 ml @ 25 mls/hr IVPB Q8HR [facility] Rx# :[id number] Oral 1080 1250 Output: Drainage 35 Right Upper Abdomen 35 Urine 1030 1600 150 Other: Voiding Method Indwelling Catheter Indwelling Catheter Indwelling Catheter # Bowel Movements 1 - Labs CBC & Chem 7: 11/28/20 04:00 11/28/20 04:00 Labs: Abnormal Lab Results - Last 24 Hours (Table) 11/27/20 11/27/20 11/28/20 Range/Units 17:54 20:29 04:00 WBC 20.3 H (3.8-10.6) k/uL Neutrophils # 14.2 H (1.3-7.7) k/uL Basophils # 0.3 H (0-0.2) k/uL Sodium (137-145) mmol/L Chloride (98-107) mmol/L Carbon Dioxide (22-30) mmol/L BUN (7-17) mg/dL Creatinine (0.52-1.04) mg/dL Glucose (74-99) mg/dL POC Glucose (mg/dL) 217 H 231 H (75-99) mg/dL Calcium (8.4-10.2) mg/dL 11/28/20 11/28/20 Range/Units 04:00 11:38 WBC (3.8-10.6) k/uL Neutrophils # (1.3-7.7) k/uL Basophils # (0-0.2) k/uL Sodium 132 L (137-145) mmol/L Chloride 93 L (98-107) mmol/L Carbon Dioxide 34 H (22-30) mmol/L BUN 22 H (7-17) mg/dL Creatinine 0.49 L (0.52-1.04) mg/dL Glucose 112 H (74-99) mg/dL POC Glucose (mg/dL) 268 H (75-99) mg/dL Calcium 10.6 H (8.4-10.2) mg/dL Microbiology - Last 24 Hours (Table) 11/22/20 13:13 Blood Culture - Preliminary Blood No Growth after 120 hours 11/22/20 13:01 Blood Culture - Preliminary Blood No Growth after 120 hours
--- NOTE | 2020-11-28 13:42 | P.PN ---
Subjective Progress Note Date: 11/28/20 CHIEF COMPLAINT: Incisional hernia HISTORY OF PRESENT ILLNESS: Patient is postop day #8 status post repair of incisional hernia with mesh and partial omentectomy. Patient in the ICU. The plan is for her to be transferred to regular medical floor later today. She is doing well. She is having bowel movements and passing gas. She is hungry. Patient reports that her abdominal pain is controlled. She denies any nausea or vomiting. She is currently on a clear liquid diet. Afebrile. She's currently on 6 L nasal cannula. WBC is up at 20.3 hemoglobin 13.3 Patient seen and examined with Dr. mustafa PHYSICAL EXAM: VITAL SIGNS: Reviewed. GENERAL: Well-developed in no acute distress. HEENT: No sclera icterus. Extraocular movements grossly intact. Moist buccal mucosa. Head is atraumatic, normocephalic. ABDOMEN: Soft. Nondistended. Incision site clean dry and intact. JOSE drain sanguinous fluid present NEUROLOGIC: Alert and oriented. Cranial nerves II through XII grossly intact. ASSESSMENT: 1. Incisional hernia status post repair with mesh and partial omentectomy 2. Intraperitoneal hemorrhage and increase curvilinear and nodular density in the omental fat in the upper abdomen along the abdominal wall probably due to hernia surgery with hemorrhage noted on CAT scan. Hemoglobin stable 3. Acute blood loss anemia secondary to peritoneal hemorrhage and hemorrhage in the omental fat in the upper abdomen 4. Acute hypoxic respiratory failure with possible aspiration pneumonia versus noncardiogenic pulmonary edema. Followed by pulmonary service PLAN: -Advance diet to full liquids -Patient will be transferred out of the ICU to regular medical floor later today -Continue supportive care -Continue pain medications -GI prophylaxis Protonix and DVT prophylaxis Lovenox [facility] note has been reviewed by physician. Signing provider agrees with the documented findings, assessment, and plan of care. Objective - Vital Signs Vital signs: Vital Signs Temp 97.8 F 11/28/20 13:35 Pulse 67 11/28/20 13:35 Resp 18 11/28/20 13:35 BP 129/76 11/28/20 13:35 Pulse Ox 99 11/28/20 13:35 Intake & Output 11/27/20 11/28/20 11/28/20 18:59 06:59 18:59 Intake Total 1280 1350 240 Output Total 1065 1600 150 Balance 215 -250 90 Weight 66.7 kg 66.7 kg Intake: IV 100 100 Cefepime 2 gm In Sodium 100 100 Chloride 0.9% 100 ml @ 25 mls/hr IVPB Q8HR [facility] Rx# :[id number] Intake, IV Titration 100 Amount Cefepime 2 gm In Sodium 100 Chloride 0.9% 100 ml @ 25 mls/hr IVPB Q8HR [facility] Rx# :[id number] Oral 1080 1250 240 Output: Drainage 35 Right Upper Abdomen 35 Urine 1030 1600 150 Other: Voiding Method Indwelling Catheter Indwelling Catheter Indwelling Catheter # Bowel Movements 1 - Labs CBC & Chem 7: 11/28/20 04:00 11/28/20 04:00 Labs: Abnormal Lab Results - Last 24 Hours (Table) 11/27/20 11/27/20 11/28/20 Range/Units 17:54 20:29 04:00 WBC 20.3 H (3.8-10.6) k/uL Neutrophils # 14.2 H (1.3-7.7) k/uL Basophils # 0.3 H (0-0.2) k/uL Sodium (137-145) mmol/L Chloride (98-107) mmol/L Carbon Dioxide (22-30) mmol/L BUN (7-17) mg/dL Creatinine (0.52-1.04) mg/dL Glucose (74-99) mg/dL POC Glucose (mg/dL) 217 H 231 H (75-99) mg/dL Calcium (8.4-10.2) mg/dL 11/28/20 11/28/20 Range/Units 04:00 11:38 WBC (3.8-10.6) k/uL Neutrophils # (1.3-7.7) k/uL Basophils # (0-0.2) k/uL Sodium 132 L (137-145) mmol/L Chloride 93 L (98-107) mmol/L Carbon Dioxide 34 H (22-30) mmol/L BUN 22 H (7-17) mg/dL Creatinine 0.49 L (0.52-1.04) mg/dL Glucose 112 H (74-99) mg/dL POC Glucose (mg/dL) 268 H (75-99) mg/dL Calcium 10.6 H (8.4-10.2) mg/dL Microbiology - Last 24 Hours (Table) 11/22/20 13:13 Blood Culture - Preliminary Blood No Growth after 120 hours 11/22/20 13:01 Blood Culture - Preliminary Blood No Growth after 120 hours
[2020-11-28] MEDS: HYDROcodone/APAP 5-325MG 1 EACH TAB PO PRN (14:05)
[2020-11-28 17:05] LABS: Glucose,Whole Blood 380 mg/dL (75-99)
[2020-11-28] MEDS: BUDESONIDE 1 MG/2 ML NEBU INHALATION SCH (20:10)
[2020-11-28] MEDS: FORMOTEROL FUMARATE 20 MCG/2 ML NEBU INHALATION SCH (20:31)
[2020-11-28 20:54] LABS: Glucose,Whole Blood 470 mg/dL (75-99)
[2020-11-28] MEDS: LATANOPROST 0.005% OPHTH DROPS 2.5 ML BTL BOTH EYES SCH (21:20)
[2020-11-28] MEDS ORDERED: INSULIN ASPART (NovoLOG) 100 UNIT/ML VIAL SQ ONE (21:40)
[2020-11-29] MEDS: CEFEPIME 2 GM in SODIUM CHLORIDE 0.9% 100 ML IVPB SCH ×4 (00:04→23:04)
[2020-11-29 00:11] LABS: Glucose,Whole Blood 304 mg/dL (75-99)
[2020-11-29] MEDS: HYDROcodone/APAP 5-325MG 1 EACH TAB PO PRN ×4 (00:18→23:03)
[2020-11-29] MEDS: methylPREDNISolone SOD SUCCI 125 MG/2 ML VIAL IV SCH ×3 (00:18→14:54)
[2020-11-29] MEDS: LACTATED RINGERS 1,000 ML IV SCH (05:45)
[2020-11-29 07:20] LABS: Glucose,Whole Blood 366 mg/dL (75-99)
[2020-11-29] MEDS: ENOXAPARIN 40 MG/0.4 ML SYRINGE SQ SCH (08:10)
[2020-11-29] MEDS: NICOTINE 21MG/24HR PATCH TRANSDERM SCH (08:10)
[2020-11-29] MEDS: FENOFIBRATE 160 MG TAB PO SCH (08:10)
[2020-11-29] MEDS: INSULIN ASPART (NovoLOG) 100 UNIT/ML VIAL SQ SCH ×5 (08:10→20:16)
[2020-11-29] MEDS: BUDESONIDE 1 MG/2 ML NEBU INHALATION SCH ×2 (08:11→19:17)
[2020-11-29] MEDS: ERGOCALCIFEROL 1,250 MCG (50,000 IU) CAPSULE PO SCH (08:11)
[2020-11-29] MEDS: ASPIRIN 325 MG TAB PO SCH (08:11)
[2020-11-29] MEDS: FORMOTEROL FUMARATE 20 MCG/2 ML NEBU INHALATION SCH ×2 (08:11→19:17)
[2020-11-29] MEDS: DOCUSATE 100 MG CAP PO SCH ×2 (08:11→20:15)
[2020-11-29] MEDS: ISOSORBIDE MONONITRATE ER 30 MG TAB.ER.24H PO SCH (08:11)
[2020-11-29] MEDS: INSULIN DETEMIR (LEVEMIR) 100 UNIT/ML SYR SQ SCH ×2 (08:11→20:17)
[2020-11-29] MEDS: IPRATROPIUM-ALBUTEROL 3 ML NEB INHALATION SCH ×4 (08:11→19:17)
[2020-11-29] MEDS: guaiFENesin 600 MG TABLET.ER PO SCH ×2 (08:12→20:15)
[2020-11-29] MEDS: PANTOPRAZOLE 40 MG TABLET PO SCH (08:12)
[2020-11-29] MEDS: busPIRone HCl 5 MG TAB PO SCH ×2 (08:12→20:16)
[2020-11-29] MEDS: lisinopriL 5 MG TAB PO SCH (08:12)
[2020-11-29] MEDS: VERAPAMIL 40 MG TAB PO SCH ×2 (08:12→20:17)
[2020-11-29] MEDS: GABAPENTIN 300 MG CAP PO SCH ×3 (08:12→20:17)
[2020-11-29] MEDS: FLUoxetine HCL 20 MG CAP PO SCH (08:12)
--- NOTE | 2020-11-29 08:24 | XR ---
EXAMINATION TYPE: XR chest 1V DATE OF EXAM: 11/29/2020 COMPARISON: 11/28/2020 HISTORY: Shortness of breath TECHNIQUE: Single frontal view of the chest is obtained. FINDINGS: Low lung volumes. Heart size is mildly enlarged, slightly increased since prior exam. Ather osclerotic aorta. Bibasilar airspace opacities are visualized. No pneumothorax . Partial visualizatio n of surgical change left shoulder level. IMPRESSION: 1. Slightly increased heart size, suggestive of mild cardiomegaly. 2. Persistent bibasilar airspace opacities suggestive of atelectasis or developing pneumonia.
[2020-11-29 09:58] LABS: HCT 39.1 % (37.2-46.3); MCH 31.5 pg (27.0-32.0); MCHC 33.2 g/dL (32.0-37.0); MCV 94.7 fL (80.0-97.0); Mean Platelet Volume 10.4 fL (9.5-12.2); Platelet Count 419 X 10*3/uL (140-440); RBC 4.13 X 10*6/uL (4.10-5.20); RDW 13.6 % (11.5-14.5); WBC 23.03 X 10*3/uL (4.50-10.00)
--- NOTE | 2020-11-29 10:11 | CDI ---
Documentation Clarification Form Date: 11/29/2020 09:48:59 AM From: Tammi Soriano CCS, CCDS Admit Date: 11/21/2020 11:30:00 PM Patient Name: Vivek Bueno Visit Number: [id number] Discharge Date: ATTENTION: The Clinical Documentation Specialists (CDI) and [facility] Coding Staff appreciate your assistance in clarifying documentation. Please respond to the clarification below the line at the bottom and electronically sign. The CDI & [facility] Coding staff will review the response and follow-up if needed. Please note: Queries are made part of the Legal Health Record. If you have any questions, please contact the author of this message via ITS. Dr. Олег Valente: COPD is documented in the 11/28 Pulmonary Progress Note: Because of suspected underlying active COPD, the patient will be given updrafts with Albuterol sulfate and Ipratropium Marty right, Pulmicort 1 mg mixed with Formoterol 20 g, and IV Solu-Medrol. History of underlying COPD from previous heavy tobacco use. Per the 11/28 Attending Progress Note: COPD without exacerbation. Additional clarification regarding the severity of COPD is requested. History/Risk Factors per the 11/20 H/P: COPD, Smoker, IDDM II, Hypertension, Hyperlipidemia, GERD, OA. Clinical Indicators: Presented for an elective Repair of an Incisional Hernia on 11/20. On 11/21 the patient developed Acute Hypoxic Respiratory Failure, treated with O2 2-6Lnc. On 11/23 the patient was transferred to ICU with increased SOB requiring BiPAP. 11/22 LAB: Blood Gases ABGs: pH 7.32, pCO2 48, pO2 49, Total CO2 26, O2 Sat 79.8 11/25 LAB: CO2 33 11/21 CXR: Diffuse pleural-parenchymal changes correlate for CHF versus pneumonia. 11/22 CXR: Worsening perihilar and basilar infiltrates compatible with COVID 19 Pneumonitis. 11/23 CXR: Interstitial infiltrates throughout both lung dowling persist although appear to be improving. 11/24 CXR: Worsening interstitial infiltrates throughout both lung dowling. 11/27 CXR: Persistent left greater than right bibasilar acute infiltrate and/or atelectasis slightly worsened from one day earlier. 11/29 CXR: Slightly increased heart size, suggestive of mild cardiomegaly. Persistent bibasilar airspace opacities suggestive of atelectasis or developing pneumonia. Treatment 11/20: INH Ventolin 11/21: IV fluid NaCl 1,000 mls @ 999 mls/hr q1H x2, IV Lasix 40 mg x, O2 2-6Lnc - 15L nrb 11/22: IV Solumedrol 60 mg x1, IV Solumedrol 40 mg q8H, IV Cefepime, IV Vancomycin, BiPAP 100% 11/24: IV Lasix 40 mg x2, INH Duoneb q2H, IV Vancomycin, IV Cefepime, BiPAP 90% 11/28: IV Solumedrol 60 mg q6H, High Flow 8L - 6-8L nc. Please clarify the acuity of COPD, if known: [ ] Acute Exacerbation of Chronic Obstructive Pulmonary Disease [ ] Chronic Obstructive Pulmonary Disease without Acute Exacerbation [ ] Chronic Obstructive Pulmonary Disease with acute lower respiratory infection with Acute Exacerbation [ ] Chronic obstructive pulmonary disease with acute lower respiratory infection without Acute Exacerbation [ ] Other condition, please specify [ ] Unable to determine (Template Last Revised: September 2020) __Acute COPD exacerbation MTDD
[2020-11-29 10:21] LABS: African American GFR (CKD) 110.7 (60.0-200.0); Albumin 4.1 g/dL (3.80-4.90); Albumin/Globulin Ratio 1.78 (1.60-3.17); Anion Gap 10.5 mmol/L (4.00-12.00); BUN/Creat Ratio 34.29 Ratio (12.00-20.00); Carbon Dioxide 29.5 mmol/L (21.6-31.8); Globulin 2.3 g/dL (1.6-3.3); Non-African American GFR(CKD) 95.5 (60.0-200.0); Potassium 4.9 mmol/L (3.5-5.5); Total Bilirubin 0.7 mg/dL (0.3-1.2); Total Protein 6.4 g/dL (6.2-8.2)
[2020-11-29 11:13] LABS: Glucose,Whole Blood 356 mg/dL (75-99)
[2020-11-29 11:31] LABS: Basophils # (M) 0 X 10*3/uL (0.00-0.10); Eosinophils # (M) 0.46 X 10*3/uL (0.04-0.35); Lymphocytes # (M) 2.53 X 10*3/uL (0.90-5.00); Metamyelocytes % 5 % (0-0); Monocytes # (M) 0.92 X 10*3/uL (0.20-1.00); Myelocytes % 5 % (0-0); Neutrophils # (M) 16.81 X 10*3/uL (2.00-8.90); Neutrophils % (M) 73 %
--- NOTE | 2020-11-29 12:31 | P.PN ---
Subjective Progress Note Date: 11/29/20 Principal diagnosis: Status post incisional hernia repair, acute hypoxic respiratory failure This is a 60-year-old -[place] female, with history of chronic incisional hernia, patient underwent operative repair of the incisional hernia with mesh on 11/20/2020. Her surgery was basically uneventful. However over the last 3 days, the patient has been developing worsening shortness of breath and worsening chest x-ray showing bilateral interstitial infiltrates were in the differential diagnoses could be aspiration pneumonia, ARDS, or acute diastolic congestive heart failure. Her oxygen requirement has increased significantly since admission, and when I saw the patient this morning she was on BiPAP on the percent, O2 saturation was marginal, patient was noted to be quite tachypneic and tachycardic, and as soon as I laid eyes on the patient, I recommended immediate transfer to the ICU. In the meantime I reviewed her labs, patient dropped about 4 g of hemoglobin since admission chest x-ray has been steadily getting worse, patient is noted to have leukocytosis with WBC count of 14.7, hemoglobin is down to 7.2 with significant symptoms of shortness of breath, b aseline hemoglobin was 10.7. Echocardiogram showed good LV function. Her a BNP level is normal. CT of the abdomen and pelvis was repeated this morning, and results of which are pending. Considering the worsening chest x-ray and considering the worsening clinical status, I did recommend immediate transfer of the patient to the ICU. Patient is already on bronchodilators, she is also empirically on antibiotics, she is also on methylprednisolone at 40 mg IV push every 8 hours, and she is also on vancomycin as well as on Protonix. He shouldn't is receiving updrafts in the form of DuoNeb 4 times a day and when necessary. ABG done yesterday showed a pO2 of 49 pCO2 of 40 H and pH of 7.3, and this was done on 100% FiO2. Patient was reevaluated today on 11/24/2020, remains in the intensive care unit, remains on BiPAP with IPAP of 14 EPAP of 6 and on the percent FiO2. IV fluids at KVO, chest x-ray continues to show bilateral interstitial infiltrates. Patient is yet to receive 2 units of packed RBCs which I have ordered last night. Patient remains quite short of breath especially when she removes her BiPAP, and I have recommended that we continue antibiotics empirically as well as steroids, I'm suspecting that the patient may have aspirated and she may be developing an ARDS picture. Strongly doubt congestive heart failure since she has good echocardiogram and good LV function, and she had normal BNP level. Her pro calcitonin level was elevated at 0.74. Testing for COVID-19 PCR was negative, will go ahead and order ab titer. ABG today on BiPAP showed a pO2 of 99 pCO2 of 46 pH of 7.43. Tried the patient on high flow oxygen, did not seem to help, patient desaturated, hence I kept her back on BiPAP. Patient was reevaluated today on 11/25/20, patient remains in the ICU, remains on BiPAP, she is on 14/6 on 100% FiO2. Patient received Lasix yesterday after her blood transfusion, and she diuresed about 2 L. Slight improvement was noted in her O2 saturations, and her chest x-ray is showing slight improvement, hence I would recommend Lasix to be given again today at 40 mg IV push times one. Chest x-ray was reviewed. WBC count of 17.3 hemoglobin is 10.1. Electrolytes abnormal. Renal profile is normal. Bicarb is 33. Blood cultures have been negative so far. Hemoglobin is holding at 10 today. Patient was reevaluated today on 11/26/2020, patient is on BiPAP, 14/6, 70%, FiO2 however her O2 saturation is in the high 90s. And I cut it down to 50%, and later on recommended high flow nasal cannula. And this will be accomplished today. Chest x-ray is showing improvement in her interstitial infiltrates. Patient remains on broad-spectrum antibiotics, remains on Lasix intermittently on a daily basis. Patient is breathing easier, feeling better today. Remains on steroids as well as antibiotics, and diuretics intermittently. Pro calcitonin level was 0.74, hence antibiotics will be continued, I had a feeling that the patient may have aspirated and developed ARDS from aspiration pneumonia. Progress note dated 11/27/2020. This is a 60-year-old black female, postop day #7, status post incisional hernia repair. The patient came to the intensive care unit on November 22. Initially, she was on BiPAP, and is now on AIRVO, with settings of 15 L/m, and 60% FiO2. The patient is not receiving any IV fluids. She feels better. She was a heavy smoker in the past. White count 16.8, he will 12.5, hematocrit 38.1, platelet count 323,000. Sodium 132, potassium 4.7, chlorides 92, CO2 33, anion gap 7, BUN 29, creatinine 0.51. Chest x-ray shows persistent left greater than right bibasilar atelectasis and/or infiltrate. Progress note dated 11/28/2020. This is a 60-year-old black female, postop day #8, status post incisional hernia repair. The patient came to the intensive care unit on November 22. Initially she was on BiPAP, yesterday, she was on AIRVO, and today she is on high flow nasal cannula at 15 L/m. The patient is not receiving any IV fluids. Because of suspected underlying active COPD, the patient will be given updrafts with albuterol sulfate and ipratropium Marty right, Pulmicort 1 mg mixed with formoterol 20 g, and IV Solu-Medrol. The patient is feeling better. From our perspective, the patient could be transferred out of the intensive care unit. White count 20.3, hemoglobin hematocrit and platelet count all stable. Sodium 132, potassium 4.2, chlorides 93, CO2 34, anion gap is 5, BUN 22, and creatinine 0.49. Calcium is 10.6. Chest x-ray continues to show persistent bibasilar airspace opacities, which could be pneumonia and/or atelectasis. Atelectasis, in my opinion is favored. On 11/29/2020 patient seen in follow-up on medical surgical floor, she is currently down to 8 L of oxygen. Her pulse ox 98%, she is breathing comfortably, she states her breathing has significantly improved, has not required BiPAP or BiPAP in the last few days. Today's chest x-ray shows slightly increased heart size, mild cardiomegaly, persistent bibasilar airspace opacities. She remains on cefepime, IV Solu-Medrol 60 mg every 6 hours, breathing treatments. Blood cultures show no growth, his labs have been reviewed showing white blood cell count 23, hemoglobin 13, sodium 132, potassium is 4.9, BUN 24 creatinine 0.7, LFTs within normal limits. No altered mentation, no fever or chills, no cough or phlegm production, no hemoptysis. Is tolerating oral intake, nausea or vomiting, she is face-timing her daughter, and we updated the daughter as well. Objective - Vital Signs Vital signs: Vital Signs Temp 98.6 F 11/29/20 07:48 Pulse 88 11/29/20 12:06 Resp 20 11/29/20 09:14 BP 146/80 11/29/20 07:48 Pulse Ox 95 11/29/20 07:48 Intake & Output 11/28/20 11/29/20 11/29/20 18:59 06:59 18:59 Intake Total 240 Output Total 150 225 Balance 90 -225 Weight 66.7 kg 72 kg Intake: Oral 240 Output: Drainage 25 Right Upper Abdomen 25 Urine 150 200 Other: Voiding Method Indwelling Catheter Indwelling Catheter Bedside Commode # Voids 1 - Exam GENERAL EXAM: Alert, very pleasant, 60-y.o. -[place] female, currently on 8 L of oxygen the pulse ox 98% comfortable in no apparent distress. HEAD: Normocephalic/atraumatic. EYES: Normal reaction of pupils, equal size. Conjunctiva pink, sclera white. NOSE: Clear with pink turbinates. THROAT: No erythema or exudates. NECK: No masses, no JVD, no thyroid enlargement, no adenopathy. CHEST: No chest wall deformity. Symmetrical expansion. LUNGS: Equal air entry with some scattered rhonchi CVS: Regular rate and rhythm, normal S1 and S2, no gallops, no murmurs, no rubs ABDOMEN: Soft, nontender. No hepatosplenomegaly, normal bowel sounds, no guarding or rigidity. EXTREMITIES: No clubbing, no edema, no cyanosis, 2+ pulses and upper and lower extremities. MUSCULOSKELETAL: Muscle strength and tone normal. Patient has missing digit on the right index finger SPINE: No scoliosis or deformity SKIN: No rashes CENTRAL NERVOUS SYSTEM: Alert and oriented -3. No focal deficits, tone is normal in all 4 extremities. PSYCHIATRIC: Alert and oriented -3. Appropriate affect. Intact judgment and insight. - Labs CBC & Chem 7: 11/29/20 05:58 11/29/20 05:58 Labs: Abnormal Lab Results - Last 24 Hours (Table) 11/28/20 11/28/20 11/29/20 Range/Units 17:03 20:53 00:10 WBC (4.50-10.00) X 10*3/uL Metamyelocytes % (0-0) % Myelocytes % (0-0) % Neutrophils # (Manual) (2.00-8.90) X 10*3/uL Eosinophils # (Manual) (0.04-0.35) X 10*3/uL Sodium (135-145) mmol/L Chloride (96-109) mmol/L BUN/Creatinine Ratio (12.00-20.00) Ratio Glucose (70-110) mg/dL POC Glucose (mg/dL) 380 H 470 H 304 H (75-99) mg/dL 11/29/20 11/29/20 11/29/20 Range/Units 05:58 05:58 07:19 WBC 23.03 H (4.50-10.00) X 10*3/uL Metamyelocytes % 5 H (0-0) % Myelocytes % 5 H (0-0) % Neutrophils # (Manual) 16.81 H (2.00-8.90) X 10*3/uL Eosinophils # (Manual) 0.46 H (0.04-0.35) X 10*3/uL Sodium 132 L (135-145) mmol/L Chloride 92 L (96-109) mmol/L BUN/Creatinine Ratio 34.29 H (12.00-20.00) Ratio Glucose 391 H (70-110) mg/dL POC Glucose (mg/dL) 366 H (75-99) mg/dL 11/29/20 Range/Units 11:12 WBC (4.50-10.00) X 10*3/uL Metamyelocytes % (0-0) % Myelocytes % (0-0) % Neutrophils # (Manual) (2.00-8.90) X 10*3/uL Eosinophils # (Manual) (0.04-0.35) X 10*3/uL Sodium (135-145) mmol/L Chloride (96-109) mmol/L BUN/Creatinine Ratio (12.00-20.00) Ratio Glucose (70-110) mg/dL POC Glucose (mg/dL) 356 H (75-99) mg/dL Microbiology - Last 24 Hours (Table) 11/22/20 13:13 Blood Culture - Final Blood No Growth after 144 hours 11/22/20 13:01 Blood Culture - Final Blood No Growth after 144 hours Assessment and Plan Plan: Assessment: #1. Status post incisional hernia repair, postoperative day #9 #2. Acute hypoxemic respiratory failure related to possibility of aspiration pneumonia versus ARDS and noncardiogenic pulmonary edema #3. History of underlying COPD from previous heavy tobacco use, the severity of which is unknown at this time #4. History of type 2 diabetes mellitus #5. History of GERD #6. Benign essential hypertension #7. Degenerative joint disease #8. Remote history of bowel resection. #9. History of tubal ligation #10. History of laparoscopic Ozzy fundoplication #11. Acute blood loss anemia #12. Moderately severe pulmonary hypertension Plan: Continue current medical treatment Continue antibiotics Follow-up on calcitonin We'll decrease the IV steroids to 40 every 8 hours Continue breathing treatments Continue weaning FiO2, currently down to 6 L, continue O2 saturations at or above 89-90% as well as the patient is comfortable I performed a history & physical examination of the patient and discussed their management with my nurse practitioner, Ritika Angulo. I reviewed the nurse practitioner's note and agree with the documented findings and plan of care. Lung sounds are positive for diminished breath sounds. The findings and the impression was discussed with the patient. I attest to the documentation by the nurse practitioner. Time with Patient: Less than 30
[2020-11-29 12:35] LABS: Glucose,Whole Blood 274 mg/dL (75-99)
--- NOTE | 2020-11-29 15:11 | P.PN ---
Subjective Progress Note Date: 11/29/20 CHIEF COMPLAINT: Incisional hernia HISTORY OF PRESENT ILLNESS: Patient is postop day #9 status post repair of incisional hernia with mesh and partial omentectomy. Patient is transferred out of the ICU yesterday to regular medical floor. She is doing well. She is having bowel movements and passing gas. She is hungry. Patient reports that her abdominal pain is controlled. She denies any nausea or vomiting. Afebrile. She's currently on 6 L high flow. WBC elevated at 23.03. Patient will is on IV steroids for her respiratory failure. Hemoglobin 13.1 Patient seen and examined with Dr. mustafa PHYSICAL EXAM: VITAL SIGNS: Reviewed. GENERAL: Well-developed in no acute distress. HEENT: No sclera icterus. Extraocular movements grossly intact. Moist buccal mucosa. Head is atraumatic, normocephalic. ABDOMEN: Soft. Nondistended. Incision site clean dry and intact. JOSE drain sanguinous fluid present NEUROLOGIC: Alert and oriented. Cranial nerves II through XII grossly intact. ASSESSMENT: 1. Incisional hernia status post repair with mesh and partial omentectomy 2. Intraperitoneal hemorrhage and increase curvilinear and nodular density in the omental fat in the upper abdomen along the abdominal wall probably due to hernia surgery with hemorrhage noted on CAT scan. Hemoglobin stable 3. Acute blood loss anemia secondary to peritoneal hemorrhage and hemorrhage in the omental fat in the upper abdomen 4. Acute hypoxic respiratory failure with possible aspiration pneumonia versus noncardiogenic pulmonary edema. Followed by pulmonary service PLAN: -Advance diet to regular -Continue supportive care -Continue pain medications -Encouraged patient to increase activity -Encouraged patient to use incentive spirometer -GI prophylaxis Protonix and DVT prophylaxis Lovenox Physician Economics Instructor note has been reviewed by physician. Signing provider agrees with the documented findings, assessment, and plan of care. Objective - Vital Signs Vital signs: Vital Signs Temp 98.6 F 11/29/20 07:48 Pulse 88 11/29/20 12:23 Resp 20 11/29/20 09:14 BP 146/80 11/29/20 07:48 Pulse Ox 98 11/29/20 12:59 Intake & Output 11/28/20 11/29/20 11/29/20 18:59 06:59 18:59 Intake Total 240 237 Output Total 150 225 Balance 90 -225 237 Weight 66.7 kg 72 kg Intake: Oral 240 237 Output: Drainage 25 Right Upper Abdomen 25 Urine 150 200 Other: Voiding Method Indwelling Catheter Indwelling Catheter Bedside Commode # Voids 1 - Labs CBC & Chem 7: 11/29/20 05:58 11/29/20 05:58 Labs: Abnormal Lab Results - Last 24 Hours (Table) 11/28/20 11/28/20 11/29/20 Range/Units 17:03 20:53 00:10 WBC (4.50-10.00) X 10*3/uL Metamyelocytes % (0-0) % Myelocytes % (0-0) % Neutrophils # (Manual) (2.00-8.90) X 10*3/uL Eosinophils # (Manual) (0.04-0.35) X 10*3/uL Sodium (135-145) mmol/L Chloride (96-109) mmol/L BUN/Creatinine Ratio (12.00-20.00) Ratio Glucose (70-110) mg/dL POC Glucose (mg/dL) 380 H 470 H 304 H (75-99) mg/dL 11/29/20 11/29/20 11/29/20 Range/Units 05:58 05:58 07:19 WBC 23.03 H (4.50-10.00) X 10*3/uL Metamyelocytes % 5 H (0-0) % Myelocytes % 5 H (0-0) % Neutrophils # (Manual) 16.81 H (2.00-8.90) X 10*3/uL Eosinophils # (Manual) 0.46 H (0.04-0.35) X 10*3/uL Sodium 132 L (135-145) mmol/L Chloride 92 L (96-109) mmol/L BUN/Creatinine Ratio 34.29 H (12.00-20.00) Ratio Glucose 391 H (70-110) mg/dL POC Glucose (mg/dL) 366 H (75-99) mg/dL 11/29/20 11/29/20 Range/Units 11:12 12:33 WBC (4.50-10.00) X 10*3/uL Metamyelocytes % (0-0) % Myelocytes % (0-0) % Neutrophils # (Manual) (2.00-8.90) X 10*3/uL Eosinophils # (Manual) (0.04-0.35) X 10*3/uL Sodium (135-145) mmol/L Chloride (96-109) mmol/L BUN/Creatinine Ratio (12.00-20.00) Ratio Glucose (70-110) mg/dL POC Glucose (mg/dL) 356 H 274 H (75-99) mg/dL Microbiology - Last 24 Hours (Table) 11/22/20 13:13 Blood Culture - Final Blood No Growth after 144 hours 11/22/20 13:01 Blood Culture - Final Blood No Growth after 144 hours
[2020-11-29] MEDS: methylPREDNISolone SOD SUCCI 40 MG/ML 1 ML VIAL IV SCH ×2 (15:35→23:04)
[2020-11-29 17:35] LABS: Glucose,Whole Blood 235 mg/dL (75-99)
--- NOTE | 2020-11-29 18:48 | P.PN ---
Subjective Progress Note Date: 11/29/20 (Delayed charting seen at 1400) Principal diagnosis: hernia Patient is a 60-year-old -[place] female with a carotid arterial disease with repair of carotid artery aneurysm, hypertension, dyslipidemia, ongoing tobacco abuse, diabetes controlled with oral medications and insulin who presented for incisional hernia repair. Postoperatively she developed worsening shortness of breath and interstitial infiltrate, pulmonary was consulted on 11/23 the patient was transferred to the ICU. She was given 2 units of packed red blood cells and started on Lasix with some improvement in her oxygenation. She continued to require BiPap. On 11/26 she was transitioned to AIRVO and was able to be transitioned to NC by 11/28 at 10L Covid testing for antigen and antibody negative CT abdomen and pelvis: ntermediate density fluid in the pelvis consistent with intraperitoneal hemorrhage, increased curvilinear and nodular density in the mental fat of the upper abdomen along the abdominal wall probably due to hernia surgery with hemorrhage, no bowel ejection, bilateral lower lobe pneumonia Echocardiogram: Ejection fraction 55-60%, mild aortic stenosis, moderate pulmonary hypertension Patient seen and examined at bedside. Feeling much better than yesterday, no cough, pain is well controlled, shortness of breath is much improved General: ill appearing, no distress, appears at stated age Derm: warm, dry Head: atraumatic, normocephalic, symmetric Eyes: EOMI, no lid lag, anicteric sclera Mouth: no lip lesion, mucus membranes dry Cardiovascular: S1S2 reg, no murmur, positive posterior tibial pulse bilateral, Lungs: Good auscultation bilaterally, no conversational dyspnea no accessory muscle use Abdominal: soft, nontender to palpation, no guarding, no appreciable organo megaly Ext: no gross muscle atrophy, no edema, no contractures Neuro: CN II-XI grossly intact, no focal neuro deficits Psych: Alert, oriented, appropriate affect Patient is a 60-year-old female status post Incisional hernia repair with mesh and partial omentectomy Acute hypoxic respiratory failure, ARDS/noncardiogenic pulmonary edema, acute bilateral pneumonia possible aspiration with gram-negative -Cefepime D#6 - Increasing WBC continue to monitor closely -Mucinex -Pulmonary recommendations -Solu-Medrol decreased Persistent leukocytosis -May be secondary to steroids which are being weaned -Repeat CBC in a.m. Hyponatremia, stable -Mild and likely secondary to poor solute intake with diuresis - repeat in AM - Clear liquids if able to come off bipap Acute blood loss anemia - S/P 2 units of pRBC - HgB stable Diabetes mellitus type 2 -Glucophage, Actos, victoza on hold -Siding scale insulin, and fixed dose -Levemir COPD without exacerbation - bronchodilators Hypertension -Lisinopril -Verapamil Dyslipidemia -Fenofibrate Coronary artery disease/carotid arterial disease -Imdur Tobacco abuse - cessation - nicotine replacement DVT: Lovenox Objective - Vital Signs Vital signs: Vital Signs Temp 98.2 F 11/29/20 15:09 Pulse 96 11/29/20 15:09 Resp 18 11/29/20 15:09 BP 108/61 11/29/20 15:09 Pulse Ox 97 11/29/20 16:27 Intake & Output 11/28/20 11/29/20 11/29/20 18:59 06:59 18:59 Intake Total 240 237 Output Total 150 225 Balance 90 -225 237 Weight 66.7 kg 72 kg Intake: Oral 240 237 Output: Drainage 25 Right Upper Abdomen 25 Urine 150 200 Other: Voiding Method Indwelling Catheter Indwelling Catheter Bedside Commode # Voids 1 - Labs CBC & Chem 7: 11/29/20 05:58 11/29/20 05:58 Labs: Abnormal Lab Results - Last 24 Hours (Table) 11/28/20 11/29/20 11/29/20 Range/Units 20:53 00:10 05:58 WBC 23.03 H (4.50-10.00) X 10*3/uL Metamyelocytes % 5 H (0-0) % Myelocytes % 5 H (0-0) % Neutrophils # (Manual) 16.81 H (2.00-8.90) X 10*3/uL Eosinophils # (Manual) 0.46 H (0.04-0.35) X 10*3/uL Sodium (135-145) mmol/L Chloride (96-109) mmol/L BUN/Creatinine Ratio (12.00-20.00) Ratio Glucose (70-110) mg/dL POC Glucose (mg/dL) 470 H 304 H (75-99) mg/dL 11/29/20 11/29/20 11/29/20 Range/Units 05:58 07:19 11:12 WBC (4.50-10.00) X 10*3/uL Metamyelocytes % (0-0) % Myelocytes % (0-0) % Neutrophils # (Manual) (2.00-8.90) X 10*3/uL Eosinophils # (Manual) (0.04-0.35) X 10*3/uL Sodium 132 L (135-145) mmol/L Chloride 92 L (96-109) mmol/L BUN/Creatinine Ratio 34.29 H (12.00-20.00) Ratio Glucose 391 H (70-110) mg/dL POC Glucose (mg/dL) 366 H 356 H (75-99) mg/dL 11/29/20 11/29/20 Range/Units 12:33 17:34 WBC (4.50-10.00) X 10*3/uL Metamyelocytes % (0-0) % Myelocytes % (0-0) % Neutrophils # (Manual) (2.00-8.90) X 10*3/uL Eosinophils # (Manual) (0.04-0.35) X 10*3/uL Sodium (135-145) mmol/L Chloride (96-109) mmol/L BUN/Creatinine Ratio (12.00-20.00) Ratio Glucose (70-110) mg/dL POC Glucose (mg/dL) 274 H 235 H (75-99) mg/dL Microbiology - Last 24 Hours (Table) 11/22/20 13:13 Blood Culture - Final Blood No Growth after 144 hours 11/22/20 13:01 Blood Culture - Final Blood No Growth after 144 hours
[2020-11-29 20:04] LABS: Glucose,Whole Blood 305 mg/dL (75-99)
[2020-11-29] MEDS: LATANOPROST 0.005% OPHTH DROPS 2.5 ML BTL BOTH EYES SCH (20:17)
[2020-11-30 02:31] LABS: Glucose,Whole Blood 140 mg/dL (75-99)
[2020-11-30] MEDS: HYDROcodone/APAP 5-325MG 1 EACH TAB PO PRN ×3 (02:33→17:24)
[2020-11-30] MEDS: LACTATED RINGERS 1,000 ML IV SCH (05:43)
[2020-11-30 07:11] LABS: Glucose,Whole Blood 289 mg/dL (75-99)
--- NOTE | 2020-11-30 07:19 | XR ---
EXAMINATION TYPE: XR chest 1V DATE OF EXAM: 11/30/2020 COMPARISON: 11/29/2020 HISTORY: Shortness of breath TECHNIQUE: Single frontal view of the chest is obtained. FINDINGS: Low lung volumes. Heart size is mildly enlarged, similar to prior . Atherosclerotic aorta. Bibasilar airspace opacities are visualized, left greater than right. Mildly increasing pulmonary int erstitial prominence may represent low lung volumes versus mild pulmonary edema. No pneumothorax . Pa rtial visualization of surgical change left shoulder level. IMPRESSION: 1. Stable cardiomegaly. Mild increasing pulmonary interstitial prominence may represent a component o f mild pulmonary edema. Consider congestive heart failure. Small bilateral pleural effusions, left gr eater than right. 2. Bibasilar airspace opacities, left greater than right. These have increased since prior exam.
[2020-11-30] MEDS: INSULIN DETEMIR (LEVEMIR) 100 UNIT/ML SYR SQ SCH ×2 (07:23→20:27)
[2020-11-30] MEDS: ENOXAPARIN 40 MG/0.4 ML SYRINGE SQ SCH (07:23)
[2020-11-30] MEDS: methylPREDNISolone SOD SUCCI 40 MG/ML 1 ML VIAL IV SCH (07:23)
[2020-11-30] MEDS: NICOTINE 21MG/24HR PATCH TRANSDERM SCH (07:23)
[2020-11-30] MEDS: INSULIN ASPART (NovoLOG) 100 UNIT/ML VIAL SQ SCH ×7 (07:23→20:27)
[2020-11-30] MEDS: GABAPENTIN 300 MG CAP PO SCH ×3 (07:24→20:28)
[2020-11-30] MEDS: DOCUSATE 100 MG CAP PO SCH ×2 (07:24→20:26)
[2020-11-30] MEDS: CEFEPIME 2 GM in SODIUM CHLORIDE 0.9% 100 ML IVPB SCH (07:24)
[2020-11-30] MEDS: FLUoxetine HCL 20 MG CAP PO SCH (07:24)
[2020-11-30] MEDS: guaiFENesin 600 MG TABLET.ER PO SCH ×2 (07:25→20:26)
[2020-11-30] MEDS: VERAPAMIL 40 MG TAB PO SCH ×2 (07:25→20:28)
[2020-11-30] MEDS: ISOSORBIDE MONONITRATE ER 30 MG TAB.ER.24H PO SCH (07:25)
[2020-11-30] MEDS: FENOFIBRATE 160 MG TAB PO SCH (07:25)
[2020-11-30] MEDS: ASPIRIN 325 MG TAB PO SCH (07:25)
[2020-11-30] MEDS: lisinopriL 5 MG TAB PO SCH (07:25)
[2020-11-30] MEDS: PANTOPRAZOLE 40 MG TABLET PO SCH (07:25)
[2020-11-30] MEDS: BUDESONIDE 1 MG/2 ML NEBU INHALATION SCH ×2 (07:47→21:29)
[2020-11-30] MEDS: FORMOTEROL FUMARATE 20 MCG/2 ML NEBU INHALATION SCH ×2 (07:47→21:29)
[2020-11-30] MEDS: IPRATROPIUM-ALBUTEROL 3 ML NEB INHALATION SCH ×4 (07:47→21:29)
[2020-11-30] MEDS: busPIRone HCl 5 MG TAB PO SCH ×2 (08:02→20:26)
[2020-11-30] MEDS: ONDANSETRON 4 MG/2 ML VIAL IVP PRN (09:23)
[2020-11-30 09:38] LABS: HGB 11.9 g/dL (12.0-15.0); MCH 30.5 pg (27.0-32.0); MCHC 32.2 g/dL (32.0-37.0); MCV 94.9 fL (80.0-97.0); Mean Platelet Volume 10.5 fL (9.5-12.2); Platelet Count 459 X 10*3/uL (140-440); RDW 13.9 % (11.5-14.5)
[2020-11-30 10:30] LABS: African American GFR (CKD) 110.7 (60.0-200.0); Albumin 3.9 g/dL (3.80-4.90); Albumin/Globulin Ratio 1.95 (1.60-3.17); Anion Gap 8.3 mmol/L (4.00-12.00); BUN/Creat Ratio 42.86 Ratio (12.00-20.00); Calcium 9.7 mg/dL (8.7-10.3); Carbon Dioxide 28.7 mmol/L (21.6-31.8); Non-African American GFR(CKD) 95.5 (60.0-200.0); Potassium 4.9 mmol/L (3.5-5.5); Total Bilirubin 0.6 mg/dL (0.3-1.2); Total Protein 5.9 g/dL (6.2-8.2)
[2020-11-30 11:15] LABS: Basophils # (M) 0 X 10*3/uL (0.00-0.10); Eosinophils # (M) 0 X 10*3/uL (0.04-0.35); Lymphocytes # (M) 0.99 X 10*3/uL (0.90-5.00); Metamyelocytes % 3 % (0-0); Myelocytes % 2 % (0-0); Neutrophils # (M) 22.07 X 10*3/uL (2.00-8.90); Neutrophils % (M) 89 %
--- NOTE | 2020-11-30 12:06 | P.PN ---
Subjective Progress Note Date: 11/30/20 Principal diagnosis: Status post incisional hernia repair, acute hypoxic respiratory failure This is a 60-year-old -[place] female, with history of chronic incisional hernia, patient underwent operative repair of the incisional hernia with mesh on 11/20/2020. Her surgery was basically uneventful. However over the last 3 days, the patient has been developing worsening shortness of breath and worsening chest x-ray showing bilateral interstitial infiltrates were in the differential diagnoses could be aspiration pneumonia, ARDS, or acute diastolic congestive heart failure. Her oxygen requirement has increased significantly since admission, and when I saw the patient this morning she was on BiPAP on the percent, O2 saturation was marginal, patient was noted to be quite tachypneic and tachycardic, and as soon as I laid eyes on the patient, I recommended immediate transfer to the ICU. In the meantime I reviewed her labs, patient dropped about 4 g of hemoglobin since admission chest x-ray has been steadily getting worse, patient is noted to have leukocytosis with WBC count of 14.7, hemoglobin is down to 7.2 with significant symptoms of shortness of breath, b aseline hemoglobin was 10.7. Echocardiogram showed good LV function. Her a BNP level is normal. CT of the abdomen and pelvis was repeated this morning, and results of which are pending. Considering the worsening chest x-ray and considering the worsening clinical status, I did recommend immediate transfer of the patient to the ICU. Patient is already on bronchodilators, she is also empirically on antibiotics, she is also on methylprednisolone at 40 mg IV push every 8 hours, and she is also on vancomycin as well as on Protonix. He shouldn't is receiving updrafts in the form of DuoNeb 4 times a day and when necessary. ABG done yesterday showed a pO2 of 49 pCO2 of 40 H and pH of 7.3, and this was done on 100% FiO2. Patient was reevaluated today on 11/24/2020, remains in the intensive care unit, remains on BiPAP with IPAP of 14 EPAP of 6 and on the percent FiO2. IV fluids at KVO, chest x-ray continues to show bilateral interstitial infiltrates. Patient is yet to receive 2 units of packed RBCs which I have ordered last night. Patient remains quite short of breath especially when she removes her BiPAP, and I have recommended that we continue antibiotics empirically as well as steroids, I'm suspecting that the patient may have aspirated and she may be developing an ARDS picture. Strongly doubt congestive heart failure since she has good echocardiogram and good LV function, and she had normal BNP level. Her pro calcitonin level was elevated at 0.74. Testing for COVID-19 PCR was negative, will go ahead and order ab titer. ABG today on BiPAP showed a pO2 of 99 pCO2 of 46 pH of 7.43. Tried the patient on high flow oxygen, did not seem to help, patient desaturated, hence I kept her back on BiPAP. Patient was reevaluated today on 11/25/20, patient remains in the ICU, remains on BiPAP, she is on 14/6 on 100% FiO2. Patient received Lasix yesterday after her blood transfusion, and she diuresed about 2 L. Slight improvement was noted in her O2 saturations, and her chest x-ray is showing slight improvement, hence I would recommend Lasix to be given again today at 40 mg IV push times one. Chest x-ray was reviewed. WBC count of 17.3 hemoglobin is 10.1. Electrolytes abnormal. Renal profile is normal. Bicarb is 33. Blood cultures have been negative so far. Hemoglobin is holding at 10 today. Patient was reevaluated today on 11/26/2020, patient is on BiPAP, 14/6, 70%, FiO2 however her O2 saturation is in the high 90s. And I cut it down to 50%, and later on recommended high flow nasal cannula. And this will be accomplished today. Chest x-ray is showing improvement in her interstitial infiltrates. Patient remains on broad-spectrum antibiotics, remains on Lasix intermittently on a daily basis. Patient is breathing easier, feeling better today. Remains on steroids as well as antibiotics, and diuretics intermittently. Pro calcitonin level was 0.74, hence antibiotics will be continued, I had a feeling that the patient may have aspirated and developed ARDS from aspiration pneumonia. Progress note dated 11/27/2020. This is a 60-year-old black female, postop day #7, status post incisional hernia repair. The patient came to the intensive care unit on November 22. Initially, she was on BiPAP, and is now on AIRVO, with settings of 15 L/m, and 60% FiO2. The patient is not receiving any IV fluids. She feels better. She was a heavy smoker in the past. White count 16.8, he will 12.5, hematocrit 38.1, platelet count 323,000. Sodium 132, potassium 4.7, chlorides 92, CO2 33, anion gap 7, BUN 29, creatinine 0.51. Chest x-ray shows persistent left greater than right bibasilar atelectasis and/or infiltrate. Progress note dated 11/28/2020. This is a 60-year-old black female, postop day #8, status post incisional hernia repair. The patient came to the intensive care unit on November 22. Initially she was on BiPAP, yesterday, she was on AIRVO, and today she is on high flow nasal cannula at 15 L/m. The patient is not receiving any IV fluids. Because of suspected underlying active COPD, the patient will be given updrafts with albuterol sulfate and ipratropium Marty right, Pulmicort 1 mg mixed with formoterol 20 g, and IV Solu-Medrol. The patient is feeling better. From our perspective, the patient could be transferred out of the intensive care unit. White count 20.3, hemoglobin hematocrit and platelet count all stable. Sodium 132, potassium 4.2, chlorides 93, CO2 34, anion gap is 5, BUN 22, and creatinine 0.49. Calcium is 10.6. Chest x-ray continues to show persistent bibasilar airspace opacities, which could be pneumonia and/or atelectasis. Atelectasis, in my opinion is favored. On 11/29/2020 patient seen in follow-up on medical surgical floor, she is currently down to 8 L of oxygen. Her pulse ox 98%, she is breathing comfortably, she states her breathing has significantly improved, has not required BiPAP or BiPAP in the last few days. Today's chest x-ray shows slightly increased heart size, mild cardiomegaly, persistent bibasilar airspace opacities. She remains on cefepime, IV Solu-Medrol 60 mg every 6 hours, breathing treatments. Blood cultures show no growth, his labs have been reviewed showing white blood cell count 23, hemoglobin 13, sodium 132, potassium is 4.9, BUN 24 creatinine 0.7, LFTs within normal limits. No altered mentation, no fever or chills, no cough or phlegm production, no hemoptysis. Is tolerating oral intake, nausea or vomiting, she is face-timing her daughter, and we updated the daughter as well. on 11/30/2020 patient seen in follow-up on medical surgical floor. She is cu rrently down to 2 L of oxygen, her pulse ox is 96%, room air pulse ox was checked and it was 86 percent with exercise she does qualify for home oxygen. she is breathing very comfortably, no complaints of chest discomfort, no cough, today's chest x-ray shows bibasilar airspace opacities left greater than right. today's labs have been noted. procalcitonin is low, no fever or chlls Objective - Vital Signs Vital signs: Vital Signs Temp 95.5 F L 11/30/20 07:32 Pulse 72 11/30/20 11:37 Resp 19 11/30/20 07:32 BP 125/75 11/30/20 07:32 Pulse Ox 86 L 11/30/20 11:09 Intake & Output 11/29/20 11/30/20 11/30/20 18:59 06:59 18:59 Intake Total 237 238 Output Total 0 Balance 237 238 Weight 61.8 kg Intake: Oral 237 238 Output: Drainage 0 Right Upper Abdomen 0 Other: Voiding Method Bedside Commode Bedside Commode - Exam GENERAL EXAM: Alert, very pleasant, 60-y.o. -[place] female, currently on 2 L of oxygen the pulse ox 98% comfortable in no apparent distress. HEAD: Normocephalic/atraumatic. EYES: Normal reaction of pupils, equal size. Conjunctiva pink, sclera white. NOSE: Clear with pink turbinates. THROAT: No erythema or exudates. NECK: No masses, no JVD, no thyroid enlargement, no adenopathy. CHEST: No chest wall deformity. Symmetrical expansion. LUNGS: Equal air entry with some scattered rhonchi CVS: Regular rate and rhythm, normal S1 and S2, no gallops, no murmurs, no rubs ABDOMEN: Soft, nontender. No hepatosplenomegaly, normal bowel sounds, no guarding or rigidity. EXTREMITIES: No clubbing, no edema, no cyanosis, 2+ pulses and upper and lower extremities. MUSCULOSKELETAL: Muscle strength and tone normal. Patient has missing digit on the right index finger SPINE: No scoliosis or deformity SKIN: No rashes CENTRAL NERVOUS SYSTEM: Alert and oriented -3. No focal deficits, tone is normal in all 4 extremities. PSYCHIATRIC: Alert and oriented -3. Appropriate affect. Intact judgment and insight. - Labs CBC & Chem 7: 11/30/20 05:05 11/30/20 05:05 Labs: Abnormal Lab Results - Last 24 Hours (Table) 11/29/20 11/29/20 11/29/20 Range/Units 05:58 12:33 17:34 WBC (4.50-10.00) X 10*3/uL RBC (4.10-5.20) X 10*6/uL Hgb (12.0-15.0) g/dL Hct (37.2-46.3) % Plt Count (140-440) X 10*3/uL Plt Count Comment Metamyelocytes % (0-0) % Myelocytes % (0-0) % Neutrophils # (Manual) (2.00-8.90) X 10*3/uL Eosinophils # (Manual) (0.04-0.35) X 10*3/uL BUN (9.0-27.0) mg/dL BUN/Creatinine Ratio (12.00-20.00) Ratio Glucose (70-110) mg/dL POC Glucose (mg/dL) 274 H 235 H (75-99) mg/dL Total Protein (6.2-8.2) g/dL Procalcitonin 0.13 H (0.02-0.09) ng/mL 11/29/20 11/30/20 11/30/20 Range/Units 20:03 02:25 05:05 WBC 24.80 H (4.50-10.00) X 10*3/uL RBC 3.90 L (4.10-5.20) X 10*6/uL Hgb 11.9 L (12.0-15.0) g/dL Hct 37.0 L (37.2-46.3) % Plt Count 459 H (140-440) X 10*3/uL Plt Count Comment INCREASED A Metamyelocytes % 3 H (0-0) % Myelocytes % 2 H (0-0) % Neutrophils # (Manual) 22.07 H (2.00-8.90) X 10*3/uL Eosinophils # (Manual) 0 L (0.04-0.35) X 10*3/uL BUN (9.0-27.0) mg/dL BUN/Creatinine Ratio (12.00-20.00) Ratio Glucose (70-110) mg/dL POC Glucose (mg/dL) 305 H 140 H (75-99) mg/dL Total Protein (6.2-8.2) g/dL Procalcitonin (0.02-0.09) ng/mL 11/30/20 11/30/20 Range/Units 05:05 07:08 WBC (4.50-10.00) X 10*3/uL RBC (4.10-5.20) X 10*6/uL Hgb (12.0-15.0) g/dL Hct (37.2-46.3) % Plt Count (140-440) X 10*3/uL Plt Count Comment Metamyelocytes % (0-0) % Myelocytes % (0-0) % Neutrophils # (Manual) (2.00-8.90) X 10*3/uL Eosinophils # (Manual) (0.04-0.35) X 10*3/uL BUN 30.0 H (9.0-27.0) mg/dL BUN/Creatinine Ratio 42.86 H (12.00-20.00) Ratio Glucose 309 H (70-110) mg/dL POC Glucose (mg/dL) 289 H (75-99) mg/dL Total Protein 5.9 L (6.2-8.2) g/dL Procalcitonin (0.02-0.09) ng/mL Assessment and Plan Plan: Assessment: #1. Status post incisional hernia repair, postoperative day #10 #2. Acute hypoxemic respiratory failure related to possibility of aspiration pneumonia versus ARDS and noncardiogenic pulmonary edema #3. History of underlying COPD from previous heavy tobacco use, the severity of which is unknown at this time #4. History of type 2 diabetes mellitus #5. History of GERD #6. Benign essential hypertension #7. Degenerative joint disease #8. Remote history of bowel resection. #9. History of tubal ligation #10. History of laparoscopic Ozzy fundoplication #11. Acute blood loss anemia #12. Moderately severe pulmonary hypertension Plan: patient is doing well, down to 2 L of oxygen, discontinue cefepime, and discontinue steroids, no taper needed Patient is stable for discharge home, Outpatient follow up with Dr. Flor in 1 week I performed a history & physical examination of the patient and discussed their management with my nurse practitioner, Ritika Angulo. I reviewed the nurse practitioner's note and agree with the documented findings and plan of care. Lung sounds are positive for diminished breath sounds. The findings and the impression was discussed with the patient. I attest to the documentation by the nurse practitioner. Time with Patient: Less than 30
[2020-11-30 12:14] LABS: Glucose,Whole Blood 194 mg/dL (75-99)
[2020-11-30 13:02] VITALS: BMI 23.3
--- NOTE | 2020-11-30 14:45 | P.PN ---
Subjective Progress Note Date: 11/30/20 CHIEF COMPLAINT: Incisional hernia HISTORY OF PRESENT ILLNESS: Patient is postop day #10 status post repair of incisional hernia with mesh and partial omentectomy. Patient is currently on a regular medical floor. She really reports that her abdominal pain is controlled. Denies any nausea or vomiting. She is having bowel movements and passing gas. She is tolerating regular diet. Her shortness of breath. She is requiring only 2 L of oxygen. Afebrile. WBC 24.80 hemoglobin 11.9. White count may be elevated due to the IV steroids Patient seen and examined with Dr. mustafa PHYSICAL EXAM: VITAL SIGNS: Reviewed. GENERAL: Well-developed in no acute distress. HEENT: No sclera icterus. Extraocular movements grossly intact. Moist buccal mucosa. Head is atraumatic, normocephalic. ABDOMEN: Soft. Nondistended. Incision site clean dry and intact. JOSE drain sanguinous fluid present NEUROLOGIC: Alert and oriented. Cranial nerves II through XII grossly intact. ASSESSMENT: 1. Incisional hernia status post repair with mesh and partial omentectomy 2. Intraperitoneal hemorrhage and increase curvilinear and nodular density in the omental fat in the upper abdomen along the abdominal wall probably due to hernia surgery with hemorrhage noted on CAT scan. Hemoglobin stable 3. Acute blood loss anemia secondary to peritoneal hemorrhage and hemorrhage in the omental fat in the upper abdomen 4. Acute hypoxic respiratory failure with possible aspiration pneumonia versus noncardiogenic pulmonary edema. Followed by pulmonary service PLAN: -Anticipate possible discharge tomorrow if cleared by consulting physicians -Continue regular diet -Continue supportive care -Continue pain medications -Encouraged patient to increase activity -Encouraged patient to use incentive spirometer -GI prophylaxis Protonix and DVT prophylaxis Lovenox Physician Recreation Facilities Supervisor note has been reviewed by physician. Signing provider agrees with the documented findings, assessment, and plan of care. Objective - Vital Signs Vital signs: Vital Signs Temp 95.5 F L 11/30/20 07:32 Pulse 72 11/30/20 11:37 Resp 19 11/30/20 07:32 BP 125/75 11/30/20 07:32 Pulse Ox 86 L 11/30/20 11:09 Intake & Output 11/29/20 11/30/20 11/30/20 18:59 06:59 18:59 Intake Total 237 238 Output Total 0 Balance 237 238 Weight 61.8 kg 61.8 kg Intake: Oral 237 238 Output: Drainage 0 Right Upper Abdomen 0 Other: Voiding Method Bedside Commode Bedside Commode - Labs CBC & Chem 7: 11/30/20 05:05 11/30/20 05:05 Labs: Abnormal Lab Results - Last 24 Hours (Table) 11/29/20 11/29/20 11/29/20 Range/Units 05:58 17:34 20:03 WBC (4.50-10.00) X 10*3/uL RBC (4.10-5.20) X 10*6/uL Hgb (12.0-15.0) g/dL Hct (37.2-46.3) % Plt Count (140-440) X 10*3/uL Plt Count Comment Metamyelocytes % (0-0) % Myelocytes % (0-0) % Neutrophils # (Manual) (2.00-8.90) X 10*3/uL Eosinophils # (Manual) (0.04-0.35) X 10*3/uL BUN (9.0-27.0) mg/dL BUN/Creatinine Ratio (12.00-20.00) Ratio Glucose (70-110) mg/dL POC Glucose (mg/dL) 235 H 305 H (75-99) mg/dL Total Protein (6.2-8.2) g/dL Procalcitonin 0.13 H (0.02-0.09) ng/mL 11/30/20 11/30/20 11/30/20 Range/Units 02:25 05:05 05:05 WBC 24.80 H (4.50-10.00) X 10*3/uL RBC 3.90 L (4.10-5.20) X 10*6/uL Hgb 11.9 L (12.0-15.0) g/dL Hct 37.0 L (37.2-46.3) % Plt Count 459 H (140-440) X 10*3/uL Plt Count Comment INCREASED A Metamyelocytes % 3 H (0-0) % Myelocytes % 2 H (0-0) % Neutrophils # (Manual) 22.07 H (2.00-8.90) X 10*3/uL Eosinophils # (Manual) 0 L (0.04-0.35) X 10*3/uL BUN 30.0 H (9.0-27.0) mg/dL BUN/Creatinine Ratio 42.86 H (12.00-20.00) Ratio Glucose 309 H (70-110) mg/dL POC Glucose (mg/dL) 140 H (75-99) mg/dL Total Protein 5.9 L (6.2-8.2) g/dL Procalcitonin (0.02-0.09) ng/mL 11/30/20 11/30/20 Range/Units 07:08 12:12 WBC (4.50-10.00) X 10*3/uL RBC (4.10-5.20) X 10*6/uL Hgb (12.0-15.0) g/dL Hct (37.2-46.3) % Plt Count (140-440) X 10*3/uL Plt Count Comment Metamyelocytes % (0-0) % Myelocytes % (0-0) % Neutrophils # (Manual) (2.00-8.90) X 10*3/uL Eosinophils # (Manual) (0.04-0.35) X 10*3/uL BUN (9.0-27.0) mg/dL BUN/Creatinine Ratio (12.00-20.00) Ratio Glucose (70-110) mg/dL POC Glucose (mg/dL) 289 H 194 H (75-99) mg/dL Total Protein (6.2-8.2) g/dL Procalcitonin (0.02-0.09) ng/mL
--- NOTE | 2020-11-30 15:09 | P.PN ---
Subjective Progress Note Date: 11/30/20 (delayed charting seen at 1215) Principal diagnosis: hernia Patient is a 60-year-old -[place] female with a carotid arterial disease with repair of carotid artery aneurysm, hypertension, dyslipidemia, ongoing tobacco abuse, diabetes controlled with oral medications and insulin who presented for incisional hernia repair. Postoperatively she developed worsening shortness of breath and interstitial infiltrate, pulmonary was consulted on 11/23 the patient was transferred to the ICU. She was given 2 units of packed red blood cells and started on Lasix with some improvement in her oxygenation. She continued to require BiPap. On 11/26 she was transitioned to AIRVO and was able to be transitioned to NC by 11/28 at 10L Covid testing for antigen and antibody negative CT abdomen and pelvis: ntermediate density fluid in the pelvis consistent with intraperitoneal hemorrhage, increased curvilinear and nodular density in the mental fat of the upper abdomen along the abdominal wall probably due to hernia surgery with hemorrhage, no bowel ejection, bilateral lower lobe pneumonia Echocardiogram: Ejection fraction 55-60%, mild aortic stenosis, moderate pulmonary hypertension Patient seen and examined at bedside. Feeling much better than yesterday, no cough, pain is well controlled, shortness of breath is much improved General: ill appearing, no distress, appears at stated age Derm: warm, dry Head: atraumatic, normocephalic, symmetric Eyes: EOMI, no lid lag, anicteric sclera Mouth: no lip lesion, mucus membranes dry Cardiovascular: S1S2 reg, no murmur, positive posterior tibial pulse bilateral, Lungs: CTA bilaterally, no conversational dyspnea no accessory muscle use Abdominal: soft, nontender to palpation, no guarding, no appreciable organomegaly Ext: no gross muscle atrophy, no edema, no contractures Neuro: CN II-XI grossly intact, no focal neuro deficits Psych: Alert, oriented, appropriate affect Patient is a 60-year-old female status post Incisional hernia repair with mesh and partial omentectomy Acute hypoxic respiratory failure, ARDS/noncardiogenic pulmonary edema, acute bilateral pneumonia possible aspiration with gram-negative - Cefepime D#7 - Increasing WBC continue to monitor closely - Mucinex - Pulmonary recommendations - Solu-Medrol decreased Persistent leukocytosis -May be secondary to steroids which are being weaned -Repeat CBC in a.m. Hyponatremia, stable -Mild and likely secondary to poor solute intake with diuresis - repeat in AM - Clear liquids if able to come off bipap Acute blood loss anemia - S/P 2 units of pRBC - HgB stable Diabetes mellitus type 2 -Glucophage, Actos, victoza on hold -Siding scale insulin, and fixed dose -Levemir COPD without exacerbation - bronchodilators Hypertension -Lisinopril -Verapamil Dyslipidemia -Fenofibrate Coronary artery disease/carotid arterial disease -Imdur Tobacco abuse - cessation - nicotine replacement DVT: Lovenox Anticipate home in AM Objective - Vital Signs Vital signs: Vital Signs Temp 95.5 F L 11/30/20 07:32 Pulse 72 11/30/20 11:37 Resp 19 11/30/20 07:32 BP 125/75 11/30/20 07:32 Pulse Ox 86 L 11/30/20 11:09 Intake & Output 11/29/20 11/30/20 11/30/20 18:59 06:59 18:59 Intake Total 237 238 Output Total 0 Balance 237 238 Weight 61.8 kg 61.8 kg Intake: Oral 237 238 Output: Drainage 0 Right Upper Abdomen 0 Other: Voiding Method Bedside Commode Bedside Commode - Labs CBC & Chem 7: 11/30/20 05:05 11/30/20 05:05 Labs: Abnormal Lab Results - Last 24 Hours (Table) 11/29/20 11/29/20 11/29/20 Range/Units 05:58 17:34 20:03 WBC (4.50-10.00) X 10*3/uL RBC (4.10-5.20) X 10*6/uL Hgb (12.0-15.0) g/dL Hct (37.2-46.3) % Plt Count (140-440) X 10*3/uL Plt Count Comment Metamyelocytes % (0-0) % Myelocytes % (0-0) % Neutrophils # (Manual) (2.00-8.90) X 10*3/uL Eosinophils # (Manual) (0.04-0.35) X 10*3/uL BUN (9.0-27.0) mg/dL BUN/Creatinine Ratio (12.00-20.00) Ratio Glucose (70-110) mg/dL POC Glucose (mg/dL) 235 H 305 H (75-99) mg/dL Total Protein (6.2-8.2) g/dL Procalcitonin 0.13 H (0.02-0.09) ng/mL 11/30/20 11/30/20 11/30/20 Range/Units 02:25 05:05 05:05 WBC 24.80 H (4.50-10.00) X 10*3/uL RBC 3.90 L (4.10-5.20) X 10*6/uL Hgb 11.9 L (12.0-15.0) g/dL Hct 37.0 L (37.2-46.3) % Plt Count 459 H (140-440) X 10*3/uL Plt Count Comment INCREASED A Metamyelocytes % 3 H (0-0) % Myelocytes % 2 H (0-0) % Neutrophils # (Manual) 22.07 H (2.00-8.90) X 10*3/uL Eosinophils # (Manual) 0 L (0.04-0.35) X 10*3/uL BUN 30.0 H (9.0-27.0) mg/dL BUN/Creatinine Ratio 42.86 H (12.00-20.00) Ratio Glucose 309 H (70-110) mg/dL POC Glucose (mg/dL) 140 H (75-99) mg/dL Total Protein 5.9 L (6.2-8.2) g/dL Procalcitonin (0.02-0.09) ng/mL 11/30/20 11/30/20 Range/Units 07:08 12:12 WBC (4.50-10.00) X 10*3/uL RBC (4.10-5.20) X 10*6/uL Hgb (12.0-15.0) g/dL Hct (37.2-46.3) % Plt Count (140-440) X 10*3/uL Plt Count Comment Metamyelocytes % (0-0) % Myelocytes % (0-0) % Neutrophils # (Manual) (2.00-8.90) X 10*3/uL Eosinophils # (Manual) (0.04-0.35) X 10*3/uL BUN (9.0-27.0) mg/dL BUN/Creatinine Ratio (12.00-20.00) Ratio Glucose (70-110) mg/dL POC Glucose (mg/dL) 289 H 194 H (75-99) mg/dL Total Protein (6.2-8.2) g/dL Procalcitonin (0.02-0.09) ng/mL
[2020-11-30 17:24] LABS: Glucose,Whole Blood 298 mg/dL (75-99)
[2020-11-30 20:10] LABS: Glucose,Whole Blood 172 mg/dL (75-99)
[2020-11-30] MEDS: LATANOPROST 0.005% OPHTH DROPS 2.5 ML BTL BOTH EYES SCH (20:28)
[2020-12-01 01:33] LABS: Glucose,Whole Blood 150 mg/dL (75-99)
[2020-12-01] MEDS: HYDROcodone/APAP 5-325MG 1 EACH TAB PO PRN ×2 (02:16→08:18)
[2020-12-01 07:41] LABS: Glucose,Whole Blood 67 mg/dL (75-99)
[2020-12-01] MEDS: BUDESONIDE 1 MG/2 ML NEBU INHALATION SCH (07:44)
[2020-12-01] MEDS: IPRATROPIUM-ALBUTEROL 3 ML NEB INHALATION SCH ×2 (07:44→11:52)
[2020-12-01] MEDS: FORMOTEROL FUMARATE 20 MCG/2 ML NEBU INHALATION SCH (07:44)
[2020-12-01 08:04] LABS: Glucose,Whole Blood 102 mg/dL (75-99)
[2020-12-01] MEDS: GABAPENTIN 300 MG CAP PO SCH (08:08)
[2020-12-01] MEDS: PANTOPRAZOLE 40 MG TABLET PO SCH (08:09)
[2020-12-01] MEDS: DOCUSATE 100 MG CAP PO SCH (08:09)
[2020-12-01] MEDS: ISOSORBIDE MONONITRATE ER 30 MG TAB.ER.24H PO SCH (08:09)
[2020-12-01] MEDS: FENOFIBRATE 160 MG TAB PO SCH (08:09)
[2020-12-01] MEDS: lisinopriL 5 MG TAB PO SCH (08:09)
[2020-12-01] MEDS: ASPIRIN 325 MG TAB PO SCH (08:09)
[2020-12-01] MEDS: VERAPAMIL 40 MG TAB PO SCH (08:09)
[2020-12-01] MEDS: busPIRone HCl 5 MG TAB PO SCH (08:09)
[2020-12-01] MEDS: ENOXAPARIN 40 MG/0.4 ML SYRINGE SQ SCH (08:09)
[2020-12-01] MEDS: FLUoxetine HCL 20 MG CAP PO SCH (08:09)
[2020-12-01] MEDS: guaiFENesin 600 MG TABLET.ER PO SCH (08:10)
[2020-12-01] MEDS: INSULIN ASPART (NovoLOG) 100 UNIT/ML VIAL SQ SCH ×4 (08:10→13:13)
[2020-12-01] MEDS: NICOTINE 21MG/24HR PATCH TRANSDERM SCH (08:11)
[2020-12-01 08:15] VITALS: BP 149/77; RESP 18; TEMP 98.6
[2020-12-01] MEDS: INSULIN DETEMIR (LEVEMIR) 100 UNIT/ML SYR SQ SCH (08:46)
[2020-12-01 09:16] LABS: HCT 36.9 % (37.2-46.3); HGB 11.9 g/dL (12.0-15.0); MCH 30.7 pg (27.0-32.0); MCHC 32.2 g/dL (32.0-37.0); MCV 95.1 fL (80.0-97.0); Mean Platelet Volume 10.3 fL (9.5-12.2); Platelet Count 470 X 10*3/uL (140-440); RBC 3.88 X 10*6/uL (4.10-5.20); WBC 24.07 X 10*3/uL (4.50-10.00)
[2020-12-01 09:30] LABS: African American GFR (CKD) 116.4 (60.0-200.0); Anion Gap 5.7 mmol/L (4.00-12.00); BUN/Creat Ratio 36.67 Ratio (12.00-20.00); Calcium 9.8 mg/dL (8.7-10.3); Carbon Dioxide 30.3 mmol/L (21.6-31.8); Non-African American GFR(CKD) 100.5 (60.0-200.0); Potassium 5.2 mmol/L (3.5-5.5)
--- NOTE | 2020-12-01 11:25 | P.PN ---
Subjective Progress Note Date: 12/01/20 No new complaints. Agents as her breathing is really good today. Patient was seen standing up, without oxygen, able to converse freely without any dyspnea. Patient reports her energy levels are up, and she feels ready to go home. Objective - Vital Signs Vital signs: Vital Signs Temp 98.6 F 12/01/20 08:14 Pulse 76 12/01/20 08:14 Resp 18 12/01/20 08:14 BP 149/77 12/01/20 08:14 Pulse Ox 99 12/01/20 08:14 Intake & Output 11/30/20 12/01/20 12/01/20 18:59 06:59 18:59 Intake Total 476 Output Total 0 5 0 Balance 476 -5 0 Weight 61.8 kg 61.6 kg Intake: Oral 476 Output: Drainage 0 5 0 Right Upper Abdomen 0 5 0 Other: Voiding Method Bedside Commode Bedside Commode # Voids 1 # Bowel Movements 1 - Exam Gen: awake, alert HEENT: normocephalic, atraumatic, good hearing acuity, moist mucous membranes Resp: good air exchange, breathing comfortably with no accessory muscle use, clear to auscultation bilaterally without wheezes or crackles CVS: good distal perfusion x 4, regular rate and rhythm without murmurs GI: soft, NTTP, ND, appropriate bowel sounds : no SPT, no CVAT, velez catheter not present MSK: no pitting edema, no clubbing Neuro: non-focal, moving all extremities Psych: cooperative, euthymic mood - Labs CBC & Chem 7: 12/01/20 05:41 12/01/20 05:41 Labs: Abnormal Lab Results - Last 24 Hours (Table) 11/30/20 11/30/20 11/30/20 Range/Units 12:12 17:23 20:09 WBC (4.50-10.00) X 10*3/uL RBC (4.10-5.20) X 10*6/uL Hgb (12.0-15.0) g/dL Hct (37.2-46.3) % Plt Count (140-440) X 10*3/uL BUN/Creatinine Ratio (12.00-20.00) Ratio POC Glucose (mg/dL) 194 H 298 H 172 H (75-99) mg/dL 12/01/20 12/01/20 12/01/20 Range/Units 01:31 05:41 05:41 WBC 24.07 H (4.50-10.00) X 10*3/uL RBC 3.88 L (4.10-5.20) X 10*6/uL Hgb 11.9 L (12.0-15.0) g/dL Hct 36.9 L (37.2-46.3) % Plt Count 470 H (140-440) X 10*3/uL BUN/Creatinine Ratio 36.67 H (12.00-20.00) Ratio POC Glucose (mg/dL) 150 H (75-99) mg/dL 12/01/20 12/01/20 Range/Units 07:40 08:02 WBC (4.50-10.00) X 10*3/uL RBC (4.10-5.20) X 10*6/uL Hgb (12.0-15.0) g/dL Hct (37.2-46.3) % Plt Count (140-440) X 10*3/uL BUN/Creatinine Ratio (12.00-20.00) Ratio POC Glucose (mg/dL) 67 L 102 H (75-99) mg/dL Assessment and Plan Assessment: Acute hypoxic respiratory failure, ARDS/noncardiogenic pulmonary edema, acute bilateral pneumonia possible aspiration with gram-negative - Cefepime completed - Increasing WBC has peaked as of today - Mucinex - Pulmonary recommendations - Solu-Medrol decreased, discontinued Persistent leukocytosis -May be secondary to steroids which are being weaned, and now stopped -Repeat CBC in a.m. Hyponatremia, stable, resolved -Mild and likely secondary to poor solute intake with diuresis - repeat in AM -Tolerating regular diet Acute blood loss anemia - S/P 2 units of pRBC - HgB stable Diabetes mellitus type 2 -Glucophage, Actos, victoza on hold -Siding scale insulin, and fixed dose -Levemir COPD without exacerbation - bronchodilators Hypertension -Lisinopril -Verapamil Dyslipidemia -Fenofibrate Coronary artery disease/carotid arterial disease -Imdur Tobacco abuse - cessation - nicotine replacement DVT: Lovenox Anticipate home today, with or without home oxygen depending on 6 minute walk test
[2020-12-01 11:47] LABS: Glucose,Whole Blood 178 mg/dL (75-99)
[2020-12-01 11:54] VITALS: PULSE 80
--- NOTE | 2020-12-01 13:19 | P.DS ---
Providers Date of admission: 11/21/20 23:30 Expected date of discharge: 12/01/20 Attending physician: Manjit Hester Consults: 11/20/20 12:01 Consult Physician Routine Consulting Provider: Leon Looney Consult Reason/Comments: Medical management Do you want consulting provider notified?: Yes 11/22/20 15:13 Consult Physician Routine Consulting Provider: Katie Flor Consult Reason/Comments: hypoxia Do you want consulting provider notified?: Yes 12/01/20 08:20 Consult Physician Routine Consulting Provider: Kendrick Max Consult Reason/Comments: medical management Do you want consulting provider notified?: Already Contacted Primary care physician: Seng Mckeon [facility] Course: Discharge diagnosis 1. Incisional hernia status post repair with mesh and partial omentectomy 2. Intraperitoneal hemorrhage and increase curvilinear and nodular density in the omental fat in the upper abdomen along the abdominal wall probably due to hernia surgery with hemorrhage noted on CAT scan. Hemoglobin stable 3. Acute blood loss anemia secondary to peritoneal hemorrhage and hemorrhage in the omental fat in the upper abdomen 4. Acute hypoxic respiratory failure with possible aspiration pneumonia versus noncardiogenic pulmonary edema. Completed antibiotics 5. Leukocytosis likely secondary to steroids Hospital course This is a 60-year-old female with a known incisional hernia. She is status post repair of incisional hernia with mesh placement and partial omentectomy. Patient developed acute hypoxic respiratory failure during her admission and required to be transferred to the ICU. She was on BiPAP and then was able to be transitioned to nasal cannula. And now she is currently on room air without oxygen supplement. Patient followed by critical care service and medicine service. There were concerns for possible aspiration pneumonia versus noncardiogenic pulmonary edema contributing to patient's symptoms. She did complete antibiotics during her hospitalization. Patient's abdominal pain is controlled. She is tolerating regular diet. She is having bowel movements and passing gas. She is ambulating without difficulty. She is afebrile. She is stable for discharge. Please refer to chart for any further details. Physician Audio Visual Aide note has been reviewed by physician. Signing provider agrees with the documented findings, assessment, and plan of care. Patient Condition at Discharge: Stable Plan - Discharge Summary Discharge Rx Participant: Yes New Discharge Prescriptions: New Budesonide/Formoterol Fumarate [Symbicort 80-4.5 Mcg Inhaler] 1 puff INHALATION BID #1 inhaler Continue FLUoxetine HCL [PROzac] 40 mg PO QAM Cyclobenzaprine [Flexeril] 10 mg PO TID PRN PRN Reason: Pain Aspirin EC [Ecotrin] 325 mg PO DAILY Albuterol Nebulized [Ventolin Nebulized] 2.5 mg INHALATION RT-QID PRN PRN Reason: Shortness Of Breath Albuterol Inhaler (Mhu) [Ventolin Hfa Inhaler (Mhu)] 2 puff INHALATION RT-BID PRN PRN Reason: Shortness Of Breath lisinopriL [Zestril] 5 mg PO QAM Fenofibrate 160 mg PO QAM Gabapentin [Neurontin] 600 mg PO TID Isosorbide Mononitrate [Isosorbide Mononitrate ER] 30 mg PO QAM Pioglitazone [Actos] 15 mg PO QAM Nitroglycerin Sl Tabs [Nitrostat] 0.4 mg PO Q5M PRN PRN Reason: Chest Pain Latanoprost [Xalatan 0.005%] 1 drop BOTH EYES HS metFORMIN HCL [Glucophage] 500 mg PO PC-SUPPER Ergocalciferol (Vitamin D2) [Vitamin D2] 50,000 unit PO WE Verapamil [Isoptin] 40 mg PO BID Liraglutide [Victoza 3-Myron] 1.2 mg SQ DAILY Insulin Lispro [humaLOG Kwikpen] 10 unit SQ AC-SUPPER Allopurinol [Zyloprim] 100 mg PO DAILY HYDROcodone/APAP 7.5-325MG [[place] 7.5-325] 1 tab PO Q6HR PRN PRN Reason: Pain ondansetron HCL [Zofran] 8 mg PO Q8HR PRN PRN Reason: Nausea busPIRone HCL [Buspar] 7.5 mg PO BID Changed Insulin Glargine [Lantus] 50 unit SQ HS #0 Discharge Medication List Aspirin EC [Ecotrin] 325 mg PO DAILY 08/26/14 [History] Cyclobenzaprine [Flexeril] 10 mg PO TID PRN 08/26/14 [History] FLUoxetine HCL [PROzac] 40 mg PO QAM 08/26/14 [History] Albuterol Inhaler (Mhu) [Ventolin Hfa Inhaler (u)] 2 puff INHALATION RT-BID PRN 09/01/14 [History] Albuterol Nebulized [Ventolin Nebulized] 2.5 mg INHALATION RT-QID PRN 09/01/14 [History] lisinopriL [Zestril] 5 mg PO QAM 04/12/15 [History] Fenofibrate 160 mg PO QAM 07/28/15 [History] Gabapentin [Neurontin] 600 mg PO TID 07/28/15 [History] Ergocalciferol (Vitamin D2) [Vitamin D2] 50,000 unit PO WE 04/09/17 [History] Isosorbide Mononitrate [Isosorbide Mononitrate ER] 30 mg PO QAM 04/09/17 [History] Latanoprost [Xalatan 0.005%] 1 drop BOTH EYES HS 04/09/17 [History] Nitroglycerin Sl Tabs [Nitrostat] 0.4 mg PO Q5M PRN 04/09/17 [History] Pioglitazone [Actos] 15 mg PO QAM 04/09/17 [History] Verapamil [Isoptin] 40 mg PO BID 04/09/17 [History] metFORMIN HCL [Glucophage] 500 mg PO PC-SUPPER 04/09/17 [History] Liraglutide [Victoza 3-Myron] 1.2 mg SQ DAILY 12/14/18 [History] Allopurinol [Zyloprim] 100 mg PO DAILY 11/16/20 [History] HYDROcodone/APAP 7.5-325MG [[place] 7.5-325] 1 tab PO Q6HR PRN 11/16/20 [History] Insulin Lispro [humaLOG Kwikpen] 10 unit SQ AC-SUPPER 11/16/20 [History] busPIRone HCL [Buspar] 7.5 mg PO BID 11/16/20 [History] ondansetron HCL [Zofran] 8 mg PO Q8HR PRN 11/16/20 [History] Budesonide/Formoterol Fumarate [Symbicort 80-4.5 Mcg Inhaler] 1 puff INHALATION BID #1 inhaler 12/01/20 [Rx] Insulin Glargine [Lantus] 50 unit SQ HS #0 12/01/20 [Rx] Follow up Appointment(s)/Referral(s): Katie Flor MD [STAFF PHYSICIAN] - 1 Week [facility] [NON-STAFF] - As Needed (Supplier of commode) [facility], [NON-STAFF] - 1-2 Days Manjit Hester MD [STAFF PHYSICIAN] - 11/30/20 3:45 pm Activity/Diet/Wound Care/Special Instructions: No driving while taking [place] No lifting over 10 pounds You may shower. No soaking or tub baths for 2 weeks Very light activity until you are reevaluated at your follow up appointment with your surgeon Keep a log of JOSE drain output and bring with you to your follow-up appointment Milk/strip drains 2-3 times a day Discharge Disposition: HOME WITH HOME HEALTH SERVICES
== END 2020-12-01 15:08 | disposition home health service (06) | DRG 353 ==
LOC: OR 07:57 → 6PED 13:11 → OR 11-21 10:36 → 6PED 11-21 10:58 → 3SCARD 11-21 16:48 → OBSVTOIN 11-21 23:30 → 2SICU 11-23 10:38 → 6NMEDSUR 11-28 13:29
PROVIDERS: ADMIT Surgery; ATTEND Surgery
PROC: 0DBU0ZZ Excision of Omentum, Open Approach (ICD-10-PCS; 2020-11-20)
PROC: 0WUF0JZ Supplement Abdominal Wall with Synthetic Substitute, Open Approach (ICD-10-PCS; principal; 2020-11-20 09:50)
PROC: 5A09457 Assistance with Respiratory Ventilation, 24-96 Consecutive Hours, Continuous Positive Airway Pressure (ICD-10-PCS; 2020-11-22)
PROC: 30233N1 Transfusion of Nonautologous Red Blood Cells into Peripheral Vein, Percutaneous Approach (ICD-10-PCS; 2020-11-24)
PROC: 5A0945A Assistance with Respiratory Ventilation, 24-96 Consecutive Hours, High Flow/Velocity Cannula (ICD-10-PCS; 2020-11-26)
DX: K43.2 Incisional hernia without obstruction or gangrene (principal); J69.0 Pneumonitis due to inhalation of food and vomit; K66.1 Hemoperitoneum; J80 Acute respiratory distress syndrome; D62 Acute posthemorrhagic anemia; E87.1 Hypo-osmolality and hyponatremia; J44.1 Chronic obstructive pulmonary disease with (acute) exacerbation; J44.0 Chronic obstructive pulmonary disease with (acute) lower respiratory infection; J98.11 Atelectasis; I27.20 Pulmonary hypertension, unspecified; E11.9 Type 2 diabetes mellitus without complications; F11.11 Opioid abuse, in remission; Z79.4 Long term (current) use of insulin; Z20.822 Contact with and (suspected) exposure to COVID-19; E83.42 Hypomagnesemia; I65.29 Occlusion and stenosis of unspecified carotid artery; I25.10 Atherosclerotic heart disease of native coronary artery without angina pectoris; E78.5 Hyperlipidemia, unspecified; I10 Essential (primary) hypertension; K21.9 Gastro-esophageal reflux disease without esophagitis; H40.9 Unspecified glaucoma; G43.909 Migraine, unspecified, not intractable, without status migrainosus; M19.90 Unspecified osteoarthritis, unspecified site; G89.29 Other chronic pain; M54.5 Low back pain; F41.9 Anxiety disorder, unspecified; F32.9 Major depressive disorder, single episode, unspecified; F17.210 Nicotine dependence, cigarettes, uncomplicated; Z90.710 Acquired absence of both cervix and uterus; Z98.51 Tubal ligation status; Z90.49 Acquired absence of other specified parts of digestive tract; Z95.828 Presence of other vascular implants and grafts; Z98.890 Other specified postprocedural states; Z79.82 Long term (current) use of aspirin; Z79.899 Other long term (current) drug therapy; Z86.79 Personal history of other diseases of the circulatory system; Z82.49 Family history of ischemic heart disease and other diseases of the circulatory system; Z83.3 Family history of diabetes mellitus; R00.0 Tachycardia, unspecified; T38.0X5A Adverse effect of glucocorticoids and synthetic analogues, initial encounter; D72.829 Elevated white blood cell count, unspecified
CPT/HCPCS: 36600; 64999; 71045; 74177; 76942; 80048; 80053; 80202; 82565; 82805; 83735; 83880; 84100; 84145; 84484; 85025; 85027; 86769; 86850; 86900; 86901; 86920; 87040; 87635; 88305; 93005; 93306; 94640; 94660; 94760

== ENCOUNTER 2020-12-13 10:59 | Day surgery (SDC) | payer OTHER ==
[~2020-12-13 10:59] MED LIST changes: -DEXAMETHASONE SOD PHOSPHATE 4 MG/ML 1 ML VIAL IV ONE; -MIDAZOLAM 2 MG/2 ML VIAL IV PRN; -ONDANSETRON 4 MG/2 ML VIAL IVP ONE; +Pre Op ABX Message 1 EACH MISC MISCELLANE ONE
[2020-12-13] MEDS ORDERED: LACTATED RINGERS 1,000 ML IV SCH (11:13)
[2020-12-13] MEDS ORDERED: LIDOCAINE 1% (10MG/ML) FOR IV START INTRADERMA PRN (11:13)
[2020-12-13] MEDS ORDERED: SCOPOLAMINE 1.5MG/72HR PATCH TRANSDERM ONE (11:13)
[2020-12-13] MEDS ORDERED: DEXAMETHASONE SOD PHOSPHATE 4 MG/ML 1 ML VIAL IV ONE (11:13)
[2020-12-13] MEDS ORDERED: HYDROmorphone 0.5 MG/0.5 ML SYRINGE IVP PRN (11:13)
[2020-12-13] MEDS ORDERED: ONDANSETRON 4 MG/2 ML VIAL IVP ONE (11:13)
[2020-12-13 11:33] LABS: Glucose,Whole Blood 104 mg/dL (75-99)
[2020-12-13] MEDS ORDERED: fentaNYL (PF) 50 MCG/ML 2 ML AMP ONE (11:51)
[2020-12-13] MEDS ORDERED: PROPOFOL 10 MG/ML 20 ML VIAL IV ONE (11:51)
[2020-12-13] MEDS ORDERED: MIDAZOLAM 2 MG/2 ML VIAL ONE (11:51)
--- NOTE | 2020-12-13 12:53 | P.GSHP ---
History of Present Illness H&P Date: 12/13/20 Chief Complaint: Abdominal wall seroma Is a 60-year-old female who presents today for drainage of abdominal wall seroma, possible removal of mesh and wound VAC placement Past Medical History Past Medical History: COPD, Diabetes Mellitus, GERD/Reflux, Hyperlipidemia, Hypertension, Osteoarthritis (OA) Additional Past Medical History / Comment(s): incisional hernia, diverticulitis, CAROTID STENOSIS. Chronic low back pain, migraines, "HEAD ANEURYSM" History of Any Multi-Drug Resistant Organisms: None Reported Past Surgical History: Bowel Resection, Hernia Repair, Hysterectomy, Orthopedic Surgery, Tubal Ligation Additional Past Surgical History / Comment(s): laparoscopic fredy fundoplasty. 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 (ANGIOGRAM 08/23/14 TO CHECK STENT.) "HEAD ANEURYSM REPAIR " Past Anesthesia/Blood Transfusion Reactions: No Reported Reaction Past Psychological History: Anxiety, Depression Smoking Status: Current every day smoker Past Alcohol Use History: None Reported Additional Past Alcohol Use History / Comment(s): SMOKES 1PPD, SINCE AGE 15 YRS. QUIT DRINKING ALCOHOL 2005 Past Drug Use History: Marijuana Additional Drug Use History / Comment(s): uses marijuana pen pain daily, instructed to hold 24 hrs prior to procedure, STATES HX OF CRACK, COCAINE USE, QUIT 2015 - Past Family History Father Family Medical History: No Reported History Mother Family Medical History: Coronary Artery Disease (CAD), Diabetes Mellitus Medications and Allergies Home Medications Medication Instructions Recorded Confirmed Type Aspirin EC [Ecotrin] 325 mg PO DAILY 08/26/14 12/13/20 History Cyclobenzaprine [Flexeril] 10 mg PO TID PRN 08/26/14 12/13/20 History FLUoxetine HCL [PROzac] 40 mg PO QAM 08/26/14 12/13/20 History Albuterol Inhaler (Mhu) [Ventolin 2 puff INHALATION RT-BID PRN 09/01/14 12/13/20 History Hfa Inhaler (Mhu)] Albuterol Nebulized [Ventolin 2.5 mg INHALATION RT-QID PRN 09/01/14 12/13/20 History Nebulized] lisinopriL [Zestril] 5 mg PO QAM 04/12/15 12/13/20 History Fenofibrate 160 mg PO QAM 07/28/15 12/13/20 History Gabapentin [Neurontin] 600 mg PO TID 07/28/15 12/13/20 History Ergocalciferol (Vitamin D2) 50,000 unit PO WE 04/09/17 12/13/20 History [Vitamin D2] Isosorbide Mononitrate [Isosorbide 30 mg PO QAM 04/09/17 12/13/20 History Mononitrate ER] Latanoprost [Xalatan 0.005%] 1 drop BOTH EYES HS 04/09/17 12/13/20 History Nitroglycerin Sl Tabs [Nitrostat] 0.4 mg PO Q5M PRN 04/09/17 12/13/20 History Pioglitazone [Actos] 15 mg PO QAM 04/09/17 12/13/20 History Verapamil [Isoptin] 40 mg PO BID 04/09/17 12/13/20 History metFORMIN HCL [Glucophage] 500 mg PO PC-SUPPER 04/09/17 12/13/20 History Liraglutide [Victoza 3-Myron] 1.2 mg SQ DAILY 12/14/18 12/13/20 History Allopurinol [Zyloprim] 100 mg PO DAILY 11/16/20 12/13/20 History HYDROcodone/APAP 7.5-325MG [[place] 1 tab PO Q6HR PRN 11/16/20 12/13/20 History 7.5-325] Insulin Lispro [humaLOG Kwikpen] 10 unit SQ AC-SUPPER 11/16/20 12/13/20 History busPIRone HCL [Buspar] 7.5 mg PO BID 11/16/20 12/13/20 History ondansetron HCL [Zofran] 8 mg PO Q8HR PRN 11/16/20 12/13/20 History Budesonide/Formoterol Fumarate 1 puff INHALATION BID #1 inhaler 12/01/20 12/13/20 Rx [Symbicort 80-4.5 Mcg Inhaler] Insulin Glargine [Lantus] 50 unit SQ HS #0 12/01/20 12/13/20 Rx Allergies Allergy/AdvReac Type Severity Reaction Status Date / Time No Known Allergies Allergy Verified 11/20/20 08:23 Surgical - Exam Vital Signs Temp Pulse Resp BP Pulse Ox 97.4 F L 73 16 130/72 99 12/13/20 11:20 12/13/20 11:20 12/13/20 11:20 12/13/20 11:20 12/13/20 11:20 - General well developed, well nourished, no distress - Eyes PERRL - ENT normal pinna - Neck no masses - Respiratory normal expansion - Cardiovascular Rhythm: regular - Abdomen Abdominal wall seroma Abdomen: soft, non tender Results - Labs Abnormal Lab Results - Last 24 Hours (Table) 12/13/20 Range/Units 11:30 POC Glucose (mg/dL) 104 H (75-99) mg/dL Assessment and Plan Assessment: We'll perform evacuation of abdominal seroma and possible movable mesh and wound VAC placement
[2020-12-13] MEDS ORDERED: NALOXONE 0.4 MG/ML 1 ML VIAL IV PRN (12:58)
[2020-12-13] MEDS ORDERED: LACTATED RINGERS 1,000 ML IV ONE ×2 (12:58→14:29)
[2020-12-13] MEDS ORDERED: ONDANSETRON 4 MG/2 ML VIAL IVP PRN (12:58)
[2020-12-13] MEDS ORDERED: ACETAMINOPHEN TAB 325 MG TAB PO PRN (12:58)
[2020-12-13] MEDS ORDERED: traMADol 50 MG TAB PO PRN (12:58)
--- NOTE | 2020-12-13 12:58 | P.OP ---
Date of Procedure: 12/13/20 Preoperative Diagnosis: Abdominal wall seroma Postoperative Diagnosis: infected Prolene mesh Abdominal wall seroma Procedure(s) Performed: Explantation of mesh Drainage of seroma Placement of wound VAC Anesthesia: BRYAN Surgeon: Manjit Hester Estimated Blood Loss (ml): 10 Pathology: other (Mesh) Condition: stable Disposition: PACU Description of Procedure: The patient's placed on the operative table in the supine position. She received general anesthesia. Her abdomen was prepped and draped in usual sterile fashion. The stapler removed. The skin was incised in the midline. The subcutaneous fat was then opened. The seroma cavity is entered. A prostate 5 mL seroma fluid was removed. There appeared to be nonhealing of the mesh suggestive of a mesh infection. The mesh was then removed by grasping the paracolic clamps and then removing the mesh. He was achieved left cautery. The wound VAC was then placed into the wound. The wound VAC was applied and then patient top procedure well. She was sent to recovery room in stable condition.
[2020-12-13 13:13] LABS: Glucose,Whole Blood 100 mg/dL (75-99)
[2020-12-13] MEDS: HYDROmorphone 0.5 MG/0.5 ML SYRINGE IVP PRN ×3 (15:12→22:57)
[2020-12-13] MEDS ORDERED: CYCLOBENZAPRINE 10 MG TAB PO PRN (15:13)
[2020-12-13] MEDS ORDERED: ONDANSETRON 4 MG TAB PO PRN (15:13)
[2020-12-13] MEDS ORDERED: ALBUTEROL NEBULIZED 2.5 MG/3 ML INHALATION PRN (15:13)
[2020-12-13] MEDS: PIPERACILLIN-TAZOBACTAM 3.375 GM in SODIUM CHLORIDE 0.9% 100 ML IVPB SCH (15:14)
[2020-12-13] MEDS ORDERED: IPRATROPIUM-ALBUTEROL 3 ML NEB INHALATION PRN (15:17)
--- NOTE | 2020-12-13 15:49 | XR ---
EXAMINATION TYPE: XR chest 1V portable DATE OF EXAM: 12/13/2020 COMPARISON: 11/30/2020 HISTORY: CHF TECHNIQUE: Single frontal view of the chest is obtained. FINDINGS: Low lung volumes. Heart size is mildly enlarged, stable. Patchy perihilar interstitial air space opacities may represent edema. Probable small bilateral pleural effusions, left greater than ri ght. No pneumothorax. Left shoulder arthroplasty. IMPRESSION: 1. Low lung volumes. 2. Heart size is mildly enlarged, stable pulmonary aeration show prominence and probable small bilate ral pleural effusions, left greater than right suggestive of possible congestive heart failure. Findi ngs are stable.
[2020-12-13] MEDS: DEXTROSE 5%-0.45% NACL 1,000 ML IV SCH (15:56)
[2020-12-13] MEDS ORDERED: ERGOCALCIFEROL 1,250 MCG (50,000 IU) CAPSULE PO SCH (16:00)
[2020-12-13 17:06] LABS: Glucose,Whole Blood 239 mg/dL (75-99)
[2020-12-13] MEDS: GABAPENTIN 300 MG CAP PO SCH ×2 (17:27→21:02)
[2020-12-13] MEDS: metFORMIN 500 MG TAB PO SCH (17:29)
[2020-12-13] MEDS: INSULIN ASPART (NovoLOG) 100 UNIT/ML VIAL SQ SCH ×3 (17:54→21:03)
[2020-12-13] MEDS: IPRATROPIUM-ALBUTEROL 3 ML NEB INHALATION SCH ×2 (20:46→20:47)
[2020-12-13] MEDS: SYMBICORT 80-4.5 MCG INHALER INHALATION SCH (20:47)
--- NOTE | 2020-12-13 20:51 | CONS ---
CONSULTATION REASON FOR CONSULTATION: Advice regarding hypertension, and other medical issues, requested by Dr. Hester. HISTORY OF PRESENT ILLNESS: This 60-year-old woman with a past history of COPD, diabetes, GERD, hypertension, hyperlipidemia, history of bowel resection, being followed by Dr. eSng Mckeon in the outpatient setting, underwent surgery for infected Prolene mesh and abdominal wall seroma by explantation of the mesh and drainage of seroma and placement of wound VAC by Dr. Hester. The patient tolerated the procedure well. Patient being closely monitored. Patient has some wheezing. There is no history of fever, rigors or chills. No history of headache, loss of consciousness, seizures. PAST MEDICAL HISTORY: COPD, diabetes, hypertension, hyperlipidemia, GERD. MEDICATIONS: Home medications are: Nitrostat, Zofran, Glucophage, Zestril, BuSpar, Isoptin, Actos, Victoza, Xalatan, isosorbide, Lantus, [place], Neurontin, Prozac, vitamin D2. Doses are reviewed. ALLERGIES: None. FAMILY HISTORY: No history of heart disease or strokes in the family. SOCIAL HISTORY: History of smoking, continued ongoing. No history of alcohol intake. REVIEW OF SYSTEMS: ENT: No diminished vision. No diminished hearing. CARDIOVASCULAR as mentioned earlier. RESPIRATORY: As mentioned earlier. GI as mentioned earlier. mentioned earlier. NERVOUS SYSTEM: No numbness or weakness. ALLERGY/IMMUNOLOGY: No asthma or hayfever. MUSCULOSKELETAL as mentioned earlier. HEMATOLOGY: No history of anemia. ENDOCRINE: As mentioned earlier. CONSTITUTIONAL: As mentioned earlier. DERMATOLOGY: Negative. RHEUMATOLOGY: Negative. PSYCHIATRIC: As mentioned earlier. PHYSICAL EXAMINATION: The patient is alert and oriented times three. Pulse 78, blood pressure 150/77, respiration 17, temperature 99.2, pulse ox 93% on 2 L. HEENT: Conjunctivae normal. Oral mucosa moist. NECK: No jugular venous distention. No carotid bruit. No lymph node enlargement. CARDIOVASCULAR system: S1, S2 muffled. No S3, no S4. RESPIRATORY: Breath sounds diminished in the bases. Bilateral scattered rhonchi and expiratory wheezing and crackles heard. ABDOMEN: Soft, status post surgery. LEGS: No edema. No swelling. NERVOUS SYSTEM: Higher functions as mentioned earlier. Moves all four limbs. No focal motor or sensory deficits. LYMPHATICS: No lymph nodes palpable in the neck, axillae or groin. SKIN: No ulcer, no rash and no bleeding. JOINTS: No active deforming arthropathy. LAB: Glucose 100. Otherwise WBC 24.2, hemoglobin 11.9. Preop labs. ASSESSMENT: 1. Status post explantation of the mesh and drainage of seroma and placement of wound VAC for abdominal wall seroma and infected Prolene mesh. 2. History of recent repair of incisional hernia with mesh and partial omentectomy. 3. Diabetes mellitus type 2. 4. Chronic obstructive pulmonary disease. 5. Gastroesophageal reflux disease. 6. Hypertension. 7. Hyperlipidemia. 8. History of degenerative joint disease. 9. History of carotid artery stenosis. 10.History of chronic low back pain. 11.History of migraines. 12.History of bowel resection. 13.History of hernia repair. 14.History of laparoscopic Ozzy fundoplication. 15.History of glaucoma. 16.History of anxiety, depression. 17.History of nicotine dependence. 18.History of THC. 19.FULL CODE. RECOMMENDATIONS AND DISCUSSION: This 60-year-old woman who presented with multiple complex medical issues, at this time I recommend to continue the current medications. Continue symptomatic treatment. Resume the home medication, bronchodilators, incentive spirometry. DVT prophylaxis. Will follow the patient closely with you and insulin scale also will be ordered. Thank you Dr. Hester for letting us participate in the care of this patient. The patient will be asked to follow up with Dr. Mart closely after discharge for followup of the above mentioned multiple complex medical issues. MMODL / IJN: [id number] /
[2020-12-13 20:53] LABS: Glucose,Whole Blood 191 mg/dL (75-99)
[2020-12-13] MEDS: busPIRone HCl 5 MG TAB PO SCH (21:01)
[2020-12-13] MEDS: VERAPAMIL 40 MG TAB PO SCH (21:01)
[2020-12-13] MEDS: INSULIN DETEMIR (LEVEMIR) 100 UNIT/ML SYR SQ SCH (21:03)
[2020-12-13] MEDS: LATANOPROST 0.005% OPHTH DROPS 2.5 ML BTL BOTH EYES SCH (21:04)
[2020-12-14] MEDS: PIPERACILLIN-TAZOBACTAM 3.375 GM in SODIUM CHLORIDE 0.9% 100 ML IVPB SCH ×4 (00:03→23:43)
[2020-12-14] MEDS: HYDROmorphone 0.5 MG/0.5 ML SYRINGE IVP PRN ×2 (02:40→08:03)
[2020-12-14] MEDS: DEXTROSE 5%-0.45% NACL 1,000 ML IV SCH (07:07)
[2020-12-14 07:17] LABS: Glucose,Whole Blood 201 mg/dL (75-99)
[2020-12-14] MEDS: GABAPENTIN 300 MG CAP PO SCH ×3 (08:09→23:44)
[2020-12-14] MEDS: VERAPAMIL 40 MG TAB PO SCH ×2 (08:10→20:59)
[2020-12-14] MEDS: ISOSORBIDE MONONITRATE ER 30 MG TAB.ER.24H PO SCH (08:10)
[2020-12-14] MEDS: lisinopriL 5 MG TAB PO SCH (08:10)
[2020-12-14] MEDS: PIOGLITAZONE 15 MG TAB PO SCH (08:10)
[2020-12-14] MEDS: INSULIN ASPART (NovoLOG) 100 UNIT/ML VIAL SQ SCH ×5 (08:12→20:59)
[2020-12-14] MEDS: ASPIRIN 325 MG TAB PO SCH (08:12)
[2020-12-14] MEDS: busPIRone HCl 5 MG TAB PO SCH ×2 (08:12→20:59)
[2020-12-14] MEDS: FLUoxetine HCL 20 MG CAP PO SCH (08:13)
[2020-12-14] MEDS: allopurinoL 100 MG TAB PO SCH (08:13)
[2020-12-14] MEDS: FENOFIBRATE 160 MG TAB PO SCH (08:13)
[2020-12-14] MEDS: DOCUSATE 100 MG CAP PO PRN ×2 (08:34→20:59)
[2020-12-14] MEDS: IPRATROPIUM-ALBUTEROL 3 ML NEB INHALATION SCH ×3 (08:45→20:14)
[2020-12-14 08:46] LABS: Basophils % (A) 0 %; Eosinophils # (A) 0.1 k/uL (0-0.7); Eosinophils % (A) 1 %; HCT 35.6 % (34.0-46.0); HGB 11.5 gm/dL (11.4-16.0); Hypochromasia Slight; Lymphocytes # (A) 2.8 k/uL (1.0-4.8); Lymphocytes % (A) 24 %; MCH 30.7 pg (25.0-35.0); MCHC 32.1 g/dL (31.0-37.0); MCV 95.5 fL (80.0-100.0); Monocytes # (A) 0.4 k/uL (0-1.0); Monocytes % (A) 4 %; Neutrophils # (A) 8.2 k/uL (1.3-7.7); Neutrophils % (A) 71 %; Platelet Count 355 k/uL (150-450); RBC 3.73 m/uL (3.80-5.40); WBC 11.7 k/uL (3.8-10.6)
[2020-12-14 09:02] LABS: African American GFR (CKD) >90 (>60 ml/min/1.73 sqM); Anion Gap 5 mmol/L; Blood Urea Nitrogen 12 mg/dL (7-17); Calcium 8.9 mg/dL (8.4-10.2); Carbon Dioxide 29 mmol/L (22-30); Chloride 103 mmol/L (98-107); Glucose 154 mg/dL (74-99); Non-African American GFR(CKD) >90 (>60 ml/min/1.73 sqM); Potassium 4.6 mmol/L (3.5-5.1); Sodium 137 mmol/L (137-145)
[2020-12-14 11:45] LABS: Glucose,Whole Blood 154 mg/dL (75-99)
[2020-12-14] MEDS: SYMBICORT 80-4.5 MCG INHALER INHALATION SCH ×2 (12:04→20:14)
--- NOTE | 2020-12-14 14:41 | P.DS ---
Providers Expected date of discharge: 12/14/20 Attending physician: Manjit Hester Consults: 12/13/20 12:58 Consult Physician Routine Consulting Provider: Alberto Jameson Consult Reason/Comments: med manage Do you want consulting provider notified?: Yes Primary care physician: Stated None Hospital Course: Discharge diagnosis 1. Abdominal wall seroma and infected Prolene mesh status post explantation of mesh, drainage of seroma and placement of wound VAC. Hospital course This is a 60-year-old female who presents with an abdominal wall seroma. She is status post explantation of mesh, drainage of seroma and placement of wound VAC for abdominal wall seroma and infected Prolene mesh. Patient tolerated surgery well. Her pain is controlled. Denies any nausea or vomiting. She is tolerating regular diet. She has wound VAC in place. Patient will be discharged home with the wound VAC and oral antibiotics. She is afebrile. She is up and ambulating. She is stable for discharge. Please refer to chart for any further details. Physician Supervisor [employer] note has been reviewed by physician. Signing provider agrees with the documented findings, assessment, and plan of care. Patient Condition at Discharge: Stable Plan - Discharge Summary New Discharge Prescriptions: New Levofloxacin [Levaquin] 500 mg PO DAILY 7 Days #7 tab Continue HYDROcodone/APAP 7.5-325MG [[place] 7.5-325] 1 tab PO Q6HR PRN PRN Reason: Pain No Action FLUoxetine HCL [PROzac] 40 mg PO QAM Cyclobenzaprine [Flexeril] 10 mg PO TID PRN PRN Reason: Pain Aspirin EC [Ecotrin] 325 mg PO DAILY Albuterol Nebulized [Ventolin Nebulized] 2.5 mg INHALATION RT-QID PRN PRN Reason: Shortness Of Breath Albuterol Inhaler (Mhu) [Ventolin Hfa Inhaler (Mhu)] 2 puff INHALATION RT-BID PRN PRN Reason: Shortness Of Breath lisinopriL [Zestril] 5 mg PO QAM Fenofibrate 160 mg PO QAM Gabapentin [Neurontin] 600 mg PO TID Isosorbide Mononitrate [Isosorbide Mononitrate ER] 30 mg PO QAM Pioglitazone [Actos] 15 mg PO QAM Nitroglycerin Sl Tabs [Nitrostat] 0.4 mg PO Q5M PRN PRN Reason: Chest Pain Latanoprost [Xalatan 0.005%] 1 drop BOTH EYES HS metFORMIN HCL [Glucophage] 500 mg PO PC-SUPPER Ergocalciferol (Vitamin D2) [Vitamin D2] 50,000 unit PO WE Verapamil [Isoptin] 40 mg PO BID Liraglutide [Victoza 3-Myron] 1.2 mg SQ DAILY Insulin Lispro [humaLOG Kwikpen] 10 unit SQ AC-SUPPER Allopurinol [Zyloprim] 100 mg PO DAILY ondansetron HCL [Zofran] 8 mg PO Q8HR PRN PRN Reason: Nausea busPIRone HCL [Buspar] 7.5 mg PO BID Budesonide/Formoterol Fumarate [Symbicort 80-4.5 Mcg Inhaler] 1 puff INHALATION BID #1 inhaler Insulin Glargine [Lantus] 50 unit SQ HS #0 Discharge Medication List Aspirin EC [Ecotrin] 325 mg PO DAILY 08/26/14 [History] Cyclobenzaprine [Flexeril] 10 mg PO TID PRN 08/26/14 [History] FLUoxetine HCL [PROzac] 40 mg PO QAM 08/26/14 [History] Albuterol Inhaler (Mhu) [Ventolin Hfa Inhaler (Mhu)] 2 puff INHALATION RT-BID PRN 09/01/14 [History] Albuterol Nebulized [Ventolin Nebulized] 2.5 mg INHALATION RT-QID PRN 09/01/14 [History] lisinopriL [Zestril] 5 mg PO QAM 04/12/15 [History] Fenofibrate 160 mg PO QAM 07/28/15 [History] Gabapentin [Neurontin] 600 mg PO TID 07/28/15 [History] Ergocalciferol (Vitamin D2) [Vitamin D2] 50,000 unit PO WE 04/09/17 [History] Isosorbide Mononitrate [Isosorbide Mononitrate ER] 30 mg PO QAM 04/09/17 [History] Latanoprost [Xalatan 0.005%] 1 drop BOTH EYES HS 04/09/17 [History] Nitroglycerin Sl Tabs [Nitrostat] 0.4 mg PO Q5M PRN 04/09/17 [History] Pioglitazone [Actos] 15 mg PO QAM 04/09/17 [History] Verapamil [Isoptin] 40 mg PO BID 04/09/17 [History] metFORMIN HCL [Glucophage] 500 mg PO PC-SUPPER 04/09/17 [History] Liraglutide [Victoza 3-Myron] 1.2 mg SQ DAILY 12/14/18 [History] Allopurinol [Zyloprim] 100 mg PO DAILY 11/16/20 [History] HYDROcodone/APAP 7.5-325MG [[place] 7.5-325] 1 tab PO Q6HR PRN 11/16/20 [History] Insulin Lispro [humaLOG Kwikpen] 10 unit SQ AC-SUPPER 11/16/20 [History] busPIRone HCL [Buspar] 7.5 mg PO BID 11/16/20 [History] ondansetron HCL [Zofran] 8 mg PO Q8HR PRN 11/16/20 [History] Budesonide/Formoterol Fumarate [Symbicort 80-4.5 Mcg Inhaler] 1 puff INHALATION BID #1 inhaler 12/01/20 [Rx] Insulin Glargine [Lantus] 50 unit SQ HS #0 12/01/20 [Rx] Levofloxacin [Levaquin] 500 mg PO DAILY 7 Days #7 tab 12/14/20 [Rx] Follow up Appointment(s)/Referral(s): Manjit Hester MD [STAFF PHYSICIAN] - 1 Week Activity/Diet/Wound Care/Special Instructions: Medicine service to complete discharge med rec No driving while taking [place] No lifting over 10 pounds You may shower. No soaking or tub baths for 2 weeks Very light activity until you are reevaluated at your follow up appointment with your surgeon Discharge Disposition: HOME WITH HOME HEALTH SERVICES
[2020-12-14] MEDS: HYDROcodone/APAP 5-325MG 1 EACH TAB PO PRN ×2 (16:17→23:43)
[2020-12-14 17:12] LABS: Glucose,Whole Blood 113 mg/dL (75-99)
--- NOTE | 2020-12-14 17:30 | PN ---
PROGRESS NOTE DATE OF SERVICE: 12/14/2020 This 60-year-old woman was admitted after surgery, also had COPD. No chest pain. No palpitations. No fever. PHYSICAL EXAMINATION: Alert and oriented x3. Pulse 97, blood pressure 103/60, respirations 16, temperature 98.2, pulse ox 96% on 2 L. HEENT: Conjunctivae normal. Oral mucosa moist. NECK: No jugular venous distention. No lymph node enlargement. CARDIOVASCULAR: S1, S2, muffled. No S3, no S4, RESPIRATORY: Diminished breath sounds at the bases. A few scattered rhonchi and crackles. ABDOMEN: Soft, status post wound VAC. LEGS: No edema, no swelling. NERVOUS SYSTEM: No focal deficits. LAB STUDIES: WBC 11.7 sodium 137, potassium 4.6. ASSESSMENT: 1. Status post drainage of seroma and removal of mesh and placement of wound VAC for abdominal wall seroma and infected Prolene mesh. 2. History of recent repair of incisional hernia with mesh and partial omentectomy. 3. Diabetes type 2. 4. History of chronic obstructive pulmonary disease. 5. Gastroesophageal reflux disease. 6. Hypertension. 7. Hyperlipidemia. 8. History of degenerative joint disease. 9. History of carotid artery stenosis. 10.History of chronic low back pain. 11.History of migraine. 12.History of bowel resection. 13.History of hernia repair. 14.Laparoscopic Ozzy fundoplication. 15.Glaucoma. 16.History of anxiety, depression. 17.History of nicotine dependence. 18.History of THC. 19.FULL CODE. RECOMMENDATIONS: Recommend to continue current medications, continue symptomatic treatment. Otherwise, at this time I would recommend resume the home medications. Incentive spirometry. DVT prophylaxis. The rest of the recommendations per Surgery. Follow up with primary physician closely in the outpatient. Further recommendations to follow. Prognosis guarded. We will follow the patient closely with surgery 9. MMODL / IJN: [id number] /
[2020-12-14] MEDS: metFORMIN 500 MG TAB PO SCH (18:04)
[2020-12-14 20:38] LABS: Glucose,Whole Blood 114 mg/dL (75-99)
[2020-12-14] MEDS: LATANOPROST 0.005% OPHTH DROPS 2.5 ML BTL BOTH EYES SCH (20:59)
[2020-12-14] MEDS: INSULIN DETEMIR (LEVEMIR) 100 UNIT/ML SYR SQ SCH (21:00)
[2020-12-14 21:53] VITALS: TEMP 98.6
[2020-12-15 01:44] LABS: Glucose,Whole Blood 149 mg/dL (75-99)
[2020-12-15] MEDS: HYDROmorphone 0.5 MG/0.5 ML SYRINGE IVP PRN (01:50)
[2020-12-15 05:45] VITALS: RESP 18
[2020-12-15] MEDS: HYDROcodone/APAP 5-325MG 1 EACH TAB PO PRN ×2 (05:54→14:22)
[2020-12-15 07:40] LABS: Glucose,Whole Blood 133 mg/dL (75-99)
[2020-12-15] MEDS: SYMBICORT 80-4.5 MCG INHALER INHALATION SCH (07:42)
[2020-12-15] MEDS: IPRATROPIUM-ALBUTEROL 3 ML NEB INHALATION SCH ×2 (07:42→11:48)
[2020-12-15] MEDS: FLUoxetine HCL 20 MG CAP PO SCH (08:41)
[2020-12-15] MEDS: INSULIN ASPART (NovoLOG) 100 UNIT/ML VIAL SQ SCH ×2 (08:42→13:53)
[2020-12-15] MEDS: PIOGLITAZONE 15 MG TAB PO SCH (08:42)
[2020-12-15] MEDS: busPIRone HCl 5 MG TAB PO SCH (08:42)
[2020-12-15] MEDS: allopurinoL 100 MG TAB PO SCH (08:42)
[2020-12-15] MEDS: FENOFIBRATE 160 MG TAB PO SCH (08:42)
[2020-12-15] MEDS: ASPIRIN 325 MG TAB PO SCH (08:42)
[2020-12-15] MEDS: GABAPENTIN 300 MG CAP PO SCH (08:42)
[2020-12-15] MEDS: lisinopriL 5 MG TAB PO SCH (08:42)
[2020-12-15] MEDS: ISOSORBIDE MONONITRATE ER 30 MG TAB.ER.24H PO SCH (08:42)
[2020-12-15] MEDS: VERAPAMIL 40 MG TAB PO SCH (08:42)
[2020-12-15] MEDS: PIPERACILLIN-TAZOBACTAM 3.375 GM in SODIUM CHLORIDE 0.9% 100 ML IVPB SCH (08:43)
[2020-12-15 12:33] LABS: Glucose,Whole Blood 151 mg/dL (75-99)
[2020-12-15 13:24] VITALS: BP 101/69; PULSE 88
--- NOTE | 2020-12-15 20:08 | PN ---
PROGRESS NOTE DATE OF SERVICE: 12/15/2020 This 60-year-old woman was admitted with surgery, also had COPD. No chest pain. No palpitations. No fever. PHYSICAL EXAMINATION: Alert and oriented x3. The pulse is 88, blood pressure 101/69, respiration 18, temperature 98.2, pulse ox 94% on room air. HEENT: Conjunctivae normal. Oral mucosa moist. NECK: No jugular venous distention. No lymph node enlargement. CARDIOVASCULAR: S1, S2, muffled. No S3, no S4, RESPIRATORY: Diminished breath sounds at the bases. A few scattered rhonchi and crackles. ABDOMEN: Soft, nontender. LEGS: No edema, no swelling. NERVOUS SYSTEM: No focal deficits. LABS: As noted. ASSESSMENT: 1. Status post drainage of the seroma as well as removal of the mesh and placement of wound VAC for abdominal wall seroma infected Prolene mesh. 2. History of recent repair of the incisional hernia with mesh and partial omentectomy. 3. Diabetes mellitus type 2. 4. History of chronic obstructive pulmonary disease. 5. Gastroesophageal reflux disease. 6. Hypertension. 7. Hyperlipidemia. 8. History of DJD. 9. History of carotid endarterectomy. 10.History of chronic low back pain. 11.History of migraines. 12.History of bowel resection. 13.History of hernia repair, laparoscopic Ozzy fundoplication. 14.Glaucoma. 15.History of anxiety, depression. 16.History of nicotine dependence. 17.History of THC. 18.FULL CODE. RECOMMENDATIONS: Recommend to continue current management and symptomatic treatment. Otherwise, at this time I recommend continue with the bronchodilators. Closely follow with the primary physician in outpatient setting. Incentive spirometry. The rest of the recommendations per Surgery. Further recommendations to follow. MMODL / IJN: [id number] /
== END 2020-12-15 16:11 | disposition home health service (06) ==
LOC: OR 10:59 → 5NMEDONC 14:16 → OR 12-15 16:11
PROVIDERS: ATTEND Surgery
DX: L76.34 Postprocedural seroma of skin and subcutaneous tissue following other procedure (principal); Y83.8 Other surgical procedures as the cause of abnormal reaction of the patient, or of later complication, without mention of misadventure at the time of the procedure; J44.9 Chronic obstructive pulmonary disease, unspecified; E11.9 Type 2 diabetes mellitus without complications; K21.9 Gastro-esophageal reflux disease without esophagitis; E78.5 Hyperlipidemia, unspecified; I10 Essential (primary) hypertension; I65.29 Occlusion and stenosis of unspecified carotid artery; G89.29 Other chronic pain; M19.90 Unspecified osteoarthritis, unspecified site; M54.5 Low back pain; G43.909 Migraine, unspecified, not intractable, without status migrainosus; Z98.890 Other specified postprocedural states; Z79.899 Other long term (current) drug therapy; Z79.4 Long term (current) use of insulin; Z20.822 Contact with and (suspected) exposure to COVID-19
CPT/HCPCS: 97608; 94640 ×6; 80048; 85025; 87635; 71045; 10140; J2543 ×3; J2250; J1100; J2405; J3010; J2704; J1170 ×3; J1644

== ENCOUNTER 2021-01-16 09:09 | Day surgery (SDC) | payer OTHER ==
[2021-01-11 16:05] VITALS: BMI 23.1
[~2021-01-16 09:09] MED LIST changes: -Pre Op ABX Message 1 EACH MISC MISCELLANE ONE
[2021-01-16] MEDS ORDERED: ONDANSETRON 4 MG/2 ML VIAL ONE (09:18)
[2021-01-16] MEDS ORDERED: ONDANSETRON 4 MG/2 ML VIAL IVP ONE (09:41)
[2021-01-16] MEDS ORDERED: LACTATED RINGERS 1,000 ML IV ONE (09:41)
[2021-01-16] MEDS ORDERED: DEXAMETHASONE SOD PHOSPHATE 4 MG/ML 1 ML VIAL IVP ONE (09:42)
[2021-01-16 09:44] LABS: Glucose,Whole Blood 76 mg/dL (75-99)
--- NOTE | 2021-01-16 10:17 | P.GSHP ---
History of Present Illness H&P Date: 01/16/21 Chief Complaint: Chronic abdominal wound This a 60-year-old female who developed a wound VAC infection. Patient presents for today for debridement of her abdominal wall wound Past Medical History Past Medical History: COPD, Diabetes Mellitus, GERD/Reflux, Hyperlipidemia, Hypertension, Osteoarthritis (OA) Additional Past Medical History / Comment(s): incisional hernia, diverticulitis, CAROTID STENOSIS. Chronic low back pain, migraines, "HEAD ANEURYSM". States 01/11/21 having abd pain and her eyes are burning. States she can't take it. Instructed her to go to the ER if she does not get better. History of Any Multi-Drug Resistant Organisms: None Reported Past Surgical History: Bowel Resection, Hernia Repair, Hysterectomy, Orthopedic Surgery, Tubal Ligation Additional Past Surgical History / Comment(s): laparoscopic fredy fundoplasty. 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 (ANGIOGRAM 08/23/14 TO CHECK STENT.) "HEAD ANEURYSM REPAIR " Past Anesthesia/Blood Transfusion Reactions: No Reported Reaction Smoking Status: Current every day smoker - Past Family History Father Family Medical History: No Reported History Mother Family Medical History: Coronary Artery Disease (CAD), Diabetes Mellitus Medications and Allergies Home Medications Medication Instructions Recorded Confirmed Type Aspirin EC [Ecotrin] 325 mg PO DAILY 08/26/14 01/16/21 History Cyclobenzaprine [Flexeril] 10 mg PO TID PRN 08/26/14 01/16/21 History FLUoxetine HCL [PROzac] 40 mg PO QAM 08/26/14 01/16/21 History lisinopriL [Zestril] 5 mg PO QAM 04/12/15 01/16/21 History Fenofibrate 160 mg PO QAM 07/28/15 01/16/21 History Gabapentin [Neurontin] 600 mg PO TID 07/28/15 01/16/21 History Ergocalciferol (Vitamin D2) 50,000 unit PO WE 04/09/17 01/16/21 History [Vitamin D2] Isosorbide Mononitrate [Isosorbide 30 mg PO QAM 04/09/17 01/16/21 History Mononitrate ER] Latanoprost [Xalatan 0.005%] 1 drop BOTH EYES HS 04/09/17 01/16/21 History Nitroglycerin Sl Tabs [Nitrostat] 0.4 mg PO Q5M PRN 04/09/17 01/16/21 History Pioglitazone [Actos] 15 mg PO QAM 04/09/17 01/16/21 History Verapamil [Isoptin] 40 mg PO BID 04/09/17 01/16/21 History metFORMIN HCL [Glucophage] 500 mg PO PC-SUPPER 04/09/17 01/16/21 History Liraglutide [Victoza 3-Myron] 1.2 mg SQ DAILY 12/14/18 01/16/21 History Allopurinol [Zyloprim] 100 mg PO DAILY 11/16/20 01/16/21 History HYDROcodone/APAP 7.5-325MG [[place] 1 tab PO Q6HR PRN 11/16/20 01/16/21 History 7.5-325] Insulin Lispro [humaLOG Kwikpen] 10 unit SQ AC-SUPPER 11/16/20 01/16/21 History busPIRone HCL [Buspar] 7.5 mg PO BID 11/16/20 01/16/21 History Budesonide/Formoterol Fumarate 1 puff INHALATION BID #1 inhaler 12/01/20 01/16/21 Rx [Symbicort 80-4.5 Mcg Inhaler] Insulin Glargine [Lantus] 50 unit SQ HS #0 12/01/20 01/16/21 Rx Ipratropium-Albuterol Nebulize 3 ml INHALATION RT-TID #120 ml 12/14/20 01/16/21 Rx [Duoneb 0.5 mg-3 mg/3 ml Soln] Allergies Allergy/AdvReac Type Severity Reaction Status Date / Time No Known Allergies Allergy Verified 01/16/21 09:29 Surgical - Exam Vital Signs Temp Pulse Resp BP Pulse Ox 98 F 84 22 102/66 98 01/16/21 09:28 01/16/21 09:28 01/16/21 09:28 01/16/21 09:28 01/16/21 09:28 - General well developed, well nourished, no distress - Eyes PERRL - ENT normal pinna - Neck no masses - Respiratory normal expansion - Cardiovascular Rhythm: regular - Abdomen The dental wound. There is evidence of necrosis of some superficial fat within the wound. Abdomen: soft, non tender Assessment and Plan Assessment: Chronic abdominal wall wound. We'll perform debridement
[2021-01-16] MEDS ORDERED: KETAMINE 10 MG/ML 20 ML VIAL ONE (10:27)
[2021-01-16] MEDS ORDERED: MIDAZOLAM 2 MG/2 ML VIAL ONE (10:27)
[2021-01-16] MEDS ORDERED: fentaNYL (PF) 50 MCG/ML 2 ML AMP ONE (10:27)
[2021-01-16] MEDS ORDERED: LIDOCAINE 1% INJ 10MG/ML (20 ML MDV) ONE (10:27)
[2021-01-16] MEDS ORDERED: PROPOFOL 10 MG/ML 20 ML VIAL IV ONE (10:27)
--- NOTE | 2021-01-16 11:06 | P.OP ---
Date of Procedure: 01/16/21 Preoperative Diagnosis: Wound VAC infection Postoperative Diagnosis: Wound VAC infection Procedure(s) Performed: Debridement of necrotic skin and fat Anesthesia: BRYAN Surgeon: Manjit Hester Estimated Blood Loss (ml): 10 Pathology: other (Necrotic skin and fat) Condition: stable Disposition: PACU Description of Procedure: The patient's placed on the operative table in the supine position. She received general anesthesia. Her abdomen was prepped and draped usual fashion. The patient had an area of necrotic skin and fat near the umbilicus. This area was sharply debrided. The debridement included necrotic skin and fat. Using a 15 blade the skin and fat were dissected free to healthy skin and fat. Trochars used for hemostasis. The specimen measured approximately 15 x 5 x 8 cm. The wound was packed with wet-to-dry Kerlix. Sterile dressing applied. Patient top procedure well.
[2021-01-16 11:09] VITALS: TEMP 97.1
[2021-01-16 11:35] VITALS: BP 125/74; PULSE 78; RESP 18
== END 2021-01-16 12:09 | disposition home or self-care (01) ==
LOC: OR 09:09
PROVIDERS: ATTEND Surgery
DX: T81.40XA Infection following a procedure, unspecified, initial encounter (principal); E11.9 Type 2 diabetes mellitus without complications; E78.5 Hyperlipidemia, unspecified; F17.200 Nicotine dependence, unspecified, uncomplicated; I10 Essential (primary) hypertension; J44.9 Chronic obstructive pulmonary disease, unspecified; K21.9 Gastro-esophageal reflux disease without esophagitis; M19.90 Unspecified osteoarthritis, unspecified site; Z79.4 Long term (current) use of insulin; Z79.51 Long term (current) use of inhaled steroids; Z79.82 Long term (current) use of aspirin; Z82.49 Family history of ischemic heart disease and other diseases of the circulatory system; Z83.3 Family history of diabetes mellitus
CPT/HCPCS: 11005; 88304; J2250; J1100; J2405; J2001; J3010; J2704; J1644

== ENCOUNTER 2021-01-30 18:32 | Emergency (ER) | payer OTHER ==
[2021-01-30 20:00] LABS: Basophils # (A) 0.1 k/uL (0-0.2); Basophils % (A) 1 %; Eosinophils # (A) 0.5 k/uL (0-0.7); Eosinophils % (A) 6 %; HCT 30.7 % (34.0-46.0); Hypochromasia Slight; Lymphocytes # (A) 2.9 k/uL (1.0-4.8); Lymphocytes % (A) 36 %; MCH 30.3 pg (25.0-35.0); MCV 94.5 fL (80.0-100.0); Mean Platelet Volume 6.3; Monocytes # (A) 0.3 k/uL (0-1.0); Monocytes % (A) 4 %; Neutrophils # (A) 4.1 k/uL (1.3-7.7); Neutrophils % (A) 50 %; Platelet Count 578 k/uL (150-450); RBC 3.25 m/uL (3.80-5.40); RDW 15.3 % (11.5-15.5); WBC 8.1 k/uL (3.8-10.6)
[2021-01-30 20:01] LABS: HGB 9.8 gm/dL (11.4-16.0)
--- NOTE | 2021-01-30 20:01 | ED ---
Dizziness HPI - General Chief Complaint: Dizziness Stated Complaint: Light headed Source: patient, EMS Mode of arrival: EMS Limitations: no limitations - History of Present Illness Initial Comments: 60-year-old female with past medical history of incisional hernia, diverticulitis, abdominal abscess with wound VAC placement who presents emergency room with reported lightheadedness. Patient reports that she has at home when she had sudden onset of abdominal pain. This was associated with lightheadedness and shakiness. Patient felt that she was can pass out. Due to these symptoms she called EMS. Accu-Chek was normal. Patient denies having any chest pain or shortness of breath. No nausea or vomiting. No unilateral numbness or weakness. Denies any headaches. No recent fevers or chills. Has been eating and drinking without difficulty. Denies any changes in her bowel habits. No other alleviating, recruiting team lead modifying factors - Related Data Home Medications Medication Instructions Recorded Confirmed Aspirin EC [Ecotrin] 325 mg PO DAILY 08/26/14 01/16/21 Cyclobenzaprine [Flexeril] 10 mg PO TID PRN 08/26/14 01/16/21 FLUoxetine HCL [PROzac] 40 mg PO QAM 08/26/14 01/16/21 lisinopriL [Zestril] 5 mg PO QAM 04/12/15 01/16/21 Fenofibrate 160 mg PO QAM 07/28/15 01/16/21 Gabapentin [Neurontin] 600 mg PO TID 07/28/15 01/16/21 Ergocalciferol (Vitamin D2) 50,000 unit PO WE 04/09/17 01/16/21 [Vitamin D2] Isosorbide Mononitrate [Isosorbide 30 mg PO QAM 04/09/17 01/16/21 Mononitrate ER] Latanoprost [Xalatan 0.005%] 1 drop BOTH EYES HS 04/09/17 01/16/21 Nitroglycerin Sl Tabs [Nitrostat] 0.4 mg PO Q5M PRN 04/09/17 01/16/21 Pioglitazone [Actos] 15 mg PO QAM 04/09/17 01/16/21 Verapamil [Isoptin] 40 mg PO BID 04/09/17 01/16/21 metFORMIN HCL [Glucophage] 500 mg PO PC-SUPPER 04/09/17 01/16/21 Liraglutide [Victoza 3-Myron] 1.2 mg SQ DAILY 12/14/18 01/16/21 Allopurinol [Zyloprim] 100 mg PO DAILY 11/16/20 01/16/21 HYDROcodone/APAP 7.5-325MG [[place] 1 tab PO Q6HR PRN 11/16/20 01/16/21 7.5-325] Insulin Lispro [humaLOG Kwikpen] 10 unit SQ AC-SUPPER 11/16/20 01/16/21 busPIRone HCL [Buspar] 7.5 mg PO BID 11/16/20 01/16/21 Previous Rx's Medication Instructions Recorded Budesonide/Formoterol Fumarate 1 puff INHALATION BID #1 inhaler 12/01/20 [Symbicort 80-4.5 Mcg Inhaler] Insulin Glargine [Lantus] 50 unit SQ HS #0 12/01/20 Ipratropium-Albuterol Nebulize 3 ml INHALATION RT-TID #120 ml 12/14/20 [Duoneb 0.5 mg-3 mg/3 ml Soln] Allergies Allergy/AdvReac Type Severity Reaction Status Date / Time amoxicillin [From Augmentin] Allergy Intermediate Rash/Hives Verified 01/30/21 18:43 clavulanic acid Allergy Intermediate Rash/Hives Verified 01/30/21 18:43 [From Augmentin] Penicillins Allergy Rash/Hives Verified 01/30/21 18:43 Review of Systems ROS Statement: Those systems with pertinent positive or pertinent negative responses have been documented in the HPI. ROS Other: All systems not noted in ROS Statement are negative. Past Medical History Past Medical History: COPD, Diabetes Mellitus, GERD/Reflux, Hyperlipidemia, Hypertension, Osteoarthritis (OA) Additional Past Medical History / Comment(s): incisional hernia, diverticulitis, CAROTID STENOSIS. Chronic low back pain, migraines, "HEAD ANEURYSM". States 01/11/21 having abd pain and her eyes are burning. States she can't take it. Instructed her to go to the ER if she does not get better. History of Any Multi-Drug Resistant Organisms: None Reported Past Surgical History: Bowel Resection, Hernia Repair, Hysterectomy, Orthopedic Surgery, Tubal Ligation Additional Past Surgical History / Comment(s): laparoscopic fredy fundoplasty. 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 (ANGIOGRAM 08/23/14 TO CHECK STENT.) "HEAD ANEURYSM REPAIR " Past Anesthesia/Blood Transfusion Reactions: No Reported Reaction Past Psychological History: Anxiety, Depression Smoking Status: Current every day smoker Past Alcohol Use History: None Reported Past Drug Use History: Marijuana - Past Family History Father Family Medical History: No Reported History Mother Family Medical History: Coronary Artery Disease (CAD), Diabetes Mellitus General Exam Limitations: no limitations Course Vital Signs 01/30/21 01/30/21 01/30/21 18:33 19:51 21:30 Temperature 99.2 F 98.4 F Pulse Rate 104 H 78 82 Respiratory 18 18 17 Rate Blood Pressure 121/79 119/82 130/73 O2 Sat by Pulse 93 L 97 95 Oximetry EKG Findings - EKG Comments: EKG Findings:: EKG demonstrates a normal sinus rhythm with a ventricular rate of 94. [place] interval 158. QRS 82. QTC of 440. No acute ST segment elevations or depressions concerning for ischemic changes Medical Decision Making - Medical Decision Making Upon arrival patient is placed into room 23. A thorough history and physical exam is performed. She is to continuous pulse ox and cardiac monitoring. 12- lead EKG was performed. IV is established laboratory studies. Active. Patient sent for CT of her abdomen and pelvis due to reported abdominal pain. Results a re reviewed and discussed the patient. She is completely symptomatically at this time. Patient will be discharged home and is to follow-up with her primary care doctor to 4 days. Follow-up with Dr. Hester as scheduled. Return to the emergency room for any new or worsening symptoms. Patient was discharged in stable condition - Lab Data Result diagrams: 01/30/21 19:49 01/30/21 19:49 Lab Results 01/30/21 01/30/21 01/30/21 Range/Units 19:49 19:49 19:49 WBC 8.1 (3.8-10.6) k/uL RBC 3.25 L (3.80-5.40) m/uL Hgb 9.8 L D (11.4-16.0) gm/dL Hct 30.7 L (34.0-46.0) % MCV 94.5 (80.0-100.0) fL MCH 30.3 (25.0-35.0) pg MCHC 32.0 (31.0-37.0) g/dL RDW 15.3 (11.5-15.5) % Plt Count 578 H (150-450) k/uL MPV 6.3 Neutrophils % 50 % Lymphocytes % 36 % Monocytes % 4 % Eosinophils % 6 % Basophils % 1 % Neutrophils # 4.1 (1.3-7.7) k/uL Lymphocytes # 2.9 (1.0-4.8) k/uL Monocytes # 0.3 (0-1.0) k/uL Eosinophils # 0.5 (0-0.7) k/uL Basophils # 0.1 (0-0.2) k/uL Hypochromasia Slight Sodium 135 L (137-145) mmol/L Potassium 4.2 (3.5-5.1) mmol/L Chloride 102 (98-107) mmol/L Carbon Dioxide 22 (22-30) mmol/L Anion Gap 11 mmol/L BUN 15 (7-17) mg/dL Creatinine 0.71 (0.52-1.04) mg/dL Est GFR (CKD-EPI)AfAm >90 (>60 ml/min/1.73 sqM) Est GFR (CKD-EPI)NonAf >90 (>60 ml/min/1.73 sqM) Glucose 158 H (74-99) mg/dL Calcium 9.7 (8.4-10.2) mg/dL Total Bilirubin 0.2 (0.2-1.3) mg/dL AST 17 (14-36) U/L ALT 7 (4-34) U/L Alkaline Phosphatase 88 (38-126) U/L Troponin I (0.000-0.034) ng/mL Total Protein 6.7 (6.3-8.2) g/dL Albumin 3.9 (3.5-5.0) g/dL Urine Color Yellow Urine Appearance Cloudy H (Clear) Urine pH 5.0 (5.0-8.0) Ur Specific [place] 1.018 (1.001-1.035) Urine Protein Negative (Negative) Urine Glucose (UA) Negative (Negative) Urine Ketones Negative (Negative) Urine Blood Negative (Negative) Urine Nitrite Negative (Negative) Urine Bilirubin Negative (Negative) Urine Urobilinogen <2.0 (<2.0) mg/dL Ur Leukocyte Esterase Negative (Negative) Urine RBC <1 (0-5) /hpf Urine WBC 1 (0-5) /hpf Ur Squamous Epith Cells 7 H (0-4) /hpf Urine Bacteria Rare H (None) /hpf Hyaline Casts 42 H (0-2) /lpf Urine Mucus Rare H (None) /hpf 01/30/21 Range/Units 19:49 WBC (3.8-10.6) k/uL RBC (3.80-5.40) m/uL Hgb (11.4-16.0) gm/dL Hct (34.0-46.0) % MCV (80.0-100.0) fL MCH (25.0-35.0) pg MCHC (31.0-37.0) g/dL RDW (11.5-15.5) % Plt Count (150-450) k/uL MPV Neutrophils % % Lymphocytes % % Monocytes % % Eosinophils % % Basophils % % Neutrophils # (1.3-7.7) k/uL Lymphocytes # (1.0-4.8) k/uL Monocytes # (0-1.0) k/uL Eosinophils # (0-0.7) k/uL Basophils # (0-0.2) k/uL Hypochromasia Sodium (137-145) mmol/L Potassium (3.5-5.1) mmol/L Chloride (98-107) mmol/L Carbon Dioxide (22-30) mmol/L Anion Gap mmol/L BUN (7-17) mg/dL Creatinine (0.52-1.04) mg/dL Est GFR (CKD-EPI)AfAm (>60 ml/min/1.73 sqM) Est GFR (CKD-EPI)NonAf (>60 ml/min/1.73 sqM) Glucose (74-99) mg/dL Calcium (8.4-10.2) mg/dL Total Bilirubin (0.2-1.3) mg/dL AST (14-36) U/L ALT (4-34) U/L Alkaline Phosphatase (38-126) U/L Troponin I <0.012 (0.000-0.034) ng/mL Total Protein (6.3-8.2) g/dL Albumin (3.5-5.0) g/dL Urine Color Urine Appearance (Clear) Urine pH (5.0-8.0) Ur Specific [place] (1.001-1.035) Urine Protein (Negative) Urine Glucose (UA) (Negative) Urine Ketones (Negative) Urine Blood (Negative) Urine Nitrite (Negative) Urine Bilirubin (Negative) Urine Urobilinogen (<2.0) mg/dL Ur Leukocyte Esterase (Negative) Urine RBC (0-5) /hpf Urine WBC (0-5) /hpf Ur Squamous Epith Cells (0-4) /hpf Urine Bacteria (None) /hpf Hyaline Casts (0-2) /lpf Urine Mucus (None) /hpf Disposition Clinical Impression: Incisional hernia, Abdominal wall cellulitis, Pre-syncope Disposition: HOME SELF-CARE Condition: Stable Instructions (If sedation given, give patient instructions): Dizziness (ED) Additional Instructions: Please follow up with your PCP in 2-4 days for re-evaluation. Follow up with Dr. Hester in 1 week. Return to the ED for any new or worsening symptoms Is patient prescribed a controlled substance at d/c from ED?: No Referrals: Seng Mckeon DO [Primary Care Provider] - 1-2 days Manjit Hester MD [STAFF PHYSICIAN] - 1-2 days Time of Disposition: 21:19
[2021-01-30 20:08] LABS: ALT 7 U/L (4-34); AST 17 U/L (14-36); African American GFR (CKD) >90 (>60 ml/min/1.73 sqM); Albumin 3.9 g/dL (3.5-5.0); Alkaline Phosphatase 88 U/L (38-126); Anion Gap 11 mmol/L; Blood Urea Nitrogen 15 mg/dL (7-17); Calcium 9.7 mg/dL (8.4-10.2); Carbon Dioxide 22 mmol/L (22-30); Chloride 102 mmol/L (98-107); Glucose 158 mg/dL (74-99); Non-African American GFR(CKD) >90 (>60 ml/min/1.73 sqM); Potassium 4.2 mmol/L (3.5-5.1); Sodium 135 mmol/L (137-145); Total Bilirubin 0.2 mg/dL (0.2-1.3); Total Protein 6.7 g/dL (6.3-8.2)
[2021-01-30 20:15] LABS: Appearance,Urine Cloudy (Clear); Bacteria,Urine Rare /hpf; Bilirubin,Urine Negative (Negative); Blood,Urine Negative (Negative); Color,Urine Yellow; Glucose,Urine (UA) Negative (Negative); Hyaline Casts,Urine 42 /lpf (0-2); Ketones,Urine Negative (Negative); Leukocyte Esterase,Urine Negative (Negative); Mucus,Urine Rare /hpf; Nitrite,Urine Negative (Negative); Protein,Urine Negative (Negative); RBC,Urine <1 /hpf (0-5); Specific Gravity,Urine 1.018 (1.001-1.035); Squamous Epithelial Cell,Urine 7 /hpf (0-4); Urobilinogen,Urine <2.0 mg/dL (<2.0); WBC,Urine 1 /hpf (0-5)
--- NOTE | 2021-01-30 20:40 | XR ---
EXAMINATION TYPE: XR chest 2V DATE OF EXAM: 01/30/2021 COMPARISON: 12/13/2020 HISTORY: Dizziness TECHNIQUE: FINDINGS: Heart and mediastinum are within normal limits. Lungs are clear. Diaphragm is normal. There are chest leads. There is left shoulder prosthesis. IMPRESSION: No active cardiopulmonary disease. There is clearing of the pleural reaction and atelecta sis at the lung bases compared to old exam.
--- NOTE | 2021-01-30 20:49 | CT ---
EXAMINATION TYPE: CT abdomen pelvis w con DATE OF EXAM: 01/30/2021 COMPARISON: HISTORY: Pain around hernia repair site. CT DLP: 676.4 mGycm Automated exposure control for dose reduction was used. CONTRAST: Performed with IV Contrast, patient injected with 100 mL of Isovue 300. Images obtained from the diaphragm to the floor the pelvis with IV contrast. Lung bases show interstitial infiltrates. There is no pleural effusion. There is no pericardial effus ion. Liver spleen stomach pancreas gallbladder appear intact. The bile ducts are not dilated. There is no adrenal mass. There are some surgical clips at the gastric fundus. Kidneys show satisfact ory contrast opacification. There is no hydronephrosis. Ureters are not dilated. There is no retroper itoneal adenopathy. Bladder distends smoothly. There is no inguinal hernia. There is no free fluid in the pelvis. There is no mesenteric edema. There is no ascites or free air. There is no sign of a bowel obstructio n. There is large anterior abdominal wall subcutaneous defect. There is dehiscence of the subcutaneou s fat over the midline mid abdomen. There is mild thickening of the anterior abdominal wall consisten t with postsurgical changes. The lumbar vertebra have normal alignment. There is a minimal retrolisthesis at L4-5. There is no lum bar compression fracture. The bony pelvis is intact. Hip joints are intact. There is no mesenteric edema. There is no ascites or free air. There is no evidence of a bowel obstru ction. There is apparent clips from cholecystectomy. IMPRESSION: Large anterior abdominal defect with dehiscence of the subcutaneous fat. Surgery apparently on the a nterior abdominal wall with inclusion of some omental fat on the anterior abdomen. The dehiscence is new compared to old exam. There is clearing of a large extent the atelectasis at the lung bases comp ared to old exam.
[2021-01-30 21:31] VITALS: BP 130/73; PULSE 82; RESP 17; TEMP 98.4
== END 2021-01-30 21:34 | disposition home or self-care (01) ==
LOC: EC 18:32
DX: L03.311 Cellulitis of abdominal wall (principal); K43.2 Incisional hernia without obstruction or gangrene; R55 Syncope and collapse; R42 Dizziness and giddiness; J44.9 Chronic obstructive pulmonary disease, unspecified; E11.9 Type 2 diabetes mellitus without complications; E78.5 Hyperlipidemia, unspecified; I10 Essential (primary) hypertension; M19.90 Unspecified osteoarthritis, unspecified site; K21.9 Gastro-esophageal reflux disease without esophagitis; F32.9 Major depressive disorder, single episode, unspecified; F41.9 Anxiety disorder, unspecified; F17.200 Nicotine dependence, unspecified, uncomplicated; F12.90 Cannabis use, unspecified, uncomplicated; Z79.4 Long term (current) use of insulin; Z79.82 Long term (current) use of aspirin; Z79.51 Long term (current) use of inhaled steroids
CPT/HCPCS: 36415; 93005; 80053; 84484; 85025; 81001; 71046; 74177; 99285; Q9967

== ENCOUNTER 2021-07-22 14:38 | Emergency (ER) | payer OTHER ==
[2021-07-22 15:10] LABS: Glucose,Whole Blood 101 mg/dL (75-99)
[2021-07-22] MEDS ORDERED: ACETAMINOPHEN TAB 325 MG TAB PO PRN (16:20)
[2021-07-22] MEDS ORDERED: ONDANSETRON 4 MG/2 ML VIAL IVP STA (16:25)
[2021-07-22 17:36] LABS: ALT 20 U/L (4-34); AST 31 U/L (14-36); African American GFR (CKD) 70 (>60 ml/min/1.73 sqM); Albumin 5.2 g/dL (3.5-5.0); Alkaline Phosphatase 110 U/L (38-126); Anion Gap 13 mmol/L; Blood Urea Nitrogen 20 mg/dL (7-17); C Reactive Protein <0.5 mg/dL (<1.0); Carbon Dioxide 29 mmol/L (22-30); Chloride 95 mmol/L (98-107); Glucose 79 mg/dL (74-99); LDH 437 U/L (313-618); Magnesium 1.5 mg/dL (1.6-2.3); Non-African American GFR(CKD) 61 (>60 ml/min/1.73 sqM); Partial Thromboplastin Time 24.1 sec (22.0-30.0); Potassium 3.4 mmol/L (3.5-5.1); Prothrombin Time 10.3 sec (9.0-12.0); Sodium 137 mmol/L (137-145); Total Bilirubin 0.8 mg/dL (0.2-1.3); Total Protein 8.9 g/dL (6.3-8.2)
[2021-07-22 17:52] LABS: Basophils # (A) 0.1 k/uL (0-0.2); Basophils % (A) 1 %; Eosinophils # (A) 0.1 k/uL (0-0.7); Eosinophils % (A) 1 %; HCT 43.6 % (34.0-46.0); HGB 14.1 gm/dL (11.4-16.0); Lymphocytes # (A) 5.3 k/uL (1.0-4.8); Lymphocytes % (A) 43 %; MCH 30.4 pg (25.0-35.0); MCHC 32.3 g/dL (31.0-37.0); MCV 94.3 fL (80.0-100.0); Mean Platelet Volume 8.3; Monocytes # (A) 0.6 k/uL (0-1.0); Monocytes % (A) 5 %; Neutrophils # (A) 6.3 k/uL (1.3-7.7); Neutrophils % (A) 50 %; Platelet Count 345 k/uL (150-450); RBC 4.62 m/uL (3.80-5.40); RDW 14.4 % (11.5-15.5); WBC 12.5 k/uL (3.8-10.6)
[2021-07-22] MEDS ORDERED: ONDANSETRON 4 MG ODT STARTER PACK 2 TAB BTL PO STA (18:48)
[2021-07-22] MEDS ORDERED: SODIUM CHLORIDE 0.9% 1,000 ML IV STA (18:49)
--- NOTE | 2021-07-22 19:03 | ED ---
Nausea/Vomiting/Diarrhea HPI - General Chief complaint: Nausea/Vomiting/Diarrhea Stated complaint: vomitting Time Seen by Provider: 07/22/21 16:20 Source: patient, RN notes reviewed Mode of arrival: ambulatory Limitations: no limitations - History of Present Illness Initial comments: Patient is a 61-year-old female that presents to the emergency department complaining of a 2 day history of nausea vomiting. She notes that she is diabetic and has been unable to keep down most of her medications. She notes that she came to the emergency room for fluid rehydration due to feeling dehydrated. She was otherwise well-appearing in no apparent distress. She was a very pleasant 61-year-old. He denied any chest pain shortness of breath headache diarrhea constipation fatigue chills. - Related Data Home Medications Medication Instructions Recorded Confirmed Aspirin EC [Ecotrin] 325 mg PO DAILY 08/26/14 01/16/21 Cyclobenzaprine [Flexeril] 10 mg PO TID PRN 08/26/14 01/16/21 FLUoxetine HCL [PROzac] 40 mg PO QAM 08/26/14 01/16/21 lisinopriL [Zestril] 5 mg PO QAM 04/12/15 01/16/21 Fenofibrate 160 mg PO QAM 07/28/15 01/16/21 Gabapentin [Neurontin] 600 mg PO TID 07/28/15 01/16/21 Ergocalciferol (Vitamin D2) 50,000 unit PO WE 04/09/17 01/16/21 [Vitamin D2] Isosorbide Mononitrate [Isosorbide 30 mg PO QAM 04/09/17 01/16/21 Mononitrate ER] Latanoprost [Xalatan 0.005%] 1 drop BOTH EYES HS 04/09/17 01/16/21 Nitroglycerin Sl Tabs [Nitrostat] 0.4 mg PO Q5M PRN 04/09/17 01/16/21 Pioglitazone [Actos] 15 mg PO QAM 04/09/17 01/16/21 Verapamil [Isoptin] 40 mg PO BID 04/09/17 01/16/21 metFORMIN HCL [Glucophage] 500 mg PO PC-SUPPER 04/09/17 01/16/21 Liraglutide [Victoza 3-Myron] 1.2 mg SQ DAILY 12/14/18 01/16/21 Allopurinol [Zyloprim] 100 mg PO DAILY 11/16/20 01/16/21 HYDROcodone/APAP 7.5-325MG [[place] 1 tab PO Q6HR PRN 11/16/20 01/16/21 7.5-325] Insulin Lispro [humaLOG Kwikpen] 10 unit SQ AC-SUPPER 11/16/20 01/16/21 busPIRone HCL [Buspar] 7.5 mg PO BID 11/16/20 01/16/21 Previous Rx's Medication Instructions Recorded Budesonide/Formoterol Fumarate 1 puff INHALATION BID #1 inhaler 12/01/20 [Symbicort 80-4.5 Mcg Inhaler] Insulin Glargine [Lantus Vial] 50 unit SQ HS #0 12/01/20 Ipratropium-Albuterol Nebulize 3 ml INHALATION RT-TID #120 ml 12/14/20 [Duoneb 0.5 mg-3 mg/3 ml Soln] Allergies Allergy/AdvReac Type Severity Reaction Status Date / Time amoxicillin [From Augmentin] Allergy Intermediate Rash/Hives Verified 07/22/21 15:08 clavulanic acid Allergy Intermediate Rash/Hives Verified 07/22/21 15:08 [From Augmentin] Penicillins Allergy Rash/Hives Verified 07/22/21 15:08 Review of Systems ROS Statement: Those systems with pertinent positive or pertinent negative responses have been documented in the HPI. ROS Other: All systems not noted in ROS Statement are negative. Past Medical History Past Medical History: COPD, Diabetes Mellitus, GERD/Reflux, Hyperlipidemia, Hypertension, Osteoarthritis (OA) Additional Past Medical History / Comment(s): incisional hernia, diverticulitis, CAROTID STENOSIS. Chronic low back pain, migraines, "HEAD ANEURYSM". States 01/11/21 having abd pain and her eyes are burning. States she can't take it. Instructed her to go to the ER if she does not get better. History of Any Multi-Drug Resistant Organisms: None Reported Past Surgical History: Bowel Resection, Hernia Repair, Hysterectomy, Orthopedic Surgery, Tubal Ligation Additional Past Surgical History / Comment(s): laparoscopic fredy fundoplasty. 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 (ANGIOGRAM 08/23/14 TO CHECK STENT.) "HEAD ANEURYSM REPAIR " Past Anesthesia/Blood Transfusion Reactions: No Reported Reaction Past Psychological History: Anxiety, Depression Smoking Status: Current every day smoker Past Alcohol Use History: None Reported Past Drug Use History: Marijuana - Past Family History Father Family Medical History: No Reported History Mother Family Medical History: Coronary Artery Disease (CAD), Diabetes Mellitus General Exam Limitations: no limitations General appearance: alert, in no apparent distress Head exam: Present: atraumatic, normocephalic, normal inspection Eye exam: Present: normal appearance, PERRL, EOMI. Absent: scleral icterus, conjunctival injection, periorbital swelling ENT exam: Present: normal exam, mucous membranes moist Neck exam: Present: normal inspection Respiratory exam: Present: normal lung sounds bilaterally. Absent: respiratory distress, wheezes, rales, rhonchi, stridor Cardiovascular Exam: Present: regular rate, normal rhythm, normal heart sounds. Absent: systolic murmur, diastolic murmur, rubs, gallop, clicks GI/Abdominal exam: Present: soft, normal bowel sounds, other (Postop surgical scar and wound no signs or symptoms of infection.). Absent: distended, tenderness, guarding, rebound, rigid Extremities exam: Present: normal inspection, full ROM, normal capillary refill. Absent: tenderness, pedal edema, joint swelling, calf tenderness Neurological exam: Present: alert, oriented X3 Psychiatric exam: Present: normal affect, normal mood Skin exam: Present: warm, dry, intact, normal color. Absent: rash Course Vital Signs 07/22/21 07/22/21 15:02 18:07 Temperature 100.3 F H 99.2 F Pulse Rate 114 H 97 Respiratory 20 18 Rate Blood Pressure 124/82 138/94 O2 Sat by Pulse 97 93 L Oximetry Medical Decision Making - Medical Decision Making 61-year-old female complaining of nausea vomiting 2 days. Labs, 650 mg Tylenol, 4 mg of Zofran, 1 L normal saline ordered. CBC shows a slightly elevated white count at 12.5, lactic acid 2.3, rest of labs are unremarkable. Covid and influenza negative. 1 L of normal saline ordered. Patient states she is feeling better after medications and is agreeable with dis charge home after fluids. Case discussed with Dr. Bueno. - Lab Data Result diagrams: 07/22/21 17:05 07/22/21 17:05 Lab Results 07/22/21 07/22/21 07/22/21 Range/Units 15:07 17:05 17:05 WBC 12.5 H (3.8-10.6) k/uL RBC 4.62 (3.80-5.40) m/uL Hgb 14.1 (11.4-16.0) gm/dL Hct 43.6 (34.0-46.0) % MCV 94.3 (80.0-100.0) fL MCH 30.4 (25.0-35.0) pg MCHC 32.3 (31.0-37.0) g/dL RDW 14.4 (11.5-15.5) % Plt Count 345 (150-450) k/uL MPV 8.3 Neutrophils % 50 % Lymphocytes % 43 % Monocytes % 5 % Eosinophils % 1 % Basophils % 1 % Neutrophils # 6.3 (1.3-7.7) k/uL Lymphocytes # 5.3 H (1.0-4.8) k/uL Monocytes # 0.6 (0-1.0) k/uL Eosinophils # 0.1 (0-0.7) k/uL Basophils # 0.1 (0-0.2) k/uL PT 10.3 (9.0-12.0) sec INR 1.0 (<1.2) APTT 24.1 (22.0-30.0) sec Sodium (137-145) mmol/L Potassium (3.5-5.1) mmol/L Chloride (98-107) mmol/L Carbon Dioxide (22-30) mmol/L Anion Gap mmol/L BUN (7-17) mg/dL Creatinine (0.52-1.04) mg/dL Est GFR (CKD-EPI)AfAm (>60 ml/min/1.73 sqM) Est GFR (CKD-EPI)NonAf (>60 ml/min/1.73 sqM) Glucose (74-99) mg/dL POC Glucose (mg/dL) 101 H (75-99) mg/dL POC Glu Logistics Manager ID Adolfo Sorensen Nicole Plasma Lactic Acid Ak[place] (0.7-2.0) mmol/L Calcium (8.4-10.2) mg/dL Magnesium (1.6-2.3) mg/dL Total Bilirubin (0.2-1.3) mg/dL AST (14-36) U/L ALT (4-34) U/L Alkaline Phosphatase (38-126) U/L Lactate Dehydrogenase (313-618) U/L C-Reactive Protein (<1.0) mg/dL Total Protein (6.3-8.2) g/dL Albumin (3.5-5.0) g/dL Acetone, Qual (Negative) Coronavirus (PCR) (Not Detectd) Influenza Type A RNA (Not Detectd) Influenza Type B (PCR) (Not Detectd) 07/22/21 07/22/21 07/22/21 Range/Units 17:05 17:05 17:05 WBC (3.8-10.6) k/uL RBC (3.80-5.40) m/uL Hgb (11.4-16.0) gm/dL Hct (34.0-46.0) % MCV (80.0-100.0) fL MCH (25.0-35.0) pg MCHC (31.0-37.0) g/dL RDW (11.5-15.5) % Plt Count (150-450) k/uL MPV Neutrophils % % Lymphocytes % % Monocytes % % Eosinophils % % Basophils % % Neutrophils # (1.3-7.7) k/uL Lymphocytes # (1.0-4.8) k/uL Monocytes # (0-1.0) k/uL Eosinophils # (0-0.7) k/uL Basophils # (0-0.2) k/uL PT (9.0-12.0) sec INR (<1.2) APTT (22.0-30.0) sec Sodium 137 (137-145) mmol/L Potassium 3.4 L (3.5-5.1) mmol/L Chloride 95 L (98-107) mmol/L Carbon Dioxide 29 (22-30) mmol/L Anion Gap 13 mmol/L BUN 20 H (7-17) mg/dL Creatinine 1.02 (0.52-1.04) mg/dL Est GFR (CKD-EPI)AfAm 70 (>60 ml/min/1.73 sqM) Est GFR (CKD-EPI)NonAf 61 (>60 ml/min/1.73 sqM) Glucose 79 (74-99) mg/dL POC Glucose (mg/dL) (75-99) mg/dL POC Glu Logistics Manager ID Plasma Lactic Acid Akbar 2.3 H* (0.7-2.0) mmol/L Calcium 10.0 (8.4-10.2) mg/dL Magnesium 1.5 L (1.6-2.3) mg/dL Total Bilirubin 0.8 (0.2-1.3) mg/dL AST 31 (14-36) U/L ALT 20 (4-34) U/L Alkaline Phosphatase 110 (38-126) U/L Lactate Dehydrogenase 437 (313-618) U/L C-Reactive Protein <0.5 (<1.0) mg/dL Total Protein 8.9 H (6.3-8.2) g/dL Albumin 5.2 H (3.5-5.0) g/dL Acetone, Qual (Negative) Coronavirus (PCR) Not Detected (Not Detectd) Influenza Type A RNA (Not Detectd) Influenza Type B (PCR) (Not Detectd) 07/22/21 07/22/21 Range/Units 17:54 17:59 WBC (3.8-10.6) k/uL RBC (3.80-5.40) m/uL Hgb (11.4-16.0) gm/dL Hct (34.0-46.0) % MCV (80.0-100.0) fL MCH (25.0-35.0) pg MCHC (31.0-37.0) g/dL RDW (11.5-15.5) % Plt Count (150-450) k/uL MPV Neutrophils % % Lymphocytes % % Monocytes % % Eosinophils % % Basophils % % Neutrophils # (1.3-7.7) k/uL Lymphocytes # (1.0-4.8) k/uL Monocytes # (0-1.0) k/uL Eosinophils # (0-0.7) k/uL Basophils # (0-0.2) k/uL PT (9.0-12.0) sec INR (<1.2) APTT (22.0-30.0) sec Sodium (137-145) mmol/L Potassium (3.5-5.1) mmol/L Chloride (98-107) mmol/L Carbon Dioxide (22-30) mmol/L Anion Gap mmol/L BUN (7-17) mg/dL Creatinine (0.52-1.04) mg/dL Est GFR (CKD-EPI)AfAm (>60 ml/min/1.73 sqM) Est GFR (CKD-EPI)NonAf (>60 ml/min/1.73 sqM) Glucose (74-99) mg/dL POC Glucose (mg/dL) (75-99) mg/dL POC Glu Logistics Manager ID Plasma Lactic Acid [place] (0.7-2.0) mmol/L Calcium (8.4-10.2) mg/dL Magnesium (1.6-2.3) mg/dL Total Bilirubin (0.2-1.3) mg/dL AST (14-36) U/L ALT (4-34) U/L Alkaline Phosphatase (38-126) U/L Lactate Dehydrogenase (313-618) U/L C-Reactive Protein (<1.0) mg/dL Total Protein (6.3-8.2) g/dL Albumin (3.5-5.0) g/dL Acetone, Qual Negative (Negative) Coronavirus (PCR) (Not Detectd) Influenza Type A RNA Not Detected (Not Detectd) Influenza Type B (PCR) Not Detected (Not Detectd) Disposition Clinical Impression: Nausea & vomiting, Dehydration Disposition: HOME SELF-CARE Condition: Stable Instructions (If sedation given, give patient instructions): Acute Nausea and Vomiting (ED) Additional Instructions: Please return to the Emergency Department if symptoms worsen or any other concerns. Follow-up with primary care in 1-2 days. Take Zofran as prescribed. Increase fluids complaint rest. Is patient prescribed a controlled substance at d/c from ED?: No Referrals: Seng Mckeon DO [Primary Care Provider] - 1-2 days Time of Disposition: 19:02
[2021-07-22 21:24] VITALS: BP 123/65; PULSE 77; RESP 16; TEMP 97.9
== END 2021-07-22 21:23 | disposition home or self-care (01) ==
LOC: EC 14:38
DX: R11.2 Nausea with vomiting, unspecified (principal); E86.0 Dehydration; J44.9 Chronic obstructive pulmonary disease, unspecified; E11.9 Type 2 diabetes mellitus without complications; K21.9 Gastro-esophageal reflux disease without esophagitis; E78.5 Hyperlipidemia, unspecified; I10 Essential (primary) hypertension; M19.90 Unspecified osteoarthritis, unspecified site; F41.9 Anxiety disorder, unspecified; F32.A Depression, unspecified; F17.200 Nicotine dependence, unspecified, uncomplicated; F12.90 Cannabis use, unspecified, uncomplicated; Z79.82 Long term (current) use of aspirin; Z79.84 Long term (current) use of oral hypoglycemic drugs; Z79.4 Long term (current) use of insulin; Z88.0 Allergy status to penicillin; Z90.710 Acquired absence of both cervix and uterus; Z98.51 Tubal ligation status; Z20.822 Contact with and (suspected) exposure to COVID-19
CPT/HCPCS: 99284; 96374; 96361; 36415; 80053; 82009; 83605; 83615; 83735; 85025; 85610; 85730; 86140; 87502; 84145; 87635; J2405; S0119

== ENCOUNTER → 2021-08-09 | Outpatient (CLI) | payer OTHER ==
[2021-08-09 14:51] LABS: ALT 15 U/L (8-44); AST 23 U/L (13-35); Chol/HDL Ratio 4.02 Ratio; LDL Cholesterol,Calculated 91.5 mg/dL (0.0-131.0)
== END | disposition home or self-care (01) ==
LOC: LABWHC1 09:25
PROVIDERS: ATTEND Internal Medicine Cardiovascular Disease
DX: E78.2 Mixed hyperlipidemia (principal)
CPT/HCPCS: 36415; 80061; 84450; 84460

== ENCOUNTER 2021-08-11 11:11 | Observation (INO) | payer OTHER ==
[2021-08-11] MEDS ORDERED: PANTOPRAZOLE 40 MG/10 ML VIAL IVP STA (11:30)
[2021-08-11] MEDS ORDERED: SODIUM CHLORIDE 0.9% 500 ML 500 ML IV ONE (11:30)
[2021-08-11] MEDS ORDERED: IPRATROPIUM-ALBUTEROL 3 ML NEB INHALATION STA (11:48)
[2021-08-11] MEDS ORDERED: HYDROcodone/APAP 5-325MG 1 EACH TAB PO STA (11:48)
--- NOTE | 2021-08-11 11:54 | ED ---
General Adult HPI - General Chief complaint: Abdominal Pain Stated complaint: Vomiting, post procedure & black stool Time Seen by Provider: 08/11/21 11:29 Source: patient, family Mode of arrival: ambulatory Limitations: no limitations - History of Present Illness Initial comments: Dictation was produced using [employer] dictation software. please excuse any grammatical, word or spelling errors. Chief Complaint: 61-year-old female presents emergency department for coffee- ground emesis and black stool History of Present Illness: Patient is a 61-year-old female she was brought in by her family member. Family member dropped her off and went back home to attend a birthday constitution party. Patient's 61-year-old female states that she has been having coffee-ground emesis and black stools for the last 48 hours. She has history of abdominal hernia that was repaired by one of our surgeons. Patient is on aspirin. She does not take any other medical evaluation medications. Patient denies any abdominal pain. She states that she rest over here and was not able to take her home medications. The ROS documented in this emergency department record has been reviewed and confirmed by me. Those systems with pertinent positive or negative responses have been documented in the HPI. All other systems are other negative and/or noncontributory. PHYSICAL EXAM: General Impression: Alert and oriented x3, not in acute distress HEENT: Normocephalic atraumatic, extra-ocular movements intact, pupils equal and reactive to light bilaterally, mucous membranes moist. Cardiovascular: Heart regular rate and rhythm Chest: Able to complete full sentences, no retractions, no tachypnea Abdomen: abdomen soft, non-tender, non-distended, no organomegaly Musculoskeletal: Pulses present and equal in all extremities, no peripheral edema Motor: no focal deficits noted Neurological: CN II-XII grossly intact, no focal motor or sensory deficits noted Skin: Intact with no visualized rashes Psych: Normal affect and mood Rectal exam: No gross blood ED course: 61-year-old female presents to the emergency department for chief complaint of GI bleed. Vital signs upon arrival are within acceptable limits. Lavatory evaluation obtained. CBC unremarkable. Coag panel is negative. Metabolic panel shows hypoglycemia 63. Cervical blood is negative. Patient given dextrose given oral glucose in the form of juice and food. EKG interpretation: Ventricular rate 90, normal sinus rhythm, ND interval 176, QRS 80, QTc 4:30. No ND prolongation, no QTC prolongation, no ST or T-wave changes noted. Overall, this EKG is unremarkable Patient states that she had not taken any of her insulin in the last 24 hours. She hasn't taken her oral diabetes medications however. Patient states she has not eaten very much in the last 12 hours. Patient's blood sugar was corrected with dextrose and oral intake. Repeat blood sugar is 162. Patient's blood sugars continue to decrease steadily despite intervention. Patient be admitted to observation for glucose monitoring. - Related Data Home Medications Medication Instructions Recorded Confirmed Aspirin EC [Ecotrin] 325 mg PO DAILY 08/26/14 01/16/21 Cyclobenzaprine [Flexeril] 10 mg PO TID PRN 08/26/14 01/16/21 FLUoxetine HCL [PROzac] 40 mg PO QAM 08/26/14 01/16/21 lisinopriL [Zestril] 5 mg PO QAM 04/12/15 01/16/21 Fenofibrate 160 mg PO QAM 07/28/15 01/16/21 Gabapentin [Neurontin] 600 mg PO TID 07/28/15 01/16/21 Ergocalciferol (Vitamin D2) 50,000 unit PO WE 04/09/17 01/16/21 [Vitamin D2] Isosorbide Mononitrate [Isosorbide 30 mg PO QAM 04/09/17 01/16/21 Mononitrate ER] Latanoprost [Xalatan 0.005%] 1 drop BOTH EYES HS 04/09/17 01/16/21 Nitroglycerin Sl Tabs [Nitrostat] 0.4 mg PO Q5M PRN 04/09/17 01/16/21 Pioglitazone [Actos] 15 mg PO QAM 04/09/17 01/16/21 Verapamil [Isoptin] 40 mg PO BID 04/09/17 01/16/21 metFORMIN HCL [Glucophage] 500 mg PO PC-SUPPER 04/09/17 01/16/21 Liraglutide [Victoza 3-Myron] 1.2 mg SQ DAILY 12/14/18 01/16/21 Allopurinol [Zyloprim] 100 mg PO DAILY 11/16/20 01/16/21 HYDROcodone/APAP 7.5-325MG [[place] 1 tab PO Q6HR PRN 11/16/20 01/16/21 7.5-325] Insulin Lispro [humaLOG Kwikpen] 10 unit SQ AC-SUPPER 11/16/20 01/16/21 busPIRone HCL [Buspar] 7.5 mg PO BID 11/16/20 01/16/21 Previous Rx's Medication Instructions Recorded Budesonide/Formoterol Fumarate 1 puff INHALATION BID #1 inhaler 12/01/20 [Symbicort 80-4.5 Mcg Inhaler] Insulin Glargine [Lantus Vial] 50 unit SQ HS #0 12/01/20 Ipratropium-Albuterol Nebulize 3 ml INHALATION RT-TID #120 ml 12/14/20 [Duoneb 0.5 mg-3 mg/3 ml Soln] Allergies Allergy/AdvReac Type Severity Reaction Status Date / Time amoxicillin [From Augmentin] Allergy Intermediate Rash/Hives Verified 08/11/21 12:19 clavulanic acid Allergy Intermediate Rash/Hives Verified 08/11/21 12:19 [From Augmentin] Penicillins Allergy Rash/Hives Verified 08/11/21 12:19 Review of Systems ROS Statement: Those systems with pertinent positive or pertinent negative responses have been documented in the HPI. ROS Other: All systems not noted in ROS Statement are negative. Past Medical History Past Medical History: COPD, Diabetes Mellitus, GERD/Reflux, Hyperlipidemia, Hypertension, Osteoarthritis (OA) Additional Past Medical History / Comment(s): incisional hernia, diverticulitis, CAROTID STENOSIS. Chronic low back pain, migraines, "HEAD ANEURYSM". States 01/11/21 having abd pain and her eyes are burning. States she can't take it. Instructed her to go to the ER if she does not get better. History of Any Multi-Drug Resistant Organisms: None Reported Past Surgical History: Bowel Resection, Hernia Repair, Hysterectomy, Orthopedic Surgery, Tubal Ligation Additional Past Surgical History / Comment(s): laparoscopic fredy fundoplasty. 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 (ANGIOGRAM 08/23/14 TO CHECK STENT.) "HEAD ANEURYSM REPAIR " Past Anesthesia/Blood Transfusion Reactions: No Reported Reaction Past Psychological History: Anxiety, Depression Smoking Status: Current every day smoker Past Alcohol Use History: None Reported Past Drug Use History: Marijuana - Past Family History Father Family Medical History: No Reported History Mother Family Medical History: Coronary Artery Disease (CAD), Diabetes Mellitus General Exam Limitations: no limitations Course Vital Signs 08/11/21 08/11/21 08/11/21 11:20 12:52 12:58 Temperature 98 F Pulse Rate 98 98 96 Respiratory 20 Rate Blood Pressure 149/103 O2 Sat by Pulse 99 Oximetry Medical Decision Making - Lab Data Result diagrams: 08/11/21 12:32 08/11/21 12:32 Lab Results 08/11/21 08/11/21 08/11/21 Range/Units 12:32 12:32 12:32 WBC (3.8-10.6) k/uL RBC (3.80-5.40) m/uL Hgb (11.4-16.0) gm/dL Hct (34.0-46.0) % MCV (80.0-100.0) fL MCH (25.0-35.0) pg MCHC (31.0-37.0) g/dL RDW (11.5-15.5) % Plt Count (150-450) k/uL MPV Neutrophils % % Lymphocytes % % Monocytes % % Eosinophils % % Basophils % % Neutrophils # (1.3-7.7) k/uL Lymphocytes # (1.0-4.8) k/uL Monocytes # (0-1.0) k/uL Eosinophils # (0-0.7) k/uL Basophils # (0-0.2) k/uL PT 10.6 (9.0-12.0) sec INR 1.0 (<1.2) APTT 24.8 (22.0-30.0) sec Sodium 137 (137-145) mmol/L Potassium 4.5 (3.5-5.1) mmol/L Chloride 99 (98-107) mmol/L Carbon Dioxide 27 (22-30) mmol/L Anion Gap 11 mmol/L BUN 24 H (7-17) mg/dL Creatinine 0.86 (0.52-1.04) mg/dL Est GFR (CKD-EPI)AfAm 86 (>60 ml/min/1.73 sqM) Est GFR (CKD-EPI)NonAf 75 (>60 ml/min/1.73 sqM) Glucose 63 L (74-99) mg/dL POC Glucose (mg/dL) (75-99) mg/dL POC Glu [employer] ID Calcium 11.2 H (8.4-10.2) mg/dL Magnesium 1.8 (1.6-2.3) mg/dL Total Bilirubin 0.7 (0.2-1.3) mg/dL AST 29 (14-36) U/L ALT 16 (4-34) U/L Alkaline Phosphatase 117 (38-126) U/L Total Protein 8.8 H (6.3-8.2) g/dL Albumin 5.1 H (3.5-5.0) g/dL Stool Occult Blood (Negative) Blood Type O Positive Blood Type Recheck O Pos Bld Type Recheck Status No Antibody Screen NEGATIVE Spec Expiration Date 08/14/2021 - 233108/11/21 08/11/21 08/11/21 Range/Units 12:32 12:33 13:15 WBC 6.2 (3.8-10.6) k/uL RBC 4.26 (3.80-5.40) m/uL Hgb 13.5 (11.4-16.0) gm/dL Hct 40.5 (34.0-46.0) % MCV 95.0 (80.0-100.0) fL MCH 31.6 (25.0-35.0) pg MCHC 33.3 (31.0-37.0) g/dL RDW 14.2 (11.5-15.5) % Plt Count 333 (150-450) k/uL MPV 8.1 Neutrophils % 45 % Lymphocytes % 47 % Monocytes % 4 % Eosinophils % 1 % Basophils % 0 % Neutrophils # 2.8 (1.3-7.7) k/uL Lymphocytes # 2.9 (1.0-4.8) k/uL Monocytes # 0.3 (0-1.0) k/uL Eosinophils # 0.1 (0-0.7) k/uL Basophils # 0.0 (0-0.2) k/uL PT (9.0-12.0) sec INR (<1.2) APTT (22.0-30.0) sec Sodium (137-145) mmol/L Potassium (3.5-5.1) mmol/L Chloride (98-107) mmol/L Carbon Dioxide (22-30) mmol/L Anion Gap mmol/L BUN (7-17) mg/dL Creatinine (0.52-1.04) mg/dL Est GFR (CKD-EPI)AfAm (>60 ml/min/1.73 sqM) Est GFR (CKD-EPI)NonAf (>60 ml/min/1.73 sqM) Glucose (74-99) mg/dL POC Glucose (mg/dL) 50 L (75-99) mg/dL POC Glu [employer] ID Reginaldo Raya Calcium (8.4-10.2) mg/dL Magnesium (1.6-2.3) mg/dL Total Bilirubin (0.2-1.3) mg/dL AST (14-36) U/L ALT (4-34) U/L Alkaline Phosphatase (38-126) U/L Total Protein (6.3-8.2) g/dL Albumin (3.5-5.0) g/dL Stool Occult Blood Negative (Negative) Blood Type Blood Type Recheck Bld Type Recheck Status Antibody Screen Spec Expiration Date 08/11/21 08/11/21 08/11/21 Range/Units 13:37 14:15 14:36 WBC (3.8-10.6) k/uL RBC (3.80-5.40) m/uL Hgb (11.4-16.0) gm/dL Hct (34.0-46.0) % MCV (80.0-100.0) fL MCH (25.0-35.0) pg MCHC (31.0-37.0) g/dL RDW (11.5-15.5) % Plt Count (150-450) k/uL MPV Neutrophils % % Lymphocytes % % Monocytes % % Eosinophils % % Basophils % % Neutrophils # (1.3-7.7) k/uL Lymphocytes # (1.0-4.8) k/uL Monocytes # (0-1.0) k/uL Eosinophils # (0-0.7) k/uL Basophils # (0-0.2) k/uL PT (9.0-12.0) sec INR (<1.2) APTT (22.0-30.0) sec Sodium (137-145) mmol/L Potassium (3.5-5.1) mmol/L Chloride (98-107) mmol/L Carbon Dioxide (22-30) mmol/L Anion Gap mmol/L BUN (7-17) mg/dL Creatinine (0.52-1.04) mg/dL Est GFR (CKD-EPI)AfAm (>60 ml/min/1.73 sqM) Est GFR (CKD-EPI)NonAf (>60 ml/min/1.73 sqM) Glucose (74-99) mg/dL POC Glucose (mg/dL) 162 H 100 H 77 (75-99) mg/dL POC Glu [employer] ID Ashlee Avitia Alana Cook, Alana Calcium (8.4-10.2) mg/dL Magnesium (1.6-2.3) mg/dL Total Bilirubin (0.2-1.3) mg/dL AST (14-36) U/L ALT (4-34) U/L Alkaline Phosphatase (38-126) U/L Total Protein (6.3-8.2) g/dL Albumin (3.5-5.0) g/dL Stool Occult Blood (Negative) Blood Type Blood Type Recheck Bld Type Recheck Status Antibody Screen Spec Expiration Date Disposition Clinical Impression: Hypoglycemia Disposition: ADMITTED IP TO THIS [facility] Condition: Fair Is patient prescribed a controlled substance at d/c from ED?: No Referrals: Seng Mckeon DO [Primary Care Provider] - 1-2 days Cayla Osborne MD [STAFF PHYSICIAN] - 1-2 days
[2021-08-11 12:46] LABS: Basophils % (A) 0 %; Eosinophils # (A) 0.1 k/uL (0-0.7); Eosinophils % (A) 1 %; HCT 40.5 % (34.0-46.0); HGB 13.5 gm/dL (11.4-16.0); Lymphocytes # (A) 2.9 k/uL (1.0-4.8); Lymphocytes % (A) 47 %; MCH 31.6 pg (25.0-35.0); MCHC 33.3 g/dL (31.0-37.0); Mean Platelet Volume 8.1; Monocytes # (A) 0.3 k/uL (0-1.0); Monocytes % (A) 4 %; Neutrophils # (A) 2.8 k/uL (1.3-7.7); Neutrophils % (A) 45 %; Platelet Count 333 k/uL (150-450); RBC 4.26 m/uL (3.80-5.40); RDW 14.2 % (11.5-15.5); WBC 6.2 k/uL (3.8-10.6)
[2021-08-11 12:56] LABS: Albumin 5.1 g/dL (3.5-5.0); Calcium 11.2 mg/dL (8.4-10.2); Magnesium 1.8 mg/dL (1.6-2.3); Partial Thromboplastin Time 24.8 sec (22.0-30.0); Potassium 4.5 mmol/L (3.5-5.1); Prothrombin Time 10.6 sec (9.0-12.0); Total Bilirubin 0.7 mg/dL (0.2-1.3); Total Protein 8.8 g/dL (6.3-8.2)
[2021-08-11] MEDS ORDERED: DEXTROSE 50% SYRINGE 50 ML IVP STA (13:07)
[2021-08-11 13:16] LABS: Glucose,Whole Blood 50 mg/dL (75-99)
[2021-08-11 13:39] LABS: Glucose,Whole Blood 162 mg/dL (75-99)
[2021-08-11 14:17] LABS: Glucose,Whole Blood 100 mg/dL (75-99)
[2021-08-11 14:38] LABS: Glucose,Whole Blood 77 mg/dL (75-99)
[2021-08-11] MEDS ORDERED: NALOXONE 0.4 MG/ML 1 ML VIAL IV PRN (14:52)
[2021-08-11 15:15] LABS: Glucose,Whole Blood 101 mg/dL (75-99)
[2021-08-11] MEDS: SODIUM CHLORIDE 0.9% 1,000 ML IV SCH (15:38)
[2021-08-11] MEDS: lisinopriL 5 MG TAB PO SCH (17:17)
[2021-08-11 17:26] LABS: Glucose,Whole Blood 63 mg/dL (75-99)
[2021-08-11 18:03] LABS: Glucose,Whole Blood 102 mg/dL (75-99)
[2021-08-11 18:58] LABS: Glucose,Whole Blood 80 mg/dL (75-99)
[2021-08-11] MEDS: LATANOPROST 0.005% OPHTH DROPS 2.5 ML BTL BOTH EYES SCH (20:03)
[2021-08-11] MEDS: VERAPAMIL 40 MG TAB PO SCH (20:04)
[2021-08-11] MEDS: busPIRone HCl 5 MG TAB PO SCH (20:04)
[2021-08-11] MEDS: ATORVASTATIN 80 MG TAB PO SCH (20:04)
[2021-08-11] MEDS: PANTOPRAZOLE 40 MG TABLET PO SCH (20:04)
[2021-08-11] MEDS: HYDROcodone/APAP 7.5-325MG 1 EACH TAB PO SCH (20:05)
[2021-08-11] MEDS: FLUTICASONE 110 MCG INHALER INHALATION SCH (20:59)
[2021-08-11] MEDS ORDERED: INSULIN DETEMIR (LEVEMIR) 100 UNIT/ML SYR SQ SCH (21:00)
[2021-08-11 21:11] LABS: Glucose,Whole Blood 81 mg/dL (75-99)
[2021-08-11] MEDS: GABAPENTIN 300 MG CAP PO SCH (22:12)
--- NOTE | 2021-08-11 22:57 | P.HPIM ---
History of Present Illness H&P Date: 08/11/21 Chief Complaint: dark stools Patient is a 61-year-old female with a known history of hypertension, hyperlipidemia, diabetes type 2 insulin-dependent, COPD, osteoarthritis, carotid stenosis, history of incisional hernia repair and also bowel resection, anxiety/depression currently everyday smoker and marijuana use and other multiple medical problems presents to ER with complaints of dark-colored stools which she noticed this morning. Denies any complaints of emesis. Patient stated she has been having dizziness for the past 3 days. Denies any [id number] pain medications. Patient does take [place] for pain management. Patient is also on aspirin. No complaints of abdominal pain or bleeding from the surgical scar site. No complaints of chest pain or shortness breath. No fever no chills. Patient states that she had multiple surgeries on her abdomen. Laboratory data showed WBC 6.2 hemoglobin 13.5 and platelets 333 Sodium 137 potassium 4.5 chloride 99 bicarb is 27, BUN 24 and creatinine 0.86 blood sugar is 63 calcium 11.211 units are not elevated. FOBT negative Patient was given D50 in the ER and blood sugar went up to 162. Blood sugars continues to decrease steadily despite intervention and patient was admitted to hospital for observation for glucose monitoring.. Review of Systems Constitutional: Patient denies any fever or chills . No generalized weakness or weight loss. Abdomen: Patient denied nausea vomiting and diarrhea and abdominal pain. Cardiovascular: Patient denies any chest pain or short of breath no p alpitations. Respiratory: patient denied any cough or sputum production. No shortness of breath Neurologic: Patient denied any numbness or tingling headache. Musculoskeletal: Patient denies any complaints of joint swelling or deformity. Skin: Negative Psychiatric: Negative Endocrine: No heat or cold intolerance. No recent weight gain. Genitourinary: No dysuria or hematuria. All other 14 point ROS negative except the above Past Medical History Past Medical History: COPD, Diabetes Mellitus, GERD/Reflux, Hyperlipidemia, Hypertension, Osteoarthritis (OA) Additional Past Medical History / Comment(s): incisional hernia, diverticulitis, CAROTID STENOSIS. Chronic low back pain, migraines, "HEAD ANEURYSM". States 01/11/21 having abd pain and her eyes are burning. States she can't take it. Instructed her to go to the ER if she does not get better. History of Any Multi-Drug Resistant Organisms: None Reported Past Surgical History: Bowel Resection, Hernia Repair, Hysterectomy, Orthopedic Surgery, Tubal Ligation Additional Past Surgical History / Comment(s): laparoscopic fredy fundoplasty. 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 (ANGIOGRAM 08/23/14 TO CHECK STENT.) "HEAD ANEURYSM REPAIR " Past Anesthesia/Blood Transfusion Reactions: No Reported Reaction Past Psychological History: Anxiety, Depression Smoking Status: Current every day smoker Past Alcohol Use History: None Reported Past Drug Use History: Marijuana - Past Family History Father Family Medical History: No Reported History Mother Family Medical History: Coronary Artery Disease (CAD), Diabetes Mellitus Medications and Allergies Home Medications Medication Instructions Recorded Confirmed Type Aspirin EC [Ecotrin] 325 mg PO DAILY 08/26/14 08/11/21 History lisinopriL [Zestril] 5 mg PO DAILY 04/12/15 08/11/21 History Ergocalciferol (Vitamin D2) 50,000 unit PO JANE 04/09/17 08/11/21 History [Vitamin D2] Isosorbide Mononitrate [Isosorbide 30 mg PO DAILY 04/09/17 08/11/21 History Mononitrate ER] Latanoprost [Xalatan 0.005%] 1 drop BOTH EYES HS 04/09/17 08/11/21 History Nitroglycerin Sl Tabs [Nitrostat] 0.4 mg PO Q5M PRN 04/09/17 08/11/21 History Verapamil [Isoptin] 40 mg PO BID 04/09/17 08/11/21 History metFORMIN HCL [Glucophage] 500 mg PO DAILY 04/09/17 08/11/21 History Liraglutide [Victoza 3-Myron] 1.8 mg SQ DAILY 12/14/18 08/11/21 History Allopurinol [Zyloprim] 100 mg PO DAILY 11/16/20 08/11/21 History HYDROcodone/APAP 7.5-325MG [[place] 1 tab PO BID 11/16/20 08/11/21 History 7.5-325] busPIRone HCL [Buspar] 7.5 mg PO BID 11/16/20 08/11/21 History Albuterol Sulfate [Ventolin HFA] 2 puff INHALATION RT-Q6H PRN 08/11/21 08/11/21 History Atorvastatin [Lipitor] 80 mg PO HS 08/11/21 08/11/21 History FLUoxetine HCL [PROzac] 40 mg PO DAILY 08/11/21 08/11/21 History Fluticasone Propionate [Flovent 1 puff INHALATION RT-BID 08/11/21 08/11/21 History Hfa 220 mcg] Gabapentin [Neurontin] 300 mg PO TID 08/11/21 08/11/21 History Insulin Glargine,Hum.rec.anlog 50 unit SQ HS 08/11/21 08/11/21 History [Basaglar Kwikpen U-100] Insulin Lispro [Admelog] 7 units SQ AC-TID 08/11/21 08/11/21 History Magnesium Oxide [Mag-Ox] 400 mg PO DAILY 08/11/21 08/11/21 History Omeprazole 20 mg PO BID 08/11/21 08/11/21 History Pioglitazone [Actos] 30 mg PO DAILY 08/11/21 08/11/21 History Sucralfate [Carafate] 1 gm PO DAILY 08/11/21 08/11/21 History Umeclidinium Brm/Vilanterol Tr 1 puff INHALATION RT-DAILY 08/11/21 08/11/21 History [Anoro Ellipta 62.5-25 Mcg INH] Allergies Allergy/AdvReac Type Severity Reaction Status Date / Time amoxicillin [From Augmentin] Allergy Intermediate Rash/Hives Verified 08/11/21 15:58 clavulanic acid Allergy Intermediate Rash/Hives Verified 08/11/21 15:58 [From Augmentin] Penicillins Allergy Rash/Hives Verified 08/11/21 15:58 Physical Exam Vitals: Vital Signs Temp Pulse Pulse Resp BP BP Pulse Ox 08/11/21 16:06 99.2 F 87 18 172/87 100 08/11/21 15:20 93 18 141/88 97 08/11/21 12:58 96 08/11/21 12:52 98 08/11/21 11:20 98 F 98 20 149/103 99 Intake and Output 08/11/21 08/11/21 08/11/21 06:59 14:59 22:59 Other: Weight 55.338 kg PHYSICAL EXAMINATION: Patient is lying in the bed comfortably, no acute distress, awake alert and oriented.. HEENT: Normocephalic. Neck is supple. Pupils reactive. Nostrils clear. Oral cavity is moist. Neck reveals no JVD, carotid bruits, or thyromegaly. CHEST EXAMINATION: Trachea is central. Symmetrical expansion. Lung dowling clear to auscultation and percussion. CARDIAC: Normal S1, S2 with no gallops. No murmurs ABDOMEN: Soft. Bowel sounds normal. No organomegaly. No abdominal bruits. Patient does have midline abdominal torturous scar. No discharge from the surgical site. Extremities: reveal no edema. No clubbing or cyanosis Neurologically awake, alert, oriented x3 with well-coordinated movements. No focal deficits noted Skin: No rash or skin lesions. Psychiatric: Cooperative. Nonsuicidal Musculoskeletal: No joint swelling or deformity. Normal range of motion. Results CBC & Chem 7: 08/11/21 12:32 08/11/21 12:32 Labs: Abnormal Lab Results - Last 24 Hours (Table) 08/11/21 08/11/21 08/11/21 Range/Units 12:32 13:15 13:37 BUN 24 H (7-17) mg/dL Glucose 63 L (74-99) mg/dL POC Glucose (mg/dL) 50 L 162 H (75-99) mg/dL Calcium 11.2 H (8.4-10.2) mg/dL Total Protein 8.8 H (6.3-8.2) g/dL Albumin 5.1 H (3.5-5.0) g/dL 08/11/21 08/11/21 Range/Units 14:15 15:12 BUN (7-17) mg/dL Glucose (74-99) mg/dL POC Glucose (mg/dL) 100 H 101 H (75-99) mg/dL Calcium (8.4-10.2) mg/dL Total Protein (6.3-8.2) g/dL Albumin (3.5-5.0) g/dL Thrombosis Risk Factor Assmnt - DVT/VTE Prophylaxis DVT/VTE Prophylaxis: Mechanical Prophylaxis ordered Assessment and Plan Assessment: Hypoglycemia likely due to insulin use. Complaints of dark stools. FOBT negative. Monitor H&H. History of abdominal incisional hernia repair and multiple abdominal surgeries including bowel resection. COPD Currently everyday smoker Hypertension Hyperlipidemia GERD Diabetes type 2 insulin-dependent Osteoarthritis Carotid stenosis Chronic low back pain Anxiety/depression DVT prophylaxis with SCDs due to dark-colored stools. Plan: Patient will be continued on IV hydration with normal saline and monitor blood sugar closely. Continue with insulin Levemir. Hold rapid acting insulin and hypoglycemic agents. Continue with pain management and follow-up closely. Current home medications. Time with Patient: Greater than 30
[2021-08-11 23:10] LABS: Glucose,Whole Blood 84 mg/dL (75-99)
[2021-08-12 01:08] LABS: Glucose,Whole Blood 119 mg/dL (75-99)
[2021-08-12 03:21] LABS: Glucose,Whole Blood 90 mg/dL (75-99)
[2021-08-12 05:16] LABS: Glucose,Whole Blood 81 mg/dL (75-99)
[2021-08-12 07:42] LABS: Glucose,Whole Blood 92 mg/dL (75-99)
[2021-08-12] MEDS: ALBUTEROL NEBULIZED 2.5 MG/3 ML INHALATION PRN ×3 (07:43→19:28)
[2021-08-12] MEDS: FLUTICASONE 110 MCG INHALER INHALATION SCH ×2 (07:43→19:28)
[2021-08-12] MEDS: lisinopriL 5 MG TAB PO SCH (08:34)
[2021-08-12] MEDS: FLUoxetine HCL 20 MG CAP PO SCH (08:34)
[2021-08-12] MEDS: ISOSORBIDE MONONITRATE ER 30 MG TAB.ER.24H PO SCH (08:34)
[2021-08-12] MEDS: PANTOPRAZOLE 40 MG TABLET PO SCH (08:34)
[2021-08-12] MEDS: HYDROcodone/APAP 7.5-325MG 1 EACH TAB PO SCH ×2 (08:35→20:42)
[2021-08-12] MEDS: GABAPENTIN 300 MG CAP PO SCH ×3 (08:35→20:43)
[2021-08-12] MEDS: busPIRone HCl 5 MG TAB PO SCH ×2 (08:35→20:41)
[2021-08-12] MEDS: allopurinoL 100 MG TAB PO SCH (08:35)
[2021-08-12] MEDS: VERAPAMIL 40 MG TAB PO SCH ×2 (08:36→21:17)
[2021-08-12] MEDS ORDERED: ASPIRIN 325 MG TAB PO SCH (09:00)
[2021-08-12 10:43] LABS: Glucose,Whole Blood 133 mg/dL (75-99)
[2021-08-12 11:34] LABS: African American GFR (CKD) 109.9 (60.0-200.0); Anion Gap 12.7 mmol/L (10.00-18.00); BUN/Creat Ratio 20.86 Ratio (12.00-20.00); Blood Urea Nitrogen 14.6 mg/dL (9.0-27.0); Calcium 10.5 mg/dL (8.7-10.3); Carbon Dioxide 24.3 mmol/L (20.0-27.5); Non-African American GFR(CKD) 94.8 (60.0-200.0); Potassium 4.7 mmol/L (3.5-5.5)
[2021-08-12 11:43] LABS: Basophils # (A) 0.07 X 10*3/uL (0.00-0.10); Basophils % (A) 1.3 %; Eosinophils # (A) 0.09 X 10*3/uL (0.04-0.35); Eosinophils % (A) 1.6 %; HCT 39.7 % (37.2-46.3); HGB 12.7 g/dL (12.0-15.0); Lymphocytes # (A) 3.36 X 10*3/uL (0.90-5.00); Lymphocytes % (A) 60.8 %; MCH 30.9 pg (27.0-32.0); MCV 96.6 fL (80.0-97.0); Mean Platelet Volume 10.8 fL (9.5-12.2); Monocytes # (A) 0.37 X 10*3/uL (0.20-1.00); Monocytes % (A) 6.7 %; Neutrophils # (A) 1.63 X 10*3/uL (1.80-7.70); Neutrophils % (A) 29.4 %; Platelet Count 320 X 10*3/uL (140-440); RBC 4.11 X 10*6/uL (4.10-5.20); RDW 14.2 % (11.5-14.5); WBC 5.53 X 10*3/uL (4.50-10.00)
[2021-08-12] MEDS: NICOTINE 14MG/24HR PATCH TRANSDERM SCH (11:51)
[2021-08-12] MEDS: SODIUM CHLORIDE 0.9% 1,000 ML IV SCH (11:52)
[2021-08-12 12:42] LABS: Glucose,Whole Blood 111 mg/dL (75-99)
[2021-08-12 17:26] LABS: Glucose,Whole Blood 144 mg/dL (75-99)
[2021-08-12] MEDS: ATORVASTATIN 80 MG TAB PO SCH (20:41)
[2021-08-12] MEDS: LATANOPROST 0.005% OPHTH DROPS 2.5 ML BTL BOTH EYES SCH (20:43)
[2021-08-12] MEDS ORDERED: INSULIN DETEMIR (LEVEMIR) 100 UNIT/ML SYR SQ SCH (21:00)
[2021-08-12 21:18] LABS: Glucose,Whole Blood 163 mg/dL (75-99)
[2021-08-13 01:32] LABS: Glucose,Whole Blood 106 mg/dL (75-99)
[2021-08-13 07:24] LABS: Glucose,Whole Blood 103 mg/dL (75-99)
[2021-08-13] MEDS: ALBUTEROL NEBULIZED 2.5 MG/3 ML INHALATION PRN ×2 (07:29→11:11)
[2021-08-13] MEDS: FLUTICASONE 110 MCG INHALER INHALATION SCH (07:30)
[2021-08-13 07:40] VITALS: BP 128/82; RESP 20; TEMP 98.4
[2021-08-13] MEDS: VERAPAMIL 40 MG TAB PO SCH (08:28)
[2021-08-13] MEDS: ISOSORBIDE MONONITRATE ER 30 MG TAB.ER.24H PO SCH (08:29)
[2021-08-13] MEDS: allopurinoL 100 MG TAB PO SCH (08:29)
[2021-08-13] MEDS: lisinopriL 5 MG TAB PO SCH (08:29)
[2021-08-13] MEDS: HYDROcodone/APAP 7.5-325MG 1 EACH TAB PO SCH (08:29)
[2021-08-13] MEDS: PANTOPRAZOLE 40 MG TABLET PO SCH (08:29)
[2021-08-13] MEDS: GABAPENTIN 300 MG CAP PO SCH (08:30)
[2021-08-13] MEDS: busPIRone HCl 5 MG TAB PO SCH (08:30)
[2021-08-13] MEDS: FLUoxetine HCL 20 MG CAP PO SCH (08:30)
[2021-08-13] MEDS: NICOTINE 14MG/24HR PATCH TRANSDERM SCH (08:31)
--- NOTE | 2021-08-13 09:55 | P.PN ---
Subjective Progress Note Date: 08/12/21 Patient is a 61-year-old female with a known history of hypertension, hyperlipidemia, diabetes type 2 insulin-dependent, COPD, osteoarthritis, carotid stenosis, history of incisional hernia repair and also bowel resection, anxiety/depression currently everyday smoker and marijuana use and other multiple medical problems presents to ER with complaints of dark-colored stools which she noticed this morning. Denies any complaints of emesis. Patient stated she has been having dizziness for the past 3 days. Denies any hgnq-akn-gcusiwv pain medications. Patient does take [place] for pain management. Patient is also on aspirin. No complaints of abdominal pain or bleeding from the surgical scar site. No complaints of chest pain or shortness breath. No fever no chills. Patient states that she had multiple surgeries on her abdomen. Laboratory data showed WBC 6.2 hemoglobin 13.5 and platelets 333 Sodium 137 potassium 4.5 chloride 99 bicarb is 27, BUN 24 and creatinine 0.86 blood sugar is 63 calcium 11.211 units are not elevated. FOBT negative Patient was given D50 in the ER and blood sugar went up to 162. Blood sugars continues to decrease steadily despite intervention and patient was admitted to hospital for observation for glucose monitoring.. 08/12/2021 Patient is currently resting well. Awake alert and oriented x3. Denies any complaints of chest pain or shortness of breath. No abdominal pain. Still complains of dark-colored stools. Patient was hypoglycemic yesterday evening with blood sugar dropped down to 80s. She did not receive Levemir last night. Otherwise laboratory test showed WBC 5.5 hemoglobin 12.7 and platelets 320 Sodium 130 chloride 98 BUN 14.6 and creatinine 0.7 and calcium 10.5 Patient is being continued on IV hydration and PPI. Current medications reviewed. Objective - Vital Signs Vital signs: Vital Signs Temp 98.0 F 08/12/21 14:33 Pulse 87 08/12/21 14:33 Resp 16 08/12/21 14:33 BP 92/59 08/12/21 14:33 Pulse Ox 96 08/12/21 14:33 Intake & Output 08/11/21 08/12/21 08/12/21 18:59 06:59 18:59 Intake Total 120 Output Total 0 Balance 120 0 Weight 55.338 kg Intake: Oral 120 Output: Emesis 0 - Exam PHYSICAL EXAMINATION: Patient is lying in the bed comfortably, no acute distress, awake alert and oriented.. HEENT: Normocephalic. Neck is supple. Pupils reactive. Nostrils clear. Oral ca vity is moist. Neck reveals no JVD, carotid bruits, or thyromegaly. CHEST EXAMINATION: Trachea is central. Symmetrical expansion. Lung dowling clear to auscultation and percussion. CARDIAC: Normal S1, S2 with no gallops. No murmurs ABDOMEN: Soft. Bowel sounds normal. No organomegaly. No abdominal bruits. Patient does have midline abdominal torturous scar. No discharge from the surgical site. Extremities: reveal no edema. No clubbing or cyanosis Neurologically awake, alert, oriented x3 with well-coordinated movements. No focal deficits noted Skin: No rash or skin lesions. Psychiatric: Cooperative. Nonsuicidal Musculoskeletal: No joint swelling or deformity. Normal range of motion. - Labs CBC & Chem 7: 08/12/21 07:25 08/12/21 07:25 Labs: Abnormal Lab Results - Last 24 Hours (Table) 08/11/21 08/11/21 08/11/21 Range/Units 15:12 17:24 17:56 Neutrophils # (1.80-7.70) X 10*3/uL BUN/Creatinine Ratio (12.00-20.00) Ratio POC Glucose (mg/dL) 101 H 63 L 102 H (75-99) mg/dL Calcium (8.7-10.3) mg/dL 08/12/21 08/12/21 08/12/21 Range/Units 01:01 07:25 07:25 Neutrophils # 1.63 L (1.80-7.70) X 10*3/uL BUN/Creatinine Ratio 20.86 H (12.00-20.00) Ratio POC Glucose (mg/dL) 119 H (75-99) mg/dL Calcium 10.5 H (8.7-10.3) mg/dL 08/12/21 08/12/21 Range/Units 10:41 12:42 Neutrophils # (1.80-7.70) X 10*3/uL BUN/Creatinine Ratio (12.00-20.00) Ratio POC Glucose (mg/dL) 133 H 111 H (75-99) mg/dL Calcium (8.7-10.3) mg/dL Assessment and Plan Assessment: Hypoglycemia likely due to insulin use. Complaints of dark stools. FOBT negative. Monitor H&H. History of abdominal incisional hernia repair and multiple abdominal surgeries including bowel resection. COPD Currently everyday smoker Hypertension Hyperlipidemia GERD Diabetes type 2 insulin-dependent Osteoarthritis Carotid stenosis Chronic low back pain Anxiety/depression DVT prophylaxis with SCDs due to dark-colored stools. Plan: Patient will be continued on IV hydration with normal saline and monitor blood sugar closely. Continue with insulin Levemir. Reduce the dose of Levemir to 35 units. Hold rapid acting insulin and hypoglycemic agents. Monitor hemoglobin level. will consult GI if she continues to have dark stools.. Continue with pain management and follow-up closely. Current home medications. Time with Patient: Greater than 30
[2021-08-13 10:14] LABS: Basophils # (A) 0.06 X 10*3/uL (0.00-0.10); Eosinophils # (A) 0.11 X 10*3/uL (0.04-0.35); Eosinophils % (A) 1.8 %; HGB 12.2 g/dL (12.0-15.0); Lymphocytes # (A) 3.69 X 10*3/uL (0.90-5.00); Lymphocytes % (A) 60.7 %; MCH 29.8 pg (27.0-32.0); MCHC 31.3 g/dL (32.0-37.0); MCV 95.1 fL (80.0-97.0); Mean Platelet Volume 11.3 fL (9.5-12.2); Monocytes # (A) 0.44 X 10*3/uL (0.20-1.00); Monocytes % (A) 7.2 %; Neutrophils # (A) 1.77 X 10*3/uL (1.80-7.70); Neutrophils % (A) 29.1 %; Platelet Count 317 X 10*3/uL (140-440); RDW 14.3 % (11.5-14.5); WBC 6.08 X 10*3/uL (4.50-10.00)
[2021-08-13 10:26] LABS: African American GFR (CKD) 109.9 (60.0-200.0); Anion Gap 10.4 mmol/L (10.00-18.00); BUN/Creat Ratio 20.43 Ratio (12.00-20.00); Blood Urea Nitrogen 14.3 mg/dL (9.0-27.0); Calcium 10.7 mg/dL (8.7-10.3); Carbon Dioxide 27.6 mmol/L (20.0-27.5); Non-African American GFR(CKD) 94.8 (60.0-200.0); Potassium 4.9 mmol/L (3.5-5.5)
[2021-08-13 11:20] LABS: Glucose,Whole Blood 128 mg/dL (75-99)
[2021-08-13 11:21] VITALS: PULSE 80
--- NOTE | 2021-08-13 13:10 | P.DS ---
Providers Date of admission: 08/11/21 14:52 Expected date of discharge: 08/13/21 Attending physician: Dariusz Lopez MD Primary care physician: Seng Mckeon Hospital Course: Final diagnosis Hypoglycemia likely due to insulin use. Complaints of dark stools. FOBT negative. History of abdominal incisional hernia repair and multiple abdominal surgeries including bowel resection. COPD Currently everyday smoker Hypertension Hyperlipidemia GERD Diabetes type 2 insulin-dependent Osteoarthritis Carotid stenosis Chronic low back pain Anxiety/depression DVT prophylaxis Full code Discharge disposition Patient is being discharged in a stable condition with guarded prognosis to home. Patient will follow-up with Dr. Mckeon in the outpatient setting tomorrow at her scheduled appointment. Patient is to also follow-up with GI Dr. Osborne and general surgery is needed. Total time taken is greater than 35 minutes. Hospital course This is a 61-year-old female who was recently admitted with dark colored stools that she had noticed at home and also some intermittent dizziness for the last 3 days and was being closely monitored. Patient's hemoglobin remained stable with no further episodes of dark stools noted. Patient states there might have been some mild streaking of dark colored but the stool is more brown now. Patient denies any further abdominal pain and does follow with surgery in the outpatient setting. Patient needs to follow-up with GI outpatient for possible endoscopic intervention. Patient was also taking large dose 325 mg aspirin daily and will hold until follow-up with primary care provider tomorrow. Recommend repeat labs in the outpatient setting and follow-up. Patient did state she had an appointment with Dr. Mckeon in the morning that she plans on going to. Patient's blood sugars have been on the lower side and will decrease long-acting to 35 units at night and will continue with sliding scale and will continue to hold the Victoza and Actos and continue with her metformin 500 mg daily. Encouraged the patient to monitor blood sugars closely and keep a diary for primary care follow-up. Patient to continue with consistent carb diet. Patient is requesting if she can go home today. Currently no reports of chest pain, shortness of breath, or palpitations. Patient is afebrile. No reports of nausea or vomiting and patient is tolerating diet. Patient will be discharged home today. PHYSICAL EXAMINATION: Patient is sitting up at the side of the bed comfortably, no acute distress, awake alert and oriented.. HEENT: Normocephalic. Neck is supple. 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 Nostrils clear. Oral cavity is moist. Neck reveals no JVD, carotid bruits, or thyromegaly. CHEST EXAMINATION: Trachea is central. Symmetrical expansion. Lung dowling clear to auscultation and percussion. CARDIAC: Normal S1, S2 with no gallops. No murmurs ABDOMEN: Soft. Bowel sounds normal. No organomegaly. No abdominal bruits. Extremities: reveal no edema. No clubbing or cyanosis. Neurologically awake, alert, oriented x3 with well-coordinated movements. No focal deficits noted Skin: No rash or skin lesions. Psychiatric: Cooperative. Non-suicidal Musculoskeletal: No joint swelling or deformity. Normal range of motion. Please refer to medication reconciliation sheet for a list of medications. Patient Condition at Discharge: Fair Plan - Discharge Summary Discharge Rx Participant: No New Discharge Prescriptions: New Nicotine 14Mg/24Hr Patch [Habitrol] 1 patch TRANSDERM DAILY #30 patch Continue lisinopriL [Zestril] 5 mg PO DAILY Isosorbide Mononitrate [Isosorbide Mononitrate ER] 30 mg PO DAILY Nitroglycerin Sl Tabs [Nitrostat] 0.4 mg PO Q5M PRN PRN Reason: Chest Pain Latanoprost [Xalatan 0.005%] 1 drop BOTH EYES HS metFORMIN HCL [Glucophage] 500 mg PO DAILY Ergocalciferol (Vitamin D2) [Vitamin D2] 50,000 unit PO JANE Verapamil [Isoptin] 40 mg PO BID Allopurinol [Zyloprim] 100 mg PO DAILY HYDROcodone/APAP 7.5-325MG [[place] 7.5-325] 1 tab PO BID Fluticasone Propionate [Flovent Hfa 220 mcg] 1 puff INHALATION RT-BID Gabapentin [Neurontin] 300 mg PO TID Omeprazole 20 mg PO BID Sucralfate [Carafate] 1 gm PO DAILY busPIRone HCL [Buspar] 7.5 mg PO BID Albuterol Sulfate [Ventolin HFA] 2 puff INHALATION RT-Q6H PRN PRN Reason: Shortness Of Breath Atorvastatin [Lipitor] 80 mg PO HS FLUoxetine HCL [PROzac] 40 mg PO DAILY Magnesium Oxide [Mag-Ox] 400 mg PO DAILY Umeclidinium Brm/Vilanterol Tr [Anoro Ellipta 62.5-25 Mcg INH] 1 puff INHALATION RT-DAILY Insulin Lispro [Admelog] 7 units SQ AC-TID #0 Changed Insulin Glargine,Hum.rec.anlog [Basaglar Kwikpen U-100] 35 unit SQ HS #0 Discontinued Aspirin EC [Ecotrin] 325 mg PO DAILY Liraglutide [Victoza 3-Myron] 1.8 mg SQ DAILY Pioglitazone [Actos] 30 mg PO DAILY Discharge Medication List lisinopriL [Zestril] 5 mg PO DAILY 04/12/15 [History] Ergocalciferol (Vitamin D2) [Vitamin D2] 50,000 unit PO JANE 04/09/17 [History] Isosorbide Mononitrate [Isosorbide Mononitrate ER] 30 mg PO DAILY 04/09/17 [History] Latanoprost [Xalatan 0.005%] 1 drop BOTH EYES HS 04/09/17 [History] Nitroglycerin Sl Tabs [Nitrostat] 0.4 mg PO Q5M PRN 04/09/17 [History] Verapamil [Isoptin] 40 mg PO BID 04/09/17 [History] metFORMIN HCL [Glucophage] 500 mg PO DAILY 04/09/17 [History] Allopurinol [Zyloprim] 100 mg PO DAILY 11/16/20 [History] HYDROcodone/APAP 7.5-325MG [[place] 7.5-325] 1 tab PO BID 11/16/20 [History] busPIRone HCL [Buspar] 7.5 mg PO BID 11/16/20 [History] Albuterol Sulfate [Ventolin HFA] 2 puff INHALATION RT-Q6H PRN 08/11/21 [History] Atorvastatin [Lipitor] 80 mg PO HS 08/11/21 [History] FLUoxetine HCL [PROzac] 40 mg PO DAILY 08/11/21 [History] Fluticasone Propionate [Flovent Hfa 220 mcg] 1 puff INHALATION RT-BID 08/11/21 [History] Gabapentin [Neurontin] 300 mg PO TID 08/11/21 [History] Magnesium Oxide [Mag-Ox] 400 mg PO DAILY 08/11/21 [History] Omeprazole 20 mg PO BID 08/11/21 [History] Sucralfate [Carafate] 1 gm PO DAILY 08/11/21 [History] Umeclidinium Brm/Vilanterol Tr [Anoro Ellipta 62.5-25 Mcg INH] 1 puff INHALATION RT-DAILY 08/11/21 [History] Insulin Glargine,Hum.rec.anlog [Basaglar Kwikpen U-100] 35 unit SQ HS #0 08/13/21 [Rx] Insulin Lispro [Admelog] 7 units SQ AC-TID #0 08/13/21 [Rx] Nicotine 14Mg/24Hr Patch [Habitrol] 1 patch TRANSDERM DAILY #30 patch 08/13/21 [Rx] Follow up Appointment(s)/Referral(s): Cayla Osborne MD [STAFF PHYSICIAN] - 1-2 days Seng Mckeon DO [Primary Care Provider] - 1-2 days Patient Instructions/Handouts: Hypoglycemia in a Person with Diabetes (GEN) Activity/Diet/Wound Care/Special Instructions: Activity Limited until follow-up Follow-up with primary care provider on discharge Continue to monitor blood sugars before meals at bedtime and keep a diary for primary care follow-up Continue to hold the Actos and Actos until follow-up Continue taking metformin 500 mg daily along with long-acting insulin is 35 un its at bed Continue sliding scale 3 times a day, previous dosing was 7 units 3 times daily but recommend sliding scale NovoLog sliding scale 0-150 equals 0 units 151-200 equals 2 units 201-250 equals 4 units 251-300 equals 6 units 301-350 equals 8 units 351-400 equals 10 units Please notify provider if blood sugar is 400 or above Follow-up with GI and general surgery outpatient Continue current diet of consistent carb Discharge Disposition: HOME SELF-CARE
== END 2021-08-13 13:22 | disposition home or self-care (01) ==
LOC: EC 11:11 → 6NMEDSUR 14:52
PROVIDERS: ADMIT Internal Medicine; ATTEND Internal Medicine
DX: E11.649 Type 2 diabetes mellitus with hypoglycemia without coma (principal); R19.5 Other fecal abnormalities; J44.9 Chronic obstructive pulmonary disease, unspecified; F17.200 Nicotine dependence, unspecified, uncomplicated; I10 Essential (primary) hypertension; E78.5 Hyperlipidemia, unspecified; K21.9 Gastro-esophageal reflux disease without esophagitis; M19.90 Unspecified osteoarthritis, unspecified site; I65.29 Occlusion and stenosis of unspecified carotid artery; G89.29 Other chronic pain; M54.50 Low back pain, unspecified; F41.9 Anxiety disorder, unspecified; F32.A Depression, unspecified; R42 Dizziness and giddiness; R10.9 Unspecified abdominal pain; H40.9 Unspecified glaucoma; H54.8 Legal blindness, as defined in USA; T38.3X6A Underdosing of insulin and oral hypoglycemic [antidiabetic] drugs, initial encounter; K57.92 Diverticulitis of intestine, part unspecified, without perforation or abscess without bleeding; G43.909 Migraine, unspecified, not intractable, without status migrainosus; Z20.822 Contact with and (suspected) exposure to COVID-19; Z91.14 Patient's other noncompliance with medication regimen; Z79.82 Long term (current) use of aspirin; Z79.899 Other long term (current) drug therapy; Z79.84 Long term (current) use of oral hypoglycemic drugs; Z79.4 Long term (current) use of insulin; Z79.891 Long term (current) use of opiate analgesic; Z79.51 Long term (current) use of inhaled steroids; Z88.0 Allergy status to penicillin; Z90.710 Acquired absence of both cervix and uterus; Z90.49 Acquired absence of other specified parts of digestive tract; Z95.828 Presence of other vascular implants and grafts; Z97.0 Presence of artificial eye; Z71.9 Counseling, unspecified; Z83.3 Family history of diabetes mellitus; Z82.49 Family history of ischemic heart disease and other diseases of the circulatory system
CPT/HCPCS: 96361; 96374; 96375; 99285; 36415; 94640 ×5; 93005; 86900; 86901; 80053; 80048 ×2; 83735; 85025 ×3; 85610; 85730; 86850; 82272; 87635; G0378 ×3; S4990 ×2; C9113

== ENCOUNTER 2021-09-19 06:18 | Day surgery (SDC) | payer OTHER ==
[2021-09-18 09:59] VITALS: BMI 21.1
[2021-09-19] MEDS ORDERED: LIDOCAINE 1% (10MG/ML) FOR IV START INTRADERMA PRN (06:20)
[2021-09-19] MEDS ORDERED: LACTATED RINGERS 1,000 ML IV SCH (06:20)
[2021-09-19 06:59] VITALS: TEMP 97.7
[2021-09-19 07:13] LABS: Glucose,Whole Blood 207 mg/dL (75-99)
[2021-09-19] MEDS ORDERED: PROPOFOL 10 MG/ML 20 ML VIAL IV ONE (07:29)
[2021-09-19] MEDS ORDERED: LIDOCAINE 1% INJ 10MG/ML (20 ML MDV) ONE (07:29)
--- NOTE | 2021-09-19 07:42 | P.PCN ---
Date of Procedure: 09/19/21 Procedure(s) Performed: Brief history: Patient is a pleasant 61-year-old white female scheduled for an elective upper endoscopy as well as colonoscopy as a part of evaluation of intermittent episodes of nausea vomiting and coffee-ground emesis that happened about 2 weeks ago. She had history of hiatal hernia repair in the ascending 23 and since then has been having intermittent episodes of abdominal discomfort associated with nausea vomiting. She also had episode of rectal bleeding and hence scheduled for an upper endoscopy as well as colonoscopy to evaluate further. Procedure performed: Esophagogastroduodenoscopy biopsy Colonoscopy Preoperative diagnosis: Abdominal pain, nausea vomiting and coffee-ground emesis Rectal bleeding [place] [facility] [place]: After informed consent was obtained from the patient was brought into the endoscopy unit and IV sedation was administered by anesthesia under continuous monitoring. Initially upper endoscopy was done. The Olympus GF 160 video endoscope was inserted inserted into the mouth and esophagus intubated without any difficulty and was gradually advanced into the stomach and duodenum and carefully examined. The bulb and second part of the duodenum appeared normal. Abscesses were done from this area to rule out celiac disease. The scope was then withdrawn into the stomach adequately insufflated with air and upon careful examination the antrum had patchy areas of erythema which were biopsied. The body, cardia and fundus appeared normal. the Ozzy fundoplication appeared intact. The scope was then withdrawn into the esophagus. The GE junction was located at 40 cm to the incisors. It appeared regular with no erythema erosions or ulcerations. Rest of the esophagus appeared normal. Patient tolerated the procedure well. At this time the patient continued to remain sedation. Initial digital rectal examination was normal. Olympus CF 160 video colonoscope was then inserted into the rectum and gradually advanced to the sigmoid colon and procedure aborted because of extremely poor prep with solid stool noted in the rectum and sigmoid colon. Impression: 1. Upper endoscopy revealed mild antral gastritis but no evidence of esophagitis or peptic ulcer disease. 2. Colonoscopy aborted because of poor prep Recommendations: Findings of this examination were discussed with the patient as well as her family. follow with the biopsy results. Continue with Protonix 40 mg daily and antiemetics as needed. She was advised to schedule for repeat colonoscopy in one to 2 weeks with a 2 day prep.
[2021-09-19 07:55] VITALS: RESP 16
[2021-09-19 08:01] VITALS: BP 111/76; PULSE 90
== END 2021-09-19 08:44 | disposition home or self-care (01) ==
LOC: ORWHC2ENDO 06:18
PROVIDERS: ATTEND Internal Medicine Gastroenterology
DX: K21.9 Gastro-esophageal reflux disease without esophagitis (principal); K62.5 Hemorrhage of anus and rectum; K29.50 Unspecified chronic gastritis without bleeding; K31.9 Disease of stomach and duodenum, unspecified; I10 Essential (primary) hypertension; E78.5 Hyperlipidemia, unspecified; J44.9 Chronic obstructive pulmonary disease, unspecified; F17.200 Nicotine dependence, unspecified, uncomplicated; E11.9 Type 2 diabetes mellitus without complications; F41.9 Anxiety disorder, unspecified; F32.A Depression, unspecified; Z90.710 Acquired absence of both cervix and uterus; Z79.899 Other long term (current) drug therapy; Z79.84 Long term (current) use of oral hypoglycemic drugs; Z79.891 Long term (current) use of opiate analgesic; Z79.4 Long term (current) use of insulin
CPT/HCPCS: 88305; 45378; 43239; J2001; J2704

== ENCOUNTER 2021-10-03 08:21 | Day surgery (SDC) | payer OTHER ==
[2021-10-02 09:13] VITALS: BMI 20.9
[~2021-10-03 08:21] MED LIST changes: -ACETAMINOPHEN TAB 500 MG TAB PO PRN; -HEPARIN SODIUM,PORCINE/PF 5,000 UNIT/0.5 ML SYRINGE SQ PRN; +LACTATED RINGERS 1,000 ML IV SCH; +LIDOCAINE 1% (10MG/ML) FOR IV START INTRADERMA PRN
[2021-10-03 09:16] VITALS: TEMP 98.5
[2021-10-03 09:21] LABS: Glucose,Whole Blood 128 mg/dL (75-99)
[2021-10-03] MEDS ORDERED: LIDOCAINE 1% INJ 10MG/ML (20 ML MDV) ONE (09:54)
[2021-10-03] MEDS ORDERED: PROPOFOL 10 MG/ML 20 ML VIAL IV ONE (09:54)
--- NOTE | 2021-10-03 10:06 | P.PCN ---
Date of Procedure: 10/03/21 Procedure(s) Performed: BRIEF HISTORY: Patient is a 52-year-old pleasant -[place] female scheduled for an elective colonoscopy as a part of value should of intermittent rectal bleeding for the last 6 months duration. She had prior history of sigmoid colon resection. PROCEDURE PERFORMED: Colonoscopy. PREOPERATIVE DIAGNOSIS: Intermittent rectal bleeding. IV sedation per Anesthesia. PROCEDURE: After informed consent was obtained, the patient, was brought into the endoscopy unit. IV sedation was administered by Anesthesia under continuous monitoring. Digital rectal examination was normal. Initially the Olympus CF-160 flexible video colonoscope was then inserted in the rectum, gradually advanced into the cecum without any difficulty. Careful examination was performed as the scope was gradually being withdrawn. Ileocecal valve and the appendiceal orifice were visualized and appeared normal. Prep was excellent. Mucosa of the cecum, ascending colon, transverse colon, rectum appeared normal. There was evidence of prior colon resection with anastomosis located at 20 cm from the anal warts where a few scattered diverticulosis noted. The Retroflexion was performed in the rectum and small internal hemorrhoids were seen. The patient tolerated the procedure well. IMPRESSION: Normal-appearing colon from rectum to cecum with no evidence of colorectal neoplasia . Scattered sigmoid diverticula Small internal hemorrhoids RECOMMENDATIONS: Findings of this examination were discussed with the patient as well as a family. She was advised to be a high-fiber diet and take fiber supplements a regular basis. She can have a repeat colonoscopy in 5 years..
[2021-10-03 10:10] VITALS: RESP 16
[2021-10-03 10:27] VITALS: BP 100/62; PULSE 68
== END 2021-10-03 10:37 | disposition home or self-care (01) ==
LOC: ORWHC2ENDO 08:21
PROVIDERS: ATTEND Internal Medicine Gastroenterology
DX: K57.31 Diverticulosis of large intestine without perforation or abscess with bleeding (principal); K64.8 Other hemorrhoids; Z90.49 Acquired absence of other specified parts of digestive tract; Z98.0 Intestinal bypass and anastomosis status; J44.9 Chronic obstructive pulmonary disease, unspecified; E11.40 Type 2 diabetes mellitus with diabetic neuropathy, unspecified; F41.9 Anxiety disorder, unspecified; F32.A Depression, unspecified; M19.90 Unspecified osteoarthritis, unspecified site; G43.909 Migraine, unspecified, not intractable, without status migrainosus; Z79.899 Other long term (current) drug therapy; Z88.0 Allergy status to penicillin; Z88.8 Allergy status to other drugs, medicaments and biological substances; Z97.2 Presence of dental prosthetic device (complete) (partial)
CPT/HCPCS: 45378; J2001; J2704

== ENCOUNTER 2021-12-24 13:03 | Emergency (ER) | payer OTHER ==
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
[2021-12-24 15:21] VITALS: BP 128/78; PULSE 77; RESP 16; TEMP 98.2
== END 2021-12-24 15:21 | disposition home or self-care (01) ==
LOC: EC 13:03
DX: S16.1XXA Strain of muscle, fascia and tendon at neck level, initial encounter (principal); J44.9 Chronic obstructive pulmonary disease, unspecified; E11.9 Type 2 diabetes mellitus without complications; K21.9 Gastro-esophageal reflux disease without esophagitis; E78.5 Hyperlipidemia, unspecified; I10 Essential (primary) hypertension; F17.200 Nicotine dependence, unspecified, uncomplicated; Z79.83 Long term (current) use of bisphosphonates; Z88.0 Allergy status to penicillin; Z88.1 Allergy status to other antibiotic agents; Z88.8 Allergy status to other drugs, medicaments and biological substances; V89.2XXA Person injured in unspecified motor-vehicle accident, traffic, initial encounter; Y92.410 Unspecified street and highway as the place of occurrence of the external cause
CPT/HCPCS: 70450; 72125; 99284

== ENCOUNTER → 2024-02-11 | Outpatient (CLI) | payer OTHER ==
--- NOTE | 2024-02-11 11:12 | CTL ---
EXAMINATION TYPE: CT Low Dose Lung DATE OF EXAM ORDERED: 02/11/2024 HISTORY: . Low Dose CT Lung Screening CT DLP: 68.[address] CTDI: 2.1 mGy IV CONTRAST USED: None. SCREENING VISIT: First visit COMPARISON: None. TECHNIQUE: Low dose computed tomography scan was performed through the chest at 1 millimeter thick se ctions and reconstructed images in the coronal plane at [address] DIAGNOSTIC QUALITY: Satisfactory FINDINGS: LUNG NODULES: Not presentLeft lung: no nodules identified.Right lung: no nodules identified. LUNGS: COPD: Severity: None Fibrosis: Severity:None Lymph nodes: None Other findings: None RIGHT PLEURAL SPACE: Effusion: None Calcification: None Thickening: None Pneumothorax: None LEFT PLEURAL SPACE: Effusion: None Calcification: None Thickening: None Pneumothorax: None HEART: Heart Size: Mildly enlarged Coronary calcification: Mild Pericardial effusion: None OTHER FINDINGS: Upper abdomen: No significant abnormality Bony thorax: Degenerative changes Supraclavicular region: No significant abnormalityOther: No significant abnormalityI IMPRESSION: No significant pulmonary nodularity appreciated. FOLLOW UP CT CHEST RECOMMENDATION: Follow-up screening in one year CT LUNG RAD: LUNG RAD CATEGORY 1 negative
== END | disposition home or self-care (01) ==
LOC: RADCTMAIN 06:25
PROVIDERS: ATTEND Family Medicine
DX: Z12.2 Encounter for screening for malignant neoplasm of respiratory organs (principal); F17.210 Nicotine dependence, cigarettes, uncomplicated
CPT/HCPCS: 71271

== ENCOUNTER → 2024-02-18 | Outpatient (CLI) | payer OTHER ==
--- NOTE | 2024-03-11 14:07 | MM ---
Reason for Exam: Screening (asymptomatic). Last mammogram was performed 7 year(s) and 1 month(s) ago. Patient History: Menarche at age 17. First Full-Term at age 30. Left ovary removed at age 49. Hysterectomy at age 49. Paternal aunt had breast cancer. Risk Values: Yaima 5 year model risk: 1.5%. NCI Lifetime model risk: 7.2%. Prior Study Comparison: 02/10/2012 Screening Mammogram, [facility]. 01/29/2017 Bilateral Screening Mammogram, [facility]. Tissue Density: There are scattered areas of fibroglandular density. Findings: Analyzed By CAD. Right breast: There is no suspicious group of microcalcifications or new suspicious mass. Left breast: There is no suspicious group of microcalcifications or new suspicious mass. Overall Assessment: Negative, BI-RAD 1 Management: Screening Mammogram of both breasts in [address] [facility] will attempt to contact patient to return for supplemental views and ultrasound if indicated. Patient should continue monthly self-breast exams. A clinical breast exam by your physician is recommended on an annual basis. This exam should not preclude additional follow-up of suspicious palpable abnormalities. Note on Yaima scores and lifetime risk: 1. A Yaima score greater than 3% is considered moderate risk. If this is the case, consider specialist referral to assess eligibility for a risk reducing agent. 2. If overall lifetime risk for the development of breast cancer is 20% or higher, the patient may qualify for future screening with alternating mammogram and breast MRI. Electronically signed and approved by: Олег Brennan DO
== END | disposition home or self-care (01) ==
LOC: RADMAMWWP 12:00
PROVIDERS: ATTEND Family Medicine
DX: Z12.31 Encounter for screening mammogram for malignant neoplasm of breast
CPT/HCPCS: 77063; 77067

== ENCOUNTER 2024-08-16 09:22 | Emergency (ER) | payer OTHER ==
--- NOTE | 2024-08-16 09:36 | ED ---
General Adult HPI - General Chief complaint: Extremity Injury, Upper Stated complaint: Fall-L arm injury Time Seen by Provider: 08/16/24 09:25 Source: patient, RN notes reviewed, old records reviewed Mode of arrival: wheelchair Limitations: no limitations - History of Present Illness Initial comments: This is a 64-year-old female who presents to the emergency department stating that she fell and broke her humerus yesterday and went to [facility]. Patient states it hurts so bad she had to come back to the hospital and she does not know what to do. Patient states they just left in the sling with splint on. Patient denies any new injury. Patient has any shoulder pain or clavicle pain. Patient states she did not hit her head or neck. Patient [place] any other symptoms - Related Data Home Medications Medication Instructions Recorded Confirmed lisinopriL [Zestril] 5 mg PO DAILY 04/12/15 10/02/21 Ergocalciferol (Vitamin D2) 50,000 unit PO JANE 04/09/17 10/02/21 [Vitamin D2] Isosorbide Mononitrate [Isosorbide 30 mg PO DAILY 04/09/17 10/02/21 Mononitrate ER] metFORMIN HCL [Glucophage] 500 mg PO DAILY 04/09/17 10/02/21 HYDROcodone/APAP 7.5-325MG [Pollock 1 tab PO BID 11/16/20 10/02/21 7.5-325] busPIRone HCL [Buspar] 7.5 mg PO BID 11/16/20 10/02/21 Albuterol Sulfate [Ventolin HFA] 2 puff INHALATION RT-Q6H PRN 08/11/21 10/02/21 Atorvastatin [Lipitor] 80 mg PO HS 08/11/21 10/02/21 FLUoxetine HCL [PROzac] 40 mg PO DAILY 08/11/21 10/02/21 Fluticasone Propionate [Flovent 1 puff INHALATION RT-BID 08/11/21 10/02/21 Hfa 220 mcg] Gabapentin [Neurontin] 300 mg PO TID 08/11/21 10/02/21 Magnesium Oxide [Mag-Ox] 400 mg PO DAILY 08/11/21 10/02/21 Sucralfate [Carafate] 1 gm PO DAILY 08/11/21 10/02/21 Umeclidinium Brm/Vilanterol Tr 1 puff INHALATION RT-DAILY 08/11/21 10/02/21 [Anoro Ellipta 62.5-25 Mcg INH] Insulin Glargine,Hum.rec.anlog 35 unit SQ HS 09/18/21 10/02/21 [Basaglar Lanepen U-100] Pantoprazole [Protonix] 40 mg PO DAILY 09/18/21 10/02/21 Aspirin 325 mg PO DAILY 10/02/21 10/02/21 Latanoprost/Pf [Latanoprost 0.005% 1 drop BOTH EYES HS 10/02/21 10/02/21 Eye Drop] Nitroglycerin Sl Tabs [Nitrostat] 0.4 mg SUBLINGUAL Q5M PRN 10/02/21 10/02/21 Verapamil HCl 40 mg PO DAILY 10/02/21 10/02/21 Previous Rx's Medication Instructions Recorded predniSONE 50 mg PO DAILY 5 Days #5 tablet 11/16/22 Allergies Allergy/AdvReac Type Severity Reaction Status Date / Time amoxicillin [From Augmentin] Allergy Intermediate Rash/Hives Verified 08/16/24 09:29 clavulanic acid Allergy Intermediate Rash/Hives Verified 08/16/24 09:29 [From Augmentin] Penicillins Allergy Rash/Hives Verified 08/16/24 09:29 Review of Systems ROS Statement: Those systems with pertinent positive or pertinent negative responses have been documented in the HPI. ROS Other: All systems not noted in ROS Statement are negative. Past Medical History Past Medical History: COPD, Diabetes Mellitus, Eye Disorder, GERD/Reflux, Hyperlipidemia, Hypertension, Osteoarthritis (OA) Additional Past Medical History / Comment(s): BRAIN ANEURYSM. MIGRAINE. Glaucoma History of Any Multi-Drug Resistant Organisms: None Reported Past Surgical History: Bowel Resection, Hernia Repair, Hysterectomy, Orthopedic Surgery, Tubal Ligation Additional Past Surgical History / Comment(s): laparoscopic fredy fundoplasty. 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 (ANGIOGRAM 08/23/14 TO CHECK STENT.) "HEAD ANEURYSM REPAIR " Past Anesthesia/Blood Transfusion Reactions: No Reported Reaction Past Psychological History: Anxiety, Depression Smoking Status: Current every day smoker Past Alcohol Use History: None Reported Past Drug Use History: None Reported - Past Family History Father Family Medical History: No Reported History Mother Family Medical History: Coronary Artery Disease (CAD), Diabetes Mellitus General Exam - General Exam Comments Initial Comments: GENERAL Patient is well-developed and well-nourished. Patient is in mild distress. EYES Patient's pupils are equal and round. Extraocular motion is intact SKIN Unremarkable NEURO The patient is alert and oriented A&Ox3 PYSCH Patient has normal interpersonal interactions. MUSCULOSKELETAL Patient's left humerus is tender in the mid humerus region Limitations: no limitations Course Vital Signs 08/16/24 09:23 Temperature 97.8 F Pulse Rate 69 Respiratory 18 Rate Blood Pressure 127/79 O2 Sat by Pulse 97 Oximetry Medical Decision Making - Medical Decision Making EKG is interpreted by myself. EKG shows a sinus rhythm at 68 bpm ID [id number] QRS is 82 QT interval 368 QTc is 386. Patient's EKG shows no ST segment elevation or depression. Was pt. sent in by a medical professional or institution (, PA, PHYSICAL THERAPY AID, urgent care, hospital, or snf...) When possible be specific @ -No Did you speak to anyone other than the patient for history (EMS, parent, family, police, friend...)? What history was obtained from this source @ -No Did you review nursing and triage notes (agree or disagree)? Why? @ -I reviewed and agree with nursing and triage notes Were old charts reviewed (outside hosp., previous admission, EMS record, old EKG, old radiological studies, urgent care reports/EKG's, snf records)? Report findings @ -No old charts were reviewed Differential Diagnosis? @ -Differential Musculoskeletal Muscular strain, contusion, ligament sprain, fracture, arthritis, septic art hritis, bursitis, cellulitis, muscle spasm, nerve compression, DVT, arterial occlusion, herpes zoster, electrolyte abnormality, tumor.... This is not meant to be in all inclusive list EKG interpreted by me (3pts min.). @ -As above X-rays interpreted by me (1pt min.). @ -X-ray of the humerus shows a mid humerus fracture CT interpreted by me (1pt min.). @ -None done U/S interpreted by me (1pt. min.). @ -None done What testing was considered but not performed or refused? (CT, X-rays, U/S, labs)? Why? @ -None What meds were considered but not given or refused? Why? @ -None Did you discuss the management of the patient with other professionals (professionals i.e. , PA, PHYSICAL THERAPY AID, lab, RT, psych nurse, social media senior associate, accounting systems analyst, teacher, railroad police officer, caseworker protective services)? Give summary @ -I spoke with Dr. Errol march and the trauma team down to [facility] and accepted the patient. I also spoke with Dr. Irvin and he wanted the patient transferred to a trauma facility Was smoking cessation discussed for >3mins.? @ -No Was critical care preformed (if so, how long)? @ -No Were there social determinants of health that impacted care today? How? (Homelessness, low income, unemployed, alcoholism, drug addiction, transportation, low edu. Level, literacy, decrease access to med. care, ch[facility], rehab)? @ -No Was there de-escalation of care discussed even if they declined (Discuss DNR or withdrawal of care, Hospice)? DNR status @ -No What co-morbidities impacted this encounter? (DM, HTN, Smoking, COPD, CAD, Cancer, CVA, ARF, Chemo, Hep., AIDS, mental health diagnosis, sleep apnea, morbid obesity)? @ -None Was patient admitted / discharged? Hospital course, mention meds given and route, prescriptions, significant lab abnormalities, going to OR and other pertinent info. @ -Hospital course Undiagnosed new problem with uncertain prognosis? @ -No Drug Therapy requiring intensive monitoring for toxicity (Heparin, Nitro, Insulin, Cardizem)? @ -No Were any procedures done? @ -No Diagnosis/symptom? @ -Humerus fracture left Acute, or Chronic, or Acute on Chronic? @ -Acute Uncomplicated (without systemic symptoms) or Complicated (systemic symptoms)? @ -Complicated Side effects of treatment? @ -No Exacerbation, Progression, or Severe Exacerbation? @ -No Poses a threat to life or bodily function? How? (Chest pain, USA, ND, pneumonia, PE, COPD, DKA, ARF, appy, cholecystitis, CVA, Diverticulitis, Homicidal, Suicidal, threat to staff... and all critical care pts) @ -No - Lab Data Result diagrams: 08/16/24 10:53 08/16/24 10:53 Lab Results 08/16/24 08/16/24 08/16/24 Range/Units 10:53 10:53 10:53 WBC 13.4 H (3.8-10.6) k/uL RBC 3.94 (3.80-5.40) m/uL Hgb 12.7 (11.4-16.0) gm/dL Hct 37.9 (34.0-46.0) % MCV 96.1 (80.0-100.0) fL MCH 32.2 (25.0-35.0) pg MCHC 33.5 (31.0-37.0) g/dL RDW 13.9 (11.5-15.5) % Plt Count 309 (150-450) k/uL MPV 7.3 Neutrophils % 67 % Lymphocytes % 24 % Monocytes % 7 % Eosinophils % 1 % Basophils % 0 % Neutrophils # 9.0 H (1.3-7.7) k/uL Lymphocytes # 3.2 (1.0-4.8) k/uL Monocytes # 0.9 (0-1.0) k/uL Eosinophils # 0.1 (0-0.7) k/uL Basophils # 0.0 (0-0.2) k/uL PT 10.5 (10.0-12.5) sec INR 0.9 (<1.2) APTT 22.6 (22.0-30.0) sec Sodium 136 L (137-145) mmol/L Potassium 5.6 H (3.5-5.1) mmol/L Chloride 102 (98-107) mmol/L Carbon Dioxide 23 (22-30) mmol/L Anion Gap 11 mmol/L BUN 34 H (7-17) mg/dL Creatinine 0.78 (0.52-1.04) mg/dL Est GFR (CKD-EPI)AfAm >90 (>60 ml/min/1.73 sqM) Est GFR (CKD-EPI)NonAf 82 (>60 ml/min/1.73 sqM) Glucose 100 H (74-99) mg/dL Calcium 10.7 H (8.4-10.2) mg/dL Total Bilirubin 0.7 (0.2-1.3) mg/dL AST 27 (14-36) U/L ALT 20 (4-34) U/L Alkaline Phosphatase 83 (38-126) U/L Total Protein 7.8 (6.3-8.2) g/dL Albumin 4.8 (3.5-5.0) g/dL Disposition Clinical Impression: Fracture of humerus Disposition: OTHER INSTITUTION NOT DEFINED Referrals: Seng Mckeon DO [Primary Care Provider] - 1-2 days Time of Disposition: 11:46 - Out of Hospital Transfer - Req. Specs Out of Hospital Transfer - Requested Specifics: Other Emergency Center ([facility])
[2024-08-16] MEDS: KETOROLAC 15 MG/ML 1 ML VIAL IM STA (09:40)
[2024-08-16] MEDS: HYDROmorphone 0.5 MG/0.5 ML SYRINGE IM STA (09:41)
--- NOTE | 2024-08-16 09:57 | XR ---
EXAMINATION TYPE: XR humerus LT DATE OF EXAM: 08/16/2024 9:52 AM COMPARISON: None CLINICAL INDICATION: Female, 64 years old with history of Fall; PHH, pain TECHNIQUE: XR humerus LT examined in frontal and lateral projections. FINDINGS/IMPRESSION: Comminuted somewhat transverse mid diaphysis fracture approximately 10 mm from the tip of the shoulde r arthroplasty stem. The bone around the shoulder arthroplasty appears intact. [facility], , 08/16/2024 9:54 AM
[2024-08-16 11:19] LABS: Basophils % (A) 0 %; Eosinophils # (A) 0.1 k/uL (0-0.7); Eosinophils % (A) 1 %; HCT 37.9 % (34.0-46.0); HGB 12.7 gm/dL (11.4-16.0); Lymphocytes # (A) 3.2 k/uL (1.0-4.8); Lymphocytes % (A) 24 %; MCH 32.2 pg (25.0-35.0); MCHC 33.5 g/dL (31.0-37.0); MCV 96.1 fL (80.0-100.0); Mean Platelet Volume 7.3; Monocytes # (A) 0.9 k/uL (0-1.0); Monocytes % (A) 7 %; Neutrophils % (A) 67 %; Platelet Count 309 k/uL (150-450); RBC 3.94 m/uL (3.80-5.40); RDW 13.9 % (11.5-15.5); WBC 13.4 k/uL (3.8-10.6)
[2024-08-16] MEDS: HYDROmorphone 0.5 MG/0.5 ML SYRINGE IVP STA (11:28)
[2024-08-16 11:33] LABS: ALT 20 U/L (4-34); AST 27 U/L (14-36); African American GFR (CKD) >90 (>60 ml/min/1.73 sqM); Albumin 4.8 g/dL (3.5-5.0); Alkaline Phosphatase 83 U/L (38-126); Anion Gap 11 mmol/L; Blood Urea Nitrogen 34 mg/dL (7-17); Calcium 10.7 mg/dL (8.4-10.2); Carbon Dioxide 23 mmol/L (22-30); Chloride 102 mmol/L (98-107); Glucose 100 mg/dL (74-99); Non-African American GFR(CKD) 82 (>60 ml/min/1.73 sqM); Potassium 5.6 mmol/L (3.5-5.1); Sodium 136 mmol/L (137-145); Total Bilirubin 0.7 mg/dL (0.2-1.3); Total Protein 7.8 g/dL (6.3-8.2)
--- NOTE | 2024-08-16 11:36 | XR ---
EXAMINATION TYPE: XR chest 2V DATE OF EXAM: 08/16/2024 11:25 AM COMPARISON: Chest radiographs from 01/30/2021 CLINICAL INDICATION: Female, 64 years old with history of Difficulty breathing ; [facility] TECHNIQUE: XR chest 2V Frontal and lateral views of the chest. FINDINGS: Lungs/Pleura: There is no evidence of pleural effusion, focal consolidation, or pneumothorax. Pulmonary vascularity: Unremarkable. Heart/mediastinum: Cardiomediastinal silhouette is unremarkable. Atherosclerotic calcifications are seen in the aorta. Musculoskeletal: No acute osseous pathology. IMPRESSION: No acute cardiopulmonary disease/process. [facility], , 08/16/2024 11:34 AM
[2024-08-16 11:41] LABS: INR 0.9 (<1.2); Partial Thromboplastin Time 22.6 sec (22.0-30.0); Prothrombin Time 10.5 sec (10.0-12.5)
[2024-08-16 12:39] VITALS: BP 169/83; PULSE 71; RESP 16; TEMP 98.4
== END 2024-08-16 12:40 | disposition other institution (70) ==
LOC: EC 09:22
DX: S42.202A Unspecified fracture of upper end of left humerus, initial encounter for closed fracture (principal); F17.200 Nicotine dependence, unspecified, uncomplicated; Z88.0 Allergy status to penicillin; Z88.1 Allergy status to other antibiotic agents; W19.XXXA Unspecified fall, initial encounter
CPT/HCPCS: 36415; 93005; 80053; 85025; 85610; 85730; 73060; 71046; 99285; 96374; 96372; J1885; J1171